=== PATIENT | female | born 1980 | race Hispanic/Latino ===

== ENCOUNTER 2019-08-19 02:21 | Inpatient (IN) | payer MEDICAID ==
[~2019-08-19] VITALS: Ht 144.8 cm; Wt 84.4 kg
--- OUTSIDE RECORDS SUMMARY | ~2019-08-19 | XMS | Encounter Summary ---
Demographics + + + | Address | [address] | | | [place] [address] | + + + | Home Phone | | + + + | Preferred Language | Unknown | + + + | Marital Status | | + + + | Synagogue Affiliation | 1041 | + + + | Race | Unknown | + + + | Ethnic Group | Unknown | + + + Author + + + | Author | [facility] | | | and [place] | + + + | Organization | [facility] | | | and [place] | + + + | Address | Unknown | + + + | Phone | Unavailable | + + + Support + + + + + | Name | Relationship | Address | Phone | + + + + + | Sekou Dougherty | ECON | [address] | | | | | [place] | | | | | [place] [address] | | + + + + + Care Team Providers + +------+ + | Care Proposal Coordinator Name | Role | Phone | + +------+ + | Dillon Govea MD | PCP | | + +------+ + Encounter Details +--------+ + + + + | Date | Type | Department | Care Team | Description | +--------+ + + + + | 06/22/ | Orders Only | [facility] | Dillon Govea, | | | 2018 | | MEDICINE [address] | [address] [facility] | | | | | [address] [place] | [place] | | | | | [place] [id number] | [id number] | | | | | [phone] | | | +--------+ + + + + Social History + +-------+ +--------+------+ | Tobacco Use | Types | Packs/Day | Years | Date | | | | | Used | | + +-------+ +--------+------+ | Never Smoker | | | | | + +-------+ +--------+------+ + +---+---+---+ | Smokeless Tobacco: | | | | | Never Used | | | | + +---+---+---+ + + +---------+ + | Alcohol Use | Drinks/Week | oz/Week | Comments | + + +---------+ + | Yes | | | occasionaly | + + +---------+ + + + + | Sex Assigned at | Date Recorded | | | | + + + | Not on file | | + + + + + + + | Job Start Date | Occupation | Industry | + + + + | Not on file | Not on file | Not on file | + + + + + + + + | Travel History | Travel Start | Travel End | + + + + + + | No recent travel history available. | + + documented as of this encounter Plan of Treatment Not on filedocumented as of this encounter Visit Diagnoses Not on filedocumented in this encounter"
--- OUTSIDE RECORDS SUMMARY | ~2019-08-19 | XMS | Encounter Summary ---
Demographics + + + | Address | [address] | | | [place] [address] | + + + | Home Phone | | + + + | Preferred Language | Unknown | + + + | Marital Status | | + + + | Buddhist Affiliation | 1041 | + + + | Race | Unknown | + + + | Ethnic Group | Unknown | + + + Author + + + | Author | [facility] | | | and [place] | + + + | Organization | [facility] | | | [...] [address] | | | | | [place] | | | | | [place] [address] | | + + + + + Care Team Providers + +------+ + | Care Stock Receiver Name | Role | Phone | + +------+ + | Dillon Govea MD | PCP | | + +------+ + Reason for Visit + + + | Reason | Comments | + + + | Cough | | + + + | Sore Throat | | + + + Encounter Details +--------+ + + + + | Date | Type | Department | Care Team | Description | +--------+ + + + + | 04/25/ | Emergency | [facility] | Remigio Banda | Bronchitis with | | 2018 | | [facility] | [facility] [place] [address] | bronchospasm | | | | CENTER [address] | [address] [facility] | (Primary Dx) | | | | [place], [place] | [place] [address] | | | | | [address] | [phone] | | | | | [phone] | | | +--------+ + + + [...] + + documented as of this encounter Last Filed Vital Signs + + + + + | Vital Sign | Reading | Time Taken | Comments | + + + + + | Blood Pressure | 134/79 | 04/25/2019 7:42 PM | | | | | PDT | | + + + + + | Pulse | 117 | 04/25/2019 8:55 PM | | | | | PDT | | + + + + + | Temperature | 38.8 C (101.8 F) | 04/25/2019 7:42 PM | | | | | PDT | | + + + + + | Respiratory Rate | 22 | 04/25/2019 8:55 PM | | | | | PDT | | + + + + + | Oxygen Saturation | 97% | 04/25/2019 8:55 PM | | | | | PDT | | + + + + + | Inhaled Oxygen | - | - | | | Concentration | | | | + + + + + | Weight | 77.1 kg (170 lb) | 04/25/2019 7:42 PM | | | | | PDT | | + + + + + | Height | 144.8 cm (4' 9") | 04/25/2019 7:42 PM | | | | | PDT | | + + + + + | Body Mass Index | 36.79 | 04/25/2019 7:42 PM | | | | | PDT | | + + + + + documented in this encounter Discharge Instructions AttachmentsThe following attachments cannot be sent through Care Everywhere.Bronchitis with Wheezing (Adult) ([place])documented in this encounter Medications at Time of Discharge + + + +---------+ + + | Medication | Sig | Dispensed | Refills | Start | End Date | | | | | | Date | | + + + +---------+ + + | acetaminophen | Take 650 mg by mouth | | 0 | | | | (TYLENOL) 325 mg | every 4 hours as | | | | 9 | | tablet | needed for Pain. | | | | | + + + +---------+ + + | albuterol 90 | Inhale 2 puffs into | 1 | 0 | 04/25/20 | | | mcg/puff inhaler | the lungs every 6 | Inhaler | | 19 | 9 | | | hours as needed for | | | | | | | Wheezing. | | | | | + + + +---------+ + + | albuterol 90 | Inhale 2 puffs into | 1 | 0 | 02/11/20 | | | mcg/puff inhaler | the lungs every 4 | Inhaler | | 19 | 9 | | | hours as needed for | | | | | | | Wheezing or | | | | | | | Shortness of Breath. | | | | | | | Use with spacer | | | | | | | device. | | | | | + + + +---------+ + + | azithromycin | Take 2 tablets by | 6 | 0 | 04/25/20 | | | (ZITHROMAX) 250 mg | mouth on day 1, and | tablet | | 19 | 9 | | tablet | 1 tablet by mouth | | | | | | | every day | | | | | + + + +---------+ + + | | Take 10 mLs by mouth | 120 mL | 0 | 04/25/20 | | | guaiFENesin-codeine | every 6 hours as | | | 19 | 0 | | (ROBITUSSIN AC) | needed for Cough. | | | | | | 100-10 mg/5 mL | | | | | | | liquid | | | | | | + + + +---------+ + + | ibuprofen | Take 1 tablet by | 30 | 0 | 04/25/20 | | | (ADVIL,MOTRIN) 600 | mouth every 6 hours | tablet | | 19 | 9 | | MG tablet | as needed for Pain. | | | | | + + + +---------+ + + | ibuprofen | Take 600 mg by mouth | | 0 | | | | (ADVIL,MOTRIN) 600 | every 6 hours as | | | | 9 | | MG tablet | needed for Pain. | | | | | + + + +---------+ + + | predniSONE | Take 1 tablet by | 5 | 0 | 04/25/20 | | | (DELTASONE) 50 mg | mouth Daily for 5 | tablet | | 19 | 9 | | tablet | days. | | | | | + + + +---------+ + + documented as of this encounter Plan of Treatment Not on filedocumented as of this encounter Procedures + +--------+ + + + | Procedure Name | Priori | Date/Time | Associated Diagnosis | Comments | | | ty | | | | + +--------+ + + + | XR CHEST AP PORTABLE | STAT | 04/25/2019 | | Results for this | | | | 8:45 PM | | procedure are in the | | | | PDT | | results section. | + +--------+ + + + documented in this encounter Results XR Chest AP Portable (04/25/2019 8:45 PM PDT) + + | Specimen | + + | | + + + + + | Narrative | Performed At | + + + | CLINICAL INFORMATION: COUGH SORE THROAT. COMPARISON: | [facility] | | 02/10/2019. FINDINGS: Portable frontal chest radiograph | | | Lungs: No focal airspace disease, pleural effusion, or pneumothorax. | | | Minimal scarring at the left lung base. Heart/mediastinum: | | | Cardiac silhouette is of normal size. Central pulmonary vasculature | | | has a normal appearance. Bones: No acute osseous abnormality | | | appreciated. IMPRESSION - No acute disease. Dictated and | | | Signed by: Kel Jones MD Electronically signed: 04/26/2019 | | | 2:13 PM | | + + + + + | Procedure Note | + + | Vaibhav, Rad Results In - 04/26/2019 2:16 PM PDT | | CLINICAL INFORMATION: COUGH | | SORE THROAT. | | | | COMPARISON: 02/10/2019. | | | | FINDINGS: | | Portable frontal chest radiograph | | | | Lungs: No focal airspace disease, pleural effusion, or pneumothorax. Minimal | | scarring at the left lung base. | | | | Heart/mediastinum: Cardiac silhouette is of normal size. Central pulmonary | | vasculature has a normal appearance. | | | | Bones: No acute osseous abnormality appreciated. | | | | IMPRESSION - No acute disease. | | | | Dictated and Signed by: Kel Jones MD | | Electronically signed: 04/26/2019 2:13 PM | + + + +---------+ + + | Performing | Address | City/State/Zipcode | Phone Number | | Organization | | | | + +---------+ + + | [facility] | | | | + +---------+ + + documented in this encounter Visit Diagnoses + + | Diagnosis | + + | Bronchitis with bronchospasm - Primary Acute bronchitis | + + documented in this encounter Administered Medications + +--------+ +-------+------+------+ | Medication Order | MAR | Action | Dose | Rate | Site | | | Action | Date | | | | + +--------+ +-------+------+------+ | albuterol-ipratropium 2.5-0.5 | Given | 04/25/20 | 3 mLs | | | | mg/3 mL nebulizer solution 3 mL | | 19 8:51 | | | | | 3 mL, Nebulization, ONCE, Sat | | PM PDT | | | | | 04/25/19 at 2040, For 1 dose | | | | | | + +--------+ +-------+------+------+ +---+---+ | | | +---+---+ + +-------+ +-------+---+---+ | dexamethasone (DECADRON) 10 | Given | 04/25/20 | 10 mg | | | | mg/mL injection for oral use 10 | | 19 8:48 | | | | | mg 10 mg, Oral, ONCE, Sat | | PM PDT | | | | | 04/25/19 at 2039, For 1 dose, Use | | | | | | | dexamethasone 10 mg/mL vial for | | | | | | | inject for this oral dose, | | | | | | + +-------+ +-------+---+---+ +---+---+ | | | +---+---+ + +-------+ +--------+---+---+ | guaiFENesin-codeine (ROBITUSSIN | Given | 04/25/20 | 10 mLs | | | | AC) 100-10 mg/5 mL liquid 10 mL | | 19 8:49 | | | | | 10 mL, Oral, ONCE, 04/25/19 | | PM PDT | | | | | at 2039, For 1 dose | | | | | | + +-------+ +--------+---+---+ +---+---+ | | | +---+---+ + +-------+ +--------+---+---+ | ibuprofen (ADVIL,MOTRIN) tablet | Given | 04/25/20 | 600 mg | | | | 600 mg 600 mg, Oral, ONCE, Sat | | 19 8:49 | | | | | 04/25/19 at 2039, For 1 dose, Give | | PM PDT | | | | | with food., | | | | | | + +-------+ +--------+---+---+ +---+---+ | | | +---+---+ + +-------+ + +---+---+ | oxyCODONE-acetaminophen | Given | 04/25/20 | 1 tablet | | | | (PERCOCET) 5-325 mg per tablet 1 | | 19 8:49 | | | | | tablet 1 tablet, Oral, ONCE, Sat | | PM PDT | | | | | 04/25/19 at 2039, For 1 dose | | | | | | + +-------+ + +---+---+ +---+---+ | | | +---+---+ documented in this encounter
--- OUTSIDE RECORDS SUMMARY | ~2019-08-19 | XMS | Encounter Summary ---
Demographics + + + | Address | [address] | | | [place] [address] | + + + | Home Phone | | + + + | Preferred Language | Unknown | + + + | Marital Status | | + + + | Gnosticism Affiliation | 1041 | + + + | Race | Unknown | + + + | Ethnic Group | Unknown | + + + Author + + + | Author | [facility] | | | and [place] | + + + | Organization | [facility] | | | [...] Darrian [address] | | | | | [address] [place] | | | | | [place] [address] | | + + + + + Care Team Providers + +------+ + | Care Dowel Pin Man Name | Role | Phone | + +------+ + | Dillon Govea MD | PCP | | + +------+ + Reason for Referral Evaluate & Treat (Routine) + + + + + + + | Status | Reason | Specialty | Diagnoses / | Referred By | Referred To | | | | | Procedures | Contact | Contact | + + + + + + + | Authorized | Specialty | Obstetrics | Diagnoses | Brown, | Phil, | | | Services | and | Cyst of | Donald Gonzalez, | Stone | | | Required | Gynecology | left ovary | MD [address] [place] | | | | | | [address] | MD [place] | | | | | | [facility] | [address] | | | | | | [place], | [place] | | | | | | [place] | [place], [place] | | | | | | [address] | [address] | | | | | | Phone: | Phone: | | | | | | [phone] | [phone] | | | | | | Fax: | | | | | | | [phone] | | + + + + + + + Reason for Visit + + + | Reason | Comments | + + + | Flank Pain | right | + + + | Cough | | + + + | Wheezing | | + + + Encounter Details +--------+ + + + + | Date | Type | Department | Care Team | Description | +--------+ + + + + | 06/14/ | Emergency | [facility] | Donald Arriaga, | Bronchitis with | | 2018 | | [facility] | MD [address] | bronchospasm | | | | CENTER [address] | [facility] [place] | (Primary Dx); Cyst | | | | [place], [place] | [place] [address] | of left ovary | | | | [address] | [phone] | | | | | [phone] | | | +--------+ + + + [...] + + + | Blood Pressure | 146/87 | 06/14/2019 4:32 AM | | | | | PST | | + + + + + | Pulse | 84 | 06/14/2019 4:32 AM | | | | | PST | | + + + + + | Temperature | 36.8 C (98.3 F) | 06/14/2019 1:27 AM | | | | | PDT | | + + + + + | Respiratory Rate | 18 | 06/14/2019 4:32 AM | | | | | PST | | + + + + + | Oxygen Saturation | 96% | 06/14/2019 4:32 AM | | | | | PST | | + + + + + | Inhaled Oxygen | - | - | | | Concentration | | | | + + + + + | Weight | 74.8 kg (165 lb) | 06/14/2019 1:27 AM | | | | | PDT | | + + + + + | Height | 144.8 cm (4' 9") | 06/14/2019 1:27 AM | | | | | PDT | | + + + + + | Body Mass Index | 35.71 | 06/14/2019 1:27 AM | | | | | PDT | | + + + + + documented in this encounter Discharge Instructions Instructions Donald Arriaga MD - 06/14/2019Take the medicines as prescribed Outpatient pelvic ultrasound Follow-up with [facility] Follow-up with primary care AttachmentsThe following attachments cannot be sent through Care Everywhere.Ovarian Cyst (E nglish)Bronchitis, Acute (Cambodian)documented in this encounter Medications at Time of [...] puffs into | 1 | 0 | 06/14/20 | | | mcg/puff inhaler | the lungs every 4 | Inhaler | | 19 | 0 | | | hours as needed for [...] + +---------+ + + | | Take 1-2 tablets by | 16 | 0 | 06/14/20 | | | HYDROcodone-acetamin | mouth every 6 hours | tablet | | 19 | 9 | | ophen (NORCO) 5-325 | as needed for Pain. | | | | | | mg per tablet | | | | | | + + + +---------+ + + | methylPREDNISolone | Follow package | 21 | 0 | 06/14/20 | | | (MEDROL DOSEPAK) 4 | directions. | tablet | | 19 | 0 | | mg tablet | | | | | | + + + +---------+ + + | ondansetron | Take 1 tablet by | 12 | 0 | 06/14/20 | | | (ZOFRAN ODT) 4 mg | mouth every 8 hours | tablet | | 19 | 9 | | disintegrating | as needed for up to | | | | | | tablet | 12 doses. | | | | | + + + +---------+ + + documented as of this encounter Plan of Treatment +--------+---------+ + + + | Date | Type | Specialty | Care Team | Description | +--------+---------+ + + + | 08/20/ | Office | Internal Medicine | Dillon Govea, | | | 2019 | Visit | | MD [facility] | | | | | | [place] | | | | | | [id number] | | | | | | | | +--------+---------+ + + + + +---------+--------+ + + | Name | Type | Priori | Associated Diagnoses | Order Schedule | | | | ty | | | + +---------+--------+ + + | US Pelvis W | Imaging | Routin | Cyst of left ovary | Expected: | | Transvaginal | | e | | 06/14/2019, Expires: | | | | | | 06/14/2020 | + +---------+--------+ + + + + +--------+ + + | Name | Type | Priori | Associated Diagnoses | Order Schedule | | | | ty | | | + + +--------+ + + | [place] | Outpatient | Routin | Cyst of left ovary | Ordered: 06/14/2019 | | [facility] | Referral | e | | | | [facility] - | | | | | | AMB Referral | | | | | + + +--------+ + + documented as of this encounter Procedures + +--------+ + + + | Procedure Name | Priori | Date/Time | Associated Diagnosis | Comments | | | ty | | | | + +--------+ + + + | CT RENAL STONE WO | STAT | 06/14/2019 | | Results for this | | CONTRAST | | 3:30 AM | | procedure are in the | | | | PST | | results section. | + +--------+ + + + | POCT TEST, | STAT | 06/14/2019 | | Results for this | | URINE, QUAL | | 1:51 AM | | procedure are in the | | | | PDT | | results section. | + +--------+ + + + | XR CHEST AP PORTABLE | STAT | 06/14/2019 | | Results for this | | | | 1:46 AM | | procedure are in the | | | | PDT | | results section. | + +--------+ + + + | URINALYSIS WITH | STAT | 06/14/2019 | | Results for this | | MICROSCOPIC WITH | | 1:35 AM | | procedure are in the | | CULTURE IF INDICATED | | PDT | | results section. | + +--------+ + + + documented in this encounter Results CT Renal Stone Wo Contrast (06/14/2019 3:30 AM PST) + + | Specimen | + + | | + + + + + | Narrative | Performed At | + + + | CT ABDOMEN AND PELVIS WITHOUT CONTRAST CLINICAL INFORMATION: | [facility] | | Flank pain. COMPARISON: None PROCEDURE: Axial images | | | through the abdomen and pelvis. Multiplanar reconstructions. At | | | least one of the following CT dose optimization techniques were used: | | | Automated exposure control; Adjustment of mA and/or kV according to | | | patient size; Use of iterative reconstruction technique. FINDINGS: | | | LUNG BASES: No significant pulmonary abnormality. No pleural | | | effusion or pneumothorax. ABDOMEN Liver and Biliary: Hepatic | | | steatosis. Gallbladder is normal. No biliary ductal dilatation. | | | Pancreas, Spleen and Adrenals: Normal adrenal, spleen and pancreas | | | morphology, without adjacent stranding or hematoma. 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 No hydronephrosis. No | | | renal, ureteral, or bladder calculi. ABDOMEN AND PELVIS Bowel: | | | No small bowel or colonic dilation or adjacent inflammation. No | | | appendiceal dilation or inflammation. Vessels: Abdominal aorta normal | | | in caliber. No aneurysm. Veins not assessed without contrast. | | | Lymph Nodes: No adenopathy. Peritoneum and Retroperitoneum: No | | | ascites or free air. No significant retroperitoneal abnormality. | | | PELVIS Genitourinary: There is a large cystic lesion measuring 9.8 x | | | 12.3 cm within the central upper pelvis which appears to be emanating | | | from the left ovary. BODY WALL Soft Tissues: No bowel or | | | inflamed fat containing hernia, mass or hemorrhage. Bones: No acute | | | fracture or vertebral end plate destruction. No lytic or blastic | | | lesion. 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 IMPRESSION- 1. | | | 12.3 cm cystic lesion within the central pelvis which appears to | | | emanate from the left ovary. See recommendations below. 2. No | | | renal, ureteral, or bladder calculi. 3. Hepatic steatosis. 4. 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 Ovary/adnexal follow up recommendation: Ovarian | | | cysts with features such as, non-characteristic symptomatic cysts, | | | cysts greater than 10 cm, cysts with solid components, mural nodules, | | | thick septations or other signs of malignancy warrant further | | | evaluation. This may be performed with prompt ultrasound evaluation | | | and/or gynecologic consultation. A preliminary report was | | | sent without significant discrepancy. Dictated and Signed by: Cedric | | | MD Gloria Electronically signed: 06/14/2019 8:21 AM | | + + + + + | Procedure Note | + + | Vaibhav, Rad Results In - 06/14/2019 8:24 AM PST | | CT ABDOMEN AND PELVIS WITHOUT CONTRAST | | | | CLINICAL INFORMATION: | | Flank pain. | | | | COMPARISON: | | None | | | | PROCEDURE: | | Axial images through the abdomen and pelvis. Multiplanar | | reconstructions. | | | | At least one of the following CT dose optimization techniques were | | used: Automated exposure control; Adjustment of mA and/or kV according | | to patient size; Use of iterative reconstruction technique. | | | | FINDINGS: | | LUNG BASES: No significant pulmonary abnormality. No pleural effusion | | or pneumothorax. | | | | ABDOMEN | | Liver and Biliary: Hepatic steatosis. Gallbladder is normal. No | | biliary ductal dilatation. | | Pancreas, Spleen and Adrenals: Normal adrenal, spleen and pancreas | | morphology, without adjacent stranding or hematoma. | | Kidneys: The right kidney is duplicated and malrotated. No hydronephrosis. | | No renal, ureteral, or bladder calculi. | | | | ABDOMEN AND PELVIS | | Bowel: No small bowel or colonic dilation or adjacent inflammation. No | | appendiceal dilation or inflammation. | | Vessels: Abdominal aorta normal in caliber. No aneurysm. Veins not | | assessed without contrast. | | Lymph Nodes: No adenopathy. | | Peritoneum and Retroperitoneum: No ascites or free air. No significant | | retroperitoneal abnormality. | | | | PELVIS | | Genitourinary: There is a large cystic lesion measuring 9.8 x 12.3 cm | | within the central upper pelvis which appears to be emanating from the | | left ovary. | | | | BODY WALL | | Soft Tissues: No bowel or inflamed fat containing hernia, mass or | | hemorrhage. | | Bones: No acute fracture or vertebral end plate destruction. No lytic | | or blastic lesion. Bilateral hip acetabular over coverage of the hips compatible | | with Pincer Type acetabular CAM deformity. | | | | | | IMPRESSION- | | 1. 12.3 cm cystic lesion within the central pelvis which appears to emanate from | | the left ovary. See recommendations below. | | 2. No renal, ureteral, or bladder calculi. | | 3. Hepatic steatosis. | | 4. Bilateral hip acetabular over coverage of the hips compatible with Pincer | | Type acetabular CAM deformity. | | 5. Duplicated and malrotated right kidney. | | | | Ovary/adnexal follow up recommendation: Ovarian cysts with features | | such as, non-characteristic symptomatic cysts, cysts greater than 10 | | cm, cysts with solid components, mural nodules, thick septations or | | other signs of malignancy warrant further evaluation. This may be | | performed with prompt ultrasound evaluation and/or gynecologic | | consultation. | | | | | | A preliminary report was sent without significant discrepancy. | | | | Dictated and Signed by: Cedric Castro MD | | Electronically signed: 06/14/2019 8:21 AM | + + + +---------+ + + | Performing | Address | City/State/Zipcode | Phone Number | | Organization | | | | + +---------+ + + | [facility] | | | | + +---------+ + + POCT Test, Urine, QUAL (06/14/2019 1:51 AM PDT) + + + + + + | Component | Value | Ref Range | Performed | Pathologist | | | | | At | Signature | + + + + + + | | Negative | Negative | | | | Test, | | | | | | Urine, POC | | | | | + + + + + + | Internal QC | Acceptable | Acceptable | | | + + + + + + | Specific | 1.010 | 1.010, 1.015, | | | | [place], | | 1.020, 1.025 | | | | POC | | | | | + + + + + + | Lot Number | | | | | + + + + + + | Expiration | | | | | | Date | | | | | + + + + + + + + | Specimen | + + | Urine | + + XR Chest AP Portable (06/14/2019 1:46 AM PDT) + + | Specimen | + + | | + + + + + | Impressions | Performed At | + + + | No acute intrathoracic abnormality identified. Dictated and | [facility] | | Signed by: Cedric Castro MD Electronically signed: 06/14/2019 | | | 10:46 AM | | + + + + + + | Narrative | Performed At | + + + | XR CHEST AP PORTABLE 06/14/2019 1:40 AM HISTORY: FLANK PAIN | [facility] | | COUGH WHEEZING. COMPARISON: 04/25/2019 Findings: The | | | bilateral lungs are clear with no evidence for pleural effusion or | | | pneumothorax. Heart size is within normal limits. Pulmonary | | | vasculature is within normal limits. Aorta is normal. Mediastinum is | | | unremarkable. No acute osseous or soft tissue abnormality identified. | | | | | + + + + + | Procedure Note | + + | Vaibhav, Rad Results In - 06/14/2019 10:49 AM PST XR CHEST AP PORTABLE 06/14/2019 1:40 AM | | | | HISTORY: FLANK PAIN | | COUGH | | WHEEZING. | | | | COMPARISON: 04/25/2019 | | | | Findings: | | The bilateral lungs are clear with no evidence for pleural effusion or | | pneumothorax. Heart size is within normal limits. Pulmonary vasculature is | | within normal limits. Aorta is normal. Mediastinum is unremarkable. No acute | | osseous or soft tissue abnormality identified. | | | | IMPRESSION: | | No acute intrathoracic abnormality identified. | | | | Dictated and Signed by: Cedric Castro MD | | Electronically signed: 06/14/2019 10:46 AM | + + + +---------+ + + | Performing | Address | City/State/Zipcode | Phone Number | | Organization | | | | + +---------+ + + | [facility] | | | | + +---------+ + + Urinalysis with Microscopic with Culture if Indicated (06/14/2019 1:35 AM PDT) + + + + + + | Component | Value | Ref Range | Performed | Pathologist | | | | | At | Signature | + + + + + + | Color, | Yellow | Light Yellow, | [facility] | | | Urine | | Yellow, Straw | [facility] | | | | | | [facility] | | | | | | [facility] - | | | | | | LABORATORY | | + + + + + + | Clarity | Cloudy (A) | Clear | [facility] | | | | | | [facility] | | | | | | [facility] | | | | | | [facility] - | | | | | | LABORATORY | | + + + + + + | pH, Urine | 5.0 | 5.0 - 8.0 | [facility] | | | | | | [facility] | | | | | | [facility] | | | | | | [facility] - | | | | | | LABORATORY | | + + + + + + | Specific | 1.017 | 1.001 - 1.030 | [facility] | | | [place] | | | [facility] | | | | | | [facility] | | | | | | [facility] - | | | | | | LABORATORY | | + + + + + + | Protein, | Negative | Negative | [facility] | | | Urine | | | [facility] | | | | | | [facility] | | | | | | [facility] - | | | | | | LABORATORY | | + + + + + + | Blood, | Small (A) | Negative | [facility] | | | Urine | | | [facility] | | | | | | [facility] | | | | | | [facility] - | | | | | | LABORATORY | | + + + + + + | Glucose, | Negative | Negative | [facility] | | | Urine | | | [facility] | | | | | | [facility] | | | | | | [facility] - | | | | | | LABORATORY | | + + + + + + | Ketones, | Negative | Negative | [facility] | | | Urine | | | [facility] | | | | | | [facility] | | | | | | [facility] - | | | | | | LABORATORY | | + + + + + + | Bilirubin, | Negative | Negative | [facility] | | | Urine | | | [facility] | | | | | | [facility] | | | | | | [facility] - | | | | | | LABORATORY | | + + + + + + | Nitrite, | Negative | Negative | [facility] | | | Urine | | | [facility] | | | | | | [facility] | | | | | | [facility] - | | | | | | LABORATORY | | + + + + + + | Leukocyte | Trace (A) | Negative | [facility] | | | Esterase, | | | [facility] | | | Urine | | | MEDICAL | | | | | | CENTER - | | | | | | LABORATORY | | + + + + + + | Urobilinoge | Negative | 0.2 mg/dL, 1.0 | [facility] | | | n, Urine | | mg/dL, Negative | [facility] | | | | | | [facility] | | | | | | C[facility] - | | | | | | LABORATORY | | + + + + + + | WBC UA | 2-5 (A) | 0 - 2 /HPF | [facility] | | | | | | [facility] | | | | | | [facility] | | | | | | [facility] - | | | | | | LABORATORY | | + + + + + + | RBC UA | 0-2 | 0 - 2 /HPF | [facility] | | | | | | [facility] | | | | | | [facility] | | | | | | [facility] - | | | | | | LABORATORY | | + + + + + + | SQUAMOUS | >100 (A) | 0 - 2 /LPF | [facility] | | | EPITHELIAL | | | [facility] | | | UA | | | MEDICAL | | | | | | CENTER - | | | | | | LABORATORY | | + + + + + + | BACTERIA UA | Negative | Negative /HPF | [facility] | | | | | | [facility] | | | | | | [facility] | | | | | | C[facility] - | | | | | | LABORATORY | | + + + + + + | MUCUS UA | Present (A) | Negative /LPF | [facility] | | | | | | [facility] | | | | | | [facility] | | | | | | C[facility] - | | | | | | LABORATORY | | + + + + + + | URINE | Urine Culture Not | | [facility] | | | COMMENT | Indicated | | [facility] | | | | | | [facility] | | | | | | C[facility] - | | | | | | LABORATORY | | + + + + + + + + | Specimen | + + | Urine - Urine | | specimen obtained by | | clean catch | | procedure (specimen) | + + + + + + + | Performing | Address | City/State/Zipcode | Phone Number | | Organization | | | | + + + + + | [facility] | [address] | [place] | [phone] | | [facility] | | [address] | | | - LABORATORY | | | | + + + + + documented in this encounter Visit Diagnoses + + | Diagnosis | + + | Bronchitis with bronchospasm - Primary Acute bronchitis | + + | Cyst of left ovary Other and unspecified ovarian cyst | + + documented in this encounter Administered Medications + +--------+ +-------+------+------+ | Medication Order | MAR | Action | Dose | Rate | Site | | | Action | Date | | | | + +--------+ +-------+------+------+ | albuterol-ipratropium 2.5-0.5 | Given | 06/14/20 | 3 mLs | | | | mg/3 mL nebulizer solution 3 mL | | 19 2:36 | | | | | 3 mL, Nebulization, RT Once, Sun | | AM PST | | | | | 06/14/19 at 0135, For 1 dose | | | | | | + +--------+ +-------+------+------+ +---+---+ | | | +---+---+ + +-------+ +------+---+---+ | dexamethasone (DECADRON) tablet | Given | 06/14/20 | 4 mg | | | | 4 mg 4 mg, Oral, ONCE, Sun | | 19 4:27 | | | | | 06/14/19 at 0415, For 1 dose | | AM PST | | | | + +-------+ +------+---+---+ +---+---+ | | | +---+---+ + +-------+ +---------+---+---+ | HYDROcodone-acetaminophen | Given | 06/14/20 | 2 | | | | (NORCO) 5-325 mg per tablet 2 | | 19 1:45 | tablets | | | | tablet 2 tablet, Oral, ONCE, Sun | | AM PDT | | | | | 06/14/19 at 0140, For 1 dose | | | | | | + +-------+ +---------+---+---+ +---+---+ | | | +---+---+ + +-------+ +------+---+---+ | ondansetron (ZOFRAN ODT) | Given | 06/14/20 | 4 mg | | | | disintegrating tablet 4 mg 4 mg, | | 19 1:55 | | | | | Oral, ONCE, 06/14/19 at 0150, | | AM PDT | | | | | For 1 dose | | | | | | + +-------+ +------+---+---+ +---+---+ | | | +---+---+ documented in this encounter
--- OUTSIDE RECORDS SUMMARY | ~2019-08-19 | XMS | Encounter Summary ---
Demographics + + + | Address | [address] | | | [place] [address] | + + + | Home Phone | | + + + | Preferred Language | Unknown | + + + | Marital Status | | + + + | Alevism Affiliation | 1041 | + + + | Race | Unknown | + + + | Ethnic Group | Unknown | + + + Author + + + | Author | [facility] | | | and [place] | + + + | Organization | [facility] | | | [...] [place] | | | | | [place] [address] | | + + + + + Care Team Providers + +------+ + | Care Informatics Spec Name | Role | Phone | + +------+ + | Dillon Govea MD | PCP | | + +------+ + Reason for Visit +--------+ + | Reason | Comments | +--------+ + | Other | | +--------+ + Encounter Details +--------+ + + + + | Date | Type | Department | Care Team | Description | +--------+ + + + + | 07/02/ | Telephone | [facility] | Dillon Govea, | Other | | 2018 | | MEDICINE [address] | [address] | | | [address] [place] | [place] | | | | | [place] [address] | [address] | | | | | [phone] | | | +--------+ + + + [...]
--- OUTSIDE RECORDS SUMMARY | ~2019-08-19 | XMS | Encounter Summary ---
Demographics + + + | Address | [address] | | | [place] [address] | + + + | Home Phone | | + + + | Preferred Language | Unknown | + + + | Marital Status | | + + + | Church Affiliation | 1041 | + + + | Race | Unknown | + + + | Ethnic Group | Unknown | + + + Author + + + | Author | [facility] | | | and [place] | + + + | Organization | [facility] | | | and [place] | + + + | Address | Unknown | + + + | Phone | Unavailable | + + + Support + + + + + | Name | Relationship | Address | Phone | + + + + + | Sekou Dougherty | ECON | [address] | | | | | [place] | | | | | [place] [address] | | + + + + + Care Team Providers + +------+ + | Care Director Economic Name | Role | Phone | + +------+ + | Dillon Govea MD | PCP | | + +------+ + Reason for Visit +--------+ + | Reason | Comments | +--------+ + | Cough | x 4 weeks | +--------+ + Encounter Details +--------+---------+ + + + | Date | Type | Department | Care Team | Description | +--------+---------+ + + + | 11/07/ | Office | [facility] | Caitlyn Beverly | Acute bronchitis due | | 2018 | Visit | [facility] [address] | [address] | to Streptococcus | | | | [address] [place] | [facility] | (Primary Dx) | | | | [place] [address] | [facility], | | | | | [phone] | [place] [address] | | | | | | [phone] | | | | | | | | +--------+---------+ + + + Social History + +-------+ [...] + + + | Blood Pressure | 104/70 | 11/07/2017 10:05 AM | | | | | PDT | | + + + + + | Pulse | 75 | 11/07/2017 10:05 AM | | | | | PDT | | + + + + + | Temperature | 36.7 C (98.1 F) | 11/07/2017 10:05 AM | | | | | PDT | | + + + + + | Respiratory Rate | 16 | 11/07/2017 10:05 AM | | | | | PDT | | + + + + + | Oxygen Saturation | 99% | 11/07/2017 10:05 AM | | | | | PDT | | + + + + + | Inhaled Oxygen | - | - | | | Concentration | | | | + + + + + | Weight | 80 kg (176 lb 5.9 | 11/07/2017 10:05 AM | | | | oz) | PDT | | + + + + + | Height | 144.8 cm (4' 9") | 11/07/2017 10:05 AM | | | | | PDT | | + + + + + | Body Mass Index | 38.17 | 11/07/2017 10:05 AM | | | | | PDT | | + + + + + documented in this encounter Patient Instructions Patient Instructions Caitlyn Beverly ARNP - 11/07/2017 10:14 AM PDT Viral or Bacterial Bronchitis with Wheezing(Adult) Bronchitis is an infection of the air passages. It often occurs during a cold and is usuall y caused by a virus. Symptoms include cough with mucus (phlegm) and low-grade fever. This il lness is contagious during the first few days and is spread through the air by coughing and sneezing, or by direct contact (touching the sick person and then touching your own eyes, no se, or mouth). If there is a lot of inflammation, air flow is restricted. The air passages may also go int o spasm, especially if you have asthma. This causes wheezing and difficulty breathing even i n people who do not have asthma. Bronchitis usually lasts 7 to 14 days. The wheezing should improve with treatment during th e first week. An inhaler is often prescribed to relax the air passages and stop wheezing. An tibiotics will be prescribed if your doctor thinks there is also a secondary bacterial infec tion. Home care If symptoms are severe, rest at home for the first 2 to 3 days. When you go back to your usual activities, don't let yourself get too tired. Do not smoke. Also avoid being exposed to secondhand smoke. You may use jmkq-mjf-kqhdhpr medicine to control fever or pain, unless another medicine was prescribed. Note: If you have chronic liver or kidney disease or have ever had a stomach ulcer or gastrointestinal bleeding, talk with your healthcare provider before using these m edicines. Also talk to your provider if you are taking medicine to prevent blood clots.) Asp irin should never be given to anyone younger than 18 years of age who is ill with a viral in fection or fever. It may cause severe liver or brain damage. Your appetite may be poor, so a light diet is fine. Avoid dehydration by drinking 6 to 8 glasses of fluids per day (such as water, soft drinks, sports drinks, juices, tea, or soup) . Extra fluids will help loosen secretions in the nose and lungs. Rdbe-bcq-wgsthgk cough, cold, and sore-throat medicines will not shorten the length of t he illness, but they may be helpful to reduce symptoms. (Note: Do not use decongestants if y ou have high blood pressure.) If you were given an inhaler, use it exactly as directed. If you need to use it more oft en than prescribed, your condition may be worsening. If this happens, contact your healthcar e provider. If prescribed, finish all antibiotic medicine, even if you are feeling better after only a few days. Follow-up care Follow up with your healthcare provider, or as advised. If you had an X-ray or ECG (electro cardiogram), a specialist will review it. You will be notified of any new findings that may affect your care. If you are age 65 or older, or if you have a chronic lung disease or condition that affects your immune system, or you smoke, ask your healthcare provider about getting a pneumococcal vaccine and a yearly flu shot (influenza vaccine). When to seek medical advice Call your healthcare provider right away if any of these occur: Fever of 100.4F (38C) or higher, or as directed by your healthcare provider Coughing up increasing amounts of colored sputum Weakness, drowsiness, headache, facial pain, ear pain, or a stiff neck Call 911 Call 911 if any of these occur. Coughing up blood Worsening weakness, drowsiness, headache, or stiff neck Increased wheezing not helped with medication, shortness of breath, or pain with breathi ng Date Last Reviewed: 04/24/201519995981-0582 [employer]. [address] [place] [address], [place] [address]. All righ ts reserved. This information is not intended as a substitute for professional medical care. Always follow your healthcare professional's instructions. Self-Care for Sore Throats Sore throats happen for many reasons, such as colds, allergies, and infections caused by vi ruses or bacteria. In any case, your throat becomes red and sore. Your goal for self-care is to reduce your discomfort while giving your throat a chance to heal. Moisten and soothe your throat Tips include the following: Try a sip of water first thing after waking up. Keep your throat moist by drinking6 or more glasses of clear liquids every day. Run a cool-air humidifier in your room overnight. Avoid cigarette smoke. Suck on throat lozenges, cough drops, hard candy, ice chips, or frozen fruit-juice bars. Use the sugar-free versions if your diet or medical condition requires them. Gargle to ease irritation Gargling every hour or2 can ease irritation. Try gargling with1 of these solutions: 1/4teaspoon of salt in1/2 cup of warm water An ynoq-sde-hztvmaq anesthetic gargle Use medicine for more relief Zjej-dyg-ebmftnv medicine can reduce sore throat symptoms. Ask your pharmacist if you have questions about which medicine to use: Ease pain with anesthetic sprays. Aspirin or an aspirin substitute also helps. Remember, never give aspirin to anyone 18 or younger, or if you are alreadytaking blood thinners. For sore throats caused by allergies, try antihistamines to block the allergic reaction. Remember: unless a sore throat is caused by a bacterial infection, antibiotics won t h elp you. Prevent future sore throats Prevention tips include the following: Stop smoking or reduce contact with secondhand smoke. Smoke irritates the tender throat lining. Limit contact with pets and with allergy-causing substances, such as pollen and mold. When you re around someone with a sore throat or cold, wash your hands often to keep v iruses or bacteria from spreading. Don t strain your vocal cords. Call your healthcare provider Contact your healthcare provider if you have: A temperature over 101F (38.3C) White spots on the throat Great difficulty swallowing Trouble breathing A skin rash Recent exposure to someone else with strep bacteria Severe hoarseness and swollen glands in the neck or jaw Date Last Reviewed: 03/12/201619996432-2757 [employer]. [address] [place] [address]. All righ ts reserved. This information is not intended as a substitute for professional medical care. Always follow your healthcare professional's instructions. documented in this encounter Progress Notes Caitlyn Beverly ARNP - 11/07/2017 10:20 AM PDTFormatting of this note might be differ ent from the original. Subjective: Holly Barnes is a 37 y.o. female who presents to the clinic with a complaint of Cough (x 4 weeks) Cough This is a new problem. Episode onset: 4 weeks ago. The problem has been gradually worsening . The problem occurs constantly. The cough is non-productive. Associated symptoms include he adaches, myalgias, postnasal drip, rhinorrhea, a sore throat, shortness of breath and wheezi ng. Pertinent negatives include no chest pain, chills, ear congestion, ear pain, fever, hear tburn, hemoptysis, nasal congestion, rash, sweats or weight loss. The symptoms are aggravate d by lying down. She has tried OTC cough suppressant for the symptoms. The treatment provide d no relief. Her past medical history is significant for bronchitis, environmental allergies and pneumonia. There is no history of asthma. No Known Allergies Medications: Patient Reported Taking Dosage DiphenhydrAMINE HCl (BENADRYL ALLERGY PO) (Taking) Take by mouth. Fexofenadine HCl (MUCINEX ALLERGY PO) (Taking) Take by mouth. ibuprofen (ADVIL, MOTRIN) 200 mg tablet (Taking) Take 1,200 mg by mouth every 6 hours as needed for Pain. Number of times this order has been changed since signin Order Audit [place] Hgrgobwbz-Dhkdkqnxhi-AY-APAP (NYQUIL PO) (Taking) Take by mouth. Past Medical History She has a past medical history of Anxiety; Back pain; Depression; Dry skin dermatitis; Join t pain; and Rash. Past Surgical History She has a past surgical history that includes none. Social History Substance Use Topics Smoking status: Never Smoker Smokeless tobacco: Never Used Alcohol use Yes Comment: occasionaly Review of Systems Constitutional: Negative for chills, fever and weight loss. HENT: Positive for postnasal drip, rhinorrhea and sore throat. Negative for ear pain. Respiratory: Positive for cough, shortness of breath and wheezing. Negative for hemoptysis. Cardiovascular: Negative for chest pain. Gastrointestinal: Negative for heartburn. Musculoskeletal: Positive for myalgias. Skin: Negative for rash. Allergic/Immunologic: Positive for environmental allergies. Neurological: Positive for headaches. See HPI Objective: Vitals: 11/07/17 1005 BP: 104/70 Pulse: 75 Resp: 16 Temp: 36.7 C (98.1 F) TempSrc: Oral SpO2: 99% Weight: 80 kg (176 lb 5.9 oz) Height: 1.448 m (4' 9") Patient's last menstrual period was 10/29/2017. Physical Exam Constitutional: She is oriented to person, place, and time. She appears well-developed and well-nourished. She appears ill. No distress. HENT: Head: Normocephalic and atraumatic. Right Ear: Tympanic membrane, external ear and ear canal normal. Left Ear: Tympanic membrane, external ear and ear canal normal. Nose: Mucosal edema and rhinorrhea present. Mouth/Throat: Uvula is midline and mucous membranes are normal. Oropharyngeal exudate, post erior oropharyngeal edema and posterior oropharyngeal erythema present. Petechiae on soft palate, white patches on tonsils. Moderate erythema and edema of turbinat es with mucoid discharge Eyes: Conjunctivae are normal. Pupils are equal, round, and reactive to light. Right eye ex hibits no discharge. Left eye exhibits no discharge. Neck: Normal range of motion. Neck supple. No tracheal deviation present. Cardiovascular: Regular rhythm, S1 normal, S2 normal and normal heart sounds. Tachycardia present. Exam reveals no gallop and no friction rub. No murmur heard. Pulmonary/Chest: Effort normal. No stridor. No respiratory distress. She has decreased dwain th sounds (mild in bases). She has wheezes (expiratory throughout). She has no rhonchi. She has no rales. She exhibits no tenderness. Lymphadenopathy: Head (right side): Tonsillar adenopathy present. Head (left side): Tonsillar adenopathy present. She has cervical adenopathy. Right cervical: No posterior cervical adenopathy present. Left cervical: No posterior cervical adenopathy present. Neurological: She is alert and oriented to person, place, and time. Skin: Skin is warm and dry. No rash noted. Psychiatric: She has a normal mood and affect. Her behavior is normal. Nursing note and vitals reviewed. Assessment: 1. Acute bronchitis due to Streptococcus azithromycin (ZITHROMAX) 250 mg tablet benzonatate (TESSALON) 100 mg capsule guaiFENesin-codeine (ROBITUSSIN AC) 100-10 mg/5 mL liquid predniSONE (DELTASONE) 20 mg tablet albuterol 90 mcg/puff inhaler Plan: 1. Acute bronchitis due to Streptococcus - azithromycin (ZITHROMAX) 250 mg tablet; Take 2 tablets by mouth on day 1, then 1 tablet d aily for 4 more days Dispense: 6 tablet; Refill: 0 - benzonatate (TESSALON) 100 mg capsule; Take 1-2 capsules by mouth 3 times daily as needed for Cough. Dispense: 30 capsule; Refill: 1 - guaiFENesin-codeine (ROBITUSSIN AC) 100-10 mg/5 mL liquid; Take 5 mLs by mouth nightly as needed, may repeat x 1 for Cough. Dispense: 120 mL; Refill: 0 - predniSONE (DELTASONE) 20 mg tablet; Take 2 tablets by mouth every morning for 5 days. D ispense: 10 tablet; Refill: 0 - albuterol 90 mcg/puff inhaler; Inhale 2 puffs into the lungs every 4 hours as needed for Shortness of Breath. Dispense: 1 Inhaler; Refill: 1 See AVS for patient instructions. Diagnosis and plan including medications and side effects were discussed with the patient a nd information handout was given. Patient voices understanding of the plan and all questions were answered. Follow up with Primary Care Provider or return to clinic if not improving in 3-5 days or if symptoms worsen. documented in this encounter Plan of Treatment Not on filedocumented as of this encounter Visit Diagnoses + + | Diagnosis | + + | Acute bronchitis due to Streptococcus - Primary Acute bronchitis | + + documented in this encounter
--- OUTSIDE RECORDS SUMMARY | ~2019-08-19 | XMS | Encounter Summary ---
Demographics + + + | Address | [address] | | | [place] [address] | + + + | Home Phone | | + + + | Preferred Language | Unknown | + + + | Marital Status | | + + + | Shinto Affiliation | 1041 | + + + | Race | Unknown | + + + | Ethnic Group | Unknown | + + + Author + + + | Author | [facility] | | | and [place] | + + + | Organization | [facility] | | | [...] [place] | | | | | [place] [address] | | + + + + + Care Team Providers + +------+ + | Care Ssis Architect Name | Role | Phone | + +------+ + | Dillon Govea MD | PCP | | + +------+ + Encounter Details +--------+ + + + + | Date | Type | Department | Care Team | Description | +--------+ + + + + | 08/18/ | Patient | [facility] | Dillon Govea, | Preventive Screening | | 2019 | Outreach | MEDICINE [address] | [address] [facility] | | | | | [address] [place] | [place] | | | | | [place] [address] | [address] | | | | | [phone] | | | +--------+ + + + [...] | + +--------+ + + + | EXTERNAL LAB: PAP | Routin | 07/24/2017 | | Results for this | | SMEAR | e | | | procedure are in the | | | | | | results section. | + +--------+ + + + documented in this encounter Results External Lab: PAP Smear (07/24/2017) + + + + + + | Component | Value | Ref Range | Performed | Pathologist | | | | | At | Signature | + + + + + + | Pap Smear, | No evidence of | | | | | External | intraepithelial lesion | | | | | | or malignancy | | | | + + + + + + documented in this encounter Visit Diagnoses Not on filedocumented in this encounter"
--- OUTSIDE RECORDS SUMMARY | ~2019-08-19 | XMS | Encounter Summary ---
Demographics + + + | Address | [address] | | | [place] [address] | + + + | Home Phone | | + + + | Preferred Language | Unknown | + + + | Marital Status | | + + + | Roman Catholic Affiliation | 1041 | + + + | Race | Unknown | + + + | Ethnic Group | Unknown | + + + Author + + + | Author | [facility] | | | and [place] | + + + | Organization | [facility] | | | and [...] [place] | | | | | [place] [address] | | + + + + + Care Team Providers + +------+ + | Care X Ray Tech Name | Role | Phone | + +------+ + | Dillon Govea MD | PCP | | + +------+ + Reason for Visit + + + | Reason | Comments | + + + | ER Follow-up | | + + + Encounter Details +--------+ + + + + | Date | Type | Department | Care Team | Description | +--------+ + + + + | 05/08/ | Telephone | [facility] | Dillon Govea, | ER Follow-up | | 2018 | | MEDICINE [address] | [address] [facility] | | | | | [address] [place] | [place] [facility], [place] | | | | | [place] [address] | [address] | | | | | [phone] | | | +--------+ + + + [...]
--- OUTSIDE RECORDS SUMMARY | ~2019-08-19 | XMS | Encounter Summary ---
Demographics + + + | Address | [address] | | | [place] [address] | + + + | Home Phone | | + + + | Preferred Language | Unknown | + + + | Marital Status | | + + + | Gnosticism Affiliation | 1041 | + + + | Race | Unknown | + + + | Ethnic Group | Unknown | + + + Author + + + | Author | [facility] | | | and [place] | + + + | Organization | [facility] | | | and [...] [place] | | | | | [place] [address] | | + + + + + Care Team Providers + +------+ + | Care Glost Tile Shader Name | Role | Phone | + +------+ + | Dillon Govea MD | PCP | | + +------+ + Reason for Visit + + + | Reason | Comments | + + + | Flu Like Symptoms | | + + + | Chest Pain | | + + + Encounter Details +--------+ + + + + | Date | Type | Department | Care Team | Description | +--------+ + + + + | 08/14/ | Emergency | [facility] | Jose Monterroso | Pneumonia due to | | 2019 - | | [facility] | MD Rafita [address] | infectious organism, | | | | [place] [address] | [facility] | unspecified | | 08/15/ | | [address] | [place] [address] | laterality, | | 2019 | | [address] | [phone] | unspecified part of | | | | [phone] | | lung (Primary Dx) | +--------+ + + + + Social [...] + + + | Blood Pressure | 106/64 | 08/14/2019 11:59 PM | | | | | PST | | + + + + + | Pulse | 94 | 08/14/2019 11:59 PM | | | | | PST | | + + + + + | Temperature | 38 C (100.4 F) | 08/14/2019 10:42 PM | | | | | PST | | + + + + + | Respiratory Rate | 22 | 08/14/2019 8:42 PM | | | | | PST | | + + + + + | Oxygen Saturation | 92% | 08/14/2019 11:59 PM | | | | | PST | | + + + + + | Inhaled Oxygen | - | - | | | Concentration | | | | + + + + + | Weight | 87.1 kg (192 lb) | 08/14/2019 8:42 PM | | | | | PST | | + + + + + | Height | 144.8 cm (4' 9") | 08/14/2019 8:42 PM | | | | | PST | | + + + + + | Body Mass Index | 41.55 | 08/14/2019 8:42 PM | | | | | PST | | + + + + + documented in this encounter Discharge Instructions AttachmentsThe following attachments cannot be sent through Care Everywhere.Mara Escobedo (Polish)Pneumonia, What Is (Polish)Pneumonia, Preventing (Polish)documented in this encounter Medications at Time of Discharge + + + +---------+ + + | Medication | Sig | Dispensed | Refills | Start | End Date | | | | | | Date | | + + + +---------+ + + | acetaminophen | Take 2 tablets by | 32 | 0 | 08/15/19 | | | (TYLENOL) 325 mg | mouth every 6 hours | tablet | | 20 | 0 | | tablet | as needed for Pain | | | | | | | for up to 4 days. | | | | | + + + +---------+ + + | azithromycin | Take 2 tablets by | 6 | 0 | 08/15/19 | | | (ZITHROMAX) 250 mg | mouth on day 1, and | tablet | | 20 | | | tablet | 1 tablet by mouth | | | | | | | every day | | | | | + + + +---------+ + + | cefdinir (OMNICEF) | Take 1 capsule by | 14 | 0 | 08/15/19 | | | 300 mg capsule | mouth 2 times daily | capsule | | 20 | 0 | | | for 7 days. | | | | | + + + +---------+ + + | oseltamivir | Take 1 capsule by | 10 | 0 | 08/14/19 | | | (TAMIFLU) 75 mg | mouth 2 times daily | capsule | | 20 | 0 | | capsuleIndications: | for 5 days. | | | | | | Influenza | Indications: Flu | | | | | + + + +---------+ + + | ibuprofen (ADVIL, | Take 1 tablet by | 12 | 0 | 08/15/19 | | | MOTRIN) 400 mg | mouth every 8 hours | tablet | | 20 | 0 | | tablet | as needed for up to | | | | | | | 3 days. | | | | | + [...] [place] | | | | | | [address] | | | | | | | | +--------+---------+ + + + + + +--------+ + + | Name | Type | Priori | Associated Diagnoses | Date/Time | | | | ty | | | + + +--------+ + + | ED INFORMATION | KHADIJAH | Routin | | 08/14/2019 8:37 PM | | EXCHANGE | | e | | PST | + + +--------+ + + | Culture, Blood | Microbiolog | STAT | | 08/14/2019 10:02 PM | | | y | | | PST | + + +--------+ + + | Culture, Blood | Microbiolog | STAT | | 08/14/2019 9:57 PM | | | y | | | PST | + + +--------+ + + documented as of this encounter Procedures + +--------+ + + + | Procedure Name | Priori | Date/Time | Associated Diagnosis | Comments | | | ty | | | | + +--------+ + + + | XR CHEST AP PORTABLE | STAT | 08/14/2019 | | Results for this | | | | 11:57 PM | | procedure are in the | | | | PST | | results section. | + +--------+ + + + | URINALYSIS WITH | STAT | 08/14/2019 | | Results for this | | MICROSCOPIC WITH | | 9:57 PM | | procedure are in the | | CULTURE IF INDICATED | | PST | | results section. | + +--------+ + + + | INFLUENZA A AND B | STAT | 08/14/2019 | | Results for this | | RNA, NAAT | | 9:57 PM | | procedure are in the | | | | PST | | results section. | + +--------+ + + + | PROCALCITONIN, SERUM | STAT | 08/14/2019 | | Results for this | | | | 9:57 PM | | procedure are in the | | | | PST | | results section. | + +--------+ + + + | TROPONIN I | STAT | 08/14/2019 | | Results for this | | | | 9:57 PM | | procedure are in the | | | | PST | | results section. | + +--------+ + + + | HCG, URINE, QUAL | Add-On | 08/14/2019 | | Results for this | | | | 9:57 PM | | procedure are in the | | | | PST | | results section. | + +--------+ + + + | PROTIME INR | STAT | 08/14/2019 | | Results for this | | | | 9:57 PM | | procedure are in the | | | | PST | | results section. | + +--------+ + + + | D-DIMER | STAT | 08/14/2019 | | Results for this | | | | 9:57 PM | | procedure are in the | | | | PST | | results section. | + +--------+ + + + | CBC WITH | STAT | 08/14/2019 | | Results for this | | DIFFERENTIAL | | 9:57 PM | | procedure are in the | | | | PST | | results section. | + +--------+ + + + | B TYPE NATRIURETIC | STAT | 08/14/2019 | | Results for this | | PEPTIDE | | 9:57 PM | | procedure are in the | | | | PST | | results section. | + +--------+ + + + | LACTIC ACID | STAT | 08/14/2019 | | Results for this | | | | 9:57 PM | | procedure are in the | | | | PST | | results section. | + +--------+ + + + | COMPREHENSIVE | STAT | 08/14/2019 | | Results for this | | METABOLIC PANEL | | 9:57 PM | | procedure are in the | | | | PST | | results section. | + +--------+ + + + | ECG 12 LEAD | STAT | 08/14/2019 | | Results for this | | | | 8:52 PM | | procedure are in the | | | | PST | | results section. | + +--------+ + + + documented in this encounter Results XR Chest AP Portable (08/14/2019 11:57 PM PST) + + | Specimen | + + | | + + + + + | Impressions | Performed At | + + + | Findings are most likely a pneumonia with possible pulmonary | [facility] | | venous congestion. Recommendation: Given the morphology recommend | | | a follow-up in 6-8 weeks to ensure resolution. Dictated and | | | Signed by: Geovany Alfred MD Electronically signed: 08/15/2019 9:21 | | | AM | | + + + + + + | Narrative | Performed At | + + + | EXAM: XR CHEST AP PORTABLE dated 08/14/2019 11:57 PM HISTORY: FLU | [facility] | | LIKE SYMPTOMS CHEST PAIN Comparison: 06/14/2019 TECHNIQUE: A | | | single portable view of the chest. FINDINGS: Prominent | | | pulmonary vasculature bilaterally. There is a somewhat rounded area | | | of consolidation adjacent to the right hilum. There is prominence | | | of the right hilum. Hazy density is present in the right lower | | | lung. There is no blunting of the costophrenic angles. No | | | pneumothorax. There is borderline cardiomegaly. | | + + + + + | Procedure Note | + + | Vaibhav, Rad Results In - 08/15/2019 9:24 AM PST EXAM: XR CHEST AP PORTABLE dated | | 08/14/2019 11:57 PMHISTORY: FLU LIKE SYMPTOMSCHEST PAINComparison: 06/14/2019TECHNIQUE: A | | single portable view of the chest.FINDINGS:Prominent pulmonary vasculature bilaterally. | | There is a somewhat rounded areaof consolidation adjacent to the right hilum. There is | | prominence of the righthilum. Hazy density is present in the right lower lung. There | | is no bluntingof the costophrenic angles. No pneumothorax. There is borderline | | cardiomegaly.IMPRESSION: Findings are most likely a pneumonia with possible pulmonary | | venous congestion.Recommendation: Given the morphology recommend a follow-up in 6-8 | | weeks toensure resolution.Dictated and Signed by: Geovany Alfred MD Electronically | | signed: 08/15/2019 9:21 AM | | | |Prominent pulmonary vasculature bilaterally. There is a somewhat rounded area | |of consolidation adjacent to the right hilum. There is prominence of the right | |hilum. Hazy density is present in the right lower lung. There is no blunting | |of the costophrenic angles. No pneumothorax. There is borderline cardiomegaly. | | | | | |IMPRESSION: | | | |Findings are most likely a pneumonia with possible pulmonary venous congestion. | | | |Recommendation: Given the morphology recommend a follow-up in 6-8 weeks to | |ensure resolution. | | | |Dictated and Signed by: Geovany Alfred MD | | Electronically signed: 08/15/2019 9:21 AM | + + + +---------+ + + | Performing | Address | City/State/Zipcode | Phone Number | | Organization | | | | + +---------+ + + | [facility] | | | | + +---------+ + + , Urine, Qual (08/14/2019 9:57 PM PST) + + + + + + | Component | Value | Ref Range | Performed | Pathologist | | | | | At | Signature | + + + + + + | HCG SCREEN, | Negative | Negative | [facility] | | | URINE | | | [facility] | | | | | | MEDICAL | | | | | | CENTER - | | | | | | LABORATORY | | + + + + + + + + | Specimen | + + | Urine | + + + + + + + | Performing | Address | City/State/Zipcode | Phone Number | | Organization | | | | + + + + + | [facility] | [address] | [place] | [phone] | | [facility] | | [address] | | | - LABORATORY | | | | + + + + + Lactic Acid (08/14/2019 9:57 PM PST) + +-------+ + + + | Component | Value | Ref Range | Performed | Pathologist | | | | | At | Signature | + +-------+ + + + | Lactate | 1.6 | 0.5 - 2.2 | [facility] | | | | | mmol/L | [facility] | | | | | | MEDICAL | | | | | | CENTER - | | | | | | LABORATORY | | + +-------+ + + + + + | Specimen | + + | Blood | + + + + + + + | Performing | Address | City/State/Zipcode | Phone Number | | Organization | | | | + + + + + | [facility] | [address] | [place] | [phone] | | [facility] | | [address] | | | - LABORATORY | | | | + + + + + B Type Natriuretic Peptide (08/14/2019 9:57 PM PST) + + + + + + | Component | Value | Ref Range | Performed | Pathologist | | | | | At | Signature | + + + + + + | BNP | 15Comment: New method in | <100 pg/mL | [facility] | | | | use as of October 08, | | [facility] | | | | 2019. Check reference | | MEDICAL | | | | range for changes.Some | | CENTER - | | | | analytes show | | LABORATORY | | | | significant variation | | | | | | from the previous | | | | | | method.It may be | | | | | | necessary to set a new | | | | | | baseline for this | | | | | | analyte. | | | | + + + + + + + + | Specimen | + + | Blood | + + + + + + + | Performing | Address | City/State/Zipcode | Phone Number | | Organization | | | | + + + + + | [facility] | [address] | [place] | [phone] | | [facility] | | [address] | | | - LABORATORY | | | | + + + + + Troponin I (08/14/2019 9:57 PM PST) + + + + + + | Component | Value | Ref Range | Performed | Pathologist | | | | | At | Signature | + + + + + + | Troponin I | <0.01Comment: | <0.06 ng/mL | [facility] | | | | Comment:Reference | | [facility] | | | | Ranges: 0.00-0.06 = | | MEDICAL | | | | NORMAL >0.06 = | | CENTER - | | | | SUSPICIOUS FOR | | LABORATORY | | | | MYOCARDIAL DAMAGE NOTE: | | | | | | Values greater than | | | | | | 0.78 ng/mL have been | | | | | | shown to be strongly | | | | | | associated with acute | | | | | | myocardial infarction. | | | | | | The [employer] | | | | | | Cardiology (ACC) | | | | | | recommends a decision | | | | | | limit of 0.06 ng/mL for | | | | | | this assay. Results | | | | | | greater than 0.06 can | | | | | | reflect a pre-infarct | | | | | | acute coronary syndrome, | | | | | | but can also reflect | | | | | | myocardial necrosis or | | | | | | injury that is not due | | | | | | to coronary artery | | | | | | disease. Some of these | | | | | | causes are sepsis, | | | | | | hypocolemia, atrial | | | | | | fibrillation, heart | | | | | | failure, pulmonary | | | | | | embolism, myocarditis, | | | | | | myocardial contusion, | | | | | | and renal failure. The | | | | | | diagnosis of myocardial | | | | | | infarction should be | | | | | | based on a combination | | | | | | of the patient's | | | | | | clinical presentation | | | | | | and the clinical | | | | | | laboratory test results | | | | | | (especially serial | | | | | | troponin levels). | | | | + + + + + + + + | Specimen | + + | Blood | + + + + + + + | Performing | Address | City/State/Zipcode | Phone Number | | Organization | | | | + + + + + | [facility] | [address] | [place] | [phone] | | [facility] | | [address] | | | - LABORATORY | | | | + + + + + D-Dimer (08/14/2019 9:57 PM PST) + + + + + + | Component | Value | Ref Range | Performed | Pathologist | | | | | At | Signature | + + + + + + | D-Dimer | <0.27Comment: This | <=0.50 ug/mL | [facility] | | | Quantitativ | quantitative D-Dimer | FEU | [facility] | | | e | assay has been evaluated | | MEDICAL | | | | for screening for | | CENTER - | | | | venous thrombotic | | LABORATORY | | | | disease, and may be | | | | | | useful in ruling out, | | | | | | but not ruling in | | | | | | disease. Values less | | | | | | than 0.50 ug/mL FEU | | | | | | (Fibrinogen Equivalent | | | | | | Units) have a negative | | | | | | predictive value of | | | | | | approximately 95% for | | | | | | ruling out large | | | | | | pulmonary emboli or | | | | | | proximal deep vein | | | | | | thrombosis. Distal DVT | | | | | | are not excluded. An | | | | | | elevated D-dimer can be | | | | | | present in patients with | | | | | | liver disease, | | | | | | , eclampsia, | | | | | | heart disease and some | | | | | | cancers among other | | | | | | conditions. The presence | | | | | | of rheumatoid factor at | | | | | | a level >50 IU/mL may | | | | | | falsely elevate the | | | | | | determined D-dimer | | | | | | levels. | | | | + + + + + + + + | Specimen | + + | Blood | + + + + + + + | Performing | Address | City/State/Zipcode | Phone Number | | Organization | | | | + + + + + | [facility] | [address] | [place] | [phone] | | [facility] | | [address] | | | - LABORATORY | | | | + + + + + Urinalysis with Microscopic with Culture if Indicated (08/14/2019 9:57 PM PST) + + + + + + | Component | Value | Ref Range | Performed | Pathologist | | | | | At | Signature | + + + + + + | Color, | Yellow | Light Yellow, | [facility] | | | Urine | | Yellow, Straw | [facility] | | | | | | MEDICAL | | | | | | CENTER - | | | | | | LABORATORY | | + + + + + + | Clarity | Cloudy (A) | Clear | [facility] | | | | | | [facility] | | | | | | MEDICAL | | | | | | CENTER - | | | | | | LABORATORY | | + + + + + + | pH, Urine | 8.0 | 5.0 - 8.0 | [facility] | | | | | | [facility] | | | | | | MEDICAL | | | | | | CENTER - | | | | | | LABORATORY | | + + + + + + | Specific | 1.013 | 1.001 - 1.030 | [facility] | | | Guild | | | [facility] | | [...] + + + + | Leukocyte | Negative | Negative | [facility] | | | Esterase, | | | [facility] | | | Urine | | | MEDICAL | | | | | | CENTER - | | | | | | LABORATORY | | + + + + + + | Urobilinoge | 2.0 mg/dL (A) | 0.2 mg/dL, 1.0 | [facility] | | | n, Urine | | mg/dL, Negative | [facility] | | | | | | MEDICAL | | | | | | CENTER - | | | | | | LABORATORY | | + + + + + + | WBC UA | 0-2 | 0 - 2 [...] + + + + | SQUAMOUS | 25-50 (A) | 0 - 2 /LPF | [...] | | | | | | [facility] | | | | | | MEDICAL | | | | | | CENTER - | | | | | | LABORATORY | | + + + + + + | AMORPHOUS | Few (A) | None Seen /HPF | [facility] | | | [facility] | | | [facility] | | [...] + + | Urine | + + + + + + + | Performing | Address | City/State/Zipcode | Phone Number | | Organization | | | | + + + + + | [facility] | [address] | [place] | [phone] | | [facility] | | [address] | | | - LABORATORY | | | | + + + + + Influenza A and B RNA, NAAT (08/14/2019 9:57 PM PST) + + + + + + | Component | Value | Ref Range | Performed | Pathologist | | | | | At | Signature | + + + + + + | Influenza A | Negative | Negative, Test | [facility] | | | PCR | | not performed | [facility] | | | | | | [facility] | | | | | | CENTER - | | | | | | LABORATORY | | + + + + + + | Influenza B | Negative | Negative, Test | [facility] | | | PCR | | not performed | [facility] | | | | | | MEDICAL | | | | | | CENTER - | | | | | | LABORATORY | | + + + + + + + + | Specimen | + + | Tissue - Entire | | nasopharynx (body | | structure) | + + + + + + + | Performing | Address | City/State/Zipcode | Phone Number | | Organization | | | | + + + + + | [facility] | [address] | [place] | [phone] | | [facility] | | [address] | | | - LABORATORY | | | | + + + + + Protime INR (08/14/2019 9:57 PM PST) + + + + + + | Component | Value | Ref Range | Performed | Pathologist | | | | | At | Signature | + + + + + + | Prothrombin | 12.6 | 11.3 - 13.9 | [facility] | | | Time | | seconds | [facility] | | | | | | MEDICAL | | | | | | CENTER - | | | | | | LABORATORY | | + + + + + + | INR | 0.9Comment: Usual Oral | 0.9 - 1.1 | [facility] | | | | Anticoagulation Range: | | [facility] | | | | 2.0 - 3.0High | | MEDICAL | | | | Level Oral | | CENTER - | | | | Anticoagulation Range: | | LABORATORY | | | | 2.5 - 3.5 | | | | + + + + + + + + | Specimen | + + | Blood | + + + + + + + | Performing | Address | City/State/Zipcode | Phone Number | | Organization | | | | + + + + + | [facility] | [address] | [place] | [phone] | | [facility] | | [address] | | | - LABORATORY | | | | + + + + + Procalcitonin (08/14/2019 9:57 PM PST) + + + + + + | Component | Value | Ref Range | Performed | Pathologist | | | | | At | Signature | + + + + + + | Procalciton | <0.05 | <=0.50 ng/mL | [facility] | | | in | | | [facility] | | | | | | MEDICAL | | | | | | CENTER - | | | | | | LABORATORY | | + + + + + + | Comment | Comment: < 0.50 | | [facility] | | | | ng/mL:Procalcitonin | | [facility] | | | | levels below 0.50 ng/mL | | MEDICAL | | | | on the first day of | | CENTER - | | | | admission represents a | | LABORATORY | | | | low risk for progression | | | | | | to severe sepsis and/or | | | | | | septic shock, however | | | | | | these do not exclude an | | | | | | infection, because | | | | | | localized infections | | | | | | (without systemic signs) | | | | | | may also be associated | | | | | | with such low levels. | | | | | | > 2.00 | | | | | | ng/mL:Procalcitonin | | | | | | levels above 2.00 ng/mL | | | | | | on the first day of | | | | | | admission represents a | | | | | | high risk for | | | | | | progression to severe | | | | | | sepsis and/or septic | | | | | | shock. If the | | | | | | procalcitonin | | | | | | measurement is performed | | | | | | shortly after the | | | | | | systemic infection | | | | | | process has started | | | | | | (usually less than 6 | | | | | | hours), these values may | | | | | | still be low. As | | | | | | various non-infectious | | | | | | conditions are known to | | | | | | induce procalcitonin as | | | | | | well, procalcitonin | | | | | | levels between 0.50 | | | | | | ng/mL and 2.00 ng/mL | | | | | | should be reviewed | | | | | | carefully to take into | | | | | | account the specific | | | | | | clinical background and | | | | | | condition(s) of the | | | | | | individual patient. | | | | + + + + + + + + | Specimen | + + | Blood | + + + + + + + | Performing | Address | City/State/Zipcode | Phone Number | | Organization | | | | + + + + + | [facility] | [address] | [place] | [phone] | | [facility] | | [address] | | | - LABORATORY | | | | + + + + + Comprehensive Metabolic Panel (08/14/2019 9:57 PM PST) + + + + + + | Component | Value | Ref Range | Performed | Pathologist | | | | | At | Signature | + + + + + + | Na | 138 | 136 - 145 | [facility] | | | | | mmol/L | [facility] | | | | | | MEDICAL | | | | | | CENTER - | | | | | | LABORATORY | | + + + + + + | K | 3.4 | 3.4 - 5.1 | [facility] | | | | | mmol/L | [facility] | | | | | | MEDICAL | | | | | | CENTER - | | | | | | LABORATORY | | + + + + + + | Cl | 103 | 98 - 107 mmol/L | [facility] | | | | | | [facility] | | | | | | MEDICAL | | | | | | CENTER - | | | | | | LABORATORY | | + + + + + + | CO2 | 24 | 20 - 31 mmol/L | [facility] | | | | | | [facility] | | | | | | MEDICAL | | | | | | CENTER - | | | | | | LABORATORY | | + + + + + + | Anion Gap | 11 | 3 - 16 mmol/L | [facility] | | | | | | [facility] | | | | | | MEDICAL | | | | | | CENTER - | | | | | | LABORATORY | | + + + + + + | Glucose | 111 (H) | 60 - 106 mg/dL | [facility] | | | | | | [facility] | | | | | | MEDICAL | | | | | | CENTER - | | | | | | LABORATORY | | + + + + + + | BUN | 7 (L) | 9 - 23 mg/dL | [facility] | | | | | | [facility] | | | | | | MEDICAL | | | | | | CENTER - | | | | | | LABORATORY | | + + + + + + | Creatinine | 0.56 | 0.55 - 1.02 | [facility] | | | | | mg/dL | [facility] | | | | | | MEDICAL | | | | | | CENTER - | | | | | | LABORATORY | | + + + + + + | eGFR if not | >60Comment: GLOMERULAR | >=60 | [facility] | | | | FILTRATION | mL/min/1.73m2 | [facility] | | | DANISH | RATE,ESTIMATED | | MEDICAL | | | | mL/min/1.21c1Fyfb than | | CENTER - | | | | 60 Chronic kidney | | LABORATORY | | | | disease,if found over a | | | | | | 3-month period.Less than | | | | | | 15 Kidney failureFor | | | | | | | | | | | | Americans,multiply the | | | | | | calculated GFR by 1.21. | | | | | | | | | | + + + + + + | Calcium | 9.5 | 8.7 - 10.4 | [facility] | | | | | mg/dL | [facility] | | | | | | MEDICAL | | | | | | CENTER - | | | | | | LABORATORY | | + + + + + + | Albumin | 4.5 | 3.2 - 4.8 g/dL | [facility] | | | | | | [facility] | | | | | | MEDICAL | | | | | | CENTER - | | | | | | LABORATORY | | + + + + + + | Bilirubin | 0.3 | 0.3 - 1.2 mg/dL | [facility] | | | Total | | | [facility] | | | | | | MEDICAL | | | | | | CENTER - | | | | | | LABORATORY | | + + + + + + | Total | 7.1 | 5.7 - 8.2 g/dL | [facility] | | | Protein | | | [facility] | | | | | | MEDICAL | | | | | | CENTER - | | | | | | LABORATORY | | + + + + + + | AST | 49 (H) | 0 - 34 U/L | [facility] | | | | | | [facility] | | | | | | MEDICAL | | | | | | CENTER - | | | | | | LABORATORY | | + + + + + + | ALT | 63 (H) | 10 - 49 U/L | [facility] | | | | | | [facility] | | | | | | MEDICAL | | | | | | CENTER - | | | | | | LABORATORY | | + + + + + + | Alkaline | 113 | 46 - 116 U/L | [facility] | | | Phosphatase | | | [facility] | | | | | | MEDICAL | | | | | | CENTER - | | | | | | LABORATORY | | + + + + + + | Globulin | 2.6 | 2.1 - 3.8 g/dL | [facility] | | | | | | [facility] | | | | | | MEDICAL | | | | | | CENTER - | | | | | | LABORATORY | | + + + + + + | Albumin/Pati | 1.7 | 0.8 - 1.9 | [facility] | | | bulin Ratio | | | [facility] | | | | | | [facility] | | | | | | [facility] - | | | | | | LABORATORY | | + + + + + + | BUN/Creatin | 12.5 | | [facility] | | | ine Ratio | | | [facility] | | | | | | [facility] | | | | | | [facility] - | | | | | | LABORATORY | | + + + + + + + + | Specimen | + + | Blood | + + + + + + + | Performing | Address | City/State/Zipcode | Phone Number | | Organization | | | | + + + + + | [facility] | [address] | [place] | [phone] | | [facility] | | [id number] | | | - LABORATORY | | | | + + + + + CBC with Differential (08/14/2019 9:57 PM PST) + + + + + + | Component | Value | Ref Range | Performed | Pathologist | | | | | At | Signature | + + + + + + | WBC | 7.1 | 4.0 - 11.0 K/uL | [facility] | | | | | | [facility] | | | | | | [facility] | | | | | | [facility] - | | | | | | LABORATORY | | + + + + + + | RBC | 4.65 | 3.70 - 5.20 | [facility] | | | | | M/uL | [facility] | | | | | | [facility] | | | | | | [facility] - | | | | | | LABORATORY | | + + + + + + | Hemoglobin | 12.8 | 11.5 - 16.0 | [facility] | | | | | g/dL | [facility] | [facility] | [facility] | | | | | | [facility] - | | | | | | LABORATORY | | + + + + + + | Hematocrit | 37.7 | 34.0 - 47.0 % | [facility] | | | | | | [facility] | | | | | | [facility] | | | | | | [facility] - | | | | | | LABORATORY | | + + + + + + | MCV | 81.1 (L) | 83.0 - 101.0 fL | [facility] | | | | | | [facility] | [facility] | | | | | | [facility] - | | | | | | LABORATORY | | + + + + + + | MCH | 27.5 (L) | 28.0 - 35.0 pg | [facility] | | | | | | [facility] | | | | | | [facility] | | | | | | [facility] - | | | | | | LABORATORY | | + + + + + + | MCHC | 34.0 | 32.0 - 36.0 | [facility] | | | | | g/dL | [facility] | | | | | | [facility] | | | | | | CENTER - | | | | | | LABORATORY | | + + + + + + | RDW-CV | 14.4 | <15.0 % | [facility] | | | | | | [facility] | [facility] | [facility] | | | | | | [facility] - | | | | | | LABORATORY | | + + + + + + | RDW-SD | 41.9 | 35.1 - 46.3 fL | [facility] | | | | | | [facility] | | | [facility] | [facility] | [facility] | | | | [facility] - | | | | | | LABORATORY | | + + + + + + | Platelet | 206 | 140 - 440 K/uL | [facility] | | | Count | | | [facility] | | | | | | [facility] | | | | | | [facility] - | | | | | | LABORATORY | | + + + + + + | MPV | 9.8 | 6.5 - 12.4 fL | [facility] | | | | | | [facility] | | | | | | [facility] | | | | | | [facility] - | | | | | | LABORATORY | | + + + + + + | % | 69.6 | 45.0 - 82.0 % | [facility] | | | Neutrophils | | | [facility] | | | | | | [facility] | | | | | | CENTER - | | | | | | LABORATORY | | + + + + + + | % | 16.9 (L) | 20.0 - 45.0 % | [facility] | | | Lymphocytes | | | [facility] | | | | | | [facility] | | | | | | CENTER - | | | | | | LABORATORY | | + + + + + + | % Monocytes | 12.1 (H) | 4.0 - 12.0 % | [facility] | | | | | | [facility] | | | | | | [facility] | | | | | | [facility] - | | | | | | LABORATORY | | + + + + + + | % | 0.6 | 0.0 - 5.0 % | [facility] | | | Eosinophils | | | [facility] | | | | | | [facility] | | | | | | CENTER - | | | | | | LABORATORY | | + + + + + + | % Basophils | 0.4 | 0.0 - 1.0 % | [facility] | | | | | | [facility] | | | | | | [facility] | | | | | | CENTER - | | | | | | LABORATORY | | + + + + + + | % Immature | 0.4Comment: For | 0.0 - 0.4 % | [facility] | | | Granulocyte | patients, use the | | [facility] | | | s | special reference ranges | | MEDICAL | | | | listed below. | | CENTER - | | | | | | LABORATORY | | + + + + + + | Absolute | 4.96 | 1.80 - 8.50 | [facility] | | | Neutrophils | | K/uL | [facility] | | | | | | [facility] | | | | | | CENTER - | | | | | | LABORATORY | | + + + + + + | Absolute | 1.20 | 0.60 - 3.20 | [facility] | | | Lymphocytes | | K/uL | [facility] | | | | | | [facility]ICAL | | | | | | CENTER - | | | | | | LABORATORY | | + + + + + + | Absolute | 0.86 | 0.00 - 1.00 | [facility] | | | Monocytes | | K/uL | [facility] | | | | | | [facility]ICAL | | | | | | CENTER - | | | | | | LABORATORY | | + + + + + + | Absolute | 0.04 | 0.00 - 0.40 | [facility] | | | Eosinophils | | K/uL | [facility] | | | | | | [facility]ICAL | | | | | | CENTER - | | | | | | LABORATORY | | + + + + + + | Absolute | 0.03 | 0.00 - 0.10 | [facility] | | | Basophils | | K/uL | [facility] | | | | | | [facility]ICAL | | | | | | CENTER - | | | | | | LABORATORY | | + + + + + + | Absolute | 0.03Comment: For | 0.00 - 0.03 | [facility] | | | Immature | patients, use | K/uL | [facility] | | | Granulocyte | the special reference | | MEDICAL | | | s | ranges listed below. | | CENTER - | | | | | | LABORATORY | | + + + + + + | % nRBC | 0 | 0 - 2 per 100 | [facility] | | | | | WBCs | [facility] | | | | | | MEDICAL | | | | | | CENTER - | | | | | | LABORATORY | | + + + + + + | Absolute | 0.00 | 0.00 - 0.01 | [facility] | | | nRBC | | K/uL | [facility] | | | | | | MEDICAL | | | | | | CENTER - | | | | | | LABORATORY | | + + + + + + + + | Specimen | + + | Blood | + + + + + | Narrative | Performed At | + + + | IMMATURE GRANULOCYTES - For patients, use the following | [facility] | | reference ranges: Trim. Absolute (K/uL) Percentage (%) | [facility] | | 1st 0.003-0.091 K/uL 0.0-0.9% 2nd 0.007-0.247 K/uL | [facility] | | 0.1-2.0% 3rd 0.018-0.456 K/uL 0.1-2.0% | - LABORATORY | + + + + + + + + | Performing | Address | City/State/Zipcode | Phone Number | | Organization | | | | + + + + + | [facility] | [address] | [place] | [phone] | | [facility] | | [id number] | | | - LABORATORY | | | | + + + + + ECG 12 lead (08/14/2019 8:52 PM PST) + + + + + + | Component | Value | Ref Range | Performed | Pathologist | | | | | At | Signature | + + + + + + | VENTRICULAR | 110 | BPM | [facility] | | | RATE EKG | | | | | + + + + + + | ATRIAL RATE | 110 | BPM | [facility] | | + + + + + + | P-R | 132 | ms | [facility] | | | INTERVAL | | | | | + + + + + + | QRS | 82 | ms | [facility] | | | DURATION | | | | | + + + + + + | Q-T | 330 | ms | [facility] | | | INTERVAL | | | | | + + + + + + | Q-T | 446 | ms | [facility] | | | INTERVAL | | | | | | (CORRECTED) | | | | | + + + + + + | P WAVE AXIS | 36 | degrees | [facility] | | + + + + + + | QRS AXIS | 58 | degrees | [facility] | | + + + + + + | T AXIS | 45 | degrees | [facility] | | + + + + + + | INTERPRETAT | Sinus | | [facility] | | | ION TEXT | tachycardiaOtherwise | | | | | | normal ECGNo previous | | | | | | ECGs availableConfirmed | | | | | | by VIOLETTA RODRIGUEZ MD | | | | | | ([id number]) on 08/15/2019 | | | | | | 7:55:36 AM | | | | + + + + + + + + | Specimen | + + | | + + + + + | Narrative | Performed At | + + + | | | + + + + +---------+ + + | Performing | Address | City/State/Zipcode | Phone Number | | Organization | | | | + +---------+ + + | [facility] | | | | + +---------+ + + documented in this encounter Visit Diagnoses + + | Diagnosis | + + | Pneumonia due to infectious organism, unspecified laterality, unspecified part of lung | | - Primary | + + documented in this encounter Administered Medications + +--------+ + +------+------+ | Medication Order | MAR | Action | Dose | Rate | Site | | | Action | Date | | | | + +--------+ + +------+------+ | acetaminophen (TYLENOL) tablet | Given | 08/14/19 | 1,000 mg | | | | 1,000 mg 1,000 mg, Oral, ONCE, | | 20 9:52 | | | | | 08/14/19 at 2130, For 1 dose | | PM PST | | | | + +--------+ + +------+------+ +---+---+ | | | +---+---+ + +-------+ +--------+---+---+ | azithromycin (ZITHROMAX) tablet | Given | 08/15/19 | 500 mg | | | | 500 mg 500 mg, Oral, ONCE, Sat | | 20 12:08 | | | | | 08/15/19 at 0005, For 1 dose, | | AM PST | | | | | Indications: Pneumonia | | | | | | + +-------+ +--------+---+---+ +---+---+ | | | +---+---+ + +-------+ +--------+---+---+ | cefdinir (OMNICEF) capsule 300 | Given | 08/15/19 | 300 mg | | | | mg 300 mg, Oral, ONCE, Sat | | 20 12:08 | | | | | 08/15/19 at 0005, For 1 dose, | | AM PST | | | | | Indications: Pneumonia | | | | | | + +-------+ +--------+---+---+ +---+---+ | | | +---+---+ + +-------+ +--------+---+---+ | ibuprofen (ADVIL,MOTRIN) tablet | Given | 08/14/19 | 600 mg | | | | 600 mg 600 mg, Oral, ONCE, Sat | | 20 9:52 | | | | | 08/14/19 at 2130, For 1 dose, Give | | PM PST | | | | | with food., | | | | | | + +-------+ +--------+---+---+ +---+---+ | | | +---+---+ + +---------+ +--------+-------+---+ | lactated ringers (LR) bolus | New Bag | 08/14/19 | 2,613 | 2613 | | | 2,613 mL 2,613 mL (30 mL/kg | | 20 9:51 | mLs | mL/hr | | | 87.1 kg), Intravenous, | | PM PST | | | | | Administer over 1 Hours, ONCE, | | | | | | | 08/14/19 at 2130, For 1 dose | | | | | | + +---------+ +--------+-------+---+ +---+---+ | | | +---+---+ + +-------+ + +---+---+ | oxyCODONE-acetaminophen | Given | 08/15/19 | 1 tablet | | | | (PERCOCET) 5-325 mg per tablet | | 20 12:08 | | | | | tablet 1 tablet, Oral, ONCE, Sat | | AM PST | | | | | 08/15/19 at 0005, For 1 dose | | | | | | + +-------+ + +---+---+ +---+---+ | | | +---+---+ documented in this encounter
--- OUTSIDE RECORDS SUMMARY | ~2019-08-19 | XMS | Encounter Summary ---
Demographics + + + | Address | [address] | | | [place] [address] | + + + | Home Phone | | + + + | Preferred Language | Unknown | + + + | Marital Status | | + + + | Moravian Affiliation | 1041 | + + + | Race | Unknown | + + + | Ethnic Group | Unknown | + + + Author + + + | Author | [facility] | | | and [place] | + + + | Organization | [facility] | | | and [...] [place] | | | | | [place] [address] | | + + + + + Care Team Providers + +------+ + | Care Tank Bottom Assembler Name | Role | Phone | + +------+ + | Dillon Govea MD | PCP | | + +------+ + Reason for Visit + + + | Reason | Comments | + + + | Cold-like Symptoms | | + + + Encounter Details +--------+ + + + + | Date | Type | Department | Care Team | Description | +--------+ + + + + | 01/20/ | Emergency | [facility] | [place] | Cough (Primary Dx); | | 2017 | | [facility] | MD Rafita [address] | Pneumonia due to | | | | CENTER [address] | [facility] | infectious organism, | | | | [place], [place] | [place] [address] | unspecified | | | | [address] | [phone] | laterality, | | | | [phone] | | unspecified part of | | | | | | lung | +--------+ + + + + Social [...] + + + | Blood Pressure | - | - | | + + + + + | Pulse | 92 | 01/20/2018 8:10 PM | | | | | PDT | | + + + + + | Temperature | 36.9 C (98.5 F) | 01/20/2018 7:21 PM | | | | | PDT | | + + + + + | Respiratory Rate | 20 | 01/20/2018 8:10 PM | | | | | PDT | | + + + + + | Oxygen Saturation | 98% | 01/20/2018 8:10 PM | | | | | PDT | | + + + + + | Inhaled Oxygen | - | - | | | Concentration | | | | + + + + + | Weight | 79.8 kg (176 lb) | 01/20/2018 7:21 PM | | | | | PDT | | + + + + + | Height | 144.8 cm (4' 9") | 01/20/2018 7:21 PM | | | | | PDT | | + + + + + | Body Mass Index | 38.09 | 01/20/2018 7:21 PM | | | | | PDT | | + + + + + documented in this encounter Discharge Instructions AttachmentsThe following attachments cannot be sent through Care Everywhere.Adult, Pneumoni a (Pashto)documented in this encounter Medications at Time of Discharge + + + +---------+ + + | Medication | Sig | Dispensed | Refills | Start | End Date | | | | | | Date | | + + + +---------+ + + | albuterol 90 | Inhale 2 puffs into | 1 | 1 | 11/08/19 | | | mcg/puff | the lungs every 4 | Inhaler | | 18 | 9 | | inhalerIndications: | hours as needed for | | | | | | Acute bronchitis due | Shortness of Breath. | | | | | | to Streptococcus | | | | | | + + + +---------+ + + | azithromycin | Take 2 tablets by | 6 | 0 | 01/21/20 | | | (ZITHROMAX) 250 mg | mouth on day 1, and | tablet | | 18 | 8 | | tablet | 1 tablet by mouth | | | | | | | every day | | | | | + + + +---------+ + + | benzonatate | Take 1 capsule by | 9 | 0 | 01/21/20 | | | (TESSALON) 100 mg | mouth 3 times daily | capsule | | 18 | 8 | | capsule | as needed for Cough | | | | | | | for up to 3 days. | | | | | + + + +---------+ + + | DiphenhydrAMINE | Take by mouth. | | 0 | | | | HCl (BENADRYL | | | | | 9 | | ALLERGY PO) | | | | | | + + + +---------+ + + | Fexofenadine HCl | Take by mouth. | | 0 | | | | (MUCINEX ALLERGY PO) | | | | | 9 | + + + +---------+ + + | | Take 5 mLs by mouth | 120 mL | 0 | 11/08/19 | | | guaiFENesin-codeine | nightly as needed, | | | 18 | 8 | | (ROBITUSSIN AC) | may repeat x 1 for | | | | | | 100-10 mg/5 mL | Cough. | | | | | | liquidIndications: | | | | | | | Acute bronchitis due | | | | | | | to Streptococcus | | | | | | + + + +---------+ + + | ibuprofen (ADVIL, | Take 1 tablet by | 12 | 0 | 01/21/20 | | | MOTRIN) 400 mg | mouth every 8 hours | tablet | | 18 | 8 | | tablet | as needed for up to | | | | | | | 3 days. | | | | | + + + +---------+ + + | | Take by mouth. | | 0 | | | | Pseudoeph-Doxylamine | | | | | 9 | | -DM-APAP (NYQUIL PO) | | | | | | + + + +---------+ + + documented as of this encounter Plan of Treatment Not on filedocumented as of this encounter Visit Diagnoses + + | Diagnosis | + + | Cough - Primary | + + | Pneumonia due to infectious organism, unspecified laterality, unspecified part of lung | + + documented in this encounter Administered Medications + +--------+ +-------+------+------+ | Medication Order | MAR | Action | Dose | Rate | Site | | | Action | Date | | | | + +--------+ +-------+------+------+ | albuterol-ipratropium (DUONEB) | Given | 01/21/20 | 3 mLs | | | | 2.5-0.5 mg/3 mL nebulizer | | 18 8:10 | | | | | solution 3 mL 3 mL, | | PM PDT | | | | | Nebulization, RT Once, Mon | | | | | | | 01/20/18 at 2004, For 1 dose | | | | | | + +--------+ +-------+------+------+ +---+---+ | | | +---+---+ + +-------+ +--------+---+---+ | azithromycin (ZITHROMAX) tablet | Given | 01/21/20 | 500 mg | | | | 500 mg 500 mg, Oral, ONCE, Mon | | 18 8:26 | | | | | 01/20/18 at 2004, For 1 dose, | | PM PDT | | | | | Indications: Pneumonia | | | | | | + +-------+ +--------+---+---+ +---+---+ | | | +---+---+ + +-------+ +--------+---+---+ | benzonatate (TESSALON) capsule | Given | 01/21/20 | 200 mg | | | | 200 mg 200 mg, Oral, ONCE, Mon | | 18 8:26 | | | | | 01/20/18 at 2004, For 1 dose | | PM PDT | | | | + +-------+ +--------+---+---+ +---+---+ | | | +---+---+ + +-------+ +-------+---+---+ | dexamethasone (DECADRON) 10 | Given | 01/21/20 | 10 mg | | | | mg/mL injection for oral use 10 | | 18 8:26 | | | | | mg 10 mg, Oral, ONCE, Mon | | PM PDT | | | | | 01/20/18 at 2004, For 1 dose, Use | | | | | | | dexamethasone 10 mg/mL vial for | | | | | | | inject for this oral dose, | | | | | | + +-------+ +-------+---+---+ +---+---+ | | | +---+---+ + +-------+ +--------+---+---+ | ibuprofen (ADVIL,MOTRIN) tablet | Given | 01/21/20 | 600 mg | | | | 600 mg 600 mg, Oral, ONCE, Sat | | 18 8:26 | | | | | 01/20/18 at 2004, For 1 dose, Give | | PM PDT | | | | | with food., | | | | | | + +-------+ +--------+---+---+ +---+---+ | | | +---+---+ documented in this encounter
--- OUTSIDE RECORDS SUMMARY | ~2019-08-19 | XMS | Encounter Summary ---
Demographics + + + | Address | [address] | | | [place] [address] | + + + | Home Phone | | + + + | Preferred Language | Unknown | + + + | Marital Status | | + + + | Religion Affiliation | 1041 | + + + | Race | Unknown | + + + | Ethnic Group | Unknown | + + + Author + + + | Author | [facility] | | | and [place] | + + + | Organization | [facility] | | | [...] [place] | | | | | [place] [address] | | + + + + + Care Team Providers + +------+ + | Care Storage Wharfage Clerk Name | Role | Phone | + +------+ + | Dillon Govea MD | PCP | | + +------+ + Reason for Visit + + + | Reason | Comments | + + + | Appointment | Sooner appointment requested | + + + Encounter Details +--------+ + + + + | Date | Type | Department | Care Team | Description | +--------+ + + + + | 06/15/ | Telephone | [facility] | Dillon Govea, | Appointment (Soon | | 2019 | | MEDICINE [address] | [address] | appointment | | | | [address] [place] | [facility] [place] | requested) | | | | [facility] [address] | [address] | | | | | [phone] | | | +--------+ + + + [...] Medicine | Dillon Govea, | | | 2020 | Visit | | MD [address] | | | | | | [place] | | | | | | [address] | | | | | | | | +--------+---------+ + + + documented as of this encounter Visit Diagnoses Not on filedocumented in this encounter"
--- OUTSIDE RECORDS SUMMARY | ~2019-08-19 | XMS | Encounter Summary ---
Demographics + + + | Address | [address] | | | [place] [address] | + + + | Home Phone | | + + + | Preferred Language | Unknown | + + + | Marital Status | | + + + | Anabaptism Affiliation | 1041 | + + + | Race | Unknown | + + + | Ethnic Group | Unknown | + + + Author + + + | Author | [facility] | | | and [place] | + + + | Organization | [facility] | | | and [...] [place] | | | | | [place] [address] | | + + + + + Care Team Providers + +------+ + | Care Harvest Field Ticketer Name | Role | Phone | + +------+ + | Dillon Govea MD | PCP | | + +------+ + Reason for Visit + + + | Reason | Comments | + + + | Appointment | | + + + Encounter Details +--------+ + + + + | Date | Type | Department | Care Team | Description | +--------+ + + + + | 02/04/ | Telephone | [facility] | Dillon Govea, | Appointment | | 2019 | | MEDICINE [address] | [address] [facility] | | | | | [address] [place] | [place], [place] | | | | | [place] [address] | [address] | | | | | [phone] | | | +--------+ + + + [...] [place] | | | | | | [address] | | | | | | | | +--------+---------+ + + + documented as of this encounter Visit Diagnoses Not on filedocumented in this encounter"
--- OUTSIDE RECORDS SUMMARY | ~2019-08-19 | XMS | Encounter Summary ---
Demographics + + + | Address | [address] | | | [place] [address] | + + + | Home Phone | | + + + | Preferred Language | Unknown | + + + | Marital Status | | + + + | Catholic Affiliation | 1041 | + + + | Race | Unknown | + + + | Ethnic Group | Unknown | + + + Author + + + | Author | [facility] | | | and [place] | + + + | Organization | [facility] | | | [...] [place] | | | | | [place] [address] | | + + + + + Care Team Providers + +------+ + | Care Superintendent [employer] Name | Role | Phone | + +------+ + | Dillon Govea MD | PCP | | + +------+ + Reason for Visit +--------+ + | Reason | Comments | +--------+ + | Cough | RM 5- cough, chest tightness, fever X 1 day | +--------+ + Encounter Details +--------+---------+ + + + | Date | Type | Department | Care Team | Description | +--------+---------+ + + + | 08/14/ | Office | [facility] | Jose Williamson | Flu-like symptoms | | 2020 | Visit | CARE [address] | [address] | (Primary Dx) | | | | [place] | [address] [place] | | | | | [address] | [place] [address] | | | | | [phone] | [phone] | | | | | | | [...] + + + | Blood Pressure | 126/78 | 08/14/2019 4:20 PM | | | | | PST | | + + + + + | Pulse | 107 | 08/14/2019 4:20 PM | | | | | PST | | + + + + + | Temperature | 39.3 C (102.7 F) | 08/14/2019 4:20 PM | | | | | PST | | + + + + + | Respiratory Rate | 16 | 08/14/2019 4:20 PM | | | | | PST | | + + + + + | Oxygen Saturation | 98% | 08/14/2019 4:20 PM | | | | | PST | | + + + + + | Inhaled Oxygen | - | - | | | Concentration | | | | + + + + + | Weight | 87.3 kg (192 lb 7.4 | 08/14/2019 4:20 PM | | | | oz) | PST | | + + + + + | Height | 144.8 cm (4' 9") | 08/14/2019 4:20 PM | | | | | PST | | + + + + + | Body Mass Index | 41.65 | 08/14/2019 4:20 PM | | | | | PST | | + + + + + documented in this encounter Patient Instructions Patient Instructions Jose Williamson ARNP - 08/14/2019 3:00 PM PST Influenza (Adult) Influenza is also called the flu. It is a viral illness that affects the air passages of yo ur lungs. It is different from the common cold. The flu can easily be passed from one to per son to another. It may be spread through the air by coughing and sneezing. Or it can be spre ad by touching the sick person and then touching your own eyes, nose, or mouth. The flu starts 1 to 3 days after you are exposed to the flu virus. It may lastfor 1 to 2 weeks but many people feel tired or fatigued for many weeks afterward. You usually don t n eed to take antibiotics unless you have a complication. This might be an ear or sinus infect ion or pneumonia. Symptoms of the flu may be mild or severe. They can include extreme tiredness (wanting to s dania in bed all day), chills, fevers, muscle aches, soreness with eye movement, headache, and a dry, hacking cough. Home care Follow these guidelines when caring for yourself at home: Avoid being around cigarette smoke, whether yours or other people s. Acetaminophen or ibuprofen will help ease your fever, muscle aches, and headache. Don t give aspirin to anyone younger than 18 who has the flu. Aspirin can harm the liver. Nausea and loss of appetite are common with the flu. Eat light meals. Drink 6 to 8 glass es of liquids every day. Good choices are water, sport drinks, soft drinks without caffeine, juices, tea, and soup. Extra fluids will also help loosen secretions in your nose and lungs . Rpxw-rry-uujocrc cold medicines will not make the flu go away faster. But the medicines may help with coughing, sore throat, and congestion in your nose and sinuses. Don t use a decongestant if you have high blood pressure. Stay home until your fever has been gone for at least 24 hours without using medicine to reduce fever. Follow-up care Follow up with your healthcare provider, or as advised, if you are not getting better over the next week. If you are age 65 or older, talk with your provider about getting a pneumococcal vaccine ev anna 5 years. You should also get this vaccine if you have chronic asthma or COPD. All adults should get a flu vaccine every fall. Ask your provider about this. When to seek medical advice Call your healthcare provider right away if any of these occur: Cough with lots of colored mucus (sputum) or blood in your mucus Chest pain, shortness of breath, wheezing, or trouble breathing Severe headache, or face, neck, or ear pain New rashwith fever Fever of 100.4F (38C)or higher, or asdirected by your healthcare provider Confusion, behavior change, or seizure Severe weakness or dizziness You get a newfever or cough after getting better for a few days Date Last Reviewed: 08/12/201619990987-7951 [employer]. [address] [place] [address], [place] [address]. All righ ts reserved. This information is not intended as a substitute for professional medical care. Always follow your healthcare professional's instructions. documented in this encounter Progress Notes Jose Williamson ARNP - 08/14/2019 3:00 PM PSTFormatting of this note might be di fferent from the original. Subjective: Holly is a 39 y.o. female who comes in complaining of Cough (RM 5- cough, chest tightness, fever X 1 day) . HPI Cough Episode onset: 2 days of symptoms. Associated symptoms include chest pain, chills, ear pain , a fever, myalgias, nasal congestion, a sore throat, shortness of breath and wheezing. Asso ciated symptoms comments: Feels like hit by 2x4. Did not get influenza vaccine this year Last tylenol within a few hours of arrival.. Treatments tried: tylenol, ibuprofen, mucinex. Patient's medications, allergies, past medical, surgical, social and family histories were reviewed and updated as appropriate. Review of Systems Constitutional: Positive for chills and fever. HENT: Positive for congestion, ear pain and sore throat. Respiratory: Positive for cough, shortness of breath and wheezing. Cardiovascular: Positive for chest pain. Gastrointestinal: Positive for diarrhea. Musculoskeletal: Positive for myalgias. All other systems reviewed and are negative. Objective: BP 126/78 | Pulse 107 | Temp (!) 39.3 C (102.7 F) (Temporal) | Resp 16 | Ht 1.448 m (4' 9") | Wt 87.3 kg (192 lb 7.4 oz) | SpO2 98% | BMI 41.65 kg/m Physical Exam Vitals signs and nursing note reviewed. Constitutional: General: She is in acute distress. Appearance: Normal appearance. She is not toxic-appearing or diaphoretic. HENT: Head: Normocephalic. Right Ear: Hearing, ear canal and external ear normal. A middle ear effusion is present. Left Ear: Hearing, tympanic membrane, ear canal and external ear normal. Mouth/Throat: Lips: [place]. Mouth: Mucous membranes are moist. Comments: Pain with mouth opening Cardiovascular: Rate and Rhythm: Tachycardia present. Pulmonary: Breath sounds: Examination of the right-upper field reveals wheezing. Examination of the right-lower field reveals wheezing. Examination of the left-lower field reveals wheezing. W heezing present. Musculoskeletal: Normal range of motion. Skin: General: Skin is warm and dry. Capillary Refill: Capillary refill takes less than 2 seconds. Neurological: General: No focal deficit present. Mental Status: She is alert and oriented to person, place, and time. Sensory: No sensory deficit. Motor: No weakness. Coordination: Coordination normal. Gait: Gait normal. Treated with Albuterol 2.5mg HHN in clinic with resolution of wheezes. Recent Results (from the past 24 hour(s)) Influenza A and B RNA, NAAT Result Value Ref Range Influenza A PCR Negative Negative, Test not performed Influenza B PCR Negative Negative, Test not performed Assessment and Plans: 1. Flu-like symptoms Influenza A and B RNA, NAAT albuterol 2.5 mg/3 mL nebulizer solution 2.5 mg oseltamivir (TAMIFLU) 75 mg capsule I have seen multiple cases of patients presenting clinically like influenza with negative t ests, sent home with symptomatic treatment and come back in a few days, outside the Tamiflu treatment window, have a positive test. Patient today is presenting clinically like influenza. I am opting to treat today with Rachel flu as she is currently in the treatment window. Take the medication as directed. Discussed with the patient the risk/benefits regarding th e medication use. Increase fluids Tylenol/ibuprofen for the pain/fevers. Good hand washing to prevent the spread of this illness. Follow up with PCP as needed. Printed material regarding diagnosis provided to patient. Return if symptoms worsen or fail to improve. Electronically signed by TESS Petty at DATE/TIME: 08/14/2019 4:58 PM This note was dictated using [employer] voice recognition software. Occasional wrong- word or s ound-alike substitutions may have occurred due to the inherent limitations of [employer] software. Please read the chart carefully and recognize, using context, where these subs titutions have occurred. Electronically signed by TESS Raygoza at 0 4:58 PM PSTSonido, Dana Betanocurt RN - 08/14/2019 3:00 PM PST Verified name and date of of patient before provider orders were carried out. Administrations This Visit albuterol 2.5 mg/3 mL nebulizer solution 2.5 mg Admin Date 08/14/2019 Action Given Dose 2.5 mg Route Nebulization Administered By Dana Head RN documented i n this encounter Plan of Treatment Not on filedocumented as of this encounter Procedures + +--------+ + + + | Procedure Name | Priori | Date/Time | Associated Diagnosis | Comments | | | ty | | | | + +--------+ + + + | INFLUENZA A AND B | STAT | 08/14/2019 | Flu-like symptoms | Results for this | | RNA, NAAT | | 4:29 PM | | procedure are in the | | | | PST | | results section. | + +--------+ + + + documented in this encounter Results Influenza A and B RNA, NAAT (08/14/2019 4:29 PM PST) + + + + + + | Component | Value | Ref Range | Performed | Pathologist | | | | | At | Signature | + + + + + + | Influenza A | Negative | Negative, Test | [facility] | | | PCR | | not performed | [facility] | | + + + + + + | Influenza B | Negative | Negative, Test | [facility] | | | PCR | | not performed | [facility] | | [facility] | | | [facility] [...] + + + + + | [facility] | [address] | [place], [place] | [phone] | | [facility] | | [address] | | | [facility] | | | | + + + + + documented in this encounter Visit Diagnoses + + | Diagnosis | + + | Flu-like symptoms - Primary Influenza with other respiratory manifestations | + + documented in this encounter Administered Medications + +--------+ +--------+------+------+ | Medication Order | MAR | Action | Dose | Rate | Site | | | Action | Date | | | | + +--------+ +--------+------+------+ | albuterol 2.5 mg/3 mL nebulizer | Given | 08/14/19 | 2.5 mg | | | | solution 2.5 mg 2.5 mg, | | 20 4:40 | | | | | Nebulization, ONCE, 08/14/19 at | | PM PST | | | | | 1700, For 1 dose, RT will | | | | | | | administer., | | | | | | + +--------+ +--------+------+------+ +---+---+ | | | +---+---+ documented in this encounter
--- OUTSIDE RECORDS SUMMARY | ~2019-08-19 | XMS | Encounter Summary ---
Demographics + + + | Address | [address] | | | [place] [address] | + + + | Home Phone | | + + + | Preferred Language | Unknown | + + + | Marital Status | | + + + | Muslim Affiliation | 1041 | + + + | Race | Unknown | + + + | Ethnic Group | Unknown | + + + Author + + + | Author | [facility] | | | and [place] | + + + | Organization | [facility] | | | and [...] [place] | | | | | [place] [address] | | + + + + + Care Team Providers + +------+ + | Care Chip Tuner Name | Role | Phone | + +------+ + | Jade Govea MD | PCP | | + +------+ + Reason for Visit + + + | Reason | Comments | + + + | Vaginal Bleeding | | + + + Auth/Cert +--------+--------+ + + + + | Status | Reason | Specialty | Diagnoses / | Referred By | Referred To | | | | | Procedures | Contact | Contact | +--------+--------+ + + + + | | | | Diagnoses | | | | | | | Pelvic pain | | | | | | | Cyst of | | | | | | | ovary, | | | | | | | unspecified | | | | | | | laterality | | | | | | | | | | +--------+--------+ + + + + Encounter Details +--------+---------+ + + + | Date | Type | Department | Care Team | Description | +--------+---------+ + + + | 06/26/ | Surgery | [facility] | Liliam Borden, | LAPAROSCOPY | | 2019 | | [facility] | DO [address] | DIAGNOSTIC, OVARIAN | | | | [address] | [place] | CYSTECTOMY, LEFT | | | | [place], [place] | [address] | OOPHORECTOMY AND | | | | [address] | | LEFT SALPINGECTOMY | | | | [phone] | | | +--------+---------+ + + + [...] + + + | Blood Pressure | 106/68 | 06/27/2019 11:31 AM | | | | | PST | | + + + + + | Pulse | 97 | 06/27/2019 11:31 AM | | | | | PST | | + + + + + | Temperature | 37.5 C (99.5 F) | 06/27/2019 11:31 AM | | | | | PST | | + + + + + | Respiratory Rate | 18 | 06/27/2019 11:31 AM | | | | | PST | | + + + + + | Oxygen Saturation | 97% | 06/27/2019 11:31 AM | | | | | PST | | + + + + + | Inhaled Oxygen | - | - | | | Concentration | | | | + + + + + | Weight | 83.9 kg (185 lb) | 06/25/2019 6:22 PM | | | | | PST | | + + + + + | Height | 144.8 cm (4' 9") | 06/25/2019 6:22 PM | | | | | PST | | + + + + + | Body Mass Index | 40.03 | 06/25/2019 6:22 PM | | | | | PST | | + + + + + documented in this encounter Discharge Summaries Barbi Rodriguez, - 06/27/2019 11:52 AM PST GYNECOLOGY DISCHARGE SUMMARY ID: Liz Barnes is a 38 y.o. No obstetric history on file. Date of Admission: 06/25/2019 Date of Discharge: 06/27/2019 Disposition: home Reason for Admission: Pelvic pain Primary/Secondary Diagnosis: Principal Problem: Status post unilateral salpingo-oophorectomy Active Problems: Cyst of left ovary Duplex kidney Marijuana use Diagnosis: Principal Problem: Status post unilateral salpingo-oophorectomy Active Problems: Cyst of left ovary Duplex kidney Marijuana use Procedures: Procedure(s): LAPAROSCOPY DIAGNOSTIC, OVARIAN CYSTECTOMY, LEFT OOPHORECTOMY AND LEFT SALPINGECTOMY Complications: none Condition of wound: healing well Condition on discharge: stable Summary: patient was admitted and taken to the operating room where the above procedure was performed without complications. She recovered well overnight. She did receive a breathin g treatment on postop day 1. She met all postoperative goals and was discharged home in sta ble condition on postop day 1 #1. Her postop H&H were stable after surgery. Discharge Instructions: Medications: Discharge Medications New Medications Details docusate sodium 100 MG capsule Take 100 mg by mouth 2 times daily. aka: COLACE ibuprofen 600 MG tablet Take 1 tablet by mouth every 6 hours as needed for Pain. aka: ADVIL,MOTRIN Changed Medications Details oxyCODONE-acetaminophen 5-325 mg per tablet Take 1-2 tablets by mouth every 6 hours as needed for Pain for up to 7 days. What changed: how much to take reasons to take this aka: PERCOCET Unchanged Medications Details albuterol 90 mcg/puff inhaler Inhale 2 puffs into the lungs every 4 hours as needed for Wheezing or Shortness of Breath. Use with spacer device. guaiFENesin-codeine 100-10 mg/5 mL liquid Take 10 mLs by mouth every 6 hours as needed for Cough. aka: ROBITUSSIN AC methylPREDNISolone 4 mg tablet Follow package directions. aka: MEDROL DOSEPAK Discontinued Medications azithromycin 250 mg tablet aka: ZITHROMAX HYDROcodone-acetaminophen 5-325 mg per tablet aka: NORCO ondansetron 4 mg disintegrating tablet aka: ZOFRAN ODT TYLENOL 325 mg tablet Generic drug: acetaminophen Follow-up appointment: As scheduled with Dr. Borden Activity: Pelvic rest until cleared by MD. No driving while on narcotic medications Diet: Regular as tolerated Instructions: Return to hospital for fevers, chills, severe abdominal pain not relieved b y pain medication, inability to tolerate any po, heavy vaginal bleeding or a foul smelling d ischarge, or any other concerns. Electronically Signed by: Barbi Rodriguez DO 06/27/2019 11:52 AM Electronically sign ed by Barbi Rodriguez DO at 06/27/2019 11:54 AM PSTdocumented in this encou nter Discharge Instructions AttachmentsThe following attachments cannot be sent through Care Everywhere.Laparoscopy, Pe lvic (Swiss)documented in this encounter Medications at Time of [...] + + + +---------+ + + | docusate sodium | Take 100 mg by mouth | 60 | 1 | 06/27/20 | | | (COLACE) 100 MG | 2 times daily. | capsule | | 19 | 0 | | capsule | | | | | | + [...] ibuprofen | Take 1 tablet by | 40 | 0 | 06/27/20 | | | (ADVIL,MOTRIN) 600 | mouth every 6 hours | tablet | | 19 | 0 | | MG tablet | as needed [...] | | Take 1-2 tablets by | 30 | 0 | 06/27/20 | | | oxyCODONE-acetaminop | mouth every 6 hours | tablet | | 19 | 9 | | hen (PERCOCET) 5-325 | as needed for Pain | | | | | | mg per tablet | for up to 7 days. | | | | | + + + +---------+ + + documented as of this encounter Progress Notes Barbi Rodriguez DO - 06/27/2019 11:46 AM PSTGynecology Postop Progress No te Subjective: Patient doing well without any concerns. Eager to go home. Feels so much better than prior to surgery. Pain: Well controlled with PO meds Voiding: Without difficulty Bowel function: Passing flatus and tolerating diet. Small BM this AM. Ambulating: Without any difficulty or dizziness Vitals: BP: 106/68 Pulse: 97 Temp: 37.5 C (99.5 F) Exam: General: No acute distress CV: RRR Lungs: scattered wheeze, clears with deep inspiration Abdomen: Soft, non-tender, non-distended Incisions: Clean, dry, intact without signs of infection. 3 sites closed with surgical glu e Extremities: No calf tenderness, appropriate edema Labs: WBC: 14.9 H/H: 12.6/38.4 -> 12.6/38.6 Platelet 245 Creatinine 0.5 Assessment/Plan: Post op Day #1 s/p Procedure(s): LAPAROSCOPY DIAGNOSTIC, OVARIAN CYSTECTOMY, LEFT OOPHORECTOMY AND LEFT SALPINGECTOMY -recovering well -surgery findings discussed with the patient -encourage ambulation Asthma -IS encouraged -has inhaler at home Discharge home today with precautions reviewed and follow-up in 2 wks scheduled Electronically Signed by: Barbi Rodriguez DO 06/27/2019 11:46 AM Electronically sign ed by Barbi Rodriguez DO at 06/27/2019 11:50 AM PSTdocumented in this encou nter Plan of Treatment + +------+--------+ + + | Name | Type | Priori | Associated Diagnoses | Date/Time | | | | ty | | | + +------+--------+ + + | ED INFORMATION | KHADIJAH | Routin | | 06/25/2019 6:13 PM | | EXCHANGE | | e | | PST | + +------+--------+ + + documented as of this encounter Procedures + +--------+ + + + | Procedure Name | Priori | Date/Time | Associated Diagnosis | Comments | | | ty | | | | + +--------+ + + + | EXTRA GREEN TOP TUBE | Routin | 06/27/2019 | | Results for this | | | e | 6:30 AM | | procedure are in the | | | | PST | | results section. | + +--------+ + + + | CBC NO DIFFERENTIAL | Routin | 06/27/2019 | | Results for this | | | e | 6:30 AM | | procedure are in the | | | | PST | | results section. | + +--------+ + + + | LAPAROSCOPY | | 06/26/2019 | Ovarian cyst | | | DIAGNOSTIC | | 4:23 PM | | | | | | PST | | | + +--------+ + + + | CBC NO DIFFERENTIAL | Routin | 06/26/2019 | | Results for this | | | e | 6:16 AM | | procedure are in the | | | | PST | | results section. | + +--------+ + + + | EXTRA GREEN TOP TUBE | Routin | 06/26/2019 | | Results for this | | | e | 6:15 AM | | procedure are in the | | | | PST | | results section. | + +--------+ + + + | BASIC METABOLIC | STAT | 06/26/2019 | | Results for this | | PANEL | | 6:15 AM | | procedure are in the | | | | PST | | results section. | + +--------+ + + + | SURGICAL PATHOLOGY | Routin | 06/26/2019 | | Results for this | | EXAM | e | 12:00 AM | | procedure are in the | | | | PST | | results section. | + +--------+ + + + | US PELVIS W | STAT | 06/25/2019 | | Results for this | | TRANSVAGINAL | | 9:33 PM | | procedure are in the | | | | PST | | results section. | + +--------+ + + + | CBC WITH | STAT | 06/25/2019 | | Results for this | | DIFFERENTIAL | | 7:06 PM | | procedure are in the | | | | PST | | results section. | + +--------+ + + + | LIPASE | STAT | 06/25/2019 | | Results for this | | | | 7:06 PM | | procedure are in the | | | | PST | | results section. | + +--------+ + + + | LACTIC ACID | STAT | 06/25/2019 | | Results for this | | | | 7:06 PM | | procedure are in the | | | | PST | | results section. | + +--------+ + + + | COMPREHENSIVE | STAT | 06/25/2019 | | Results for this | | METABOLIC PANEL | | 7:06 PM | | procedure are in the | | | | PST | | results section. | + +--------+ + + + | URINALYSIS WITH | STAT | 06/25/2019 | | Results for this | | MICROSCOPIC WITH | | 6:55 PM | | procedure are in the | | CULTURE IF INDICATED | | PST | | results section. | + +--------+ + + + | HCG, URINE, QUAL | STAT | 06/25/2019 | | Results for this | | | | 6:55 PM | | procedure are in the | | | | PST | | results section. | + +--------+ + + + | ED INFORMATION | Routin | 06/25/2019 | | | | EXCHANGE | e | 6:13 PM | | | | | | PST | | | + +--------+ + + + +---+--------+ | | | | | Proced | | | ure | | | Note - | | | Vaibhav, | | | Lab In | | | | | | Hlseve | | | n - | | | 11/14/ | | | 2019 | | | 6:14 | | | PM PST | | | | | | Format | | | ting | | | of | | | this | | | note | | | might | | | be | | | differ | | | ent | | | from | | | the | | | origin | | | al.COL | | | LECTIV | | | E?NOTI | | | FICATI | | | ON?11/ | | | 14/201 | | | 9 | | | 18:12? | | | JAMEEL | | | EZ, | | | LIZ | | | | | | C?MRN: | | | | | | [id number] | | | [id number] | | | riteri | | | a Met | | | | | | PDMPSe | | | curity | | | and | | | Safety | | | No | | | recent | | | | | | Securi | | | ty | | | Events | | | | | | curren | | | tly on | | | | | | fileED | | | Care | | | Guidel | | | inesTh | | | ere | | | are | | | curren | | | tly no | | | ED | | | Care | | | Guidel | | | kath | | | for | | | this | | | patien | | | t. | | | Please | | | check | | | your | | | facili | | | ty's | | | medica | | | l | | | record | | | s | | | system | | | .Presc | | | riptio | | | n Drug | | | | | | Report | | | (12 | | | Mo.)Rx | | | | | | Detail | | | sFill | | | Date | | | Drug | | | Descri | | | ption | | | Qty. | | | Prescr | | | iber | | | CS MED | | | | | | 2019-1 | | | 1-06 | | | OXYCOD | | | ONE-AC | | | ETAMIN | | | OPHEN | | | 5-325 | | | 30 | | | JADE | | | MAXWEL | | | L 2 | | | 28.125 | | | | | | 2019-1 | | | 1-05 | | | HYDROC | | | ODONE- | | | ACETAM | | | IN | | | 5-325 | | | MG 20 | | | KEN | | | JUAREZ | | | ON 2 | | | 33.333 | | | | | | 2019-1 | | | 1-03 | | | HYDROC | | | ODONE- | | | ACETAM | | | IN | | | 5-325 | | | MG 16 | | | JOCELYN | | | BROWN | | | 2 40 | | | 2019-0 | | | 9-15 | | | GUAIAT | | | USSIN | | | AC | | | LIQUID | | | 120 | | | TATA | | | WAGGON | | | ER 5 0 | | | Rx | | | Summar | | | yMetri | | | c | | | Count | | | CS | | | II-V | | | Rx 4 | | | CS-II | | | Rx 3 | | | Quanti | | | ty | | | Dispen | | | sed | | | 186 | | | Unique | | | | | | Prescr | | | ibers | | | 4 | | | Unique | | | | | | Pharma | | | cies 2 | | | | | | Benzos | | | 0 | | | Opioid | | | s 3 | | | Long | | | Acting | | | | | | Opioid | | | s 0 | | | E.D. | | | Visit | | | Count | | | (12 | | | mo.)Fa | | | cility | | | | | | Visits | | | Low | | | Acuity | | | | | | Provid | | | ence | | | [facility] | [facility] | Medica | | | l | | | Center | | | 5 0 | | | Total | | | 5 0 | | | Note: | | | Visits | | | | | | indica | | | te | | | total | | | known | | | visits | | | . | | | Medica | | | id Low | | | | | | Acuity | | | Dx | | | are | | | the | | | number | | | of | | | primar | | | y | | | diagno | | | ses on | | | the | | | Medica | | | id's | | | Low | | | Acuity | | | dx | | | list. | | | | | | Recent | | | | | | Emerge | | | ncy | | | Depart | | | ment | | | Visit | | | Summar | | | yDate | | | Facili | | | ty | | | City | | | State | | | Type | | | Diagno | | | ses or | | | Chief | | | | | | Compla | | | int | | | Nov | | | 14, | | | 2019 | | | Provid | | | ence | | | [facility] | [place] | | | [place] | | | Emerge | | | ncy | | | | | | vagina | | | l | | | bleedi | | | ng | | | Nov 5, | | | 2019 | | | Provid | | | ence | | | [facility] | [place] | | | [place] | | | Emerge | | | ncy | | | | | | Vagina | | | l | | | bleedi | | | ng,abd | | | pain | | | | | | Vagina | | | l | | | Bleed | | | (<7 | | | Years) | | | | | | Vagina | | | l | | | Bleed | | | (> 7 | | | Years) | | | | | | Unspec | | | ified | | | ovaria | | | n | | | cyst, | | | right | | | side | | | Nov 4, | | | 2019 | | | [facility] | | | [place] | | | Urgent | | | Care | | | [place] | | | [place] | | | Urgent | | | Care | | | | | | Flank | | | Pain | | | | | | Bronch | | | itis | | | | | | Unspec | | | ified | | | ovaria | | | n | | | cyst, | | | left | | | side | | | Nov 3, | | | 2019 | | | Provid | | | ence | | | [facility] | [place] | | | [place] | | | Emerge | | | ncy | | | Chest | | | Pain; | | | Flank | | | Pain | | | | | | Flank | | | Pain | | | | | | Cough | | | | | | Wheezi | | | ng | | | Acute | | | bronch | | | itis, | | | unspec | | | ified | | | | | | Unspec | | | ified | | | ovaria | | | n | | | cyst, | | | left | | | side | | | Sep | | | 14, | | | 2019 | | | Provid | | | ence | | | [facility] | [place] | | | [place] | | | Emerge | | | ncy | | | Chest | | | | | | Tightn | | | ess; | | | Cough | | | | | | Cough | | | | | | Sore | | | Throat | | | | | | Acute | | | bronch | | | itis, | | | unspec | | | ified | | | Aj | | | 2, | | | 2019 | | | Provid | | | ence | | | [facility] | [place] | | | [place] | | | Emerge | | | ncy | | | CP, | | | conges | | | tion | | | | | | Cough | | | | | | Modera | | | te | | | persis | | | tent | | | asthma | | | with | | | (acute | | | ) | | | exacer | | | bation | | | | | | Recent | | | | | | Inpati | | | ent | | | Visit | | | Summar | | | yNo | | | record | | | ed | | | inpati | | | ent | | | visits | | | . Care | | | | | | TeamPr | | | ovider | | | | | | Specia | | | lty | | | Phone | | | Fax | | | Servic | | | e | | | Dates | | | JADE, | | | | | | WOOLEV | | | ER , | | | MD | | | Analytical Lead | | | al | | | Medici | | | ne | | | Curren | | | t | | | NEIGHB | | | [facility] | | | | | | HEALTH | | | - | | | HIGH | | | POINT | | | MED | | | Primar | | | y Care | | | (206) | | | | | | [phone] | | | 50 | | | Curren | | | t | | | SARAH | | | G | | | BEITZ | | | Other | | | (253) | | | [phone] | | | 44 | | | Curren | | | t | | | DESEAN | | | J KIM | | | | | | Primar | | | y Care | | | (509) | | | | | | [phone] | | | [phone] | | | (509) | | | [phone] | | | 61 | | | Curren | | | t | | | Primar | | | y Care | | | | | | Primar | | | y Care | | | | | | Curren | | | t | | | Collec | | | tive | | | Portal | | | This | | | patien | | | t has | | | regist | | | ered | | | at the | | | | | | Provid | | | ence | | | [facility] | | | l | | | Center | | | | | | Emerge | | | ncy | | | Depart | | | ment | | | For | | | more | | | inform | | | ation | | | visit: | | | | | | https: | | | //secu | | | [email or web address] | | | lectiv | | | emedic | | | [email or web address] | | | /notif | | | [email or web address] | | | [email or web address] | | | [email or web address] | | | [email or web address] | | | [email or web address] | | | [email or web address] | | | c2 | | | PLEASE | | | NOTE: | | | 1. | | | Any | | | care | | | recomm | | | endati | | | ons | | | and | | | other | | | clinic | | | al | | | inform | | | ation | | | are | | | provid | | | ed as | | | guidel | | | kath | | | or for | | | | | | histor | | | ical | | | purpos | | | es | | | only, | | | and | | | provid | | | ers | | | should | | | | | | exerci | | | se | | | their | | | own | | | clinic | | | al | | | judgme | | | nt | | | when | | | provid | | | ing | | | care. | | | 2. | | | You | | | may | | | only | | | use | | | this | | | inform | | | ation | | | for | | | purpos | | | es of | | | treatm | | | ent, | | | paymen | | | t or | | | health | | | care | | | operat | | | ions | | | activi | | | ties, | | | and | | | subjec | | | t to | | | the | | | limita | | | tions | | | of | | | applic | | | able | | | Collec | | | tive | | | Polici | | | es. | | | 3. | | | You | | | should | | | | | | consul | | | t | | | direct | | | ly | | | with | | | the | | | organi | | | zation | | | that | | | provid | | | ed a | | | care | | | guidel | | | ine or | | | other | | | | | | clinic | | | al | | | histor | | | y with | | | any | | | questi | | | ons | | | about | | | additi | | | onal | | | inform | | | ation | | | or | | | accura | | | cy or | | | comple | | | teness | | | of | | | inform | | | ation | | | provid | | | ed.? | | | 2018 | | | Collec | | | tive | | | Medica | | | l | | | Techn[employer] | | | logies | | | , Inc[employer] | | | - | | | [email or web address] | | | llecti | | | vemedi | | | [email or web address] | | | m | +---+--------+ documented in this encounter Results Extra Green Top Tube (06/27/2019 6:30 AM PST) + +-------+ + + + | Component | Value | Ref Range | Performed | Pathologist | | | | | At | Signature | + +-------+ + + + | Extra Green | Done | | [facility] | | | Top Tube | | | [facility] | | | | | [facility] [...] ST[facility] | [address] | [place] | [phone] | | [facility] | | [address] | | | - LABORATORY | | | | + + + + + CBC no Differential (06/27/2019 6:30 AM PST) + + + + + + | Component | Value | Ref Range | Performed | Pathologist | | | | | At | Signature | + + + + + + | WBC | 14.9 (H) | 4.0 - 11.0 K/uL | [facility] | | | | | [facility] | | [facility] - | | | | | | [facility]ATORY | | + + + + + + | RBC | 4.59 | 3.70 - 5.20 | [facility] | | | | | M/uL | [facility] | | | | | | [facility] | | | | | | [facility] - | | | | | | LABORATORY | | + + + + + + | Hemoglobin | 12.6 | 11.5 - 16.0 | [facility] | | | | | g/dL | [facility] | | | | | | [facility] | | | | | | C[facility] - | | | | | | LABORATORY | | + + + + + + | Hematocrit | 38.6 | 34.0 - 47.0 % | [facility] | | | | | | [facility] | [facility] | [facility] | | | | [facility] - | | | | | | LABORATORY | | + + + + + + | MCV | 84.1 | 83.0 - 101.0 fL | [facility] | | | | | | [facility] | [facility] | [facility] | | | | | | [facility] - | | | | | | LABORATORY | | + + + + + + | MCH | 27.5 (L) | 28.0 - 35.0 pg | [facility] | | | | | | [facility] | | [facility] | [facility] | | | | | | [facility] - | | | | | | LABORATORY | | + + + + + + | MCHC | 32.6 | 32.0 - 36.0 | [facility] | | | | | g/dL | [facility] | | | | | | [facility] | | | | | | [facility] - | | | | | | LABORATORY | | + + + + + + | RDW-CV | 14.1 | <15.0 % | [facility] | | | | | | [facility] | [facility] | [facility] | | | | | | [facility] - | | | | | | LABORATORY | | + + + + + + | RDW-SD | 43.0 | 35.1 - 46.3 fL | [facility] | | | [facility] | | | | | [facility] - | | | | | | LABORATORY | | + + + + + + | Platelet | 245 | 140 - 440 K/uL | [facility] | | | Count | | | [facility] | | | | | | [facility] | | | | | | [facility] - | | | | | | LABORATORY | | + + + + + + | MPV | 10.1 | 6.5 - 12.4 fL | [facility] | | | | | | [facility] | | [facility] | [facility] | | | | | | [facility] - | | | | | | LABORATORY | | + + + + + + | % nRBC | 0 | 0 - 2 per 100 | [facility] | | | | | WBCs | [facility] | | | [facility] | | [facility] | | | | | | [facility] - | | | | | | LABORATORY | | + + + + + + | Absolute | 0.00 | 0.00 - 0.01 | [facility] | | | nRBC | | K/uL | [facility] | | | | | | MEDICAL [...] | [address] | [place] | [phone] | | [facility] | | [address] | | | - LABORATORY | | | | + + + + + CBC no Differential (06/26/2019 6:16 AM PST) + + + + + + | Component | Value | Ref Range | Performed | Pathologist | | | | | At | Signature | + + + + + + | WBC | 8.5 | 4.0 - 11.0 K/uL | [facility] | | | [facility] - | | | | | | LABORATORY | | + + + + + + | RBC | 4.55 | 3.70 - 5.20 | [facility] | | | | | M/uL | [facility] | | | | | | [facility] | | | | | | [facility] - | | | | | | LABORATORY | | + + + + + + | Hemoglobin | 12.6 | 11.5 - 16.0 | [facility] | | | | | g/dL | [facility] | | | [facility] | | [facility] | | | | | | [facility] - | | | | | | LABORATORY | | + + + + + + | Hematocrit | 38.4 | 34.0 - 47.0 % | [facility] | | | | | | [facility] | | [facility] | [facility] | | | | | | [facility] - | | | | | | LABORATORY | | + + + + + + | MCV | 84.4 | 83.0 - 101.0 fL | [facility] | | | | | | [facility] | [facility] | [facility] | | | | | | [facility] - | | | | | | LABORATORY | | + + + + + + | MCH | 27.7 (L) | 28.0 - 35.0 pg | [facility] | | | | | | [facility] | [facility] | [facility] | | | | | | [facility] - | | | | | | LABORATORY | | + + + + + + | MCHC | 32.8 | 32.0 - 36.0 | [facility] | | | | | g/dL | [facility] | | | | | | [facility] | | | | | | [facility] - | | | | | | LABORATORY | | + + + + + + | RDW-CV | 14.1 | <15.0 % | [facility] | | | | | | [facility] | | | [facility] | [facility] | | | | | | [facility] - | | | | | | LABORATORY | | + + + + + + | RDW-SD | 43.0 | 35.1 - 46.3 fL | [facility] | | | | | | [facility] | [facility] | [facility] | | | | | | [facility] - | | | | | | LABORATORY | | + + + + + + | Platelet | 222 | 140 - 440 K/uL | [facility] | | | Count | | | [facility] | | | | | | [facility] | | | | [facility] | [facility] - | | | | | | LABORATORY | | + + + + + + | MPV | 10.1 | 6.5 - 12.4 fL | [facility] | | | | | | [facility] | [facility] | [facility] | | | | [facility] | [facility] - | | | | | | LABORATORY | | + + + + + + | % nRBC | 0 | 0 - 2 per 100 | [facility] | | | | | WBCs | [facility] | | | | | | [facility] | | | | | | CENTER - | | | | | | LABORATORY | | + + + + + + | Absolute | 0.00 | 0.00 - 0.01 | [facility] | | | nRBC | | K/uL | [facility] | | | | [...] + | [facility] | [address] | [place] | [phone] | | [facility] | | [id number] | | | - LABORATORY | | | | + + + + + Basic Metabolic Panel (06/26/2019 6:15 AM PST) + + + + + + | Component | Value | Ref Range | Performed | Pathologist | | | | | At | Signature | + + + + + + | Na | 142 | 136 - 145 | [facility] | | | | | mmol/L | [facility] | | | | | | [facility] | | | | | | CENTER - | | | | | | LABORATORY | | + + + + + + | K | 3.8 | 3.4 - 5.1 | [facility] | | | | | mmol/L | [facility] | | | | | | [facility] | | | [facility] | | [facility] - | | | | | | LABORATORY | | + + + + + + | Cl | 109 (H) | 98 - 107 mmol/L | [facility] | | | | | | [facility] | | | [facility] | | [facility] | | | | | | [facility] - | | | | | | LABORATORY | | + + + + + + | CO2 | 25 | 20 - 31 mmol/L | [facility] | [facility] | [facility] | | | [facility] | | [facility] | | | | | | [facility] - | | | | | | LABORATORY | | + + + + + + | Anion Gap | 8 | 3 - 16 mmol/L | [facility] | [facility] | [facility] | | | | | [facility] - | | | | | | LABORATORY | | + + + + + + | Glucose | 104 | 60 - 106 mg/dL | [facility] | | | | | | [facility] | | | | [facility] - | | | | | | LABORATORY | | + + + + + + | BUN | 6 (L) | 9 - 23 mg/dL | [facility] | [facility] | | [facility] - | | | | | | LAB[facility]ATORY | | + + + + + + | Creatinine | 0.50 (L) | 0.55 - 1.02 | [facility] | | | | | mg/dL | [facility] | | | | | | [facility] | | | | | | [facility] - | | | | | | LABORATORY | | + + + + + + | eGFR if not | >60Comment: GLOMERULAR | >=60 | [facility] | | | | FILTRATION | mL/min/1.73m2 | [facility] | | | [place] | RATE,ESTIMATED | | MEDICAL | | | | mL/min/1.23p9Fhwp than | | CENTER - | | [...] + + + + | Calcium | 8.9 | 8.7 - 10.4 | [facility] | | | | | mg/dL | [facility] | | | | | | MEDICAL | | | | | | CENTER - | | | | | | LABORATORY | | + + + + + + | BUN/Creatin | 12.0 | | [facility] | | | ine Ratio | | | [facility] | | [...] ST. | [address] | [place] | [phone] | | [facility] | | [address] | | | - LABORATORY | | | | + + + + + Extra Green Top Tube (06/26/2019 6:15 AM PST) + +-------+ + + + | Component | Value | Ref Range | Performed | Pathologist | | | | | At | Signature | + +-------+ + + + | Extra Green | Done | | [facility] | | | Top Tube | | | [facility] | | | | | | MEDICAL | | | | | | CENTER - | | | | | | LABORATORY | | + +-------+ + + + + + | Specimen | + + | Blood | + + + + + + + | Performing | Address | City/State/[facility] | Phone Number | | Organization | | | | + + + + + | [facility] | [address] | [place] | [phone] | | [facility] | | [address] | | | - LABORATORY | | | | + + + + + Surgical Pathology Exam (06/26/2019 12:00 AM PST) + + | Specimen | + + | | + + + + + | Narrative | Performed At | + + + | SPECIMEN(S): A LEFT OVARIAN CYST, LEFT OVARY, LEFT FALLOPIAN TUBE | [facility] | | SPECIMEN SOURCE: A. LEFT OVARIAN CYST, LEFT OVARY, LEFT FALLOPIAN | [facility] | | TUBE CLINICAL HISTORY: Ovarian cyst. Laparoscopy diagnostic, | | | ovarian cystectomy, left oophorectomy ad left salpingectomy. FINAL | | | PATHOLOGIC DIAGNOSIS: Left ovarian cyst, left ovary and left | | | fallopian tube, salpingo-oophorectomy: - Benign ovarian parenchyma | | | with serous and follicle cysts, negative for atypia. - Segment of | | | benign oviduct. JVR:[facility]:C2NR MICROSCOPIC EXAMINATION: | | | Histologic sections of all submitted blocks are examined by light | | | microscopy. These findings, together with the gross examination, | | | support the pathologic diagnosis. GROSS DESCRIPTION: The | | | specimen, labeled "OM, left ovarian cyst, left ovary and left | | | fallopian tube," is received in formalin and consists of a fragmented | | | ovary, collapsed cyst, and fallopian tube. The 6.5 x 1.2 | | | cm ovary has a violaceous and wrinkled serosal surface with delicate | | | fimbriae. Cut sections reveal a pinpoint lumen. The 5.2 x 3.4 x | | | 1.6 cm ovary has a pink, focally congested and smooth external | | | surface with one defect that is 4.3 x 1.4 x 1.1 cm. Serially | | | sectioning reveals a pink-white variegated ovarian parenchyma with | | | clear watery fluid-filled cystic structures. No papillary | | | excrescences are grossly identified. The 9.4 x 5.1 x 2.2 cm | | | collapsed cystic structure has a pink, focally congested external | | | surface with adherent red membranous tissue. Two full-thickness | | | defects are present measuring 2.7 cm and 0.2 cm in greatest | | | dimension. The inner lining of the cyst is pale pink, focally | | | congested and wrinkled. No papillary excrescences are grossly | | | identified. Occupational Therapy Aide sections are submitted in cassettes | | | (A1-A2). FB (under the direct supervision of a pathologist) The | | | Gross Description was prepared using a voice recognition system. The | | | report was reviewed for accuracy; however, sound-alike word errors, | | | addition and/or deletions may occur. If there is any question about | | | this report, please contact Client Services. PERFORMING | | | LABORATORY: The technical component was performed by [facility] | | | [address] [address] (Physical Director: | | | Eveline White MD; CLIA# [id number]). Professional interpretation was | | | performed by [facility] | | | [address] [address] (Medical | | | Director: Amadou Aguirre M.D.). Diagnostician: Amadou Mercado | | | Carla WILL Pathologist Electronically Signed 06/30/2019 | | + + + + +---------+ + + | Performing | Address | City/State/Zipcode | Phone Number | | Organization | | | | + +---------+ + + | [facility] | | | | | [facility] | | | | + +---------+ + + US Pelvis W Transvaginal (06/25/2019 9:33 PM PST) + + | Specimen | + + | | + + + + + | Impressions | Performed At | + + + | Unchanged large midline pelvic cyst. No acute pelvic | [facility] | | abnormality. Limited assessment of the right ovary. Stable | | | uterine fibroid. Notification: A preliminary report was relayed | | | to the ordering provider by the mri technologist immediately | | | following the exam. Dictated and Signed by: Kel Jones MD | | | Electronically signed: 06/26/2019 9:08 AM | | + + + + + + | Narrative | Performed At | + + + | TECHNIQUE: Transabdominal and endovaginal B-mode ultrasound with | [facility] | | color and duplex doppler CLINICAL INFORMATION: severe pelvic | | | pain. COMPARISON: Sonogram dated 06/16/[address] 06/14/2019. | | | FINDINGS: UTERUS: Size: 7.6 x 5.1 x 4.1 cm. Orientation: | | | Anteverted. Echotexture: Normal. Masses: Persistent heterogeneously | | | hypoechoic mass at the left uterine body measuring up to 1.7 cm. | | | Cervix: Nabothian cysts are noted. Endometrium: Homogeneous | | | echogenic appearance. Endometrial thickness: 9 mm RIGHT ADNEXA: | | | Ovary size: 2.4 x 2.7 x 1.5 cm Echotexture and cysts: Normal. | | | Color Doppler: Not assessed due to difficulty visualizing the ovary. | | | Mass: None identified. LEFT ADNEXA: Ovary size: 3.3 x 2.6 x 1.9 | | | cm Echotexture and cysts: Normal. Color Doppler: Arterial flow is | | | present. Mass: None identified. FREE FLUID: None. OTHER: | | | Stable appearance of the large cystic structure at the midline | | | anterior pelvis, located anterior to the uterus and measuring up to | | | 11.2 cm. | | + + + + + | Procedure Note | + + | Vaibhav, Rad Results In - 06/26/2019 9:11 AM PST | | TECHNIQUE: Transabdominal and endovaginal B-mode ultrasound with color and | | duplex doppler | | | | CLINICAL INFORMATION: severe pelvic pain. | | | | COMPARISON: Sonogram dated 06/16/[address] 06/14/2019. | | | | FINDINGS: | | | | UTERUS: | | Size: 7.6 x 5.1 x 4.1 cm. | | Orientation: Anteverted. | | Echotexture: Normal. | | Masses: Persistent heterogeneously hypoechoic mass at the left uterine body | | measuring up to 1.7 cm. | | Cervix: Nabothian cysts are noted. | | | | Endometrium: Homogeneous echogenic appearance. | | Endometrial thickness: 9 mm | | | | RIGHT ADNEXA: | | Ovary size: 2.4 x 2.7 x 1.5 cm | | Echotexture and cysts: Normal. | | Color Doppler: Not assessed due to difficulty visualizing the ovary. | | Mass: None identified. | | | | LEFT ADNEXA: | | Ovary size: 3.3 x 2.6 x 1.9 cm | | Echotexture and cysts: Normal. | | Color Doppler: Arterial flow is present. | | Mass: None identified. | | | | FREE FLUID: None. | | | | OTHER: | | Stable appearance of the large cystic structure at the midline anterior pelvis, | | located anterior to the uterus and measuring up to 11.2 cm. | | | | IMPRESSION: | | | | Unchanged large midline pelvic cyst. | | | | No acute pelvic abnormality. | | | | Limited assessment of the right ovary. | | | | Stable uterine fibroid. | | | | Notification: A preliminary report was relayed to the ordering provider by the | | mri technologist immediately following the exam. | | | | Dictated and Signed by: Kel Jones MD | | Electronically signed: 06/26/2019 9:08 AM | + + + +---------+ + + | Performing | Address | City/State/Zipcode | Phone Number | | Organization | | | | + +---------+ + + | [facility] | | | | + +---------+ + + Lactic Acid (06/25/2019 7:06 PM PST) + +-------+ + + + | Component | Value | Ref Range | Performed | Pathologist | | | | | At | Signature | + +-------+ + + + | Lactate | 1.7 | 0.5 - 2.2 | [facility] | [...] | + + + + + | [facility] | [address] | [place] | [phone] | | [facility] | | [address] | | | - LABORATORY | | | | + + + + + Lipase (06/25/2019 7:06 PM PST) + + + + + + | Component | Value | Ref Range | Performed | Pathologist | | | | | At | Signature | + + + + + + | Lipase | 38Comment: New method in | 12 - 53 U/L | [facility] | | | | use as of October 08, | | [facility] | | | | 2018. Check reference | | MEDICAL | | [...] | [address] | [place] | [phone] | | [facility] | | [address] | | | - LABORATORY | | | | + + + + + Comprehensive Metabolic Panel (06/25/2019 7:06 PM PST) + + + + + + | Component | Value | Ref Range | Performed | Pathologist | | | | | At | Signature | + + + + + + | Na | 139 | 136 - 145 | [facility] | | | | | mmol/L | [facility] | | | | | | MEDICAL | | | | | | CENTER - | | | | | | LABORATORY | | + + + + + + | K | 3.5 | 3.4 - 5.1 | [facility] | | | | | mmol/L | [facility] | | | | | | [facility] | | | | | | CENTER - | | | | | | LABORATORY | | + + + + + + | Cl | 106 | 98 - 107 mmol/L | [facility] | | | | | | [facility] | | | | | | [facility]ICAL | | | | | | CENTER - | | | | | | LABORATORY | | + + + + + + | CO2 | 24 | 20 - 31 mmol/L | [facility] | | | | | | [facility] | | | | | | [facility] | | | | | | CENTER - | | | | | | LABORATORY | | + + + + + + | Anion Gap | 9 | 3 - 16 mmol/L | [facility] | | | | | | [facility] | | | | | | [facility] | | | | | | CENTER - | | | | | | LABORATORY | | + + + + + + | Glucose | 150 (H) | 60 - 106 mg/dL | [facility] | | | | | | [facility] | | | | | | [facility] | | | | | | CENTER - | | | | | | LABORATORY | | + + + + + + | BUN | 8 (L) | 9 - 23 mg/dL | [facility] | | | | | [facility] | | | | | | [facility] | | | | | | [facility] - | | | | | | LABORATORY | | + + + + + + | Creatinine | 0.58 | 0.55 - 1.02 | [facility] | | | | | mg/dL | [facility] | | | | | | [facility]ICAL | | | | | | CENTER - | | | | | | LABORATORY | | + + + + + + | eGFR if not | >60Comment: GLOMERULAR | >=60 | [facility] | | | | FILTRATION | mL/min/1.73m2 | [facility] | | | [place] | RATE,ESTIMATED | | MEDICAL | | | | mL/min/1.10k4Mvsl than | | CENTER - | | [...] + + + + | Calcium | 8.9 | 8.7 - 10.4 | [facility] | | | | | mg/dL | [facility] | | | | | | [facility]ICAL | | | | | | CENTER - | | | | | | LABORATORY | | + + + + + + | Albumin | 4.3 | 3.2 - 4.8 g/dL | [facility] | | | | | | [facility] | | | | | | [facility] | | | | | | CENTER - | | | | | | LABORATORY | | + + + + + + | Bilirubin | 0.2 (L) | 0.3 - 1.2 mg/dL | [facility] | | | Total | | | [facility] | | | | | | [facility]ICAL | | | | | | CENTER - | | | | | | LABORATORY | | + + + + + + | Total | 6.7 | 5.7 - 8.2 g/dL | [facility] | | | Protein | | | [facility] | | | | | | [facility] | | | | | | CENTER - | | | | | | LABORATORY | | + + + + + + | AST | 40 (H) | 0 - 34 U/L | [facility] | | | | | | [facility] | | | | | | [facility] | | | | | | CENTER - | | | | | | LABORATORY | | + + + + + + | ALT | 55 (H) | 10 - 49 U/L | [facility] | | | | | | [facility] | | | | | | [facility] | | | | | | CENTER - | | | | | | LABORATORY | | + + + + + + | Alkaline | 90 | 46 - 116 U/L | [facility] | | | Phosphatase | | | [facility] | | | | | | [facility]ICAL | | | | | | CENTER - | | | | | | LABORATORY | | + + + + + + | Globulin | 2.4 | 2.1 - 3.8 g/dL | [facility] | | | | | | [facility] | | | | | | [facility] | | | | | | CENTER - | | | | | | LABORATORY | | + + + + + + | Albumin/Pati | 1.8 | 0.8 - 1.9 | [facility] | | | bulin Ratio | | | [facility] | | | | | | [facility]ICAL | | | | | | CENTER - | | | | | | LABORATORY | | + + + + + + | BUN/Creatin | 13.8 | | [facility] | | | ine Ratio | | | [facility] | | | | | | MEDICAL [...] | [address] | [place] | [phone] | | [facility] | | [address] | | | - LABORATORY | | | | + + + + + CBC with Differential (06/25/2019 7:06 PM PST) + + + + + + | Component | Value | Ref Range | Performed | Pathologist | | | | | At | Signature | + + + + + + | WBC | 9.9 | 4.0 - 11.0 K/uL | [facility] | | | | | | [facility] | | | | | | [facility] | | | | | | CENTER - | | | | | | LABORATORY | | + + + + + + | RBC | 4.79 | 3.70 - 5.20 | [facility] | | | | | M/uL | [facility] | | | | | | [facility] | | | | | | CENTER - | | | | | | LABORATORY | | + + + + + + | Hemoglobin | 13.3 | 11.5 - 16.0 | [facility] | | | | | g/dL | [facility] | | | | | | [facility]ICAL | | | | | | CENTER - | | | | | | LABORATORY | | + + + + + + | Hematocrit | 39.8 | 34.0 - 47.0 % | [facility] | | | | | | [facility] | | | | | | [facility] | | | | | | C[facility] - | | | | | | LABORATORY | | + + + + + + | MCV | 83.1 | 83.0 - 101.0 fL | [facility] | | | | | | [facility] | | | | | | [facility] | | | | | | CENTER - | | | | | | LABORATORY | | + + + + + + | MCH | 27.8 (L) | 28.0 - 35.0 pg | [facility] | | | | | | [facility] | | | | | | [facility] | | | | | | CENTER - | | | | | | LABORATORY | | + + + + + + | MCHC | 33.4 | 32.0 - 36.0 | [facility] | | | | | g/dL | [facility] | | | | | | [facility]ICAL | | | | | | CENTER - | | | | | | LABORATORY | | + + + + + + | RDW-CV | 14.0 | <15.0 % | [facility] | | | | | | [facility] | | | | | | [facility] | | | | | | CENTER - | | | | | | LABORATORY | | + + + + + + | RDW-SD | 42.4 | 35.1 - 46.3 fL | [facility] | | | | | | [facility] | | | | | | [facility] | | | | | | CENTER - | | | | | | LABORATORY | | + + + + + + | Platelet | 257 | 140 - 440 K/uL | [facility] | | | Count | | | [facility] | | | | | | [facility]ICAL | | | | | | CENTER - | | | | | | LABORATORY | | + + + + + + | MPV | 9.9 | 6.5 - 12.4 fL | [facility] | | | | | | [facility] | | | | | | [facility] | | | | | | CENTER - | | | | | | LABORATORY | | + + + + + + | % | 61.7 | 45.0 - 82.0 % | [facility] | | | Neutrophils | | | [facility] | | | | | | [facility]ICAL | | | | | | CENTER - | | | | | | LABORATORY | | + + + + + + | % | 29.1 | 20.0 - 45.0 % | [facility] | | | Lymphocytes | | | [facility] | | | | | | [facility]ICAL | | | | | | CENTER - | | | | | | LABORATORY | | + + + + + + | % Monocytes | 6.6 | 4.0 - 12.0 % | [facility] | | | | | | [facility] | | | | | | [facility] | | | | | | CENTER - | | | | | | LABORATORY | | + + + + + + | % | 1.8 | 0.0 - 5.0 % | [facility] | | | Eosinophils | | | [facility] | | | | | | MEDICAL | | | | | | CENTER - | | | | | | LABORATORY | | + + + + + + | % Basophils | 0.5 | 0.0 - 1.0 % | [facility] | | | | | | [facility] | | | | | | MEDICAL | | | | | | CENTER - | | | | | | LABORATORY | | + + + + + + | % Immature | 0.3Comment: For | 0.0 - 0.4 % | [facility] | | | Granulocyte | patients, use the | | [facility] | | | s | special reference ranges | | MEDICAL | | | | listed below. | | CENTER - | | | | | | LABORATORY | | + + + + + + | Absolute | 6.13 | 1.80 - 8.50 | [facility] | | | Neutrophils | | K/uL | [facility] | | | | | | MEDICAL | | | | | | CENTER - | | | | | | LABORATORY | | + + + + + + | Absolute | 2.89 | 0.60 - 3.20 | [facility] | | | Lymphocytes | | K/uL | [facility] | | | | | | MEDICAL | | | | | | CENTER - | | | | | | LABORATORY | | + + + + + + | Absolute | 0.66 | 0.00 - 1.00 | [facility] | | | Monocytes | | K/uL | [facility] | | | | | | MEDICAL | | | | | | CENTER - | | | | | | LABORATORY | | + + + + + + | Absolute | 0.18 | 0.00 - 0.40 | [facility] | | | Eosinophils | | K/uL | [facility] | | | | | | [facility]ICAL | | | | | | CENTER - | | | | | | LABORATORY | | + + + + + + | Absolute | 0.05 | 0.00 - 0.10 | [facility] | | | Basophils | | K/uL | [facility] | | | | | | [facility]ICAL | | | | | | CENTER - | | | | | | LABORATORY | | + + + + + + | Absolute | 0.03Comment: For | 0.00 - 0.03 | [facility] | | | Immature | patients, use | K/uL | [facility] | | | Granulocyte | the special reference | | MEDICAL | | | s | ranges listed below. | | CENTER - | | | | | | LABORATORY | | + + + + + + | % nRBC | 0 | 0 - 2 per 100 | [facility] | | | | | WBCs | [facility] | | | | | | [facility]ICAL | | | | | | CENTER - | | | | | | LABORATORY | | + + + + + + | Absolute | 0.00 | 0.00 - 0.01 | [facility] | | | nRBC | | K/uL | [facility] | | | | [...] ranges: Trim. Absolute (K/uL) Percentage (%) | [facility] | | 1st 0.003-0.091 K/uL 0.0-0.9% 2nd 0.007-0.247 K/uL | MEDICAL CENTER | | 0.1-2.0% 3rd 0.018-0.456 K/uL 0.1-2.0% | - LABORATORY | + + + + + + + + | Performing | Address | City/State/Zipcode | Phone Number | | Organization | | | | + + + + + | [facility] | [address] | [place] | [phone] | | [facility] | | [address] | | | - LABORATORY | | | | + + + + + , Urine, Qual (06/25/2019 6:55 PM PST) + + + + + + | Component | Value | Ref Range | Performed | Pathologist | | | | | At | Signature | + + + + + + | HCG SCREEN, | Negative | Negative | [facility] | | | URINE | | | [facility] | | | | | | MEDICAL [...] | [address] | [place] | [phone] | | [facility] | | [address] | | | - LABORATORY | | | | + + + + + Urinalysis with Microscopic with Culture if Indicated (06/25/2019 6:55 PM PST) + + + + + + | Component | Value | Ref Range | Performed | Pathologist | | | | | At | Signature | + + + + + + | Color, | Yellow | Light Yellow, | [facility] | | | Urine | | Yellow, Straw | [facility] | | | | | | [facility] | | | | | | CENTER - | | | | | | LABORATORY | | + + + + + + | Clarity | Hazy (A) | Clear | [facility] | | | | | | [facility] | | | | | | [facility] | | | | | | CENTER - | | | | | | LABORATORY | | + + + + + + | pH, Urine | 6.0 | 5.0 - 8.0 | [facility] | | | | | | [facility] | | | | | | [facility]ICAL | | | | | | CENTER - | | | | | | LABORATORY | | + + + + + + | Specific | 1.018 | 1.001 - 1.030 | [facility] | | | [place] | | | [facility] | | | | | | MEDICAL | | | | | | CENTER - | | | | | | LABORATORY | | + + + + + + | Protein, | Negative | Negative | [facility] | | | Urine | | | [facility] | | | | | | MEDICAL | | | | | | CENTER - | | | | | | LABORATORY | | + + + + + + | Blood, | Negative | Negative | [facility] | | | Urine | | | [facility] | | | | | | [facility]ICAL | | | | | | CENTER - | | | | | | LABORATORY | | + + + + + + | Glucose, | Negative | Negative | [facility] | | | Urine | | | [facility] | | | | | | [facility]ICAL | | | | | | CENTER - | | | | | | LABORATORY | | + + + + + + | Ketones, | Negative | Negative | [facility] | | | Urine | | | [facility] | | | | | | MEDICAL | | | | | | CENTER - | | | | | | LABORATORY | | + + + + + + | Bilirubin, | Negative | Negative | [facility] | | | Urine | | | [facility] | | | | | | [facility]ICAL | | | | | | CENTER - | | | | | | LABORATORY | | + + + + + + | Nitrite, | Negative | Negative | [facility] | | | Urine | | | [facility] | | | | | | [facility]ICAL | | | | | | CENTER - | | | | | | LABORATORY | | + + + + + + | Leukocyte | Trace (A) | Negative | [facility] | | | Esterase, | | | [facility] | | | Urine | | | MEDICAL | | | | | | CENTER - | | | | | | LABORATORY | | + + + + + + | Urobilinoge | Negative | 0.2 mg/dL, 1.0 | [facility] | | | n, Urine | | mg/dL, Negative | [facility] | | | | | | [facility]ICAL | | | | | | CENTER - | | | | | | LABORATORY | | + + + + + + | WBC UA | 2-5 (A) | 0 - 2 /HPF | [facility] | | | | | | [facility] | | | | | | [facility]ICAL | | | | | | CENTER - | | | | | | LABORATORY | | + + + + + + | RBC UA | 0-2 | 0 - 2 /HPF | [facility] | | | | | | [facility] | | | | | | [facility] | | | | | | CENTER - | | | | | | LABORATORY | | + + + + + + | SQUAMOUS | >100 (A) | 0 - 2 /LPF | [facility] | | | EPITHELIAL | | | [facility] | | | UA | | | MEDICAL | | | | | | CENTER - | | | | | | LABORATORY | | + + + + + + | BACTERIA UA | Negative | Negative /HPF | [facility] | | | | | | [facility] | | | | | | [facility]ICAL | | | | | | CENTER - | | | | | | LABORATORY | | + + + + + + | MUCUS UA | Present (A) | Negative /LPF | [facility] | | | | | | [facility] | | | | | | [facility]ICAL | | | | | | CENTER - | | | | | | LABORATORY | | + + + + + + | URINE | Urine Culture Not | | [facility] | | | COMMENT | Indicated | | [facility] | | | [...] | [address] | [place] | [phone] | | [facility] | | [address] | | | - LABORATORY | | | | + + + + + documented in this encounter Visit Diagnoses Not on filedocumented in this encounter Administered Medications + +--------+ +--------+------+------+ | Medication Order | MAR | Action | Dose | Rate | Site | | | Action | Date | | | | + +--------+ +--------+------+------+ | albuterol 2.5 mg/3 mL nebulizer | Given | 06/27/20 | 2.5 mg | | | | solution 2.5 mg 2.5 mg, | | 19 9:11 | | | | | Nebulization, RT EVERY 4 HOURS | | AM PST | | | | | PRN, Wheezing, Starting Fri | | | | | | | 06/26/19 at 2021, Post-op/Phase | | | | | | | II | | | | | | + +--------+ +--------+------+------+ +---+---+ | | | +---+---+ + +-------+ +--------+---+ + | bupivacaine 0.25%-EPINEPHrine | Given | 06/26/20 | 25 mLs | | Surgical | | 1:200,000 injection PRN, | | 19 6:09 | | | Site | | Starting Sat06/26/19 at 1809, | | PM PST | | | | | Intra-op | | | | | | + +-------+ +--------+---+ + + +---+ | | | + +---+ | diphenhydrAMINE (BENADRYL) 12.5 | | | mg/5 mL liquid 25 mg 25 mg, | | | Oral, EVERY 4 HOURS PRN, Itching, | | | Starting Sat06/26/19 at 2020, | | | Oral route is preferred., | | | Post-op/Phase II | | + +---+ | | | + +---+ | diphenhydrAMINE (BENADRYL) | | | injection 12.5 mg 12.5 mg, | | | Intravenous, EVERY 4 HOURS PRN, | | | Itching, Starting Sat06/26/19 at | | | 2020, Oral route is preferred., | | | Post-op/Phase II | | + +---+ | | | + +---+ | diphenhydrAMINE (BENADRYL) | | | tablet 25 mg 25 mg, Oral, EVERY | | | 4 HOURS PRN, Itching, Starting | | | Sat06/26/19 at 2020, Oral route | | | is preferred., Post-op/Phase II | | + +---+ | | | + +---+ + +-------+ +--------+---+---+ | docusate sodium (COLACE) | Given | 06/27/20 | 100 mg | | | | capsule 100 mg 100 mg, Oral, 2 | | 19 8:34 | | | | | TIMES DAILY, First dose on Fri | | AM PST | | | | | 06/26/19 at 2100, First line | | | | | | | agent for constipation, | | | | | | | Post-op/Phase II | | | | | | + +-------+ +--------+---+---+ +---+---+ | | | +---+---+ + +-------+ +-------+---+---+ | famotidine (PEPCID) tablet 20 | Given | 06/27/20 | 20 mg | | | | mg 20 mg, Oral, 2 TIMES DAILY, | | 19 8:34 | | | | | First dose on Sat06/26/19 at | | AM PST | | | | | 2100, Post-op/Phase II | | | | | | + +-------+ +-------+---+---+ + +---+ | | | + +---+ | ibuprofen (ADVIL,MOTRIN) tablet | | | 600 mg 600 mg, Oral, EVERY 8 | | | HOURS (3 times per day), First | | | dose on 06/28/19 at 0030, If | | | urine output is less than 240ml/8 | | | hours (30ml/hr) or if signs of | | | bleeding, contact MD and hold. | | | Administer with food or snack, | | | Post-op/Phase II | | + +---+ | | | + +---+ + +-------+ +-------+---+---+ | ketorolac (TORADOL) injection | Given | 06/27/20 | 30 mg | | | | 30 mg 30 mg, Intravenous, EVERY | | 19 12:34 | | | | | 6 HOURS INTERVAL, First dose on | | PM PST | | | | | 06/27/19 at 0030, For 4 | | | | | | | doses, If urine output is less | | | | | | | than 240ml/8 hours (30ml/hr) or | | | | | | | if signs of bleeding, contact MD | | | | | | | and hold., Post-op/Phase II | | | | | | + +-------+ +-------+---+---+ +-------+ +-------+---+---+ | Given | 06/27/20 | 30 mg | | | | | 19 6:16 | | | | | | AM PST | | | | +-------+ +-------+---+---+ | Given | 06/27/20 | 30 mg | | | | | 19 12:37 | | | | | | AM PST | | | | +-------+ +-------+---+---+ +---+---+ | | | +---+---+ + +---------+ +---+-------+---+ | lactated ringers (LR) infusion | New Bag | 06/26/20 | | 100 | | | at 100 mL/hr, Intravenous, | | 19 8:58 | | mL/hr | | | CONTINUOUS, Starting 06/26/19 | | PM PST | | | | | at 2044, Post-op/Phase II | | | | | | + +---------+ +---+-------+---+ +---+---+ | | | +---+---+ + +-------+ +-------+---+---+ | metoclopramide (REGLAN) 5 mg/mL | Given | 06/27/20 | 10 mg | | | | injection 10 mg 10 mg, | | 19 4:18 | | | | | Intravenous, EVERY 4 HOURS PRN, | | AM PST | | | | | Nausea, Vomiting, Starting Fri | | | | | | | 06/26/19 at 2020, Use if | | | | | | | ondansetron and prochlorperazine | | | | | | | ineffective after 30 minutes or | | | | | | | not ordered Use PO option unless | | | | | | | NPO status or unable to tolerate | | | | | | | Protect from light., | | | | | | | Post-op/Phase II | | | | | | + +-------+ +-------+---+---+ +---+---+ | | | +---+---+ + +-------+ +------+---+---+ | oxyCODONE (ROXICODONE) tablet | Given | 06/27/20 | 5 mg | | | | 5-20 mg 5-20 mg, Oral, EVERY 3 | | 19 9:34 | | | | | HOURS PRN, Pain, Starting Fri | | AM PST | | | | | 06/26/19 at 2020, First dose must | | | | | | | be the lowest dose, can titrate | | | | | | | to effective dose by repeat of | | | | | | | lowest dose every 60 minutes prn | | | | | | | pain, may not exceed maximum dose | | | | | | | ordered per interval. Use [employer]ero | | | | | | | Sedation Scale., Post-op/Phase | | | | | | | II | | | | | | + +-------+ +------+---+---+ +-------+ +------+---+---+ | Given | 06/27/20 | 5 mg | | | | | 19 8:37 | | | | | | AM PST | | | | +-------+ +------+---+---+ +---+---+ | | | +---+---+ + +-------+ +--------+---+---+ | senna (SENOKOT) tablet 8.6 mg | Given | 06/27/20 | 8.6 mg | | | | 8.6 mg, Oral, 2 TIMES DAILY, | | 19 8:34 | | | | | First dose on Sat06/26/19 at | | AM PST | | | | | 2100, If docusate ineffective or | | | | | | | not ordered, Post-op/Phase II | | | | | | + +-------+ +--------+---+---+ +---+---+ | | | +---+---+ documented in this encounter
--- OUTSIDE RECORDS SUMMARY | ~2019-08-19 | XMS | Encounter Summary ---
Demographics + + + | Address | [address] | | | [place] [address] | + + + | Home Phone | | + + + | Preferred Language | Unknown | + + + | Marital Status | | + + + | Mormon Affiliation | 1041 | + + + | Race | Unknown | + + + | Ethnic Group | Unknown | + + + Author + + + | Author | [facility] | | | and [place] | + + + | Organization | [facility] | | | [...] | | | | | [address]pt [address] [place], | | | | | [place] [address] | | + + + + + Care Team Providers + +------+ + | Care Founder Name | Role | Phone | + +------+ + PCP | Unavailable | + +------+ + Encounter Details +--------+ + + + + | Date | Type | Department | Care Team | Description | +--------+ + + + + | 06/04/ | Hospital | [facility] | Angy, | | | 2006 | Encounter | [facility] | Rafita Welch MD [address] | | | | CENTER [address] | [address] [place] | | | | | [place], [place] | [place] [address] | | | | | [address] | [phone] | | | | | [phone] | | | +--------+ + + + + Social History + +-------+ +--------+------+ | Tobacco Use | Types | Packs/Day | Years | Date | | | | | Used | | + +-------+ +--------+------+ | Never Assessed | | | | | + +-------+ +--------+------+ + + + | Sex Assigned at [...] [place] | | | | | | [address] | | | | | | | | +--------+---------+ + + + documented as of this encounter Visit Diagnoses Not on filedocumented in this encounter"
--- OUTSIDE RECORDS SUMMARY | ~2019-08-19 | XMS | Encounter Summary ---
Demographics + + + | Address | [address] | | | [place] [address] | + + + | Home Phone | | + + + | Preferred Language | Unknown | + + + | Marital Status | | + + + | Yarsanism Affiliation | 1041 | + + + | Race | Unknown | + + + | Ethnic Group | Unknown | + + + Author + + + | Author | [facility] | | | and [place] | + + + | Organization | [facility] | | | and [...] [place] | | | | | [place] [address] | | + + + + + Care Team Providers + +------+ + | Care Site Controller Name | Role | Phone | + +------+ + | Dillon Govea MD | PCP | | + +------+ + Reason for Visit + + + | Reason | Comments | + + + | Pneumonia | | + + + Encounter Details +--------+ + + + + | Date | Type | Department | Care Team | Description | +--------+ + + + + | 08/19/ | Telephone | [facility] [place] [facility] | Dillon Govea, | Pneumonia | | 2020 | | MEDICINE [address] | [address] | | | | | [address] [place] | [place] | | | | | [place] [address] | [address] | | | | | [phone] | | | +--------+ + + + [...]
--- OUTSIDE RECORDS SUMMARY | ~2019-08-19 | XMS | Encounter Summary ---
Demographics + + + | Address | [address] | | | [place] [address] | + + + | Home Phone | | + + + | Preferred Language | Unknown | + + + | Marital Status | | + + + | Nondenominational Affiliation | 1041 | + + + | Race | Unknown | + + + | Ethnic Group | Unknown | + + + Author + + + | Author | [facility] | | | and [place] | + + + | Organization | [facility] | | | [...] [place] | | | | | [place] [address] | | + + + + + Care Team Providers + +------+ + | Care Network Control Operator Name | Role | Phone | + +------+ + | Jade Govea MD | PCP | | + +------+ + Reason for Visit +--------+ + | Reason | Comments | +--------+ + | Cough | | +--------+ + Encounter Details +--------+ + + + + | Date | Type | Department | Care Team | Description | +--------+ + + + + | 08/18/ | Emergency | [facility] | Jade Dominguez, | Multifocal pneumonia | | 2019 - | | [facility] | MD [address] | (Primary Dx); | | | | CENTER [address] | [place], [place] | Hemoptysis; Acute | | | | [place], [place] | [address] | hypoxemic | | 2019 | | [address] | | respiratory failure | | | | [phone] | | (HCC); Community | | | | | | acquired pneumonia, | | | | | | unspecified | | | | | | laterality; Acute | | | | | | respiratory failure | | | | | | with hypoxia (HCC) | +--------+ + + + + Social [...] + + + | Blood Pressure | 105/65 | 08/19/2019 1:44 AM | | | | | PST | | + + + + + | Pulse | 96 | 08/19/2019 1:44 AM | | | | | PST | | + + + + + | Temperature | 36.6 C (97.9 F) | 08/19/2019 1:00 AM | | | | | PST | | + + + + + | Respiratory Rate | 26 | 08/19/2019 1:00 AM | | | | | PST | | + + + + + | Oxygen Saturation | 96% | 08/19/2019 1:44 AM | | | | | PST | | + + + + + | Inhaled Oxygen | - | - | | | Concentration | | | | + + + + + | Weight | 87.5 kg (193 lb) | 08/18/2019 4:51 PM | | | | | PST | | + + + + + | Height | 144.8 cm (4' 9") | 08/18/2019 4:51 PM | | | | | PST | | + + + + + | Body Mass Index | 41.76 | 08/18/2019 4:51 PM | | | | | PST | | + + + + + documented in this encounter Discharge Instructions AttachmentsThe following attachments cannot be sent through Care Everywhere.Mara Escobedo (Thai)documented in this encounter Medications at Time of [...] + +---------+ + + | | Take 1 tablet by | 30 | 0 | 08/18/19 | | | HYDROcodone-acetamin | mouth every 6 hours | tablet | | 20 | | | ophen (NORCO) 5-325 | as needed. | | | | | | mg [...] as of this encounter Plan of Treatment + + +--------+ + + | Name | Type | Priori | Associated Diagnoses | Date/Time | | | | ty | | | + + +--------+ + + | ED INFORMATION | KHADIJAH | Routin | | 08/18/2019 4:39 PM | | EXCHANGE | | e | | PST | + + +--------+ + + | Culture, Blood | Microbiolog | STAT | | 08/18/2019 5:38 PM | | | y | | | PST | + + +--------+ + + | Culture, Blood | Microbiolog | STAT | | 08/18/2019 5:52 PM | | | y | | | PST | + + +--------+ + + | Culture, | Microbiolog | STAT | | 08/18/2019 10:40 PM | | Respiratory, Lower, | y | | | PST | | Smear | | | | | + + +--------+ + + documented as of this encounter Procedures + +--------+ + + + | Procedure Name | Priori | Date/Time | Associated Diagnosis | Comments | | | ty | | | | + +--------+ + + + | CULTURE, | STAT | 08/18/2019 | | | | RESPIRATORY, LOWER, | | 10:40 PM | | | | SMEAR | | PST | | | + +--------+ + + + | CULTURE, BLOOD | STAT | 08/18/2019 | | | | | | 5:52 PM | | | | | | PST | | | + +--------+ + + + | SLIDE REVIEW, | Routin | 08/18/2019 | | Results for this | | PERIPHERAL SMEAR | e | 5:38 PM | | procedure are in the | | | | PST | | results section. | + +--------+ + + + | PROCALCITONIN, SERUM | STAT | 08/18/2019 | | Results for this | | | | 5:38 PM | | procedure are in the | | | | PST | | results section. | + +--------+ + + + | CULTURE, BLOOD | STAT | 08/18/2019 | | | | | | 5:38 PM | | | | | | PST | | | + +--------+ + + + | CBC WITH | STAT | 08/18/2019 | | Results for this | | DIFFERENTIAL | | 5:38 PM | | procedure are in the | | | | PST | | results section. | + +--------+ + + + | LACTIC ACID | STAT | 08/18/2019 | | Results for this | | | | 5:38 PM | | procedure are in the | | | | PST | | results section. | + +--------+ + + + | COMPREHENSIVE | STAT | 08/18/2019 | | Results for this | | METABOLIC PANEL | | 5:38 PM | | procedure are in the | | | | PST | | results section. | + +--------+ + + + | CT ANGIOGRAM | STAT | 08/18/2019 | | Results for this | | PULMONARY | | 5:27 PM | | procedure are in the | | | | PST | | results section. | + +--------+ + + + | ED INFORMATION | Routin | 08/18/2019 | | | | EXCHANGE | e | 4:39 PM | | | | | | PST | | | + +--------+ + + + +---+--------+ | | | | | Proced | | | ure | | | Note - | | | Vaibhav, | | | Lab In | | | | | | Hlseve | | | n - | | | | | | 2019 | | | 4:40 | | | PM PST | | [...] | | | FICATI | | | ON?/ | | | | | | 0 | | | 16:38? | | | JAMEEL | | | EZ, | | | LIZ | | | | | | C?MRN: | | | | | | [id number] | | | [id number] | | | riteri | | | a Met | | | PDMP | | | 4 | | | visits | | | in | | | 60Secu | | | rity | | | and | | | [...] MED | | | | | | 2019- | | | 1-22 | | | OXYCOD | | | ONE-AC | | | ETAMIN | | | OPHEN | | | 5-325 | | | 30 | | | AUGUSTA | | | | | | MONTAG | | | MAJO 2 | | | 56.25 | | | | | | 2019- | | | 1-14 | | | OXYCOD | | | ONE-AC | | | ETAMIN | | | OPHEN | | | 5-325 | | | 30 | | | JADE | | | [place] | | | ER 2 | | | 28.125 | | | | | | 2019- | | | 1-06 | | | OXYCOD | | | ONE-AC | | | ETAMIN | | | OPHEN | | | 5-325 | | | 30 | | | JADE | | | MAXWEL | | | L 2 | | | 28.125 | | | | | | 2019- | | | 1-05 | | | [...] | | II-V | | | Rx 6 | | | CS-II | | | Rx 5 | | | Quanti | | | ty | | | Dispen | | | sed | | | 246 | | | Unique | | | | | | Prescr | | | ibers | | | 6 | | | Unique | | | | | | Pharma | | | cies 2 | | | | | | Benzos | | | 0 | | | Opioid | | | s 5 | | | Long | | | [...] | | | Center | | | 8 0 | | | Total | | | 8 0 | | | Note: | | [...] | | | int | | | Dominic 7, | | | 2020 | | | [facility] | | | ence | | | [facility] | [place] | | | [place] | | | Emerge | | | ncy | | | poss | | | pnuemo | | | evelio, | | | coughi | | | ng up | | | blood | | | Dominic | | | 3, | | | 2020 | | | [facility] | | | ence | | | [facility] | [facility] | | [place] | | | [place] | | | Emerge | | | ncy | | | | | | CP,hea | | | d pain | | | | | | Flu | | | Like | | | Sympto | | | ms | | | Chest | | | Pain | | | | | | Pneumo | | | evelio, | | | unspec | | | ified | | | organi | | | sm | | | Dominic 3, | | | 2020 | | | [facility] | | | [place] | | | Urgent | | | Care | | | [place] | | | [place] | | | Urgent | | | Care | | | | | | Cough | | | | | | Shortn | | | ess of | | | | | | breath | | | | | | Other | | | genera | | | l | | | sympto | | | ms and | | | signs | | | Dec | | | 25, | | | 2019 | | | Prov[facility] | | | ence | | | [facility] | | | [facility] | | [place] | | | [place] | | | Emerge | | | ncy | | | Abd | | | pain/P | | | ost op | | | | | | Abdomi | | | nal | | | Pain | | | | | | Post-o | | | p | | | Proble | | | m | | | Other | | | acute | | | postpr | | | ocedur | | | al | | | pain | | | | | | Unspec | | | ified | | | abdomi | | | nal | | | pain | | | Nov | | | [...] | | | ng | | | Pelvic | | | and | | | perine | | | al | | | pain | | | | | | Unspec | | | ified | | | ovaria | | | n | | | cyst, | | | unspec | | | ified | | | side | | | Nov 5, | | [...] | | | [place] | | | Mother | | | Baby | | | Unit | | | | | | Pelvic | | | and | | | perine | | | al | | | pain | | | | | | Unspec | | | ified | | | ovaria | | | n | | | cyst, | | | unspec | | | ified | | | side | | | Care | | | TeamPr | | | ovider | | | | | | Specia | | | lty | | | Phone | | | Fax | | | Servic | | | e | | | Dates | | | [place] | | | ER, | | | JADE | | | , MD | | | Alteration Workroom Supervisor | | | al | | | [...] | | | https: | | | //prov | | | .colle | | | ctivem | | | edical | | | .[email or web address] | | | otify/ | | | [email or web address] | | | [email or web address] | | | [email or web address] | | | -[email or web address] | | | [email or web address] | | | [email or web address] | | | | | | PLEASE | | | [...] | | | ed.? | | | 2019 | | | Collec | | | tive | | | Medica | | | l | | | Techno | | | logies | | | , Inc. | | | - | | | [email or web address] | | | llecti | | | vemedi | | | [email or web address] | | | m | +---+--------+ documented in this encounter Results Slide Review, Peripheral Smear (08/18/2019 5:38 PM PST) + + + + + + | Component | Value | Ref Range | Performed | Pathologist | | | | | At | Signature | + + + + + + | RBC | Normal | | [facility] | | | Morphology | | | [facility] | | | | | | [facility] | | | | | | C[facility] - | | | | | | LABORATORY | | + + + + + + | Platelet | Adequate | Adequate | [facility] | | | Estimate | | | [facility] | | [facility] | [facility] | [facility] | | | | | | [facility] - | | | | | | LABORATORY | | + + + + + + | Variant | Few (A) | (none) | [facility] | | | Lymphocytes | | | [facility] | | | | [...] + | [facility] | [address] | [place] | [phone] | | [facility] | | [address] | | | - LABORATORY | | | | + + + + + Procalcitonin (08/18/2019 5:38 PM PST) + + + + + + | Component | Value | Ref Range | Performed | Pathologist | | | | | At | Signature | + + + + + + | Procalciton | <0.05 | <=0.50 ng/mL | [facility] | | | in | | | [facility] | | [facility] | | | [facility]ICAL | | | | | | CENTER - | | | | | | LABORATORY | | + + + + + + | Comment | Comment: < 0.50 | | [facility] | | | | ng/mL:Procalcitonin | | [facility] | | | | levels below 0.50 [...] + | [facility] | [address] | [place] | [phone] | | [facility] | | [address] | | | - LABORATORY | | | | + + + + + Lactic Acid (08/18/2019 5:38 PM PST) + +-------+ + + + [...] [address] | [place] | [phone] | | [facility] | | [address] | | | - LABORATORY | | | | + + + + + Comprehensive Metabolic Panel (08/18/2019 5:38 PM PST) + + + + + [...] + + + + | K | 3.3 (L) | 3.4 - 5.1 | [facility] | [...] + + + | Anion Gap | 7 | 3 - 16 mmol/L | [facility] | | | | | | [facility] | | | | | | [facility]ICAL | | | | | | CENTER - | | | | | | LABORATORY | | + + + + + + | Glucose | 99 | 60 - 106 mg/dL | [facility] [...] | | | | | mg/dL | [facility] | | | | | | MEDICAL | | | | | | CENTER - | | | | | | LABORATORY | | + + + + + + | eGFR if not | >60Comment: GLOMERULAR | >=60 | [facility] | | | | FILTRATION | mL/min/1.73m2 | [facility] | | | OMANI | RATE,ESTIMATED | | MEDICAL | | | | mL/min/1.13n3Dlue than | | CENTER - | | [...] + + + + | Calcium | 8.8 | 8.7 - 10.4 | [facility] | | | | | mg/dL | [facility] | | | | | | MEDICAL | | | | | | CENTER - | | | | | | LABORATORY | | + + + + + + | Albumin | 4.0 | 3.2 - 4.8 g/dL | [facility] | | | | | | [facility] | | | | | | MEDICAL | | | | | | CENTER - | | | | | | LABORATORY | | + + + + + + | Bilirubin | 0.3 | 0.3 - 1.2 mg/dL | [facility] | | | Total | | | [facility] | | | | | | MEDICAL | | | | | | CENTER - | | | | | | LABORATORY | | + + + + + + | Total | 6.4 | 5.7 - 8.2 g/dL | [facility] | | | Protein | | | [facility] | | | | | | MEDICAL | | | | | | CENTER - | | | | | | LABORATORY | | + + + + + + | AST | 33 | 0 - 34 U/L | [facility] | | | [facility] | | | [facility] | [facility] | | | | | | CENTER - | | | | | | LABORATORY | | + + + + + + | ALT | 53 (H) | 10 - 49 U/L | [facility] | | | | | | [facility] | | | | | | MEDICAL | | | | | | CENTER - | | | | | | LABORATORY | | + + + + + + | Alkaline | 91 | 46 - 116 U/L | [facility] [...] + + + + | BUN/Creatin | 14.0 | | [facility] | | | ine [...] + | [facility] | [address] | [place] | [phone] | | [facility] | | [address] | | | - LABORATORY | | | | + + + + + CBC with Differential (08/18/2019 5:38 PM PST) + + + + + + | Component | Value | Ref Range | Performed | Pathologist | | | | | At | Signature | + + + + + + | WBC | 4.2 | 4.0 - 11.0 K/uL | [facility] | | | | | | [facility] | | | | | | MEDICAL | | | | | | CENTER - | | | | | | LABORATORY | | + + + + + + | RBC | 4.40 | 3.70 - 5.20 | [facility] | | | | | M/uL | [facility] | | | | | | MEDICAL | | | | | | CENTER - | | | | | | LABORATORY | | + + + + + + | Hemoglobin | 11.9 | 11.5 - 16.0 | [facility] | | | | | g/dL | [facility] | | | | | | MEDICAL | | | | | | CENTER - | | | | | | LABORATORY | | + + + + + + | Hematocrit | 35.6 | 34.0 - 47.0 % | [facility] | | | | | | [facility] | | | | | | MEDICAL | | | | | | CENTER - | | | | | | LABORATORY | | + + + + + + | MCV | 80.9 (L) | 83.0 - 101.0 fL | [facility] | | | | | | [facility] | | | | | | MEDICAL | | | | | | CENTER - | | | | | | LABORATORY | | + + + + + + | MCH | 27.0 (L) | 28.0 - 35.0 pg | [...] + + + + | RDW-SD | 42.6 | 35.1 - 46.3 fL | [facility] | | | | | | [facility] | | | | | | MEDICAL | | | | | | CENTER - | | | | | | LABORATORY | | + + + + + + | Platelet | 197 | 140 - 440 K/uL | [facility] | | | Count | | | [facility] | | | | | | MEDICAL | | | | | | CENTER - | | | | | | LABORATORY | | + + + + + + | MPV | 10.2 | 6.5 - 12.4 fL | [facility] | | | | | | [facility] | | | | | | MEDICAL | | | | | | CENTER - | | | | | | LABORATORY | | + + + + + + | % | 49.1 | 45.0 - 82.0 % | [facility] | | | Neutrophils | | | [facility] | | | | | | MEDICAL | | | | | | CENTER - | | | | | | LABORATORY | | + + + + + + | % | 33.6 | 20.0 - 45.0 % | [facility] | | | Lymphocytes | | | [facility] | | | | | | MEDICAL | | | | | | CENTER - | | | | | | LABORATORY | | + + + + + + | % Monocytes | 13.2 (H) | 4.0 - 12.0 % | [facility] | | | | | | [facility] | | | | | | MEDICAL | | | | | | CENTER - | | | | | | LABORATORY | | + + + + + + | % | 3.4 | 0.0 - 5.0 % | [facility] | | | Eosinophils | | | [facility] | | | | | | MEDICAL | | | | | | CENTER - | | | | | | LABORATORY | | + + + + + + | % Basophils | 0.2 | 0.0 - 1.0 % | [facility] | | | | | | [facility] | | | | | | MEDICAL | | | | | | CENTER - | | | | | | LABORATORY | | + + + + + + | % Immature | 0.5 (H)Comment: | 0.0 - 0.4 % | [facility] | | | Granulocyte | Preliminary studies have | | [facility] | | | s | indicated the IG% | | MEDICAL | | | | and/or IG# show promise | | CENTER - | | | | as an early indicator | | LABORATORY | | | | for infection. For | | | | | | patients, use | | | | | | the special reference | | | | | | ranges listed below. | | | | + + + + + + | Absolute | 2.05 | 1.80 - 8.50 | [facility] | | | Neutrophils | | K/uL | [facility] | | | | | | MEDICAL | | | | | | CENTER - | | | | | | LABORATORY | | + + + + + + | Absolute | 1.40 | 0.60 - 3.20 | [facility] | | | Lymphocytes | | K/uL | [facility] | | | | | | MEDICAL | | | | | | CENTER - | | | | | | LABORATORY | | + + + + + + | Absolute | 0.55 | 0.00 - 1.00 | [facility] | | | Monocytes | | K/uL | [facility] | | | | | | MEDICAL | | | | | | CENTER - | | | | | | LABORATORY | | + + + + + + | Absolute | 0.14 | 0.00 - 0.40 | [facility] | | | Eosinophils | | K/uL | [facility] | | | | | | MEDICAL | | | | | | CENTER - | | | | | | LABORATORY | | + + + + + + | Absolute | 0.01 | 0.00 - 0.10 | [facility] | | | Basophils | | K/uL | [facility] | | | | | | MEDICAL | | | | | | CENTER - | | | | | | LABORATORY | | + + + + + + | Absolute | 0.02Comment: For | 0.00 - 0.03 | [facility] [...] | nRBC | | K/uL | [facility] | [...] ranges: Trim. Absolute (K/uL) Percentage (%) | [facility] | | 1st 0.003-0.091 K/uL 0.0-0.9% 2nd 0.007-0.247 K/uL | MEDICAL CENTER | | 0.1-2.0% 3rd 0.018-0.456 K/uL 0.1-2.0% | - LABORATORY | + + + + + + + + | Performing | Address | City/State/Zipcode | Phone Number | | Organization | | | | + + + + + | [facility] | [address] | [place] | [phone] | | [facility] | | [address] | | | - LABORATORY | | | | + + + + + CT Angiogram Pulmonary w Contrast (08/18/2019 5:27 PM PST) + + | Specimen | + + | | + + + + + | Impressions | Performed At | + + + | No evidence for acute pulmonary embolism. Right mid and | [facility] | | bilateral lower lobe patchy groundglass opacities most compatible | | | with pneumonia and extensive reactive mediastinal and right hilar | | | lymphadenopathy. Dictated and Signed by: Cedric Castro MD | | | Electronically signed: 08/18/2019 6:22 PM | | + + + + + + | Narrative | Performed At | + + + | CT ANGIOGRAM PULMONARY W CONTRAST 08/18/2019 5:21 PM HISTORY: PE | [facility] | | suspected, high pretest prob COUGH. COMPARISON: 08/14/2019 | | | PROTOCOL: Thin section axial images of the chest were obtained after | | | uneventful administration of 80 mL Omnipaque 350. Coronal and | | | sagittal reformations were acquired. FINDINGS: VASCULATURE: | | | Aorta is nonaneurysmal and without evidence of dissection. No | | | evidence for a pulmonary embolism. LUNGS: Patchy groundglass | | | opacities are seen scattered throughout the right lung with a lower | | | lobe predominance. Minimal patchy opacities are seen in the left lung | | | base. HEART: The heart is of normal size. LYMPH NODES: Diffuse | | | mediastinal and right hilar lymphadenopathy. MEDIASTINUM: | | | Extensive soft tissue thickening throughout the right perihilar | | | interstitium. Neck base is normal. ABDOMEN: Diffuse hepatic | | | steatosis. SOFT TISSUES: Chest wall structures are normal. BONES: | | | There are no acute osseous abnormalities. Mild multilevel thoracic | | | spondylosis. | | + + + + + | Procedure Note | + + | Vaibhav, Rad Results In - 08/18/2019 6:[address] ANGIOGRAM PULMONARY W CONTRAST | | 08/18/2019 5:21 PMHISTORY: PE suspected, high pretest probCOUGH.COMPARISON: | | 08/14/2019PROTOCOL: Thin section axial images of the chest were obtained after | | uneventfuladministration of 80 mL Omnipaque 350. Coronal and sagittal reformations | | wereacquired.FINDINGS:VASCULATURE: Aorta is nonaneurysmal and without evidence of | | dissection. Noevidence for a pulmonary embolism.LUNGS: Patchy groundglass opacities are | | seen scattered throughout the right lungwith a lower lobe predominance. Minimal patchy | | opacities are seen in the leftlung base.HEART: The heart is of normal size. LYMPH NODES: | | Diffuse mediastinal and right hilar lymphadenopathy. MEDIASTINUM: Extensive soft | | tissue thickening throughout the right perihilarinterstitium. Neck base is | | normal.ABDOMEN: Diffuse hepatic steatosis.SOFT TISSUES: Chest wall structures are | | normal.BONES: There are no acute osseous abnormalities. Mild multilevel | | thoracicspondylosis.IMPRESSION: No evidence for acute pulmonary embolism.Right mid and | | bilateral lower lobe patchy groundglass opacities most compatiblewith pneumonia and | | extensive reactive mediastinal and right hilarlymphadenopathy.Dictated and Signed by: | | Cedric Castro MD Electronically signed: 08/18/2019 6:22 PM | |with a lower lobe predominance. Minimal patchy opacities are seen in the left | |lung base. | |HEART: The heart is of normal size. | |LYMPH NODES: Diffuse mediastinal and right hilar lymphadenopathy. | |MEDIASTINUM: Extensive soft tissue thickening throughout the right perihilar | |interstitium. Neck base is normal. | |ABDOMEN: Diffuse hepatic steatosis. | |SOFT TISSUES: Chest wall structures are normal. | |BONES: There are no acute osseous abnormalities. Mild multilevel thoracic | |spondylosis. | | | |IMPRESSION: | |No evidence for acute pulmonary embolism. | | | |Right mid and bilateral lower lobe patchy groundglass opacities most compatible | |with pneumonia and extensive reactive mediastinal and right hilar | |lymphadenopathy. | | | |Dictated and Signed by: Cedric Castro MD | | Electronically signed: 08/18/2019 6:22 PM | + + + +---------+ + + | Performing | Address | City/State/Zipcode | Phone Number | | Organization | | | | + +---------+ + + | [facility] | | | | + +---------+ + + documented in this encounter Visit Diagnoses + + | Diagnosis | + + | Multifocal pneumonia - Primary | + + | Hemoptysis Hemoptysis, unspecified | + + | Acute hypoxemic respiratory failure (HCC) | + + | Community acquired pneumonia, unspecified laterality | + + | Acute respiratory failure with hypoxia (HCC) Acute respiratory failure | + + documented in this encounter Administered Medications + +---------+ +------+-------+------+ | Medication Order | MAR | Action | Dose | Rate | Site | | | Action | Date | | | | + +---------+ +------+-------+------+ | ampicillin-sulbactam (UNASYN) 3 | New Bag | 08/18/19 | 3 g | 200 | | | g in sodium chloride 0.9% 100 mL | | 20 11:02 | | mL/hr | | | IVPB 3 g, Intravenous, | | PM PST | | | | | Administer over 30 Minutes, EVERY | | | | | | | 6 HOURS INTERVAL, First dose on | | | | | | | Tu08/18/19 at 2300, Pharmacist | | | | | | | may adjust Activate system and | | | | | | | mix before use., Indications: | | | | | | | Pneumonia | | | | | | + +---------+ +------+-------+------+ + +---+ | | | + +---+ | azithromycin (ZITHROMAX) tablet | | | 250 mg 250 mg, Oral, DAILY, | | | First dose on Sat08/19/19 at 0900, | | | Indications: Pneumonia | | + +---+ | | | + +---+ + +-------+ +------+---+---+ | HYDROmorphone (DILAUDID) | Given | 08/18/19 | 1 mg | | | | injection 1 mg 1 mg, | | 20 9:12 | | | | | Intravenous, ONCE, 08/18/19 at | | PM PST | | | | | 2045, For 1 dose | | | | | | + +-------+ +------+---+---+ +---+---+ | | | +---+---+ + +-------+ +--------+---+---+ | iohexol (OMNIPAQUE 350) 350 | Given | 08/18/19 | 80 mLs | | | | mg/mL injection 80 mL 80 mL, | | 20 5:27 | | | | | Intravenous, ONCE PRN, Other, for | | PM PST | | | | | imaging CT study, Starting Tue | | | | | | | 08/18/19 at 1727, For 1 dose, | | | | | | | Radiology | | | | | | + +-------+ +--------+---+---+ +---+---+ | | | +---+---+ + +-------+ +------+---+---+ | ondansetron (ZOFRAN) injection | Given | 08/18/19 | 4 mg | | | | 4 mg 4 mg, Intravenous, ONCE, | | 20 9:10 | | | | | 08/18/19 at 2105, For 1 dose | | PM PST | | | | + +-------+ +------+---+---+ +---+---+ | | | +---+---+ + +-------+ +------+---+---+ | ondansetron (ZOFRAN) injection | Given | 08/18/19 | 4 mg | | | | 4 mg 4 mg, Intravenous, ONCE, | | 20 11:00 | | | | | 08/18/19 at 2235, For 1 dose | | PM PST | | | | + +-------+ +------+---+---+ +---+---+ | | | +---+---+ + +-------+ +--------+---+---+ | potassium chloride (Klor-Con | Given | 08/18/19 | 40 mEq | | | | M20) ER tablet 40 mEq 40 mEq, | | 20 11:01 | | | | | Oral, ONCE, 08/18/19 at 2220, | | PM PST | | | | | For 1 dose, OK to substitute | | | | | | | liquid formulation if better | | | | | | | tolerated., | | | | | | + +-------+ +--------+---+---+ +---+---+ | | | +---+---+ + +------+ +--------+-------+---+ | sodium chloride 0.9% (NS) bolus | Push | 08/18/19 | 40 mLs | 2400 | | | 40 mL 40 mL, Intravenous, | | 20 5:27 | | mL/hr | | | Administer over 1 Minutes, ONCE | | PM PST | | | | | PRN, for imaging CT study, | | | | | | | Starting 08/18/19 at 1727, For | | | | | | | 1 dose, Radiology | | | | | | + +------+ +--------+-------+---+ +---+---+ | | | +---+---+ documented in this encounter
--- OUTSIDE RECORDS SUMMARY | ~2019-08-19 | XMS | Encounter Summary ---
Demographics + + + | Address | [address] | | | [place] [address] | + + + | Home Phone | | + + + | Preferred Language | Unknown | + + + | Marital Status | | + + + | Episcopal Affiliation | 1041 | + + + | Race | Unknown | + + + | Ethnic Group | Unknown | + + + Author + + + | Author | [facility] | | | and [place] | + + + | Organization | [facility] | [...] [place] | | | | | [place] [address] | | + + + + + Care Team Providers + +------+ + | Care Model Photographers' Name | Role | Phone | + +------+ + | Dillon Govea MD | PCP | | + +------+ + Reason for Visit + + + | Reason | Comments | + + + | Bronchitis | saturday night went to ER and was diagnosed with bronchitis, RM 3 | + + + | Flank Pain | right lower back pain, found 12mm cyst on right ovary, has an | | | cashcloud tiera on the , was given hydrocodones and was told from ER | | | to keep taking them until the tiera. and she is out and needs more | + + + Encounter Details +--------+---------+ + + + | Date | Type | Department | Care Team | Description | +--------+---------+ + + + | 06/15/ | Office | [facility] | Nathan Cuevas, | Cyst of left ovary | | 2019 | Visit | CARE [address] | [address] | (Primary Dx) | | | | [place] | [place] | | | | | [address] | [address] | | | | | [phone] | | | +--------+---------+ + + + [...] + + + | Blood Pressure | 104/58 | 06/15/2019 11:37 AM | | | | | PST | | + + + + + | Pulse | 88 | 06/15/2019 11:37 AM | | | | | PST | | + + + + + | Temperature | 37 C (98.6 F) | 06/15/2019 11:37 AM | | | | | PST | | + + + + + | Respiratory Rate | 18 | 06/15/2019 11:37 AM | | | | | PST | | + + + + + | Oxygen Saturation | 96% | 06/15/2019 11:37 AM | | | | | PST | | + + + + + | Inhaled Oxygen | - | - | | | Concentration | | | | + + + + + | Weight | 86 kg (189 lb 9.5 | 06/15/2019 11:37 AM | | | | oz) | PST | | + + + + + | Height | 143 cm (4' 8.3") | 06/15/2019 11:37 AM | | | | | PST | | + + + + + | Body Mass Index | 42.06 | 06/15/2019 11:37 AM | | | | | PST | | + + + + + documented in this encounter Patient Instructions Patient Instructions Nathan Cuevas MD - 06/15/2019 11:15 AM PST Ovarian Cysts The ovaries are two small organs located on each side of a woman s uterus (womb). They ar e part of the female reproductive system. Ovarian cysts are sacs filled with fluid or tissue that form on or inside the ovaries. Ovarian cysts are common in women, especially during childbearing years. There are differen t types of cysts. Most are harmless (benign) and go away on their own. They often cause no s ymptoms. If symptoms do occur, they can include mild pain or pressure in the lower belly (ab domen). Cysts that are large or break (rupture) may cause more severe pain and symptoms. In these c ases, you may need hospital care or treatment such as surgery. You may need more extensive t reatment if a cyst causes an ovary to twist (called torsion) or if your doctor suspects your cyst is cancerous. Keep in mind that most cysts are not cancerous, however. General care To help relieve pain, your healthcare provider may recommend using jeom-abf-terkdwq pain medicine. If needed, your provide may prescribe stronger pain medicine. Depending on the type of cyst you have, your healthcare provider may advise taking control pills. These help shrink cysts in certain cases. They may also help prevent new cys ts from forming. Be sure to take these medicines as directed if they are prescribed. Your healthcare provider may advise you to watch your symptoms over time to see if they go away or worsen. Regular ultrasound tests may also be advised. These can help check if a c yst goes away or grows in size. Follow-up care Follow up with your healthcare provider, or as advised. When to seek medical advice Call your healthcare provider right away if any of these occur: Pain worsens or fails to get better with home treatment Fever of 100.4F (38C) or higher (or other fever amount directed by your healthcare beckie kaye) Nausea and vomiting Weakness, dizziness, or fainting Abnormal vaginal bleeding Date Last Reviewed: 06/12/201719990441-4810 The [employer]. [address] [place] [address]. All righ ts reserved. This information is not intended as a substitute for professional medical care. Always follow your healthcare professional's instructions. Acetaminophen; Hydrocodone tablets or capsules Brand Names: Anexsia, Lorcet, Lorcet HD, Lorcet Plus, Lortab, [place], Verdrocet, Vicodin, Vi codin ES, Vicodin HP, Xodol What is this medicine? ACETAMINOPHEN; HYDROCODONE (a set a MAVIS maggy fen; george droe KOE done) is a pain reliever. It is used to treat moderate to severe pain. How should I use this medicine? Take this medicine by mouth with a glass of water. Follow the directions on the prescriptio n label. You can take it with or without food. If it upsets your stomach, take it with food. Do not take your medicine more often than directed. A special MedGuide will be given to you by the pharmacist with each prescription and refill . Be sure to read this information carefully each time. Talk to your visual aid expert regarding the use of this medicine in children. Special care may be needed. What side effects may I notice from receiving this medicine? Side effects that you should report to your doctor or health client care consultant as soon as p ossible: allergic reactions like skin rash, itching or hives, swelling of the face, lips, or tong ue breathing problems confusion redness, blistering, peeling or loosening of the skin, including inside the mouth signs and symptoms of low blood pressure like dizziness; feeling faint or lightheaded, f alls; unusually weak or tired trouble passing urine or change in the amount of urine yellowing of the eyes or skin Side effects that usually do not require medical attention (report to your doctor or health client care consultant if they continue or are bothersome): constipation dry mouth nausea, vomiting tiredness What may interact with this medicine? This medicine may interact with the following medications: alcohol antiviral medicines for HIV or AIDS atropine antihistamines for allergy, cough and cold certain antibiotics like erythromycin, clarithromycin certain medicines for anxiety or sleep certain medicines for bladder problems like oxybutynin, tolterodine certain medicines for depression like amitriptyline, fluoxetine, sertraline certain medicines for fungal infections like ketoconazole and itraconazole certain medicines for Parkinson's disease like benztropine, trihexyphenidyl certain medicines for seizures like carbamazepine, phenobarbital, phenytoin, primidone certain medicines for stomach problems like dicyclomine, hyoscyamine certain medicines for travel sickness like scopolamine general anesthetics like halothane, isoflurane, methoxyflurane, propofol ipratropium local anesthetics like lidocaine, pramoxine, tetracaine MAOIs like Carbex, Eldepryl, Marplan, Nardil, and Parnate medicines that relax muscles for surgery other medicines with acetaminophen other narcotic medicines for pain or cough phenothiazines like chlorpromazine, mesoridazine, prochlorperazine, thioridazine rifampin What if I miss a dose? If you miss a dose, take it as soon as you can. If it is almost time for your next dose, ta ke only that dose. Do not take double or extra doses. Where should I keep my medicine? Keep out of the reach of children. This medicine can be abused. Keep your medicine in a saf e place to protect it from theft. Do not share this medicine with anyone. Selling or giving away this medicine is dangerous and against the law. Store at room temperature between 15 and 30 degrees C (59 and 86 degrees F). This medicine may cause harm and if it is taken by other adults, children, or pets. R eturn medicine that has not been used to an official disposal site. Contact the [facility] at [phone] or your [facility] to find a site. If you cannot return the medicine, flush it down the toilet. Do not use the medicine after the expiration date. What should I tell my health care provider before I take this medicine? They need to know if you have any of these conditions: brain tumor Crohn's disease, inflammatory bowel disease, or ulcerative colitis drug abuse or addiction head injury heart or circulation problems if you often drink alcohol kidney disease or problems going to the bathroom liver disease lung disease, asthma, or breathing problems an unusual or allergic reaction to acetaminophen, hydrocodone, other opioid analgesics, other medicines, foods, dyes, or preservatives or trying to get breast-feeding What should I watch for while using this medicine? Tell your doctor or health client care consultant if your pain does not go away, if it gets wors e, or if you have new or a different type of pain. You may develop tolerance to the medicine . Tolerance means that you will need a higher dose of the medicine for pain relief. Toleranc e is normal and is expected if you take the medicine for a long time. Do not suddenly stop taking your medicine because you may develop a severe reaction. Your b lindsay becomes used to the medicine. This does NOT mean you are addicted. Addiction is a behavi or related to getting and using a drug for a non-medical reason. If you have pain, you have a medical reason to take pain medicine. Your doctor will tell you how much medicine to take. If your doctor wants you to stop the medicine, the dose will be slowly lowered over time to avoid any side effects. There are different types of narcotic medicines (opiates). If you take more than one type a t the same time or if you are taking another medicine that also causes drowsiness, you may h ave more side effects. Give your health care provider a list of all medicines you use. Your doctor will tell you how much medicine to take. Do not take more medicine than directed. Landen l emergency for help if you have problems breathing or unusual sleepiness. Do not take other medicines that contain acetaminophen with this medicine. Always read hamida woodard carefully. If you have questions, ask your doctor or pharmacist. If you take too much acetaminophen get medical help right away. Too much acetaminophen can be very dangerous and cause liver damage. Even if you do not have symptoms, it is important to get help right away. You may get drowsy or dizzy. Do not drive, use machinery, or do anything that needs mental alertness until you know how this medicine affects you. Do not stand or sit up quickly, reba cially if you are an older patient. This reduces the risk of dizzy or fainting spells. Alcoh ol may interfere with the effect of this medicine. Avoid alcoholic drinks. The medicine will cause constipation. Try to have a bowel movement at least every 2 to 3 da ys. If you do not have a bowel movement for 3 days, call your doctor or health care professi onal. Your mouth may get dry. Chewing sugarless gum or sucking hard candy, and drinking plenty of water may help. Contact your doctor if the problem does not go away or is severe. NOTE:This sheet is a summary. It may not cover all possible information. If you have questi ons about this medicine, talk to your doctor, pharmacist, or health care provider. Copyright 2019 [employer] documented in this encounter Progress Notes Nathan Cuevas MD - 06/15/2019 11:15 AM PSTFormatting of this note might be different fr om the original. Subjective: Patient ID: Holly Barnes is a 38 y.o. female.who presents today for Bronchitis (saturday night went to ER and was diagnosed with bronchitis, RM 3) and Flank Pain (right lowe r back pain, found 12mm cyst on right ovary, has an obgyn tiera on the 22, was given hydrocodo yanely and was told from ER to keep taking them until the tiera. and she is out and needs more) . HPI The patient is being seen for persistent low back pain related to an ovarian cyst which was diagnosed at the emergency room yesterday. She states that her blood pressure was elevated at that time and was told not to take ibuprofen for that reason. She usually does take ibu profen for pain with moderately good relief. She has no problems with stomach ulcers and no history of kidney disease. Other problems she was seen for at the emergency room was bronc hitis for which she was given antibiotic and prednisone. She states that the breathing and coughing is improving but not resolved as yet. She has had no nausea or vomiting. She has had no problems with constipation and no blood in the urine is been noted. I have reviewed the emergency room visit and unfortunately the blood pressure is not documented in the docto r's note. He was given a prescription for 16 hydrocodone and has been taking 2 every 4 hour s and is anxious about running out of them prior to being seen by the computer programmer analyst on er 22. CT scan is also reviewed which shows the complex cyst that is 9.8 x 12.3 cm central upper pelvis appears to be from the left ovary. Chest x-ray did not show abnormalities. Sh e does have a history of anxiety disorder which sometimes causes her blood pressure to be up . She does not have a history of narcotic abuse in the past. PDMP is queried under Dr. Masha solis since I was unable to access the system today. Only the hydrocodone prescription f rom the emergency room comes up for narcotic prescriptions in the past year. Patient Active Problem List Diagnosis Psoriasis of scalp Moderate single current episode of major depressive disorder Chronic tension-type headache, not intractable Insomnia Pneumonia due to Mycoplasma pneumoniae Reactive airway disease with acute exacerbation Anxiety Leg pain, anterior Past Surgical History: Procedure Laterality Date none Current Outpatient Medications Medication Sig Dispense Refill acetaminophen (TYLENOL) 325 mg tablet Take 650 mg by mouth every 4 hours as needed for Pain. albuterol 90 mcg/puff inhaler Inhale 2 puffs into the lungs every 4 hours as needed for Wheezing or Shortness of Breath. Use with spacer device. 1 Inhaler 0 guaiFENesin-codeine (ROBITUSSIN AC) 100-10 mg/5 mL liquid Take 10 mLs by mouth every 6 hours as needed for Cough. 120 mL 0 HYDROcodone-acetaminophen (NORCO) 5-325 mg per tablet Take 1-2 tablets by mouth every 6 hours as needed for Pain. 20 tablet 0 methylPREDNISolone (MEDROL DOSEPAK) 4 mg tablet Follow package directions. 21 tablet 0 ondansetron (ZOFRAN ODT) 4 mg disintegrating tablet Take 1 tablet by mouth every 8 hour s as needed for up to 12 doses. 12 tablet 0 No current facility-administered medications for this visit. She reports that she has never smoked. She has never used smokeless tobacco. She reports t hat she drinks alcohol. She reports that she has current or past drug history. Drug: Marijua na. Allergies No active allergies Intolerance No active intolerances/contraindications ROS Objective: BP 104/58 | Pulse 88 | Temp 37 C (98.6 F) (Temporal) | Resp 18 | Ht 1.43 m (4' 8.3" ) | Wt 86 kg (189 lb 9.5 oz) | SpO2 96% | BMI 42.06 kg/m Physical Exam Patient is alert and appropriate. She does not appear to be in acute pain at this time. S he is not short of breath. The lungs are with good air movement and no rales rhonchi or whe ezes are auscultated. Heart is regular with no murmur or tachycardia. Skin is normal for e thnicity. Back is with some CVA tenderness on the right side. Abdomen is obese and with mi ld tenderness in the across the lower abdomen. No results found for this or any previous visit (from the past 24 hour(s)). Assessment/Plan: Holly was seen today for bronchitis and flank pain. Diagnoses and all orders for this visit: Cyst of left ovary Other orders - HYDROcodone-acetaminophen (NORCO) 5-325 mg per tablet; Take 1-2 tablets by mouth ever y 6 hours as needed for Pain. Patient is given a prescription for an additional 20 hydrocodone to get her by for longer. She is advised that there should be no problem with her taking ibuprofen at this time and s he can take to 4 times a day of the cbrr-owj-khceoqy tablets so long as it does not upset he r stomach. She is to follow-up with [facility] as instructed. If the pain is getting worse or per sisting she should return to the emergency room for reevaluation. Return if symptoms worsen or fail to improve.Electronically signed by MD sepideh Dye 06/15/2019 12:38 PM PSTdocumented in this encounter Plan of Treatment Not on filedocumented as of this encounter Visit Diagnoses + + | Diagnosis | + + | Cyst of left ovary - Primary Other and unspecified ovarian cyst | + + documented in this encounter
--- OUTSIDE RECORDS SUMMARY | ~2019-08-19 | XMS | Encounter Summary ---
Demographics + + + | Address | [address] | | | [place] [address] | + + + | Home Phone | | + + + | Preferred Language | Unknown | + + + | Marital Status | | + + + | Islam Affiliation | 1041 | + + + | Race | Unknown | + + + | Ethnic Group | Unknown | + + + Author + + + | Author | [facility] | | | and [place] | + + + | Organization | [facility] | | [...] [place] | | | | | [place] [address] | | + + + + + Care Team Providers + +------+ + | Care Beach Attendant Name | Role | Phone | + +------+ + PCP | Unavailable | + +------+ + Encounter Details +--------+ + + + + | Date | Type | Department | Care Team | Description | +--------+ + + + + | 03/17/ | Hospital | [facility] | | | | 2003 | Encounter | [facility] | | | | | | CENTER [address] | | | | | | [place] | | | | | | [address] | | | | | | [phone] | | | +--------+ + + + [...] [place] | | | | | | [id number] | | | | | | | | +--------+---------+ + + + documented as of this encounter Visit Diagnoses Not on filedocumented in this encounter"
--- OUTSIDE RECORDS SUMMARY | ~2019-08-19 | XMS | Encounter Summary ---
Demographics + + + | Address | [address] | | | [place] [address] | + + + | Home Phone | | + + + | Preferred Language | Unknown | + + + | Marital Status | | + + + | Temple Affiliation | 1041 | + + + | Race | Unknown | + + + | Ethnic Group | Unknown | + + + Author + + + | Author | [facility] | | | and [place] | + + + | Organization | [facility] | | | and [...] [place] | | | | | [place] [address] | | + + + + + Care Team Providers + +------+ + | Care Inspection Supervisor Name | Role | Phone | + +------+ + | Dillon Govea MD | PCP | | + +------+ + Reason for Visit + + + | Reason | Comments | + + + | Recall For Services | | | (DMST) | | + + + | Pap Test | | + + + Encounter Details +--------+ + + + + | Date | Type | Department | Care Team | Description | +--------+ + + + + | 08/20/ | Patient | [facility] | Dillon Govea, | Preventive | | 2018 | Outreach | MEDICINE [address] | [address] | Screening, Cervical | | | | [address] | [place] | Cancer Screening | | | | [place] [address] | [id number] | | | | | [phone] | | | +--------+ + + + [...]
--- OUTSIDE RECORDS SUMMARY | ~2019-08-19 | XMS | Encounter Summary ---
Demographics + + + | Address | [address] | | | [place] [address] | + + + | Home Phone | | + + + | Preferred Language | Unknown | + + + | Marital Status | | + + + | Jain Affiliation | 1041 | + + + | Race | Unknown | + + + | Ethnic Group | Unknown | + + + Author + + + | Author | [facility] | | | and [place] | + + + | Organization | [facility] | | | [...] [place] | | | | | [place] [address] | | + + + + + Care Team Providers + +------+ + | Care Durable Medical Equipment Technician Name | Role | Phone | + [...] + + | 08/14/ | Office | [facility] | [place] | Flu-like symptoms | | 2020 | Visit | CARE [address] | [address] | (Primary Dx) | | | | [place] | [address] [place] | | | | | [address] | [place] [address] | | | | | [phone] | [phone] | | | | | | | [...] this encounter Patient Instructions Patient Instructions [place] Willimason ARNP - 08/14/2019 3:00 PM PST Influenza [...] secretions in your nose and lungs . Cnun-qhv-gghlbga cold medicines will not make the flu [...] for a few days Date Last Reviewed: 08/12/201619994698-2416 [employer]. [address] [place] [address], [place] [address]. All righ ts reserved. This information is [...] canal and external ear normal. Mouth/Throat: Lips: [place]. Mouth: Mucous membranes are moist. Comments: Pain [...] 4:58 PM This note was dictated using my6sense voice recognition software. Occasional wrong- word or s ound-alike substitutions may have occurred due to the inherent limitations of [employer] software. Please read the chart carefully and recognize, using context, where these subs titutions have occurred. Electronically signed by TESS Raygoza at 0 4:58 PM [place], Dana Betancourt RN - 08/14/2019 3:00 PM PST Verified name and date of of patient before provider orders were carried out. Administrations This Visit albuterol 2.5 mg/3 mL nebulizer solution 2.5 mg Admin Date 08/14/2019 Action Given Dose 2.5 mg Route Nebulization Administered By Dana Head RN Vinicius westfall this encounter Plan of Treatment +--------+---------+ + + + | Date | Type | Specialty | Care Team | Description | +--------+---------+ + + + | 08/20/ | Office | Internal Medicine | Dillon Govea, | | 2019 | Visit | | MD Patricio KO[address]HLER | | | | | | [place] | | | | | | [address] | | | | | | | [...] + + + + + | FORT[facility]ATO | [address] | [place] | [phone] | | [facility] | | [address] | | | [facility] | | [...]
--- OUTSIDE RECORDS SUMMARY | ~2019-08-19 | XMS | Encounter Summary ---
Demographics + + + | Address | [address] | | | [place] [address] | + + + | Home Phone | | + + + | Preferred Language | Unknown | + + + | Marital Status | | + + + | Episcopalian Affiliation | 1041 | + + + | Race | Unknown | + + + | Ethnic Group | Unknown | + + + Author + + + | Author | [facility] | | | and [place] | + + + | Organization | [facility] | | | [...] [place] | | | | | [place] [address] | | + + + + + Care Team Providers + +------+ + | Care Golf Coach Name | Role | Phone | + [...] + | 02/04/ | Telephone | [facility] | Dillon Govea, | Appointment | | 2019 | | MEDICINE [address] | [address] [facility] | | | | | [address] | [place], [place] | | | | | [place] [address] | [id number] | | | | | [phone] | | | +--------+ + + + [...]
--- OUTSIDE RECORDS SUMMARY | ~2019-08-19 | XMS | Encounter Summary ---
Demographics + + + | Address | [address] | | | [place] [address] | + + + | Home Phone | | + + + | Preferred Language | Unknown | + + + | Marital Status | | + + + | Taoism Affiliation | 1041 | + + + | Race | Unknown | + + + | Ethnic Group | Unknown | + + + Author + + + | Author | [facility] | | | and [place] | + + + | Organization | [facility] | | [...] [place] | | | | | [place] [address] | | + + + + + Care Team Providers + +------+ + | Care Online Affiliate Marketing Manager Name | Role | Phone | + +------+ + | Dillon Govea MD | PCP | | + +------+ + Reason for Visit Auth/Cert +--------+--------+ + + + + | [...] +--------+--------+ + + + + Encounter Details +--------+ + + + + | Date | Type | Department | Care Team | Description | +--------+ + + + + | 06/26/ | Anesthesia | [facility] | Dario Kilpatrick, | | | 2019 | Event | [facility] | [address] | | | | | [address] | [place] | | | | | [place] | [address] | | | | | [address] | | | | | | [phone] | Guerrero Odonnell MD | | | | | | [address] | | | | | | [place] | | | | | | [address] | | | | | | | | +--------+ + + + + Anesthesia Record + + + + + | Procedure Name | Responsible | Anesthesia Start | Anesthesia Stop Time | | | Anesthesiologist | Time | | + + + + + | LAPAROSCOPY | Dario Kilpatrick MD | 06/26/19 1622 | 06/26/19 1837 | | DIAGNOSTIC, OVARIAN | | | | | CYSTECTOMY, LEFT | | | | | OOPHORECTOMY AND | | | | | LEFT SALPINGECTOMY | | | | | (N/A Cervix) | | | | + + + + + +----+---+ + + | Da | T | Event | Comment | | te | i | | | | | m | | | | | e | | | +----+---+ + + | 11 | 1 | An Checkout | Pre-use anesthesia machine/equipment checkout. | | /1 | 6 | | | | 5/ | 2 | | | | 20 | 1 | | | | 19 | | | | +----+---+ + + | | 1 | An Start | Reassessment prior to anesthesia induction/procedure. | | | 6 | | | | | 2 | | | | | 2 | | | +----+---+ + + | | 1 | | | | | 6 | | | | | 2 | | | | | 4 | | | +----+---+ + + | | 1 | Preoxygenat | | | | 6 | ed | | | | 3 | | | | | 0 | | | +----+---+ + + | | 1 | An | | | | 6 | Induction | | | | 3 | | | | | 1 | | | +----+---+ + + | | 1 | An | | | | 6 | Intubation | | | | 3 | | | | | 3 | | | +----+---+ + + | | 1 | Antibiotic | | | | 6 | Given | | | | 3 | | | | | 7 | | | +----+---+ + + | | 1 | [place] | | | | 6 | 43-degrees | | | | 3 | | | | | 9 | | | +----+---+ + + | | 1 | Pre-Procedu | | | | 6 | ral Timeout | | | | 4 | Completed | | | | 6 | | | +----+---+ + + | | 1 | First | | | | 6 | Inc/Proc St | | | | 4 | | | | | 8 | | | +----+---+ + + | | 1 | [place] off | | | | 8 | | | | | 0 | | | | | 6 | | | +----+---+ + + | | 1 | Breathing | | | | 8 | Spontaneous | | | | 0 | ly | | | | 6 | | | +----+---+ + + | | 1 | Extubation/ | | | | 8 | Airway LDA | | | | 3 | Removal | | | | 4 | | | +----+---+ + + | | 1 | An Stop | Patient handed off to recovery nurse. | | | 3 | | | | | 7 | | | +----+---+ + + +------+ | Meds | +------+ + +--------+ | Name | Total | + +--------+ | propofol | 170 mg | + +--------+ | propofol | 100 mg | + +--------+ | lidocaine 2% | 100 mg | + +--------+ | morphine (PF) injection 10 mg/mL | 10 mg | + +--------+ | metroNIDAZOLE in saline (FLAGYL) | 500 mg | | IVPB 500 mg | | + +--------+ | ceFAZolin (ANCEF, KEFZOL) 100 | 2 g | | mg/mL IV syringe 2 g | | + +--------+ | rocuronium | 50 mg | + +--------+ | neostigmine | 2 mg | + +--------+ | glycopyrrolate (ROBINUL) | 0.4 mg | | injection (5 mL vial) | | + +--------+ | ketorolac | 30 mg | + +--------+ | dexamethasone (PF) injection 10 | 10 mg | | mg/mL | | + +--------+ | ondansetron | 4 mg | + +--------+ | lactated ringers (LR) infusion | 650 mL | + +--------+ + + | Name | + + | N2O Flow Rate (L/Min) | + + | O2 Flow Rate (L/Min) | + + | Insp O2 | + + | Exp SEV | + + | Air Flow Rate (L/Min) | + + + + | No blood administrations on file. | + + +--------+ + + + | Type | Details | Placement | Removal | +--------+ + + + | Wound | 06/26/19; 1652; Incision; | 06/26/191652 by | | | | Bilateral; perineum | Rajwinder Corcoran RN | | +--------+ + + + | Wound | 06/26/19; 1653; Incision; | 06/26/191652 by | | | | Bilateral; vagina | Rajwinder Corcoran RN | | +--------+ + + + | Wound | 06/26/19; 1652; Incision; | 06/26/19 165 by | | | | Bilateral; abdomen | Rajwinder Corcoran RN | | +--------+ + + + | Periph | 06/16/19; 2099; Right; Hand; | 06/16/19 2100 by | 08/14/192150 by | | eral | [id number] catheter system; | Michelle Heath RN | Yifan Dhillon | | IV | 22 gauge; removed in past; | | SHAZIA Campoverde | | | 08/14/19; 2150 | | | +--------+ + + + | Periph | 06/25/19; 1906; Left; | 06/25/191906 by | 06/27/19 1300 by | | eral | Antecubital; [id number]-[id number] | Guerrero Jones RN | Carmen Uribe RN | | IV | catheter system; 20 gauge; | | | | | Hematology, Chemistry; no longer | | | | | indicated; short term use; | | | | | 06/27/19; 1300 | | | +--------+ + + + | Airway | Placement Date: 06/26/19; | 06/26/19 1633 by | 06/26/19 1834 by | | | Placement Time: 1633; Mask | Rafita Cortez MD | Dario Kilpatrick MD | | | Ventilation: EZ; Airway Grade: | | | | | 2a; External Maneuvers: CP; | | | | | Successful Technique: Mac; | | | | | Laryngoscope Blade Size: 3; | | | | | Airway Type: endotracheal; Size: | | | | | 6; Position: Right; Airway Tube | | | | | Secured At: 20; Tube Reference | | | | | Point: lip; Trauma: none; Removal | | | | | Date: 06/26/19; Removal Time: | | | | | 1834 | | | +--------+ + + + documented in this encounter Social History + +-------+ +--------+------+ | Tobacco [...] | | | | | | [place] | | | | | | [address] | | | | | | | | +--------+---------+ + + + documented as of this encounter Procedures + +--------+ + + + | Procedure Name | Priori | Date/Time | Associated Diagnosis | Comments | | | ty | | | | + +--------+ + + + | ANE AIRWAY NOTE | Routin | 06/26/2019 | | Results for this | | | e | 5:54 PM | | procedure are in the | | | | PST | | results section. | + +--------+ + + + documented in this encounter Results Airway (06/26/2019 5:54 PM PST) + + + | Narrative | Performed At | + + + | Dario Kilpatrick MD 06/26/2019 5:55 PM Anesthesia Airway | | | Placement 06/26/2019 4:33 PM Preprocedure check: patient | | | identified, suction, airway equipment checked, oxygen, airway | | | assessed and patient reassessment prior to induction Rapid Sequence | | | Induction: no Mask ventilation: easy External maneuver: cricoid | | | pressure Successful technique: Mac Laryngoscope blade size: 3 | | | Airway grade: 2a (Partial view of glottis) Attempts: 1 Airway type: | | | endotracheal Size: 6 Cuffed: cuffed Route, reference point: right | | | side of mouth Tube depth: 20 cm Tube secured with: adhesive tape | | | Trauma: none Tube placement verification: carbon dioxide detection | | | and bilateral chest rise Performing provider: Rafita Cortez MD | | | Authorizing provider: Rafita Cortez MD Please see | | | intraoperative grid for any additional medication documentation. | | + + + documented in this encounter Visit Diagnoses Not on filedocumented in this encounter Administered Medications + +--------+ +------+------+------+ | Medication Order | MAR | Action | Dose | Rate | Site | | | Action | Date | | | | + +--------+ +------+------+------+ | ceFAZolin (ANCEF, KEFZOL) 100 | Given | 06/26/20 | 2 g | | | | mg/mL IV syringe 2 g 2 g, | | 19 4:37 | | | | | Intravenous, Administer over 30 | | PM PST | | | | | Minutes, Prior to Incision, | | | | | | | Starting Sat06/26/19 at 1535, | | | | | | | For 1 dose, Pre-op, Indications: | | | | | | | Surgical Prophylaxis | | | | | | + +--------+ +------+------+------+ +---+---+ | | | +---+---+ + +-------+ +-------+---+---+ | dexamethasone (PF) 10 mg/mL | Given | 06/26/20 | 10 mg | | | | injection PRN, Starting Sat 6:32 | | | | | 06/26/19 at 1832, Anesthesia | | PM PST | | | | | Intra-op | | | | | | + +-------+ +-------+---+---+ +---+---+ | | | +---+---+ + +-------+ +--------+---+---+ | glycopyrrolate (ROBINUL) | Given | 06/26/20 | 0.4 mg | | | | injection Intravenous, PRN, | | 19 6:16 | | | | | Starting 06/26/19 at 1816, | | PM PST | | | | | Anesthesia Intra-op | | | | | | + +-------+ +--------+---+---+ +---+---+ | | | +---+---+ + +-------+ +-------+---+---+ | ketorolac (TORADOL) injection | Given | 06/26/20 | 30 mg | | | | Intravenous, PRN, Starting Fri | | 19 6:32 | | | | | 06/26/19 at 1832, Anesthesia | | PM PST | | | | | Intra-op | | | | | | + +-------+ +-------+---+---+ +---+---+ | | | +---+---+ + +-------+ +--------+---+---+ | lidocaine (PF) 2% injection | Given | 06/26/20 | 100 mg | | | | Intravenous, PRN, Starting Sat | | 19 4:31 | | | | | 06/26/19 at 1631, Anesthesia | | PM PST | | | | | Intra-op | | | | | | + +-------+ +--------+---+---+ +---+---+ | | | +---+---+ + +-------+ +--------+---+---+ | metroNIDAZOLE in saline | Given | 06/26/20 | 500 mg | | | | (FLAGYL) IVPB 500 mg 500 mg, | | 19 4:26 | | | | | Intravenous, Administer over 1 | | PM PST | | | | | Hours, Prior to Incision, | | | | | | | Starting Sat06/26/19 at 1535, | | | | | | | For 1 dose, Do not refrigerate., | | | | | | | Pre-op, Indications: Surgical | | | | | | | Prophylaxis | | | | | | + +-------+ +--------+---+---+ +---+---+ | | | +---+---+ + +-------+ +------+---+---+ | morphine (PF) 10 mg/mL | Given | 06/26/20 | 3 mg | | | | injection PRN, Starting Fri | | 19 4:53 | | | | | 06/26/19 at 1628, Anesthesia | | PM PST | | | | | Intra-op | | | | | | + +-------+ +------+---+---+ +-------+ +------+---+---+ | Given | 06/26/20 | 7 mg | | | | | 19 4:28 | | | | | | PM PST | | | | +-------+ +------+---+---+ +---+---+ | | | +---+---+ + +-------+ +------+---+---+ | neostigmine (BLOXIVERZ) 1 mg/mL | Given | 06/26/20 | 2 mg | | | | injection Intravenous, PRN, | | 19 6:16 | | | | | Starting 06/26/19 at 1816, | | PM PST | | | | | Anesthesia Intra-op | | | | | | + +-------+ +------+---+---+ +---+---+ | | | +---+---+ + +-------+ +------+---+---+ | ondansetron (ZOFRAN) injection | Given | 06/26/20 | 4 mg | | | | Intravenous, PRN, Starting Fri | | 19 6:32 | | | | | 06/26/19 at 1832, Anesthesia | | PM PST | | | | | Intra-op | | | | | | + +-------+ +------+---+---+ +---+---+ | | | +---+---+ + +-------+ +-------+---+---+ | propofol (DIPRIVAN) injection | Given | 06/26/20 | 70 mg | | | | Intravenous, PRN, Starting Fri | | 19 5:52 | | | | | 06/26/19 at 1631, Anesthesia | | PM PST | | | | | Intra-op | | | | | | + +-------+ +-------+---+---+ +-------+ +--------+---+---+ | Given | 06/26/20 | 100 mg | | | | | 19 4:31 | | | | | | PM PST | | | | +-------+ +--------+---+---+ +---+---+ | | | +---+---+ + +---------+ +--------+ +---+ | propofol (DIPRIVAN) injection | New Bag | 06/26/20 | 2.5 | 15 mL/hr | | | Intravenous, CONTINUOUS PRN, | | 19 5:02 | mg/min | | | | Starting 06/26/19 at 1702, | | PM PST | | | | | Anesthesia Intra-op | | | | | | + +---------+ +--------+ +---+ +---+---+ | | | +---+---+ + +-------+ +-------+---+---+ | rocuronium (ZEMURON) injection | Given | 06/26/20 | 10 mg | | | | Intravenous, PRN, Starting Fri | | 19 5:10 | | | | | 06/26/19 at 1631, Anesthesia | | PM PST | | | | | Intra-op | | | | | | + +-------+ +-------+---+---+ +-------+ +-------+---+---+ | Given | 06/26/20 | 10 mg | | | | | 19 4:53 | | | | | | PM PST | | | | +-------+ +-------+---+---+ | Given | 06/26/20 | 30 mg | | | | | 19 4:31 | | | | | | PM PST | | | | +-------+ +-------+---+---+ +---+---+ | | | +---+---+ documented in this encounter"
--- OUTSIDE RECORDS SUMMARY | ~2019-08-19 | XMS | Encounter Summary ---
Demographics + + + | Address | [address] | | | [place] [address] | + + + | Home Phone | | + + + | Preferred Language | Unknown | + + + | Marital Status | | + + + | Rastafarian Affiliation | 1041 | + + + | Race | Unknown | + + + | Ethnic Group | Unknown | + + + Author + + + | Author | [facility] | | | and [place] | + + + | Organization | [facility] | | [...] [place] | | | | | [place], | | | | | [place] [address] | | + + + + + Care Team Providers + +------+ + | Care Search Marketing Specialist Name | Role | Phone | + +------+ + | No, Physician | PCP | Unavailable | + +------+ + Reason for Visit + + + | Reason | Comments | + + + | Shortness of Breath | | + + + | Cough | | + + + | Chest Pain | | + + + Encounter Details +--------+ + + + + | Date | Type | Department | Care Team | Description | +--------+ + + + + | 08/03/ | Emergency | [facility] | Donald Arriaga, | Acute bronchitis, | | 2016 - | | [facility] | [place] [address] | unspecified organism | | | | CENTER [address] | [facility] | (Primary Dx); | | 08/04/ | | [place] | [place], [place] [address] | Hearing loss of left | | 2015 | | [address] | [phone] | ear due to cerumen | | | | [phone] | | impaction | +--------+ + + + + Social History + +-------+ +--------+------+ | Tobacco Use | Types | Packs/Day | Years | Date | | | | | Used | | + +-------+ +--------+------+ | Never Smoker | | | | | + +-------+ +--------+------+ + + +---------+ + | Alcohol Use | Drinks/Week | oz/Week | Comments | + + +---------+ + | No | | | | + + +---------+ + + + [...] + + + | Blood Pressure | 115/69 | 08/03/2016 11:19 PM | | | | | PST | | + + + + + | Pulse | 85 | 08/03/2016 11:19 PM | | | | | PST | | + + + + + | Temperature | 36.9 C (98.5 F) | 08/03/2016 11:19 PM | | | | | PST | | + + + + + | Respiratory Rate | 22 | 08/03/2016 11:19 PM | | | | | PST | | + + + + + | Oxygen Saturation | 97% | 08/03/2016 11:19 PM | | | | | PST | | + + + + + | Inhaled Oxygen | - | - | | | Concentration | | | | + + + + + | Weight | 65.8 kg (145 lb) | 08/03/2016 11:19 PM | | | | | PST | | + + + + + | Height | 144.8 cm (4' 9") | 08/03/2016 11:19 PM | | | | | PST | | + + + + + | Body Mass Index | 31.38 | 08/03/2016 11:19 PM | | | | | PST | | + + + + + documented in this encounter Discharge Instructions Instructions Donald Arriaga MD - 08/04/2016Get plenty of rest Stay well-hydrated Take the medicine as prescribed Off work Follow-up with your doctor AttachmentsThe following attachments cannot be sent through Care Everywhere.BRONCHITIS, ACU TE (MALTESE)IMPACTED EARWAX (MALTESE)documented in this encounter Medications at Time of Discharge + + + +---------+ + + | Medication | Sig | Dispensed | Refills | Start | End Date | | | | | | Date | | + + + +---------+ + + | azithromycin | Take 2 tablets by | 6 | 0 | 08/04/20 | | | (ZITHROMAX) 250 mg | mouth daily x 1 day, | tablet | | 16 | 7 | | tablet | then take 1 tablet | | | | | | | by mouth daily x 4 | | | | | | | days. | | | | | + + + +---------+ + + | | Take 1-2 tablets by | 12 | 0 | 08/04/20 | | | HYDROcodone-acetamin | mouth every 6 hours | tablet | | 16 | 7 | | ophen (NORCO) 5-325 | as needed for Pain. | | | | | | mg per tablet | | | | | | + + + +---------+ + + | predniSONE | Take 6 tablets by | 30 | 0 | 08/04/20 | | | (DELTASONE) 10 mg | mouth Daily for 5 | tablet | | 16 | 6 | | tablet | days. | | [...] [place] | | | | | | [address] | | | | | | | | +--------+---------+ + + + documented as of this encounter Procedures + +--------+ + + + | Procedure Name | Priori | Date/Time | Associated Diagnosis | Comments | | | ty | | | | + +--------+ + + + | INFLUENZA A AND B | Routin | 08/03/2016 | | Results for this | | RNA, NAAT | e | 11:49 PM | | procedure are in the | | | | PST | | results section. | + +--------+ + + + | XR CHEST PA AND | STAT | 08/03/2016 | | Results for this | | LATERAL | | 11:44 PM | | procedure are in the | | | | PST | | results section. | + +--------+ + + + documented in this encounter Results Influenza A and B RNA, NAAT (08/03/2016 11:49 PM PST) + + + + + + | Component | Value | Ref Range | Performed | Pathologist | | | | | At | Signature | + + + + + + | Influenza A | Negative | Negative | [facility] | | | [facility] | | | [facility] | | | [facility] | | + + + + + + | Influenza B | Negative | Negative | [facility] | | | [facility] | | | [facility] | | | | | | [facility] | | | | [facility] - | | | | | | [facility] | | + + + + + + + + | Specimen | + + | Respiratory - Entire | | nasopharynx (body | | structure) | + + + + + + + | Performing | Address | City/State/Zipcode | Phone Number | | Organization | | | | + + + + + | [facility] | [address] | [place], [place] | [phone] | | [facility] | | [address] | | | - LABORATORY | | | | + + + + + XR Chest PA and Lateral (08/03/2016 11:44 PM PST) + + | Specimen | + + | | + + + + + | Narrative | Performed At | + + + | XR CHEST PA AND LATERAL 08/03/2016 11:37 PM HISTORY: Shortness | [facility] | | of breath cough fever. COMPARISON: None. Findings: Heart | | | size is within normal limits. Aorta is normal. Mediastinum is | | | unremarkable. Central pulmonary vasculature is normal. Mild | | | interstitial opacities are visualized of the left lung base that have | | | the appearance of atelectasis. The right lung is clear. Mild right | | | curvature of the thoracolumbar spine is present along with mild | | | spondylosis. IMPRESSION - Mild interstitial opacities in left | | | lung base that have the appearance of atelectasis. Overlapping | | | pneumonia cannot entirely be excluded. If symptoms persist or worsen, | | | repeat x-rays can be obtained. Dictated and Signed by: Mariano | | | MD Maximus Electronically signed: 08/04/2016 1:16 PM | | + + + + + | Procedure Note | + + | Vaibhav, Rad Results In - 08/04/2016 1:20 PM PST XR CHEST PA AND LATERAL 08/03/2016 | | 11:37 PMHISTORY: Shortness of breathcoughfever.COMPARISON: None.Findings:Heart size is | | within normal limits. Aorta is normal. Mediastinum isunremarkable. Central pulmonary | | vasculature is normal. Mild interstitialopacities are visualized of the left lung base | | that have the appearance ofatelectasis. The right lung is clear. Mild right curvature of | | the thoracolumbarspine is present along with mild spondylosis.IMPRESSION -Mild | | interstitial opacities in left lung base that have the appearance ofatelectasis. | | Overlapping pneumonia cannot entirely be excluded. If symptomspersist or worsen, repeat | | x-rays can be obtained.Dictated and Signed by: Mariano Stroud MD Electronically signed: | | 08/04/2016 1:16 PM | |unremarkable. Central pulmonary vasculature is normal. Mild interstitial | |opacities are visualized of the left lung base that have the appearance of | |atelectasis. The right lung is clear. Mild right curvature of the thoracolumbar | |spine is present along with mild spondylosis. | | | |IMPRESSION - | |Mild interstitial opacities in left lung base that have the appearance of | |atelectasis. Overlapping pneumonia cannot entirely be excluded. If symptoms | |persist or worsen, repeat x-rays can be obtained. | | | |Dictated and Signed by: Mariano Stroud MD | | Electronically signed: 08/04/2016 1:16 PM | + + + +---------+ + + | Performing | Address | City/State/Zipcode | Phone Number | | Organization | | | | + +---------+ + + | [facility] | | | | + +---------+ + + documented in this encounter Visit Diagnoses + + | Diagnosis | + + | Acute bronchitis, unspecified organism - Primary | + + | Hearing loss of left ear due to cerumen impaction | + + documented in this encounter Administered Medications + +--------+ +--------+------+------+ | Medication Order | MAR | Action | Dose | Rate | Site | | | Action | Date | | | | + +--------+ +--------+------+------+ | azithromycin (ZITHROMAX) tablet | Given | 08/04/20 | 500 mg | | | | 500 mg 500 mg, Oral, ONCE, Sat | | 16 1:10 | | | | | 08/04/16 at 0055, For 1 dose, | | AM PST | | | | | Indications: Bronchitis | | | | | | + +--------+ +--------+------+------+ +---+---+ | | | +---+---+ + +-------+ +-------+---+---+ | docusate sodium (COLACE) 50 | Given | 08/03/20 | 50 mg | | | | mg/5 mL liquid 50 mg 50 mg, | | 16 11:47 | | | | | Oral, ONCE, 08/03/16 at 2340, | | PM PST | | | | | For 1 dose, Fill the patient's | | | | | | | left ear canal with liquid | | | | | | | colace. Let the liquid soak for | | | | | | | 15 minutes then irrigate the ear | | | | | | | cnal with warm water., | | | | | | + +-------+ +-------+---+---+ +---+---+ | | | +---+---+ + +-------+ +---------+---+---+ | HYDROcodone-acetaminophen | Given | 08/04/20 | 2 | | | | (NORCO) 5-325 mg per tablet 2 | | 16 1:10 | tablets | | | | tablet 2 tablet, Oral, ONCE, Sat | | AM PST | | | | | 08/04/16 at 0055, For 1 dose | | | | | | + +-------+ +---------+---+---+ +---+---+ | | | +---+---+ + +-------+ +-------+---+---+ | predniSONE (DELTASONE) tablet | Given | 08/04/20 | 60 mg | | | | 60 mg 60 mg, Oral, ONCE, Sat | | 16 1:09 | | | | | 08/04/16 at 0055, For 1 dose | | AM PST | | | | + +-------+ +-------+---+---+ +---+---+ | | | +---+---+ documented in this encounter
--- OUTSIDE RECORDS SUMMARY | ~2019-08-19 | XMS | Clinical Summary ---
Demographics + + + | Address | [address] | | | [place] [address] | + + + | Home Phone | | + + + | Preferred Language | Unknown | + + + | Marital Status | | + + + | Pentecostalism Affiliation | 1041 | + + + | Race | Unknown | + + + | Ethnic Group | Unknown | + + + Author + + + | Author | [facility] | | | and [place] | + + + | Organization | [facility] | | | and [...] | | | | | Apt [place], | | | | | [place] [address] | | + + + + + Care Team Providers + +------+ + | Care Lead Applier Name | Role | Phone | + +------+ + | Jade Govea MD | PCP | | + +------+ + Allergies No Known Allergies Medications + + + +---------+------+------+-------+ | Medication | Sig | Dispensed | Refills | Star | End | Statu | | | | | | t | Date | s | | | | | | Date | | | + + + +---------+------+------+-------+ | oseltamivir | Take 1 capsule by | 10 | 0 | 01/0 | 01/0 | Activ | | (TAMIFLU) 75 mg | mouth 2 times daily | capsule | | 3/20 | 8/20 | e | | capsuleIndications: | for 5 days. | | | 20 | 20 | | | Influenza | Indications: Flu | | | | | | + + + +---------+------+------+-------+ | azithromycin | Take 2 tablets by | 6 | 0 | 01/0 | | Activ | | (ZITHROMAX) 250 mg | mouth on day 1, and | tablet | | 4/20 | | e | | tablet | 1 tablet by mouth | | | 20 | | | | | every day | | | | | | + + + +---------+------+------+-------+ | cefdinir (OMNICEF) | Take 1 capsule by | 14 | 0 | 01/0 | 01/1 | Activ | | 300 mg capsule | mouth 2 times daily | capsule | | 4/20 | 1/20 | e | | | for 7 days. | | | 20 | 20 | | + + + +---------+------+------+-------+ | acetaminophen | Take 2 tablets by | 32 | 0 | 01/0 | 01/0 | Activ | | (TYLENOL) 325 mg | mouth every 6 hours | tablet | | 4/20 | 8/20 | e | | tablet | as needed for Pain | | | 20 | 20 | | | | for up to 4 days. | | | | | | + + + +---------+------+------+-------+ | | Take 1 tablet by | 30 | 0 | 01/0 | | Activ | | HYDROcodone-acetamin | mouth every 6 hours | tablet | | 7/20 | | e | | ophen (NORCO) 5-325 | as needed. | | | 20 | | | | mg per tablet | | | | | | | + + + +---------+------+------+-------+ | | Take 10 mLs by mouth | 120 mL | 0 | 09/1 | 01/0 | Disco | | guaiFENesin-codeine | every 6 hours as | | | 4/20 | 3/20 | ntinu | | (ROBITUSSIN AC) | needed for Cough. | | | 19 | 20 | ed | | 100-10 mg/5 mL | | | | | | (Alte | | liquid | | | | | | rnate | | | | | | | | | | | | | | | | thera | | | | | | | | py) | + + + +---------+------+------+-------+ | methylPREDNISolone | Follow package | 21 | 0 | 11/0 | 01/0 | Disco | | (MEDROL DOSEPAK) 4 | directions. | tablet | | 3/20 | 3/20 | ntinu | | mg tablet | | | | 19 | 20 | ed | | | | | | | | (Azul | | | | | | | | ent | | | | | | | | Not | | | | | | | | Takin | | | | | | | | g) | + + + +---------+------+------+-------+ | albuterol 90 | Inhale 2 puffs into | 1 | 0 | 11/0 | 01/0 | Disco | | mcg/puff inhaler | the lungs every 4 | Inhaler | | 3/20 | 3/20 | ntinu | | | hours as needed for | | | 19 | 20 | ed | | | Wheezing or | | | | | (Azul | | | Shortness of Breath. | | | | | ent | | | Use with spacer | | | | | Not | | | device. | | | | | Takin | | | | | | | | g) | + + + +---------+------+------+-------+ | docusate sodium | Take 100 mg by mouth | 60 | 1 | 06/12 | /0 | Disco | | (COLACE) 100 MG | 2 times daily. | capsule | | /20 | 3/20 | ntinu | | capsule | | | | 19 | 20 | ed | | | | | | | | (Azul | | | | | | | | ent | | | | | | | | Not | | | | | | | | Takin | | | | | | | | g) | + + + +---------+------+------+-------+ | ibuprofen | Take 1 tablet by | 40 | 0 | 06/12 | 0 | Disco | | (ADVIL,MOTRIN) 600 | mouth every 6 hours | tablet | | 01/29 | 20 | ntinu | | MG tablet | as needed for Pain. | | | 19 | 20 | ed | | | | | | | | (Azul | | | | | | | | ent | | | | | | | | Not | | | | | | | | Takin | | | | | | | | g) | + + + +---------+------+------+-------+ | azithromycin | Take 2 tablets by | 6 | 0 | 06/13 | /0 | Disco | | (ZITHROMAX) 250 mg | mouth on day 1, and | tablet | | /20 | 3/20 | ntinu | | tablet | 1 tablet by mouth | | | 19 | 20 | ed | | | every day | | | | | (Azul | | | | | | | | ent | | | | | | | | Not | | | | | | | | Takin | | | | | | | | g) | + + + +---------+------+------+-------+ | ibuprofen (ADVIL, | Take 1 tablet by | 12 | 0 | 01/0 | 01/0 | Expir | | MOTRIN) 400 mg | mouth every 8 hours | tablet | | 4/20 | 7/20 | ed | | tablet | as needed for up to | | | 20 | 20 | | | | 3 days. | | | | | | + + + +---------+------+------+-------+ + + + + +------+------+-------+ | Hospital, Clinic, or | Ordered | Route | Frequency | Star | End | Statu | | Other Facility | Dose | | | t | Date | s | | Administered | | | | Date | | | | Medication | | | | | | | + + + + +------+------+-------+ | albuterol 2.5 mg/3 | 2.5 mg | NEBULIZA | ONCE | | | Ended | | mL nebulizer | | TION | | 3/20 | 320 | | | solution 2.5 | | | | 20 | 20 | | | mgIndications: | | | | | | | | Flu-like symptoms | | | | | | | + + + + +------+------+-------+ Active Problems + + + | Problem | Noted Date | + + + | Acute hypoxemic respiratory failure | 08/18/2019 | + + + | Community acquired pneumonia | 08/18/2019 | + + + | Status post unilateral salpingo-oophorectomy | 06/26/2019 | + + + | Bronchitis | 06/18/2019 | + + + | Cyst of left ovary | 06/18/2019 | + + + + + | Overview: 12.3 cm cystic lesion within the central pelvis | | which appears to emanate from the left ovary. Ovary/adnexal | | follow up recommendation: Ovarian cysts with features such as, | | non-characteristic symptomatic cysts, cysts greater than 10 cm, | | cysts with solid components, mural nodules, thick septations or | | other signs of malignancy warrant further evaluation. This may | | be performed with prompt ultrasound evaluation and/or gynecologic | | consultation. | + + + + + | Pneumonia due to Mycoplasma pneumoniae | 05/19/2018 | + + + | Reactive airway disease with acute exacerbation | 05/19/2018 | + + + | Psoriasis of scalp | 04/30/2017 | + + + | Moderate single current episode of major depressive disorder | 04/30/2017 | + + + | Chronic tension-type headache, not intractable | 04/30/2017 | + + + | Insomnia | 04/30/2017 | + + + | Anxiety | 12/20/2016 | + + + | Leg pain, anterior | 12/20/2016 | + + + | Marijuana use | | + + + | Duplex kidney | | + + + + + | Overview: Duplicated and malrotated right kidney. | + + Encounters +--------+ + + + + | Date | Type | Specialty | Care Team | Description | +--------+ + + + + | 08/19/ | Telephone | Internal Medicine | Jade Govea, | Pneumonia | | 2019 | | | MD | | +--------+ + + + + | 08/18/ | Emergency | Emergency Medicine | Jade Dominguez, | Multifocal pneumonia | | 2019 - | | | MD | (Primary Dx); | | | | | | Hemoptysis; Acute | | 08/19/ | | | | hypoxemic | | 2019 | | | | respiratory failure | | | | | | (HCC); Community | | | | | | acquired pneumonia, | | | | | | unspecified | | | | | | laterality; Acute | | | | | | respiratory failure | | | | | | with hypoxia ([facility]) | +--------+ + + + + | 08/14/ | Emergency | Emergency Medicine | Jose Monterroso | Pneumonia due to | | 2019 - | | | MD Rafita | infectious organism, | | | | | | unspecified | | 08/15/ | | | | laterality, | | 2019 | | | | unspecified part of | | | | | | lung (Primary Dx) | +--------+ + + + + | 08/14/ | Office | Immediate Care | Jose Williamson | Flu-like symptoms | | 2019 | Visit | | [facility] | (Primary Dx) | +--------+ + + + + | 08/05/ | Emergency | Emergency Medicine | Michael Carty, | Postoperative | | 2018 | | | | abdominal pain | | | | | | (Primary Dx) | +--------+ + + + + | 07/02/ | Orders Only | Internal Medicine | Jade Govea, | | | 2018 | | | | | +--------+ + + + + | 07/02/ | Telephone | Internal Medicine | Jade Govea, | Other | | 2018 | | | MD | | +--------+ + + + + | 06/26/ | Anesthesia | | Dario Kilpatrick, | | | 2018 | Event | | Guerrero Frias, | | | | | | MD | | +--------+ + + + + | 06/26/ | Surgery | | Liliam Borden, | LAPAROSCOPY | | 2018 | | | DO | DIAGNOSTIC, OVARIAN | | | | | | CYSTECTOMY, LEFT | | | | | | OOPHORECTOMY AND | | | | | | LEFT SALPINGECTOMY | +--------+ + + + + | 06/25/ | Hospital | Obstetrics and | [facility] | Pelvic pain (Primary | | 2019 - | Encounter | Gynecology | Jose Eduardo Hyde MD | Dx); Cyst of ovary, | | | | | Stone Villarreal | unspecified | | 06/27/ | | | Murtaza Maravilla MD | laterality | | 2018 | | | Liliam Borden DO | | +--------+ + + + + | 06/22/ | Orders Only | Internal Medicine | Jade Govea, | | | 2018 | | | MD | | +--------+ + + + + | 06/22/ | Refill | Internal Medicine | Jade Govea, | Medication Refill | | 2018 | | | MD | | +--------+ + + + + | 06/18/ | Office | Internal Medicine | Jade Govea, | Bronchitis; | | 2018 | Visit | | MD | Cyst of left ovary | +--------+ + + + + | 06/16/ | Emergency | Emergency Medicine | Jade Dominguez, | Ovarian cyst, right | 2018 | | | MD | (Primary Dx) | +--------+ + + + + | 06/15/ | Office | Immediate Care | Nathan Cuevas, | Cyst of left ovary | 2018 | Visit | | MD | (Primary Dx) | +--------+ + + + + | 06/15/ | Telephone | Internal Medicine | Jade Govea, | Appointment (Soon | 2018 | | | MD | appointment | | | | | | requested) | +--------+ + + + + | 06/14/ | Emergency | Emergency Medicine | Jocelyn Arriaga, | Bronchitis with | 2018 | | | MD | bronchospasm | | | | | | (Primary Dx); Cyst | | | | | | of left ovary | +--------+ + + + + from Last 3 Months Immunizations + + + + | Name | Administration Dates | Next Due | + + + + | MMR, 2 DOSE | 04/05/1987 | | | (PED/ADULT) | | | + + + + | POLIOVIRUS,OPV | 04/15/1990, 04/09/1989, 05/16/1987, | | | (LIVE) | 04/05/1987 | | + + + + | PPD Test | 06/28/2003 | | + + + + Social History + [...] recent travel history available. | + + Last Filed Vital Signs + + + [...] | | + + + + + Plan of Treatment + + + + + | Health Maintenance | Due Date | Last Done | Comments | + + + + + | Vaccine: | | | | | Pneumococcal 19-64 | 7 | | | | (1 of 1 - PPSV23) | | | | + + + + + | Vaccine: | | | | | Dtap/Tdap/Td (1 - | 2 | | | | Tdap) | | | | + + + + + | Vaccine: Influenza | | | | | (#1) | 9 | | | + + + + + | Cervical Cancer | | 07/24/2017 | | | Screening (Pap) | 2 | | | + + + + + Procedures + +--------+ + + + | [...] | | n - | | | 01/07/ | | | 2020 | | | 4:40 | | | [...] | | | FICATI | | | ON?01/ | | | 07/202 | | | 0 | | | 16:38? | | | JAMEEL | | | EZ, | | | LIZ | | | | | | C?MRN: | | | | | | [id number] | | | [id number] | | | riteri | | | [...] | | | 2019-1 | | | 1-22 | | | OXYCOD | | | ONE-AC | | | ETAMIN | | | OPHEN | | | 5-325 | | | 30 | | | AUGUSTA | | | | | | MONTAG | | | MAJO 2 | | | 56.25 | | | | | | 2019-1 | | | 1-14 | | | [...] | | MG 20 | | | NATHAN | | | JUAREZ | | | [...] | | , MD | | | [employer] | | | al | | | [...] | | | [id number] | | | [id number] | | | | | | PLEASE [...] | | | ed.? | | | 2020 | | | [employer] | | | tive | | | Medica | | | l | | | Techno | | | logies | | | , Inc. | | | - | | | [email or web address] | | | llecti | | | vemedi | | | [email or web address] | | | m | +---+--------+ + +--------+ +---+ + | XR CHEST AP PORTABLE | STAT | 08/14/2019 | | Results for this | | | | 11:57 PM | | procedure are in the | | | | PST | | results section. | + +--------+ +---+ + | CULTURE, BLOOD | STAT | 08/14/2019 | | | | | | 10:02 PM | | | | | | PST | | | + +--------+ +---+ + | HCG, URINE, QUAL | Add-On | 08/14/2019 | | Results for this | | | | 9:57 PM | | procedure are in the | | | | PST | | results section. | + +--------+ +---+ + | B TYPE NATRIURETIC | STAT | 08/14/2019 | | Results for this | | PEPTIDE | | 9:57 PM | | procedure are in the | | | | PST | | results section. | + +--------+ +---+ + | TROPONIN I | STAT | 08/14/2019 | | Results for this | | | | 9:57 PM | | procedure are in the | | | | PST | | results section. | + +--------+ +---+ + | D-DIMER | STAT | 08/14/2019 | | Results for this | | | | 9:57 PM | | procedure are in the | | | | PST | | results section. | + +--------+ +---+ + | URINALYSIS WITH | STAT | 08/14/2019 | | Results for this | | MICROSCOPIC WITH | | 9:57 PM | | procedure are in the | | CULTURE IF INDICATED | | PST | | results section. | + +--------+ +---+ + | PROTIME INR | STAT | 08/14/2019 | | Results for this | | | | 9:57 PM | | procedure are in the | | | | PST | | results section. | + +--------+ +---+ + | PROCALCITONIN, SERUM | STAT | 08/14/2019 | | Results for this | | | | 9:57 PM | | procedure are in the | | | | PST | | results section. | + +--------+ +---+ + | LACTIC ACID | STAT | 08/14/2019 | | Results for this | | | | 9:57 PM | | procedure are in the | | | | PST | | results section. | + +--------+ +---+ + | COMPREHENSIVE | STAT | 08/14/2019 | | Results for this | | METABOLIC PANEL | | 9:57 PM | | procedure are in the | | | | PST | | results section. | + +--------+ +---+ + | CBC WITH | STAT | 08/14/2019 | | Results for this | | DIFFERENTIAL | | 9:57 PM | | procedure are in the | | | | PST | | results section. | + +--------+ +---+ + | INFLUENZA A AND B | STAT | 08/14/2019 | | Results for this | | RNA, NAAT | | 9:57 PM | | procedure are in the | | | | PST | | results section. | + +--------+ +---+ + | CULTURE, BLOOD | STAT | 08/14/2019 | | | | | | 9:57 PM | | | | | | PST | | | + +--------+ +---+ + | ECG 12 LEAD | STAT | 08/14/2019 | | Results for this | | | | 8:52 PM | | procedure are in the | | | | PST | | results section. | + +--------+ +---+ + | ED INFORMATION | Routin | 08/14/2019 | | | | EXCHANGE | e | 8:37 PM | | | | | | PST | | | + +--------+ +---+ + +---+--------+ | | | | | Proced | | | ure | | | Note - | | | Vaibhav, | | | Lab In | | | | | | Hlseve | | | n - | | | | | | 2019 | | | 8:38 | | | PM PST | | [...] | | | FICATI | | | ON?01/ | | | 03/202 | | | 0 | | | 20:36? | | | JAMEEL | | | EZ, | | | LIZ | | | | | | C?MRN: | | | | | | [id number] | | | [id number] | | | riteri | | | [...] | | | 2019-1 | | | 1-22 | | | OXYCOD | | | ONE-AC | | | ETAMIN | | | OPHEN | | | 5-325 | | | 30 | | | AUGUSTA | | | | | | MONTAG | | | MAJO 2 | | | 56.25 | | | | | | 2019-1 | | | 1-14 | | | [...] | | MG 20 | | | NATHAN | | | JUAREZ | | | [...] | | | Center | | | 7 0 | | | Total | | | 7 0 | | | Note: | | [...] | | int | | | Dominic 3, | | | 2020 | | | Provid | | | ence | | | [facility] | | | [facility] | [facility] | [place] | | | [place] | | | Emerge | | | ncy | | | | | | CP,hea | | | d pain | | | Dominic | | | [...] | | , MD | | | [employer] | | | al | | | [...] | | | otify/ | | | [id number] | | | [id number] | | | [id number] | | | [phone] | | | [id number] | | | [id number] | | | | | | PLEASE [...] | | | ed.? | | | 2020 | | | [employer] | | | tive | | | Medica | | | l | | | Techno | | | logies | | | , Inc. | | | - | | | [email or web address] | | | llecti | | | vemedi | | | [email or web address] | | | m | +---+--------+ + +--------+ + + + | INFLUENZA A AND B | STAT | 08/14/2019 | Flu-like symptoms | Results for this | | RNA, NAAT | | 4:29 PM | | procedure are in the | | | | PST | | results section. | + +--------+ + + + | CT ABDOMEN PELVIS W | STAT | 08/05/2019 | | Results for this | | CONTRAST | | 10:59 PM | | procedure are in the | | | | PST | | results section. | + +--------+ + + + | LIPASE | STAT | 08/05/2019 | | Results for this | | | | 10:24 PM | | procedure are in the | | | | PST | | results section. | + +--------+ + + + | COMPREHENSIVE | STAT | 08/05/2019 | | Results for this | | METABOLIC PANEL | | 10:24 PM | | procedure are in the | | | | PST | | results section. | + +--------+ + + + | CBC WITH | STAT | 08/05/2019 | | Results for this | | DIFFERENTIAL | | 10:24 PM | | procedure are in the | | | | PST | | results section. | + +--------+ + + + | URINALYSIS WITH | STAT | 08/05/2019 | | Results for this | | MICROSCOPIC | | 10:16 PM | | procedure are in the | | | | PST | | results section. | + +--------+ + + + | POCT URINALYSIS, | STAT | 08/05/2019 | | Results for this | | AUTO WITH CONF | | 10:14 PM | | procedure are in the | | | | PST | | results section. | + +--------+ + + + | POCT TEST, | STAT | 08/05/2019 | | Results for this | | URINE, QUAL | | 10:13 PM | | procedure are in the | | | | PST | | results section. | + +--------+ + + + | ED INFORMATION | Routin | 08/05/2019 | | | | EXCHANGE | e | 9:26 PM | | | | | | PST | | | + +--------+ + + + +---+--------+ | | | | | Proced | | | ure | | | Note - | | | Vaibhav, | | | Lab In | | | | | | Hlseve | | | n - | | | 12/ | | | 2019 | | | 9:27 | | | PM PST | | [...] | | | FICATI | | | ON?12/ | | | 25/201 | | | 9 | | | 21:25? | | | JAMEEL | | | EZ, | | | LIZ | | | | | | C?MRN: | | | | | | [id number] | | | [id number] | | | riteri | | | [...] | | | 2019-1 | | | 1-22 | | | OXYCOD | | | ONE-AC | | | ETAMIN | | | OPHEN | | | 5-325 | | | 30 | | | AUGUSTA | | | | | | MONTAG | | | MAJO 2 | | | 56.25 | | | | | | 2019-1 | | | 1-14 | | | [...] | | MG 20 | | | NATHAN | | | JUAREZ | | | [...] | | | Center | | | 6 0 | | | Total | | | 6 0 | | | Note: | | [...] | | | int | | | Dec | | | [...] | | ost op | | | Nov | | | [...] | | | St. | | | [facility] | | | [facility] | | | [...] | | , MD | | | [employer] | | | al | | | [...] | | | otify/ | | | [id number] | | | [id number] | | | [phone] | | | [id number] | | | [id number] | | | [id number] | | | | | | PLEASE [...] [email or web address] | | | m | +---+--------+ + +--------+ + + + | EXTRA [...] | | n - | | | 06/25/ | | | 2018 | | | 6:14 | | | [...] ON?/ | | | | | | 9 | | | 18:12? | | | JAMEEL | | | EZ, | | | LIZ | | | | | | C?MRN: | | | | | | [id number] | | | [id number] | | | riteri | | | [...] | | MG 20 | | | NATHAN | | | JUAREZ | | | [...] | | | St. | | | [facility] | | | M.C. | | | [...] | | | MD | | | [employer] | | | al | | | [...] [email or web address] | | | m | +---+--------+ + +------+ +---+ + | US PELVIS W | STAT | 06/16/2019 | | Results for this | | TRANSVAGINAL | | 10:10 PM | | procedure are in the | | | | PST | | results section. | + +------+ +---+ + | EXTRA BLUE TOP TUBE | STAT | 06/16/2019 | | Results for this | | | | 8:51 PM | | procedure are in the | | | | PST | | results section. | + +------+ +---+ + | COMPREHENSIVE | STAT | 06/16/2019 | | Results for this | | METABOLIC PANEL | | 8:51 PM | | procedure are in the | | | | PST | | results section. | + +------+ +---+ + | CBC WITH | STAT | 06/16/2019 | | Results for this | | DIFFERENTIAL | | 8:51 PM | | procedure are in the | | | | PST | | results section. | + +------+ +---+ + | POCT TEST, | STAT | 06/16/2019 | | Results for this | | URINE, QUAL | | 8:46 PM | | procedure are in the | | | | PST | | results section. | + +------+ +---+ + | URINALYSIS WITH | STAT | 06/16/2019 | | Results for this | | MICROSCOPIC WITH | | 8:42 PM | | procedure are in the | | CULTURE IF INDICATED | | PST | | results section. | + +------+ +---+ + | CT RENAL STONE WO | STAT | 06/14/2019 | | Results for this | | CONTRAST | | 3:30 AM | | procedure are in the | | | | PST | | results section. | + +------+ +---+ + | POCT TEST, | STAT | 06/14/2019 | | Results for this | | URINE, QUAL | | 1:51 AM | | procedure are in the | | | | PDT | | results section. | + +------+ +---+ + | XR CHEST AP PORTABLE | STAT | 06/14/2019 | | Results for this | | | | 1:46 AM | | procedure are in the | | | | PDT | | results section. | + +------+ +---+ + | URINALYSIS WITH | STAT | 06/14/2019 | | Results for this | | MICROSCOPIC WITH | | 1:35 AM | | procedure are in the | | CULTURE IF INDICATED | | PDT | | results section. | + +------+ +---+ + from Last 3 Months Results Slide Review, Peripheral Smear (08/18/2019 5:38 [...] Variant | Few (A) | (none) | MANUELE | | | Lymphocytes | | | [facility] | | [...] + | [facility] | [address] | [place] | [phone] | | [facility] | | [address] | | | - LABORATORY | | | | + + + + + Procalcitonin (08/18/2019 5:38 PM PST)Only the most recent of 2 results within the time evette bedoya is included. + + + + + + | [...] + | [facility] | [address] | [place], [place] | [phone] | | [facility] | | [address] | | | - LABORATORY | | | | + + + + + CBC with Differential (08/18/2019 5:38 PM PST)Only the most recent of 5 results within the time period is included. + + + + + + | Component | Value | Ref Range | Performed | Pathologist | | | | | At | Signature | + + + + + + | WBC | 4.2 | 4.0 - 11.0 K/uL | [facility] | | | | | | [facility] | | | | | | [facility] | | | | | | [facility] - | | | | | | LABORATORY | | + + + + + + | RBC | 4.40 | 3.70 - 5.20 | [facility] | | | | | M/uL | [facility] | | | | | [...] | Preliminary studies have | | [facility] | | | s | indicated the [...] | Neutrophils | | K/uL | [facility] | [...] | Monocytes | | K/uL | [facility] | | | | | | MEDICAL | | | | | | CENTER - | | | | | | LABORATORY | | + + + + + + | Absolute | 0.14 | 0.00 - 0.40 | [facility] | | | Eosinophils | | K/uL | [facility] | [...] [address] | [place] | [phone] | | [facility] | | [address] | | | - LABORATORY | | | | + + + + + Lactic Acid (08/18/2019 5:38 PM PST)Only the most recent of 3 results within the time hayden od is included. + +-------+ + + + | Component [...] [facility] [address] | [place] | [phone] | | [facility] | | [address] | | | - LABORATORY | | | | + + + + + Comprehensive Metabolic Panel (08/18/2019 5:38 PM PST)Only the most recent of 5 results wi thin the time period is included. + + + + + + | [...] (L) | 9 - 23 mg/dL | [facility] | | | | | | [facility] | | | | | | [facility] | | | | | | C[facility] - | | | | | | LABORATORY | | + + + + + + | Creatinine | 0.50 (L) | 0.55 - 1.02 | [facility] | | | | mg/dL | [facility] | | | | [facility] | MEDICAL | | | | | | CENTER - | | | | | | LABORATORY | | + + + + + + | eGFR if not | >60Comment: GLOMERULAR | >=60 | [facility] | | | | FILTRATION | mL/min/1.73m2 | [facility] | | | [place] | RATE,ESTIMATED | | MEDICAL | | | | mL/min/1.47j8Eiyt than | | CENTER - | | [...] | 8.8 | 8.7 - 10.4 | [facility] | | | | | mg/dL | [facility] | | | | | | [facility] | | | | | | CENTER - | | | | | | LABORATORY | | + + + + + + | Albumin | 4.0 | 3.2 - 4.8 g/dL | [facility] | | | | | | [facility] [...] [facility] | [address] | [place] | [phone] | | [facility] | | [address] | | | - LABORATORY | | [...] | Procedure Note | + + | Vaihbav, Rad Results In - 08/18/2019 6:25 PM [...] | | |Dictated and Signed by: Cedric Fidelity, MD | | Electronically signed: 08/18/2019 6:22 PM | + + + +---------+ + + | Performing | Address | City/State/Zipcode | Phone Number | | Organization | | | | + +---------+ + + | [facility] | | | | + +---------+ + + XR Chest AP Portable (08/14/2019 11:57 PM PST)Only the most recent of 2 results within the time period is included. + + | Specimen | + + [...] with Culture if Indicated (08/14/2019 9:57 PM PST)Only the mos t recent of 4 results within the time period is included. + + + + + + | [...] - 1.030 | [facility] | | | [place] | | | [facility] | | [...] | | | Esterase, | | | [facility] | | | U[facility] | | | MEDICAL | | | | | | CENTER - | | | | | | LABORATORY | | + + + + + + | Urobilinoge | 2.0 mg/dL (A) | 0.2 mg/dL, 1.0 | [facility] | | | n, Urine | | mg/dL, Negative | [facility] | | | | [...] | | [facility] | | | [facility] | | | | | | MEDICAL | | | | | | CENTER - | | | | | | LABORATORY | | + + + + + + | URINE | Urine Culture Not | | [facility] | | | COMMENT | Indicated | | [facility] | | | [...] + | [facility] | [address] | [place] | [phone] | | [facility] | | [id number] | | | - LABORATORY | | | | + + + + + Influenza A and B RNA, NAAT (08/14/2019 9:57 PM PST)Only the most recent of 2 results with in the time period is included. + + + + + + | Component | Value | Ref Range | Performed | Pathologist | | | | | At | Signature | + + + + + + | Influenza A | Negative | Negative, Test | [facility] | | | PCR | | not performed | [facility] | | | | | | MEDICAL | | | | | | CENTER - | | | | | | LABORATORY | | + + + + + + | Influenza B | Negative | Negative, Test | [facility] | | | PCR | | not performed | [facility] | | | | | | MEDICAL [...] [address] | [place] | [phone] | | [facility] | | [address] | | | - LABORATORY | | [...] | | | Comment:Reference | | [facility] | | | | Ranges: 0.00-0.06 = [...] | | | | | | [employer] | | | | | [...] [address] | [place] | [phone] | | [facility] | | [address] | | | - LABORATORY | | | | + + + + + , Urine, Qual (08/14/2019 9:57 PM PST)Only the most recent of 2 results within time period is included. + + + + + + | [...] + | [facility] | [address] | [place] | [phone] | | [facility] | | [address] | | | - LABORATORY | | [...] | | Time | | seconds | [facility] | | | | | | MEDICAL | | | | | | CENTER - | | | | | | LABORATORY | | + + + + + + | INR | 0.9Comment: Usual Oral | 0.9 - 1.1 | [facility] | | | | Anticoagulation Range: | | [facility] | | | | 2.0 - 3.0High [...] + + | [facility] | [address] | [place] | [phone] | | [facility] | | [address] | | | - LABORATORY | | [...] Quantitativ | quantitative D-Dimer | FEU | [facility] | | | e | assay has [...] | [address] | [place] | [phone] | | [facility] | | [address] | | | - LABORATORY | | [...] New method in | <100 pg/mL | [facility] | | | | use as of October 08, | | [facility] | | | | 2018. Check reference [...] [address] | [place] | [phone] | | [facility] | | [address] | | | - LABORATORY | | [...] | | | | | | by RODRIGUEZAMADOU WEBBER MD | | | | | | ([id number]) on 08/15/2019 | | | | | [...] | | | + +---------+ + + CT Abdomen Pelvis w Contrast (08/05/2019 10:59 PM PST) + + | Specimen | + + | | + + + + + | Impressions | Performed At | + + + | No acute intra-abdominal findings. ?No evidence of abscess or | [facility] | | intra-abdominal infection. ? ?A preliminary report was sent by | | | [facility] with no significant discrepancy on 08/05/2019 11:16 | | | PM. Dictated and Signed by: Mariano Stroud MD Electronically | | | signed: 08/06/2019 9:16 AM | | + + + + + + | Narrative | Performed At | + + + | CT ABDOMEN PELVIS W CONTRAST 08/05/2019 10:55 PM HISTORY: | [facility] | | Abdominal pain, fever, post-op. COMPARISON: 06/14/2019. | | | PROTOCOL: Axial images of the abdomen and pelvis were obtained after | | | administration of 90 mL Omnipaque 350. Coronal and sagittal | | | reformations were acquired. FINDINGS: LUNG BASES: No significant | | | pulmonary abnormality. No pleural effusion or pneumothorax. ? | | | ABDOMEN Liver and Biliary: Hepatic steatosis. ?No focal liver | | | lesions. Gallbladder is normal. ?No biliary ductal dilatation. | | | Pancreas, Spleen and Adrenals: No pancreatitis or pancreatic mass. No | | | splenomegaly, splenic mass or splenic hemorrhage. No significant | | | adrenal abnormality. Kidneys: Well-circumscribed hypodensity within | | | the left kidney is too small to definitively characterize but likely | | | represents a cyst. ?No hydronephrosis. 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 ?No hydronephrosis. ? ABDOMEN AND | | | PELVIS Bowel: No small bowel or colonic dilation or adjacent | | | inflammation. No appendiceal dilation or inflammation. Vessels: No | | | significant abnormality in the aorta or its proximal branches. No | | | significant abnormality in the portal veins, mesenteric veins or | | | systemic veins. Lymph Nodes: No adenopathy. Peritoneum and | | | Retroperitoneum: No ascites or free air. No significant | | | retroperitoneal abnormality. ? PELVIS Genitourinary: Previously | | | noted left ovarian cystic lesion has been removed. ?No evidence of | | | postoperative fluid collection or abscess. Right ovary is normal. ? | | | BODY WALL Soft Tissues: No bowel or inflamed fat containing hernia, | | | mass or hemorrhage. Bones: No acute fracture or vertebral end plate | | | destruction. No lytic or blastic lesion. ? | | + + + + + | Procedure Note | + + | Vaibhav, Rad Results In - 08/06/2019 9:[address] ABDOMEN PELVIS W CONTRAST 08/05/2019 | | 10:55 PMHISTORY: Abdominal pain, fever, post-op.COMPARISON: 06/14/2019.PROTOCOL: Axial | | images of the abdomen and pelvis were obtained afteradministration of 90 mL Omnipaque | | 350. Coronal and sagittal reformations wereacquired.FINDINGS:LUNG BASES: No significant | | pulmonary abnormality. No pleural effusionor pneumothorax.?ABDOMENLiver and Biliary: | | Hepatic steatosis. ?No focal liver lesions.Gallbladder is normal. ?No biliary ductal | | dilatation.Pancreas, Spleen and Adrenals: No pancreatitis or pancreatic mass. | | Nosplenomegaly, splenic mass or splenic hemorrhage. No significantadrenal | | abnormality.Kidneys: Well-circumscribed hypodensity within the left kidney is toosmall | | to definitively characterize but likely represents a cyst. ?Nohydronephrosis. 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 ?No hydronephrosis.?ABDOMEN AND | | PELVISBowel: No small bowel or colonic dilation or adjacent inflammation. Noappendiceal | | dilation or inflammation.Vessels: No significant abnormality in the aorta or its | | proximalbranches. No significant abnormality in the portal veins, mesentericveins or | | systemic veins.Lymph Nodes: No adenopathy.Peritoneum and Retroperitoneum: No ascites or | | free air. No significantretroperitoneal abnormality.?PELVISGenitourinary: Previously | | noted left ovarian cystic lesion has beenremoved. ?No evidence of postoperative fluid | | collection or abscess.Right ovary is normal.?BODY WALLSoft Tissues: No bowel or inflamed | | fat containing hernia, mass orhemorrhage.Bones: No acute fracture or vertebral end | | plate destruction. No lyticor blastic lesion.?IMPRESSION: No acute intra-abdominal | | findings. ?No evidence of abscess orintra-abdominal infection.??A preliminary report was | | sent by [facility] with no significant discrepancyon 08/05/2019 11:16 PM.Dictated | | and Signed by: Mariano Stroud MD Electronically signed: 08/06/2019 9:16 AM | |duplicated. ?No hydronephrosis. | |? | |ABDOMEN AND PELVIS | |Bowel: No small bowel or colonic dilation or adjacent inflammation. No | |appendiceal dilation or inflammation. | |Vessels: No significant abnormality in the aorta or its proximal | |branches. No significant abnormality in the portal veins, mesenteric | |veins or systemic veins. | |Lymph Nodes: No adenopathy. | |Peritoneum and Retroperitoneum: No ascites or free air. No significant | |retroperitoneal abnormality. | |? | |[facility] | |Genitourinary: Previously noted left ovarian cystic lesion has been | |removed. ?No evidence of postoperative fluid collection or abscess. | |Right ovary is normal. | |? | |BODY WALL | |Soft Tissues: No bowel or inflamed fat containing hernia, mass or | |hemorrhage. | |Bones: No acute fracture or vertebral end plate destruction. No lytic | |or blastic lesion. | |? | |IMPRESSION: | |No acute intra-abdominal findings. ?No evidence of abscess or | |intra-abdominal infection. | |? | |?A preliminary report was sent by [facility] with no significant discrepancy | |on 08/05/2019 11:16 PM. | | | |Dictated and Signed by: Mariano Stroud MD | | Electronically signed: 08/06/2019 9:16 AM | + + + +---------+ + + | Performing | Address | City/State/Zipcode | Phone Number | | Organization | | | | + +---------+ + + | [facility] | | | | + +---------+ + + Lipase (08/05/2019 10:24 PM PST)Only the most recent of 2 results within the time period is included. + + + + + + | Component | Value | Ref Range | Performed | Pathologist | | | | | At | Signature | + + + + + + | Lipase | 34Comment: New method in | 12 - 53 U/L | [place] | | | | use as of October 08 | | [facility] | | | | 2018. Check reference [...] + | [facility] | [address] | [place], [place] | [phone] | | [facility] | | [address] | | | - LABORATORY | | | | + + + + + Urinalysis With Microscopic (08/05/2019 10:16 PM PST) + + + + + + | Component | Value | Ref Range | Performed | Pathologist | | | | | At | Signature | + + + + + + | Color, | Yellow | Light Yellow, | [facility] | | | Urine | | Yellow, Straw | [facility] | | | | | [...] + + + + | Specific | 1.023 | 1.001 - 1.030 | [facility] | | | [place] | | | [facility] | | [...] [address] | [place] | [phone] | | [facility] | | [address] | | | - LABORATORY | | | | + + + + + POCT Urinalysis (08/05/2019 10:14 PM PST) + + + + + + | Component | Value | Ref Range | Performed | Pathologist | | | | | At | Signature | + + + + + + | Color, UA, | Yellow | Yellow, Light | | | | POC | | Yellow | | | + + + + + + | Clarity, | Slightly Cloudy | | | | | UA, POC | | | | | + + + + + + | Glucose, | Negative | Negative | | | | UA, POC | | | | | + + + + + + | Bilirubin, | Negative | Negative | | | | UA, POC | | | | | + + + + + + | Ketones, | Negative | Negative, 100 | | | | UA, POC | | mg/dL | | | + + + + + + | Specific | 1.030 | 1.001 - 1.030 | | | | [place], | | | | | | UA, POC | | | | | + + + + + + | Blood, UA, | Trace Intact (A) | Negative | | | | POC | | | | | + + + + + + | pH, UA, POC | 6.0 | 5.0, 6.0, 7.0, | | | | | | 8.0, 5.5, 6.5, | | | | | | 7.5 | | | + + + + + + | Protein, | Negative | Negative | | | | UA, POC | | | | | + + + + + + | Urobilinoge | 1.0 E.U./dL | 0.2, Negative, | | | | n, UA, POC | | Normal, < 0.2 | | | | | | mg/dL, 1 mg/dL, | | | | | | < 0.2 E.U./dl, | | | | | | 1.0 E.U./dL, | | | | | | 0.2 mg/dL | | | + + + + + + | Nitrite, | Negative | Negative | | | | UA, POC | | | | | + + + + + + | Leukocyte | Trace (A) | Negative | | | | Esterase, | | | | | | UA, POC | | | | | + + + + + + | Remark | | | | | + + + + + + + + | Specimen | + + | Urine | + + POCT Test, Urine, QUAL (08/05/2019 10:13 PM PST)Only the most recent of 3 results within the time period is included. + + + + + + | [...] + + + + | Specific | | | | | | [place], | | | | | | POC | | | | | + + + + + + | Lot Number | [id number] | | | | + + + + + + | Expiration | 2020-08-20 | | | | | Date | | | | | + + + + + + + + | Specimen | + + | Urine | + + Extra Green Top Tube (06/27/2019 6:30 AM PST)Only the most recent of 2 results within the time period is included. + +-------+ + + + | Component [...] [address] | [place] | [phone] | | [facility] | | [address] | | | - LABORATORY | | | | + + + + + CBC no Differential (06/27/2019 6:30 AM PST)Only the most recent of 2 results within the period is included. + + + + + + | Component | Value | Ref Range | Performed | Pathologist | | | | | At | Signature | + + + + + + | WBC | 14.9 (H) | 4.0 - 11.0 K/uL | [facility] [address] | [place] | [phone] | | [facility] | | [address] | | | - LABORATORY | | | | + + + + + Airway (06/26/2019 5:54 PM PST) + + [...] medication documentation. | | + + + Basic Metabolic Panel (06/26/2019 [...] (L) | 9 - 23 mg/dL | [facility] | | | | | [...] mL/min/1.73m2 | [facility] | | | [place] | RATE,ESTIMATED | | MEDICAL | | | | mL/min/1.51k0Jsjl than | | CENTER - | | [...] | | | | mg/dL | [facility] | | | | | | [...] + | [facility] | [address] | [place] | [phone] | | [facility] | | [address] | | | - LABORATORY | | [...] Segment of | | | benign oviduct. JVR:[facility]:C2NR MICROSCOPIC EXAMINATION: | | | Histologic sections [...] excrescences are grossly | | | identified. Slice Cutting Machine Operator Helper sections are submitted in cassettes | | [...] LABORATORY: The technical component was performed by [employer] | | | [place] [address] (Customer Program Manager: | | | Eveline White MD; CLIA# [id number]). Professional interpretation was | | | performed by [facility] | | | [place] [address] (Medical | | | Director: Amadou Aguirre M.D.). Diagnostician: Amadou Mercado | | Waldo Aguirre MD Pathologist Electronically Signed 06/30/2019 | | + + + + +---------+ + + | Performing | Address | City/State/Zipcode | Phone Number | | Organization | | | | + +---------+ + + | [facility] | | | | | [facility] | | | | + +---------+ + + US Pelvis W Transvaginal (06/25/2019 9:33 PM PST)Only the most recent of 2 results within the time period is included. + + | Specimen | + + [...] | to the ordering provider by the cardiovascular radiologic technologist immediately | | | following the [...] the ordering provider by the | | cardiovascular radiologic technologist immediately following the exam. | | | | Dictated and Signed by: Kel Jones MD | | Electronically signed: 06/26/2019 9:08 AM | + + + +---------+ + + | Performing | Address | City/State/Zipcode | Phone Number | | Organization | | | | + +---------+ + + | [facility] | | | | + +---------+ + + Extra Blue Top Tube (06/16/2019 8:51 PM PST) + +-------+ + + + | Component | Value | Ref Range | Performed | Pathologist | | | | | At | Signature | + +-------+ + + + | Extra Blue | Done | | [facility] | | [...] | [address] | [place] | [phone] | | [facility] | | [address] | | | - LABORATORY | | | | + + + + + CT Renal Stone Wo Contrast (06/14/2019 3:30 [...] | | | + +---------+ + + from Last 3 Months Insurance + +--------+ +--------+-------+---------+--------+ | Payer | Benefi | Subscriber | Effect | Phone | Address | Type | | | t Plan | ID | lazaro | | | | | | / | | Dates | | | | | | Group | | | | | | + +--------+ +--------+-------+---------+--------+ | [employer] | [employer] | [id number] | 11/11/19 | | | Medica | | MEDICAID HMO | NATED | | 14-Pre | | | id | | | CARE | | sent | | | | | | APPLE | | | | | | | | [place]ALTH | | | | | | | | [place] | | | | | | + +--------+ +--------+-------+---------+--------+ + +--------+ +--------+ + + | Guarantor Name | Accoun | Relation to | Date | Phone | Billing Address | | | t Type | Patient | of | | | | | | | | | | + +--------+ +--------+ + + | Liz Barnes | Person | Self [birth year] | [address] | | [place] | al/Fam | | 1980 | [phone] | [address] [place], | | | [place]a | | | [address] (Home) | [place] [address] | + +--------+ +--------+ + + Advance Directives + + + + + | Type | Date Recorded | Patient | Explanation | | | | Slice Cutting Machine Operator Helper | | + + + + + | Power of | | | | | Mill Manager | | | | + + + + + | Advance | 01/20/2018 7:39 | | | | Directive | PM | | | + + + + + + + + + + | Code Status | Date | Date | Comments | | | Activated | Inactivated | | + + + + + | Full Code | 06/26/2019 | 06/27/2019 | | | | 8:21 PM | 3:43 PM | | + + + + + + + + +---+ | | | | | + + + +---+ | Full Code | 06/26/2019 | 06/26/2019 | | | | 12:24 PM | 8:21 PM | | + + + +---+
--- OUTSIDE RECORDS SUMMARY | ~2019-08-19 | XMS | Encounter Summary ---
Demographics + + + | Address | [address] | | | [place] [address] | + + + | Home Phone | | + + + | Preferred Language | Unknown | + + + | Marital Status | | + + + | Mormonism Affiliation | 1041 | + + + | Race | Unknown | + + + | Ethnic Group | Unknown | + + + Author + + + | Author | [facility] | | | and [place] | + + + | Organization | [facility] | | | [...] [place] | | | | | [place] [address] | | + + + + + Care Team Providers + +------+ + | Care Fiscal Economist Name | Role | Phone | + [...] + | 05/08/ | Telephone | [facility] | Dillon Govea, | ER Follow-up | | 2018 | | MEDICINE [address] | [address] | | | | | [address] [place] | [place] [facility], [place] | | | | | [place] [address] | [address] | | | | | [phone] | | | +--------+ + + + [...]
--- OUTSIDE RECORDS SUMMARY | ~2019-08-19 | XMS | Encounter Summary ---
Demographics + + + | Address | [address] | | | [place] [address] | + + + | Home Phone | | + + + | Preferred Language | Unknown | + + + | Marital Status | | + + + | Zoroastrianism Affiliation | 1041 | + + + | Race | Unknown | + + + | Ethnic Group | Unknown | + + + Author + + + | Author | [facility] | | | and [place] | + + + | Organization | [facility] | | [...] [place] | | | | | [place] [address] | | + + + + + Care Team Providers + +------+ + | Care Strategies Analyst Name | Role | Phone | + +------+ + PCP | Unavailable | + +------+ + Encounter Details +--------+ + + + + | Date | Type | Department | Care Team | Description | +--------+ + + + + | 03/17/ | Hospital | [facility] | | | | 2003 | Encounter | [facility] | | | | | | CENTER [address] | | | | | | [place] | | | | | | [address] | | | | | | [phone] | | | +--------+ + + + [...]
--- OUTSIDE RECORDS SUMMARY | ~2019-08-19 | XMS | Encounter Summary ---
Demographics + + + | Address | [address] | | | [place] [address] | + + + | Home Phone | | + + + | Preferred Language | Unknown | + + + | Marital Status | | + + + | Church Affiliation | 1041 | + + + | Race | Unknown | + + + | Ethnic Group | Unknown | + + + Author + + + | Author | [facility] | | | and [place] | + + + | Organization | [facility] | | | [...] [place] | | | | | [place] [address] | | + + + + + Care Team Providers + +------+ + | Care Engineering Drafter Name | Role | Phone | + +------+ + | Dillon Govea MD | PCP | | + +------+ + Reason for Visit + + + | Reason | Comments | + + + | Medication Refill | | + + + Encounter Details +--------+--------+ + + + | Date | Type | Department | Care Team | Description | +--------+--------+ + + + | 06/22/ | Refill | [facility] | Dillon Govea, | Medication Refill | | 2018 | | MEDICINE [address] | [address] [facility] | | | | | Street [facility] | [place] | | | | | [place] [address] | [address] | | | | | [phone] | | | +--------+--------+ + + + Social History + +-------+ [...] [place] | | | | | | [address] | | | | | | | | +--------+---------+ + + + documented as of this encounter Visit Diagnoses Not on filedocumented in this encounter"
--- OUTSIDE RECORDS SUMMARY | ~2019-08-19 | XMS | Encounter Summary ---
Demographics + + + | Address | [address] | | | [place] [address] | + + + | Home Phone | | + + + | Preferred Language | Unknown | + + + | Marital Status | | + + + | Islam Affiliation | 1041 | + + + | Race | Unknown | + + + | Ethnic Group | Unknown | + + + Author + + + | Author | [facility] | | | and [place] | + + + | Organization | [facility] | | | [...] [place] | | | | | [place] [address] | | + + + + + Care Team Providers + +------+ + | Care Registered Physical Therapist Name | Role | Phone | + +------+ + | Dillon Govea MD | PCP | | + +------+ + Reason for Visit + + + | Reason | Comments | + + + | Follow-up | 13 month | + + + | ER Follow-up | from 06/14/19 regarding bronchitis and ovarian cyst, had CT done | + + + Encounter Details +--------+---------+ + + + | Date | Type | Department | Care Team | Description | +--------+---------+ + + + | 06/18/ | Office | [facility] | Dillon Govea, | Bronchitis; | | 2019 | Visit | MEDICINE [address] | MD Patricio WALLACE | Cyst of left ovary | | | | Rubin [place] | [place] | | | | | [place] [address] | [id number] | | | | | [phone] | | | +--------+---------+ + + + [...] + + + | Blood Pressure | 124/74 | 06/18/2019 11:25 AM | | | | | PST | | + + + + + | Pulse | 86 | 06/18/2019 11:25 AM | | | | | PST | | + + + + + | Temperature | 36.2 C (97.2 F) | 06/18/2019 11:25 AM | | | | | PST | | + + + + + | Respiratory Rate | 18 | 06/18/2019 11:25 AM | | | | | PST | | + + + + + | Oxygen Saturation | 99% | 06/18/2019 11:25 AM | | | | | PST | | + + + + + | Inhaled Oxygen | - | - | | | Concentration | | | | + + + + + | Weight | 85.6 kg (188 lb 11.4 | 06/18/2019 11:25 AM | | | | oz) | PST | | + + + + + | Height | - | - | | + + + + + | Body Mass Index | 40.84 | 06/16/2019 8:20 PM | | | | | PST | | + + + + + documented in this encounter Progress Notes Dillon Govea MD - 06/18/2019 11:30 AM PSTFormatting of this note might be different f rom the original. Subjective: Patient ID: Holly Barnes is a 38 y.o. female. Chief Complaint Patient presents with Follow-up 13 month ER Follow-up from 06/14/19 regarding bronchitis and ovarian cyst, had CT done HPI: 38-year-old female is been having right lower back pain and pelvic pain for the last c ouple of weeks she went to the emergency room she had a CT scan done that showed a large ova nilda cyst. She has subsequently had an ultrasound which confirmed the cyst that appears to be a simple cyst however it large and causing current pelvic pain and severe back pain when she moves take when she raises her right leg. She was given some oxycodone from the emergen cy room. She is taking these at a fairly rapid clip. We would like her to be as comfortabl e as possible until she sees a [facility] doctor and gets this cyst drained or removed. She is also having a cough and she is producing sputum. She has a previous history of pneu monia. Chest x-ray was done with her ER visit that showed no pneumonia but did look like sh e is some hayden-bronchial cuffing to me. And also her white blood cell count was elevated 18 ,000 also she was a bit hypoxic compared to her usual high 90s oxygen saturation. It appear s that she has significant respiratory infection. We would like to treat this before she mead s to have any surgery. Past Medical History: Diagnosis Date Anxiety Back pain Depression Dry skin dermatitis Joint pain Rash Past Surgical History: Procedure Laterality Date none Patient Active Problem List Diagnosis Date Noted POA Bronchitis 06/18/2019 Unknown Cyst of left ovary 06/18/2019 Unknown Pneumonia due to Mycoplasma pneumoniae 05/19/2018 Unknown Reactive airway disease with acute exacerbation 05/19/2018 Unknown Psoriasis of scalp 04/30/2017 Unknown Moderate single current episode of major depressive disorder 04/30/2017 Unknown Chronic tension-type headache, not intractable 04/30/2017 Unknown Insomnia 04/30/2017 Unknown Anxiety 12/20/2016 Unknown Leg pain, anterior 12/20/2016 Unknown Current Outpatient Medications: acetaminophen (TYLENOL) 325 mg tablet, Take 650 mg by mouth every 4 hours as needed fo r Pain., Disp: , Rfl: albuterol 90 mcg/puff inhaler, Inhale 2 puffs into the lungs every 4 hours as needed f or Wheezing or Shortness of Breath. Use with spacer device., Disp: 1 Inhaler, Rfl: 0 azithromycin (ZITHROMAX) 250 mg tablet, Take 2 tablets by mouth on day 1, and 1 tablet by mouth every day, Disp: 6 tablet, Rfl: 0 guaiFENesin-codeine (ROBITUSSIN AC) 100-10 mg/5 mL liquid, Take 10 mLs by mouth every 6 hours as needed for Cough., Disp: 120 mL, Rfl: 0 HYDROcodone-acetaminophen (NORCO) 5-325 mg per tablet, Take 1-2 tablets by mouth every 6 hours as needed for Pain., Disp: 20 tablet, Rfl: 0 methylPREDNISolone (MEDROL DOSEPAK) 4 mg tablet, Follow package directions., Disp: 21 tablet, Rfl: 0 ondansetron (ZOFRAN ODT) 4 mg disintegrating tablet, Take 1 tablet by mouth every 8 ho urs as needed for up to 12 doses., Disp: 12 tablet, Rfl: 0 oxyCODONE-acetaminophen (PERCOCET) 5-325 mg per tablet, Take 1 tablet by mouth every 6 hours as needed., Disp: 30 tablet, Rfl: 0 Allergies No active allergies Intolerance No active intolerances/contraindications Review of Systems Constitutional: Negative. HENT: Negative. Eyes: Negative. Respiratory: Positive for cough and sputum production. Cardiovascular: Negative. Gastrointestinal: Positive for abdominal pain. Musculoskeletal: Positive for back pain. Skin: Negative. Neurological: Negative. Endo/Heme/Allergies: Negative. Psychiatric/Behavioral: Negative. Objective: BP 124/74 | Pulse 86 | Temp 36.2 C (97.2 F) (Temporal) | Resp 18 | Wt 85.6 kg (188 lb 11.4 oz) | LMP (LMP Unknown) | SpO2 99% | ? No | BMI 40.84 kg/m Physical Exam General survey shows no acute distress HEENT: The HEENT exam is unremarkable today Neck: No jugular venous distention, no thyroid enlargement, no carotid bruits, the neck is supple. Lungs: Scattered rhonchi no wheezing Heart: Regular rhythm, normal rate, no significant murmur no S3 no S4 Abdomen: Soft active bowel sounds nontender no organomegaly Musculoskeletal: Range of motion of joints appears to be normal, no significant arthritis i s seen in any joints. The gait appears to be normal. Neurologic: The neurologic exam appears to be symmetrically intact with no deficits noted Skin: No rashes or skin lesions seen. Psychiatric: No obvious psychiatric abnormalities noted today, the mood appears to be jose l, no evidence of outside influences. Assessment/Plan: Holly was seen today for follow-up and er follow-up. Diagnoses and all orders for this visit: Bronchitis Cyst of left ovary Other orders - azithromycin (ZITHROMAX) 250 mg tablet; Take 2 tablets by mouth on day 1, and 1 table t by mouth every day - oxyCODONE-acetaminophen (PERCOCET) 5-325 mg per tablet; Take 1 tablet by mouth every 6 hours as needed. 1. I am going to give her a azithromycin for her bronchitis 2. We will refill her oxycodone she can use until she sees the [facility] doctor to get this pelv ic cyst/mass resolved. 3. If she has sudden worsening of her abdominal pain she should go to the hospital. No follow-ups on file. documented in this encounter Plan of Treatment +--------+---------+ + + + | Date | Type | Specialty | Care Team | Description | +--------+---------+ + + + | 01/09/ | Office | Internal Medicine | Dillon Govea, | | | 2019 | Visit | | MD Patricio KOEHLER | | | | | | [place] | | | | | | [address] | | | | | | | | +--------+---------+ + + + documented as of this encounter Visit Diagnoses + + | Diagnosis | + + | Bronchitis Bronchitis, not specified as acute or chronic | + + | Cyst of left ovary Other and unspecified ovarian cyst | + + documented in this encounter"
--- OUTSIDE RECORDS SUMMARY | ~2019-08-19 | XMS | Encounter Summary ---
Demographics + + + | Address | [address] | | | [place] [address] | + + + | Home Phone | | + + + | Preferred Language | Unknown | + + + | Marital Status | | + + + | Adventism Affiliation | 1041 | + + + | Race | Unknown | + + + | Ethnic Group | Unknown | + + + Author + + + | Author | [facility] | | | and [place] | + + + | Organization | [facility] | | | [...] [place] | | | | | [place] [address] | | + + + + + Care Team Providers + +------+ + | Care Final Installer Inspector Name | Role | Phone | + +------+ + PCP | Unavailable | + +------+ + Encounter Details +--------+ + + + + | Date | Type | Department | Care Team | Description | +--------+ + + + + | 11/19/ | Hospital | [facility] | | | | 2008 - | Encounter | [facility] EMER[facility]ENCY | | | | | | NAH[place] | | | | 11/20/ | | [place] | | | | 2008 | | [address] | | | | | | [phone] | | | +--------+ + + + [...]
--- OUTSIDE RECORDS SUMMARY | ~2019-08-19 | XMS | Encounter Summary ---
Demographics + + + | Address | [address] | | | [place] [address] | + + + | Home Phone | | + + + | Preferred Language | Unknown | + + + | Marital Status | | + + + | Gnosticist Affiliation | 1041 | + + + | Race | Unknown | + + + | Ethnic Group | Unknown | + + + Author + + + | Author | [facility] | | | and [place] | + + + | Organization | [facility] | | | and [place] | + + + | Address | Unknown | + + + | Phone | Unavailable | + + + Support + + + + + | Name | Relationship | Address | Phone | + + + + + | Sekou Dougherty | ECON | [address] | | | | | [address] [place] | | | | | [place] [address] | | + + + + + Care Team Providers + +------+ + | Care Milk Wagon Driver Name | Role | Phone | + +------+ + PCP | Unavailable | + +------+ + Encounter Details +--------+ + + + + | Date | Type | Department | Care Team | Description | +--------+ + + + + | 06/08/ | Hospital | [facility] | | | | 2006 | Encounter | MED CTR EMER[facility]ENCY | | | | | | CENTER [address] | | | | | | [place] | | | | | | [address] | | | | | | [phone] | | | +--------+ + + + [...] [place] | | | | | | [id number] | | | | | | | | +--------+---------+ + + + documented as of this encounter Visit Diagnoses Not on filedocumented in this encounter"
--- OUTSIDE RECORDS SUMMARY | ~2019-08-19 | XMS | Encounter Summary ---
Demographics + + + | Address | [address] | | | [place] [address] | + + + | Home Phone | | + + + | Preferred Language | Unknown | + + + | Marital Status | | + + + | Mormon Affiliation | 1041 | + + + | Race | Unknown | + + + | Ethnic Group | Unknown | + + + Author + + + | Author | [facility] | | | and [place] | + + + | Organization | [facility] | | | [...] [place] | | | | | [place], | | | | | [place] [address] | | + + + + + Care Team Providers + +------+ + | Care Fagoting Machine Operator Name | Role | Phone | + +------+ + | No, Physician | PCP | Unavailable | + +------+ + Reason for Visit + + + | Reason | Comments | + + + | Dental Pain | | + + + Encounter Details +--------+ + + + + | Date | Type | Department | Care Team | Description | +--------+ + + + + | 01/21/ | Emergency | [facility] | [facility]ita [facility] | Dental caries | | 2016 | | [facility] EM[facility]Y | Jose Eduardo Hyde MD | (Primary Dx); Pain, | | | | CENTER [address] | [address] | dental | | | | [place], [place] | [place], [place] | | | | | [address] | [address] | | | | | [phone] | | | +--------+ + + + [...] + + + | Blood Pressure | 132/83 | 01/22/2016 10:14 PM | | | | | PDT | | + + + + + | Pulse | 77 | 01/22/2016 10:14 PM | | | | | PDT | | + + + + + | Temperature | 37 C (98.6 F) | 01/22/2016 10:14 PM | | | | | PDT | | + + + + + | Respiratory Rate | 16 | 01/22/2016 10:14 PM | | | | | PDT | | + + + + + | Oxygen Saturation | 99% | 01/22/2016 10:14 PM | | | | | PDT | | + + + + + | Inhaled Oxygen | - | - | | | Concentration | | | | + + + + + | Weight | 70.3 kg (155 lb) | 01/22/2016 10:14 PM | | | | | PDT | | + + + + + | Height | 149.9 cm (4' 11") | 01/22/2016 10:14 PM | | | | | PDT | | + + + + + | Body Mass Index | 31.31 | 01/22/2016 10:14 PM | | | | | PDT | | + + + + + documented in this encounter Discharge Instructions Instructions Rafita Kc MD - 01/22/2016Return for severe worsening pain p ustular drainage or other worsening symptoms. Please follow-up with dental clinic as soon a s possible. documented in this encounter Medications at Time of Discharge + + + +---------+ + + | Medication | Sig | Dispensed | Refills | Start | End Date | | | | | | Date | | + + + +---------+ + + | acetaminophen | Take 1,300 mg by | | 0 | | | | (TYLENOL) 325 mg | mouth every 4 hours | | | | 6 | | tablet | as needed for Pain. | | | | | + + + +---------+ + + | amoxicillin | Take 1 capsule by | 30 | 0 | 01/22/20 | | | (AMOXIL) 500 MG | mouth 3 times daily. | capsule | | 16 | 6 | | capsule | | | | | | + + + +---------+ + + | | Take 1-2 tablets by | 15 | 0 | 01/22/20 | | | HYDROcodone-acetamin | mouth every 6 hours | tablet | | 16 | 6 | | ophen (NORCO) 5-325 | as needed for Pain. | | | | | | mg per tablet | | | | | | + + + +---------+ + + | ibuprofen (ADVIL, | Take 1,000 mg by | | 0 | | | | MOTRIN) 200 mg | mouth every 6 hours | | | | 6 | | tablet | as needed for Pain. | [...] [place] | | | | | | [address] | | | | | | | | +--------+---------+ + + + documented as of this encounter Visit Diagnoses + + | Diagnosis | + + | Dental caries - Primary Unspecified dental caries | + + | Pain, dental Unspecified disorder of the teeth and supporting structures | + + documented in this encounter Administered Medications + + + +--------+------+------+ | Medication Order | MAR | Action | Dose | Rate | Site | | | Action | Date | | | | + + + +--------+------+------+ | amoxicillin (AMOXIL) capsule | Dispense | 01/22/20 | 500 mg | | | | (ED prepack) 500 mg 500 mg, | to Home | 16 10:35 | | | | | Oral, EVERY 8 HOURS (3 times per | | PM PDT | | | | | day), First dose on 01/22/16 | | | | | | | at 2225, Take 1 tablet(s) orally | | | | | | | every 8 hours . Dispense for | | | | | | | home use. Enter order number on | | | | | | | MAR when dispensing., | | | | | | | Indications: Dental Caries | | | | | | + + + +--------+------+------+ +---+---+ | | | +---+---+ + + + +---------+---+---+ | HYDROcodone-acetaminophen | Dispense | 01/22/20 | 2 | | | | (NORCO) 5-325 mg per tablet 2 | to Home | 16 10:35 | tablets | | | | tablet 2 tablet, Oral, ONCE, Sun | | PM PDT | | | | | 01/22/16 at 2225, For 1 dose | | | | | | + + + +---------+---+---+ +---+---+ | | | +---+---+ documented in this encounter
--- OUTSIDE RECORDS SUMMARY | ~2019-08-19 | XMS | Encounter Summary ---
Demographics + + + | Address | [address] | | | [place] [address] | + + + | Home Phone | | + + + | Preferred Language | Unknown | + + + | Marital Status | | + + + | Nondenominational Affiliation | 1041 | + + + | Race | Unknown | + + + | Ethnic Group | Unknown | + + + Author + + + | Author | [facility] | | | and [place] | + + + | Organization | [facility] | | | [...] [place] | | | | | [place] [address] | | + + + + + Care Team Providers + +------+ + | Care Owner/Photographer Name | Role | Phone | + +------+ + | Dillon Govea MD | PCP | | + +------+ + Reason for Visit + + + | Reason | Comments | + + + | Leg Pain | Some Leg numbness, toes tingling , cramps and lumps. Stiffness | + + + Encounter Details +--------+---------+ + + + | Date | Type | Department | Care Team | Description | +--------+---------+ + + + | 02/09/ | Office | [facility] | Rakel Ortiz | Muscle cramps | | 2019 | Visit | MEDICINE [address] | [address] | (Primary Dx); Left | | | | Street [facility] | [facility] | leg pain | | | | [place] [address] | [place] [address] | | | | | [phone] | [phone] | | | | | | | [...] + + + | Blood Pressure | 118/70 | 02/09/2019 9:55 AM | | | | | PDT | | + + + + + | Pulse | 94 | 02/09/2019 9:55 AM | | | | | PDT | | + + + + + | Temperature | 36.1 C (97 F) | 02/09/2019 9:55 AM | | | | | PDT | | + + + + + | Respiratory Rate | 18 | 02/09/2019 9:55 AM | | | | | PDT | | + + + + + | Oxygen Saturation | 97% | 02/09/2019 9:55 AM | | | | | PDT | | + + + + + | Inhaled Oxygen | - | - | | | Concentration | | | | + + + + + | Weight | 83.9 kg (184 lb 15.5 | 02/09/2019 9:55 AM | | | | oz) | PDT | | + + + + + | Height | 152.4 cm (5') | 02/09/2019 9:55 AM | | | | | PDT | | + + + + + | Body Mass Index | 36.12 | 02/09/2019 9:55 AM | | | | | PDT | | + + + + + documented in this encounter Patient Instructions Patient Instructions Rakel Ortiz APRN - 02/09/2019 10:00 AM PDTTonic water or magnesium supplements for cramps. Penetrex or arnica cream, Icy hot or biofreeze documented in this encounter Progress Notes Rakel Ortiz, ENRIQUETA - 02/09/2019 10:00 AM PDTFormatting of this note might be di fferent from the original. Subjective: Holly Barnes is a 38 y.o. female patient of Dr. Govea here for Leg Pain (Trevor e Leg numbness, toes tingling , cramps and lumps. Stiffness) Holly is here for evaluation of left leg pain with occasional numbness and tingling with r ecurrent muscle cramps. She has also had several family members point out lumps on her calf. Symptoms started about 2 weeks ago, but she has had intermittent numbness of the leg for se veral years. She has been walking more in the last several days to help relieve some of the symptoms. She has no pain relief with PRN APAP or ibuprofen. There was no injury or past tra jean marie to the area. Outpatient Encounter Medications as of 02/09/2019 Medication Sig Dispense Refill acetaminophen (TYLENOL) 325 mg tablet Take 650 mg by mouth every 4 hours as needed for Pain. [DISCONTINUED] albuterol 90 mcg/puff inhaler Inhale 2 puffs into the lungs every 4 hour s as needed for Shortness of Breath. 1 Inhaler 1 DiphenhydrAMINE HCl (BENADRYL ALLERGY PO) Take by mouth. [DISCONTINUED] Fexofenadine HCl (MUCINEX ALLERGY PO) Take by mouth. [DISCONTINUED] HYDROcodone-acetaminophen (NORCO) 5-325 mg per tablet Take 1 tablet by m outh every 6 hours as needed for Pain. Or cough 30 tablet 0 ibuprofen (ADVIL,MOTRIN) 600 MG tablet Take 600 mg by mouth every 6 hours as needed for Pain. [DISCONTINUED] predniSONE (DELTASONE) 10 mg tablet Take 1 tablet by mouth Daily. X 10 d ays then stop 10 tablet 0 [DISCONTINUED] Uagvalwcc-Lnhftnlqkj-AS-APAP (NYQUIL PO) Take by mouth. No facility-administered encounter medications on file as of 02/09/2019. Immunization History Administered Date(s) Administered MMR, 2 DOSE (PED/ADULT) 04/05/1987 POLIOVIRUS,OPV (LIVE) 04/05/1987, 05/16/1987, 04/09/1989, 04/15/1990 PPD Test 06/28/2003 Allergies No active allergies Intolerance No active intolerances/contraindications Past Medical History: Diagnosis Date Anxiety Back pain Depression Dry skin dermatitis Joint pain Rash Past Surgical History: Procedure Laterality Date none Family History Family history unknown: Yes Social History Socioeconomic History Marital status: Spouse name: Not on file Number of children: Not on file Years of education: Not on file Highest education level: Not on file Social Needs Financial resource strain: Not on file Food insecurity - worry: Not on file Food insecurity - inability: Not on file Transportation needs - medical: Not on file Transportation needs - non-medical: Not on file Occupational History Not on file Tobacco Use Smoking status: Never Smoker Smokeless tobacco: Never Used Substance and Sexual Activity Alcohol use: Yes Comment: occasionaly Drug use: Yes Types: Marijuana Comment: not very often Sexual activity: Not on file Other Topics Concern Not on file Social History Narrative Not on file Review of Systems Constitutional: Negative for chills and fever. Musculoskeletal: Positive for joint pain and myalgias. Objective: BP 118/70 | Pulse 94 | Temp 36.1 C (97 F) (Temporal) | Resp 18 | Ht 1.524 m (5') | Wt 83.9 kg (184 lb 15.5 oz) | SpO2 97% | BMI 36.12 kg/m Physical Exam Constitutional: She is oriented to person, place, and time and well-developed, well-nourish ed, and in no distress. HENT: Head: Normocephalic. Pulmonary/Chest: Effort normal. Musculoskeletal: Left lower leg: She exhibits tenderness. She exhibits no bony tenderness, no swelling, no deformity and no laceration. Legs: Neurological: She is alert and oriented to person, place, and time. She has normal strength and normal reflexes. She displays no weakness. She exhibits normal muscle tone. Gait normal . Skin: Skin is warm and dry. Psychiatric: Mood and affect normal. Assessment/Plan: Assessment: 1. Muscle cramps 2. Left leg pain Plan: Recommended topical analgesics, soaks with epsom salts, and magnesium supplements for cramp s. Reassured the patient the the mass does not have any worrisome features and appears to be a lipoma. Advised to monitor size intermittently. She has had the numbness intermittently f or years and it is largely unchanged. Continue with increased exercise. Reviewed signs and symptoms that would warrant emergent evaluation. Patient verbalized unde rstanding. Return in about 8 weeks (around 04/06/2019) for routine follow up with Dr Govea. Patient understands, accepts, and agrees with this plan. Over 15 minuntes spent in face to face time with this patient today. > 50% of time commercial counsel ing regarding the listed conditions, options for treatment, and possible risks, and coordina ting care. Please see assessment and plan for further details Rakel Ortiz DNP, ENRIQUETA, AMRITP-CElectronically signed by ENRIQUETA Whitfield 02/09/2019 10:29 AM PDTdocumented in this encounter Plan of Treatment +--------+---------+ + + + | Date | Type | Specialty | Care Team | Description | +--------+---------+ + + + | 08/20/ | Office | Internal Medicine | Dillon Govea, | | | 2019 | Visit | | MD Patricio KOEHLER | | | | | | [place] | | | | | | [address] | | | | | | | | +--------+---------+ + + + documented as of this encounter Visit Diagnoses + + | Diagnosis | + + | Muscle cramps - Primary | + + | Left leg pain Pain in limb | + + documented in this encounter"
--- OUTSIDE RECORDS SUMMARY | ~2019-08-19 | XMS | Encounter Summary ---
Demographics + + + | Address | [address] | | | [place] [address] | + + + | Home Phone | | + + + | Preferred Language | Unknown | + + + | Marital Status | | + + + | Holiness Affiliation | 1041 | + + + | Race | Unknown | + + + | Ethnic Group | Unknown | + + + Author + + + | Author | [facility] | | | and [place] | + + + | Organization | [facility] | | | [...] [place] | | | | | [place] [address] | | + + + + + Care Team Providers + +------+ + | Care Auto Garage Mechanic Name | Role | Phone | + [...] | | | | CENTER [address] | [place], [place] | Hemoptysis; Acute | | | | [place], [place] | [address] | hypoxemic | | 2019 | | [address] | | respiratory failure | | | | [phone] | | (HCC); Community | | | [...] cannot be sent through Care Everywhere.Mara Escobedo (Occitan)documented in this encounter Medications at Time of [...] Description | +--------+---------+ + + + | Office | Internal Medicine | Jade Govea, | | | 2019 | Visit | | MD Patricio KOEHLER | | | | | | [place] | | | | | | [address] | | | | | | | [...] | | + + +--------+ + + + + +--------+ + + | Name | Type | Priori | Associated Diagnoses | Order Schedule | | | | ty | | | + + +--------+ + + | Culture, Blood | Microbiolog | STAT | | One Time for 1 | | | y | | | Occurrences starting | | | | | | 08/18/2019 until | | | | | | 08/18/2019 | + + +--------+ + + | Culture, Blood | Microbiolog | STAT | | One Time for 1 | | | y | | | Occurrences starting | | | | | | 08/18/2019 until | | | | | | 08/18/2019 | + + +--------+ + + | Culture, | Microbiolog | STAT | | One Time for 1 | | Respiratory, Lower, | y | | | Occurrences starting | | Smear | | | | 08/18/2019 until | | | | | | 08/18/2019 | + + +--------+ + + documented [...] | | n - | | | 08/18/ | | | 2019 | | | [...] C?MRN: | | | | | | [id number] | | | [id number] | | | riteri | | | [...] | | , MD | | | Professor Of Theatre | | | al | | | [...] | | | [id number] | | | [id number] | | | | | | PLEASE [...] Variant | Few (A) | (none) | [facility] | | | Lymphocytes | | | [...] [address] | [place] | [phone] | | [facility] | | [address] | | | - LABORATORY | | [...] [address] | [place] | [phone] | | [facility] | | [address] | | | - LABORATORY | | [...] + + | Performing | Address | City/State/[facility] Hospital[facility] | Phone Number | | Organization | | | | + + + + + | [facility] | [address] | [place] | [phone] | | [facility] | | [address] | | | - LABORATORY | | [...] (L) | 9 - 23 mg/dL | [facility] | | | | | | [facility] | | | | | | MEDICAL | | | | | | CENTER - | | | | | | LABORATORY | | + + + + + + | Creatinine | 0.50 (L) | 0.55 - 1.02 | [facility] | | | | | mg/dL | [facility] | | | | | | MEDICAL | | | | | | CENTER - | | | | | | LABORATORY | | + + + + + + | eGFR if not | >60Comment: GLOMERULAR | >=60 | [facility] | | | | FILTRATION | mL/min/1.73m2 | [facility] | | | CYMRO | RATE,ESTIMATED | | MEDICAL | | | | mL/min/1.14m5Kmyb than | | CENTER - | | [...] | + + + + + | [facility] | [address] | [place], [place] | [phone] | | [facility] | | [address] | | | - LABORATORY | | [...] | | Eosinophils | | K/uL | [facility] | [...] + | [facility] | [address] | [place], [place] | [phone] | | [facility] | | [address] | | | - LABORATORY | | [...] | | | | | | | Sat08/18/19 at 2300, Pharmacist | | | | [...] + +---+ | | | + +---+ +---+ | | +---+ + +--------+ +------+------+------+ | Medication Order | MAR | Action | Dose | Rate | Site | | | Action | Date | | | | + +--------+ +------+------+------+ | HYDROmorphone (DILAUDID) | Given | 08/18/19 [...]
--- OUTSIDE RECORDS SUMMARY | ~2019-08-19 | XMS | Encounter Summary ---
Demographics + + + | Address | [address] | | | [place] [address] | + + + | Home Phone | | + + + | Preferred Language | Unknown | + + + | Marital Status | | + + + | Pentecostalism Affiliation | 1041 | + + + | Race | Unknown | + + + | Ethnic Group | Unknown | + + + Author + + + | Author | [facility] | | | and [place] | + + + | Organization | [facility] | | | [...] [place] | | | | | [place] [address] | | + + + + + Care Team Providers + +------+ + | Care Equal Employment Opportunity Officer Name | Role | Phone | + +------+ + | Jade Govea MD | PCP | | + +------+ + Reason for Visit + + + | Reason | Comments | + + + | Post-op Problem | | + + + | Abdominal Pain | | + + + Encounter Details +--------+ + + + + | Date | Type | Department | Care Team | Description | +--------+ + + + + | 08/05/ | Emergency | [facility] | Michael Carty, | Postoperative | | 2019 | | MED CTR EMER[facility]ENCY | [address] | abdominal pain | | | | CENTER [address] | [place] | (Primary Dx) | | | | [place], [place] | [address] | | | | | [address] | | | | | | [phone] | | | +--------+ + + + [...] + + + | Blood Pressure | 132/96 | 08/05/2019 11:54 PM | | | | | PST | | + + + + + | Pulse | 96 | 08/05/2019 11:54 PM | | | | | PST | | + + + + + | Temperature | 36.9 C (98.5 F) | 08/05/2019 9:30 PM | | | | | PST | | + + + + + | Respiratory Rate | 12 | 08/05/2019 11:54 PM | | | | | PST | | + + + + + | Oxygen Saturation | 98% | 08/05/2019 11:54 PM | | | | | PST | | + + + + + | Inhaled Oxygen | - | - | | | Concentration | | | | + + + + + | Weight | - | - | | + + + + + | Height | - | - | | + + + + + | Body Mass Index | - | - | | + + + + + documented in this encounter Discharge Instructions Instructions Michael Carty MD - 08/05/2019Return if new concerning symptoms AttachmentsThe following attachments cannot be sent through Care Everywhere.Abdominal Pain, Adult (Irish)documented in this encounter Medications at Time of [...] tablets by | 6 | 0 | 07/02/20 | | | (ZITHROMAX) 250 mg | mouth on day 1, and | tablet | | 19 | 0 | | tablet | 1 tablet by [...] 08/20/ | Office | Internal Medicine | Jade Govea, | | | 2019 | Visit | | MD Patricio KOEHLER | | | | | | [place] | | | | | | [address] | | | | | | | | +--------+---------+ + + + + +------+--------+ + + | Name | Type | Priori | Associated Diagnoses | Date/Time | | | | ty | | | + +------+--------+ + + | ED INFORMATION | KHADIJAH | Routin | | 08/05/2019 9:26 PM | | EXCHANGE | | e [...] | | n - | | | 12/25/ | | | 2019 | | | [...] C?MRN: | | | | | | [id number] | | | [id number] | | | riteri | | | [...] | | , MD | | | Hand Developer | | | al | | | [...] | | | [id number] | | | [id number] | | | [id number] | | | | | | PLEASE [...] | +---+--------+ documented in this encounter Results CT Abdomen Pelvis w Contrast (08/05/2019 10:59 PM PST) + + | Specimen | + + | | + + + + + | Impressions | Performed At | + + + | No acute intra-abdominal findings. ?No evidence of abscess or | [facility] | | intra-abdominal infection. ? ?A preliminary report was sent by | | | [facility] with no significant discrepancy on 08/05/2019 [...] preliminary report was | | sent by [facility] with no significant discrepancyon 08/05/2019 11:16 PM.Dictated [...] | |?A preliminary report was sent by [facility] with no significant discrepancy | |on 08/05/2019 [...] +---------+ + + Lipase (08/05/2019 10:24 PM PST) + + + + + + | Component | Value | Ref Range | Performed | Pathologist | | | | | At | Signature | + + + + + + | Lipase | 34Comment: New method in | 12 - 53 U/L | [facility] | | | | use as of October 08, | | [facility] | | | | 2018. Check reference [...] + | [facility] | [address] | [place] | [phone] | | [facility] | | [address] | | | - LABORATORY | | | | + + + + + Comprehensive Metabolic Panel (08/05/2019 10:24 PM PST) + + + + + [...] + + + + | Cl | 104 | 98 - 107 mmol/L | [facility] | | | | | | [facility] | | | | | | MEDICAL | | | | | | CENTER - | | | | | | LABORATORY | | + + + + + + | CO2 | 26 | 20 - 31 mmol/L | [facility] [...] + + + + | Glucose | 127 (H) | 60 - 106 mg/dL | [facility] | | | | | | [facility] | | | | | | MEDICAL | | | | | | CENTER - | | | | | | LABORATORY | | + + + + + + | BUN | 12 | 9 - 23 mg/dL | [facility] | | | | | | [facility] | | | | | | MEDICAL | | | | | | CENTER - | | | | | | LABORATORY | | + + + + + + | Creatinine | 0.59 | 0.55 - 1.02 | [facility] | [...] mL/min/1.73m2 | [facility] | | | [place] | RATE,ESTIMATED | | MEDICAL | | | | mL/min/1.43s5Mwus than | | CENTER - | | [...] + + + + | Calcium | 9.4 | 8.7 - 10.4 | [facility] | | | | | mg/dL | [facility] | | | | | | MEDICAL | | | | | | CENTER - | | | | | | LABORATORY | | + + + + + + | Albumin | 4.6 | 3.2 - 4.8 g/dL | [facility] | | | | | [...] + + + + | Total | 7.0 | 5.7 - 8.2 g/dL | [facility] | | | Protein | | | [facility] | | | | | | MEDICAL | | | | | | CENTER - | | | | | | LABORATORY | | + + + + + + | AST | 46 (H) | 0 - 34 U/L | [facility] | | | | | | [facility] | | | | | | MEDICAL | | | | | | CENTER - | | | | | | LABORATORY | | + + + + + + | ALT | 62 (H) | 10 - 49 U/L | [facility] | | | | | | [facility] | | | | | | MEDICAL | | | | | | CENTER - | | | | | | LABORATORY | | + + + + + + | Alkaline | 111 | 46 - 116 U/L | [facility] [...] + + + + | Albumin/Pati | 1.9 | 0.8 - 1.9 | [facility] | | | bulin Ratio | | | [facility] | | | | | | MEDICAL | | | | | | CENTER - | | | | | | LABORATORY | | + + + + + + | BUN/Creatin | 20.3 | | [facility] | | | ine Ratio | | | [facility] | | [...] + + | [facility] | [address] | [place] | [phone] | | [facility] | | [address] | | | - LABORATORY | | | | + + + + + CBC with Differential (08/05/2019 10:24 PM PST) + + + + + + | Component | Value | Ref Range | Performed | Pathologist | | | | | At | Signature | + + + + + + | WBC | 9.4 | 4.0 - 11.0 K/uL | [facility] | | | | | | [facility] | | | | | | MEDICAL | | | | | | CENTER - | | | | | | LABORATORY | | + + + + + + | RBC | 4.71 | 3.70 - 5.20 | [facility] | | | | | M/uL | [facility] | | | | | | MEDICAL | | | | | | CENTER - | | | | | | LABORATORY | | + + + + + + | Hemoglobin | 13.0 | 11.5 - 16.0 | [facility] | | | | | g/dL | [facility] | | | | | | MEDICAL | | | | | | CENTER - | | | | | | LABORATORY | | + + + + + + | Hematocrit | 38.7 | 34.0 - 47.0 % | [facility] | | | | | | [facility] | | | | | | MEDICAL | | | | | | CENTER - | | | | | | LABORATORY | | + + + + + + | MCV | 82.2 (L) | 83.0 - 101.0 fL | [facility] | | | | | | [facility] | | | | | | MEDICAL | | | | | | CENTER - | | | | | | LABORATORY | | + + + + + + | MCH | 27.6 (L) | 28.0 - 35.0 pg | [facility] | | | | | | [facility] | | | | | | MEDICAL | | | | | | CENTER - | | | | | | LABORATORY | | + + + + + + | MCHC | 33.6 | 32.0 - 36.0 | [facility] | | | | | g/dL | [facility] | | | | | | MEDICAL | | | | | | CENTER - | | | | | | LABORATORY | | + + + + + + | RDW-CV | 14.3 | <15.0 % | [facility] | | | | | | [facility] | | | | | | MEDICAL | | | | | | CENTER - | | | | | | LABORATORY | | + + + + + + | RDW-SD | 42.7 | 35.1 - 46.3 fL | [facility] | | | | | | [facility] | | | | | | MEDICAL | | | | | | CENTER - | | | | | | LABORATORY | | + + + + + + | Platelet | 238 | 140 - 440 K/uL | [facility] | | | Count | | | [facility] | | | | | | MEDICAL | | | | | | CENTER - | | | | | | LABORATORY | | + + + + + + | MPV | 10.7 | 6.5 - 12.4 fL | [facility] | | | | | | [facility] | | | | | | MEDICAL | | | | | | CENTER - | | | | | | LABORATORY | | + + + + + + | % | 60.5 | 45.0 - 82.0 % | [facility] | | | Neutrophils | | | [facility] | | | | | | MEDICAL | | | | | | CENTER - | | | | | | LABORATORY | | + + + + + + | % | 28.8 | 20.0 - 45.0 % | [facility] | | | Lymphocytes | | | [facility] | | | | | | MEDICAL | | | | | | CENTER - | | | | | | LABORATORY | | + + + + + + | % Monocytes | 8.3 | 4.0 - 12.0 % | [facility] [...] + + + | % Basophils | 0.3 | 0.0 - 1.0 % | [facility] [...] + + + + | Absolute | 5.67 | 1.80 - 8.50 | [facility] | | | Neutrophils | | K/uL | [facility] | | | | | | MEDICAL | | | | | | CENTER - | | | | | | LABORATORY | | + + + + + + | Absolute | 2.70 | 0.60 - 3.20 | [facility] | | | Lymphocytes | | K/uL | [facility] | | | | | | MEDICAL | | | | | | CENTER - | | | | | | LABORATORY | | + + + + + + | Absolute | 0.78 | 0.00 - 1.00 | [facility] | | | Monocytes | | K/uL | [facility] | | | | | | MEDICAL | | | | | | CENTER - | | | | | | LABORATORY | | + + + + + + | Absolute | 0.17 | 0.00 - 0.40 | [facility] | [...] 0.003-0.091 K/uL 0.0-0.9% 2nd 0.007-0.247 K/uL | [facility] | | 0.1-2.0% 3rd 0.018-0.456 K/uL 0.1-2.0% | - LABORATORY | + + + + + + + + | Performing | Address | City/State/Zipcode | Phone Number | | Organization | | | | + + + + + | [facility] | [address] | [place] | [phone] | | [facility] | | [address] | | | - LABORATORY | | [...] - 1.030 | [facility] | | | [place] | | | [facility] | | | | | | MEDICAL [...] | + + + + + | [facility] | [address] | [place] | [phone] | | [facility] | | [address] | | | - LABORATORY | | [...] 1.001 - 1.030 | | | | [place], | | | | | | UA, [...] POCT Test, Urine, QUAL (08/05/2019 10:13 PM PST) + + + + + [...] Specific | | | | | | [place], | | | | | | POC | | | | | + + + + + + | Lot Number | [id number] | | | | + + + + + + | Expiration | 2020-08-20 | | | | | Date | | | | | + + + + + + + + | Specimen | + + | Urine | + + documented in this encounter Visit Diagnoses + + | Diagnosis | + + | Postoperative abdominal pain - Primary Abdominal pain, unspecified site | + + documented in this encounter Administered Medications + +--------+ +--------+------+------+ | Medication Order | MAR | Action | Dose | Rate | Site | | | Action | Date | | | | + +--------+ +--------+------+------+ | iohexol (OMNIPAQUE 350) 350 | Given | 08/05/20 | 90 mLs | | | | mg/mL injection 90 mL 90 mL, | | 19 10:57 | | | | | Intravenous, ONCE PRN, Other, for | | PM PST | | | | | imaging CT study, Starting Wed | | | | | | | 08/05/19 at 2306, For 1 dose, | | | | | | | Radiology | | | | | | + +--------+ +--------+------+------+ +---+---+ | | | +---+---+ + +-------+ +------+---+---+ | morphine injection 4 mg 4 mg, | Given | 08/05/20 | 4 mg | | | | Intravenous, ONCE, 08/05/19 | | 19 10:30 | | | | | at 2205, For 1 dose | | PM PST | | | | + +-------+ +------+---+---+ +---+---+ | | | +---+---+ + +-------+ +------+---+---+ | ondansetron (ZOFRAN) injection | Given | 08/05/20 | 4 mg | | | | 4 mg 4 mg, Intravenous, EVERY 1 | | 19 10:30 | | | | | HOUR PRN, Nausea, Vomiting, | | PM PST | | | | | Starting 08/05/19 at 2200, | | | | | | | For 2 doses | | | | | | + +-------+ +------+---+---+ +---+---+ | | | +---+---+ + +---------+ +--------+-------+---+ | sodium chloride 0.9% (NS) bolus | New Bag | 08/05/20 | 1,000 | 2000 | | | 1,000 mL 1,000 mL, Intravenous, | | 19 10:30 | mLs | mL/hr | | | Administer over 30 Minutes, | | PM PST | | | | | ONCE, 08/05/19 at 2205, For 1 | | | | | | | dose | | | | | | + +---------+ +--------+-------+---+ +---+---+ | | | +---+---+ documented in this encounter"
--- OUTSIDE RECORDS SUMMARY | ~2019-08-19 | XMS | Encounter Summary ---
Demographics + + + | Address | [address] | | | [place] [address] | + + + | Home Phone | | + + + | Preferred Language | Unknown | + + + | Marital Status | | + + + | Latter-Day Affiliation | 1041 | + + + | Race | Unknown | + + + | Ethnic Group | Unknown | + + + Author + + + | Author | [facility] | | | and [place] | + + + | Organization | [facility] | [...] [place] | | | | | [place] [address] | | + + + + + Care Team Providers + +------+ + | Care Aviculturist Name | Role | Phone | + +------+ + | Dillon Govea MD | PCP | | + +------+ + Reason for Visit + + + | Reason | Comments | + + + | Follow-up | 13 month | + + + | ER Follow-up | from 05/06 and 05/10 regarding cough and shortness of breath due to | | | pneumonia, completed antibiotics on 05/16/18 | + + + Encounter Details +--------+---------+ + + + | Date | Type | Department | Care Team | Description | +--------+---------+ + + + | 05/19/ | Office | [facility] | Dillon Govea, | Pneumonia of right | | 2018 | Visit | MEDICINE [address] | [address] | lower lobe due to | | | | [address] [place] | [place] | Mycoplasma | | | | [place] [address] | [address] | pneumoniae; Mild | | | | [phone] | | intermittent | | | | | | reactive airway | | | | | | disease with acute | | | | | | exacerbation | +--------+---------+ + + + Social History [...] + + + | Blood Pressure | 110/64 | 05/19/2018 11:30 AM | | | | | PDT | | + + + + + | Pulse | 108 | 05/19/2018 11:30 AM | | | | | PDT | | + + + + + | Temperature | 36.2 C (97.2 F) | 05/19/2018 11:30 AM | | | | | PDT | | + + + + + | Respiratory Rate | 18 | 05/19/2018 11:30 AM | | | | | PDT | | + + + + + | Oxygen Saturation | 96% | 05/19/2018 11:30 AM | | | | | PDT [...] encounter Progress Notes Dillon Govea MD - 05/19/2018 11:30 AM PDTFormatting of this note might be different f rom the original. Subjective: Patient ID: Holly Barnes is a 37 y.o. female. Chief Complaint Patient presents with Follow-up 13 month ER Follow-up from 05/06 and 05/10 regarding cough and shortness of breath due to pneumonia, completed an tibiotics on 05/16/18 HPI: She has had a respiratory illness. She went to the emergency room her original chest x-ray looked like she was developing a right lower lobe pneumonia. She is placed on azithro mycin. She continued to have a cough and productive sputum. She went back to the emergency room. Follow-up chest x-ray showed similar findings the second radiologist that read this did not feel that this was a pneumonia. She was given Levaquin. She continues to have sign ificant cough. She also has a lot of pain in her chest and neck since the coughing started. She no longer has fevers but she is still coughing up sputum. Past Medical History: Diagnosis Date Anxiety Back pain Depression Dry skin dermatitis Joint pain Rash Past Surgical History: Procedure Laterality Date none Patient Active Problem List Diagnosis Date Noted POA Pneumonia due to Mycoplasma pneumoniae 05/19/2018 Unknown Reactive airway disease with acute exacerbation 05/19/2018 Unknown Psoriasis of scalp 04/30/2017 Unknown Moderate single current episode of major depressive disorder 04/30/2017 Unknown Chronic tension-type headache, not intractable 04/30/2017 Unknown Primary insomnia 04/30/2017 Unknown Current Outpatient Prescriptions: albuterol 90 mcg/puff inhaler, Inhale 2 puffs into the lungs every 4 hours as needed f or Shortness of Breath., Disp: 1 Inhaler, Rfl: 1 DiphenhydrAMINE HCl (BENADRYL ALLERGY PO), Take by mouth., Disp: , Rfl: doxycycline (VIBRAMYCIN) 100 mg capsule, Take 1 capsule by mouth 2 times daily for 10 days., Disp: 20 capsule, Rfl: 0 Fexofenadine HCl (MUCINEX ALLERGY PO), Take by mouth., Disp: , Rfl: HYDROcodone-acetaminophen (NORCO) 5-325 mg per tablet, Take 1 tablet by mouth every 6 hours as needed for Pain. Or cough, Disp: 30 tablet, Rfl: 0 predniSONE (DELTASONE) 10 mg tablet, Take 1 tablet by mouth Daily. X 10 days then stop , Disp: 10 tablet, Rfl: 0 Gspvcfbsz-Ljecvqzxja-PX-APAP (NYQUIL PO), Take by mouth., Disp: , Rfl: Allergies No active allergies Intolerance No active intolerances/contraindications Review of Systems Constitutional: Positive for malaise/fatigue. HENT: Negative. Eyes: Negative. Respiratory: Positive for cough, sputum production and wheezing. Cardiovascular: Negative. Gastrointestinal: Negative. Genitourinary: Negative. Musculoskeletal: Negative. Skin: Negative. Neurological: Positive for weakness. Endo/Heme/Allergies: Negative. Psychiatric/Behavioral: Negative. Objective: BP 110/64 | Pulse 108 | Temp 36.2 C (97.2 F) (Temporal) | Resp 18 | SpO2 96% | Kera astfeeding? No Physical Exam General survey: She has nearly continuous coughing HEENT: The HEENT exam is unremarkable today Neck: No jugular venous distention, no thyroid enlargement, no carotid bruits, the neck is supple. Lungs: She has a few rhonchi she definitely has his return wheezes now Heart: Her heart is slightly tachycardic Abdomen: Soft active bowel sounds nontender no [...] Diagnoses and all orders for this visit: Pneumonia of right lower lobe due to Mycoplasma pneumoniae Mild intermittent reactive airway disease with acute exacerbation Other orders - HYDROcodone-acetaminophen (NORCO) 5-325 mg per tablet; Take 1 tablet by mouth every 6 hours as needed for Pain. Or cough - doxycycline (VIBRAMYCIN) 100 mg capsule; Take 1 capsule by mouth 2 times daily for 10 days. - predniSONE (DELTASONE) 10 mg tablet; Take 1 tablet by mouth Daily. X 10 days then leticia butts 1. She has acute pneumonia/bronchitis which is nonclearing. I think the nonclearing is be cause she has reactive airway disease associated with recent infection. 2. I'm going to continue antibiotics with some doxycycline for the next 10 days. 3. I'm going to add prednisone 10 mg a day for the next week 4. She'll use her inhaler which ER he has 5. I will also give her some hydrocodone for severe cough for pain. 6. She'll follow up in a week if she is not improving Return in about 1 week (around 05/26/2018), or if symptoms worsen or fail to improve.Electr onically signed by Dillon Govea MD at 05/19/2018 11:57 AM PDTdocumented in this encount er Plan of Treatment Not on filedocumented as of this encounter Visit Diagnoses + + | Diagnosis | + + | Pneumonia of right lower lobe due to Mycoplasma pneumoniae | + + | Mild intermittent reactive airway disease with acute exacerbation | + + documented in this encounter"
--- OUTSIDE RECORDS SUMMARY | ~2019-08-19 | XMS | Encounter Summary ---
Demographics + + + | Address | [address] | | | [place] [address] | + + + | Home Phone | | + + + | Preferred Language | Unknown | + + + | Marital Status | | + + + | Episcopalian Affiliation | 1041 | + + + | Race | Unknown | + + + | Ethnic Group | Unknown | + + + Author + + + | Author | [facility] | | | and [place] | + + + | Organization | [facility] | | [...] [place], | | | | | [place] [address] | | + + + + + Care Team Providers + +------+ + | Care Opening Machine Cleaner Name | Role | Phone | + +------+ + PCP | Unavailable | + +------+ + Encounter Details +--------+ + + + + | Date | Type | Department | Care Team | Description | +--------+ + + + + | 05/15/ | Hospital | [facility] | [facility] | | | 2012 - | Encounter | MED CTR EMERGENCY | MD [address] | | | | CENTER [address] | [address] [place] | | | 05/16/ | | [place], [place] | [place] [address] | | | 2012 | | [address] | [phone] | | | | | [phone] | | | +--------+ + + + [...] [place] | | | | | | [address] | | | | | | | | +--------+---------+ + + + documented as of this encounter Visit Diagnoses Not on filedocumented in this encounter"
--- OUTSIDE RECORDS SUMMARY | ~2019-08-19 | XMS | Encounter Summary ---
Demographics + + + | Address | [address] | | | [place] [address] | + + + | Home Phone | | + + + | Preferred Language | Unknown | + + + | Marital Status | | + + + | Protestant Affiliation | 1041 | + + + | Race | Unknown | + + + | Ethnic Group | Unknown | + + + Author + + + | Author | [facility] | | | and [place] [...] [place] | | | | | [place] [address] | | + + + + + Care Team Providers + +------+ + | Care Chef Passenger Vessel Name | Role | Phone | + +------+ + | Dillon Govea MD | PCP | | + +------+ + Reason for Visit +--------+ + | Reason | Comments | +--------+ + | Cough | | +--------+ + Encounter Details +--------+ + + + + | Date | Type | Department | Care Team | Description | +--------+ + + + + | 02/10/ | Emergency | [facility] | [facility] | Moderate persistent | | 2019 | | [facility] | [place] Edu[place] Hyde MD | reactive airway | | | | CENTER [address] | [address] | disease with acute | | | | [place], [place] | [place] | exacerbation | | | | [address] | [address] | (Primary Dx) | | | | [phone] | | | +--------+ + + + [...] + + + + | Pulse | 106 | 02/10/2019 9:47 PM | | | | | PDT | | + + + + + | Temperature | 37.6 C (99.6 F) | 02/10/2019 7:56 PM | | | | | PDT | | + + + + + | Respiratory Rate | 18 | 02/10/2019 9:12 PM | | | | | PDT | | + + + + + | Oxygen Saturation | 96% | 02/10/2019 9:47 PM | | | | | PDT | | + + + + + | Inhaled Oxygen | - | - | | | Concentration | | | | + + + + + | Weight | 76.2 kg (168 lb) | 02/10/2019 7:56 PM | | | | | PDT | | + + + + + | Height | 152.4 cm (5') | 02/10/2019 7:56 PM | | | | | PDT | | + + + + + | Body Mass Index | 32.81 | 02/10/2019 7:56 PM | | | | | PDT | | + + + + + documented in this encounter Discharge Instructions Instructions Rafita Kc MD - 02/10/2019Please follow-up with primary care physician. Use inhaler as prescribed. AttachmentsThe following attachments cannot be sent through Care Everywhere.Codeine; Guaife nesin oral solution or syrup (Comoran)Albuterol inhalation aerosol (Comoran)Acetaminophen; H ydrocodone tablets or capsules (Comoran)documented in this encounter Medications at Time of [...] +---------+ + + | predniSONE | Take 3 tablets by | 15 | 0 | 02/11/20 | | | (DELTASONE) 20 mg | mouth Daily. | tablet | | 19 | 9 | | tablet | | | | | | [...] [place] | | | | | | [address] | | | | | | | | +--------+---------+ + + + documented as of this encounter Procedures + +--------+ + + + | Procedure Name | Priori | Date/Time | Associated Diagnosis | Comments | | | ty | | | | + +--------+ + + + | XR CHEST PA AND | STAT | 02/10/2019 | | Results for this | | LATERAL | | 8:36 PM | | procedure are in the | | | | PDT | | results section. | + +--------+ + + + documented in this encounter Results XR Chest PA and Lateral (02/10/2019 8:36 PM PDT) + + | Specimen | + + | | + + + + + | Narrative | Performed At | + + + | XR CHEST PA AND LATERAL 02/10/2019 8:36 PM HISTORY: Shortness of | [facility] | | breath. COMPARISON: Multiple priors. Findings: Heart size is | | | within normal limits. Aorta is normal. Mediastinum demonstrates no | | | acute findings. Central pulmonary vasculature is normal. The bilateral | | | lungs are clear with no evidence for pleural effusion or | | | pneumothorax. There are no acute osseous abnormalities. | | | IMPRESSION - No acute findings. Dictated and Signed by: Mariano | | | MD Maximus Electronically signed: 02/10/2019 8:42 PM | | + + + + + | Procedure Note | + + | Vaibhav, Rad Results In - 02/10/2019 8:46 PM PDT XR CHEST PA AND LATERAL 02/10/2019 8:36 | | PMHISTORY: Shortness of breath.COMPARISON: Multiple priors.Findings:Heart size is within | | normal limits. Aorta is normal. Mediastinum demonstrates noacute findings. Central | | pulmonary vasculature is normal. The bilateral lungs areclear with no evidence for | | pleural effusion or pneumothorax. There are no acuteosseous abnormalities.IMPRESSION -No | | acute findings.Dictated and Signed by: Mariano Stroud MD Electronically signed: 02/10/2019 | | 8:42 PM | |Heart size is within normal limits. Aorta is normal. Mediastinum demonstrates no | |acute findings. Central pulmonary vasculature is normal. The bilateral lungs are | |clear with no evidence for pleural effusion or pneumothorax. There are no acute | |osseous abnormalities. | | | |IMPRESSION - | |No acute findings. | | | |Dictated and Signed by: Mariano Stroud MD | | Electronically signed: 02/10/2019 8:42 PM | + + + +---------+ + + | Performing | Address | City/State/Zipcode | Phone Number | | Organization | | | | + +---------+ + + | [facility] | | | | + +---------+ + + documented in this encounter Visit Diagnoses + + | Diagnosis | + + | Moderate persistent reactive airway disease with acute exacerbation - Primary | + + documented in this encounter Administered Medications + + + +---------+------+------+ | Medication Order | MAR | Action | Dose | Rate | Site | | | Action | Date | | | | + + + +---------+------+------+ | albuterol (PROVENTIL) 90 | Dispense | 02/11/20 | 2 puffs | | | | mcg/puff inhaler (ED prepack) 2 | to Home | 19 9:48 | | | | | puff 2 puff, Inhalation, EVERY 4 | | PM PDT | | | | | HOURS PRN, Shortness of Breath, | | | | | | | Wheezing, Starting 02/10/19 at | | | | | | | 5525, Patient Address: [address] | | | [address];[place] | | | | | | | [address], | | | | | | + + + +---------+------+------+ +---+---+ | | | +---+---+ + +-------+ +-------+---+---+ | albuterol-ipratropium 2.5-0.5 | Given | 02/11/20 | 3 mLs | | | | mg/3 mL nebulizer solution 3 mL | | 19 9:10 | | | | | 3 mL, Nebulization, RT Once, Tue | | PM PDT | | | | | 02/10/19 at 2009, For 1 dose | | | | | | + +-------+ +-------+---+---+ +---+---+ | | | +---+---+ + +-------+ +------+---+---+ | dexamethasone (DECADRON) 10 | Given | 02/11/20 | 8 mg | | | | mg/mL injection for oral use 8 mg | | 19 8:12 | | | | | 8 mg, Oral, ONCE, 02/10/19 at | | PM PDT | | | | | 2009, For 1 dose, Use | | | | | | | dexamethasone 10 mg/mL vial for | | | | | | | inject for this oral dose, | | | | | | + +-------+ +------+---+---+ +---+---+ | | | +---+---+ + +-------+ +--------+---+---+ | guaiFENesin-codeine (ROBITUSSIN | Given | 02/11/20 | 10 mLs | | | | AC) 100-10 mg/5 mL liquid 10 mL | | 19 8:27 | | | | | 10 mL, Oral, ONCE, Sat02/10/19 at | | PM PDT | | | | | 2014, For 1 dose | | | | | | + +-------+ +--------+---+---+ +---+---+ | | | +---+---+ + + + +--------+---+---+ | guaiFENesin-codeine (ROBITUSSIN | Dispense | 02/11/20 | 10 mLs | | | | AC) liquid (ED prepack) 10 mL | to Home | 19 9:48 | | | | | 10 mL, Oral, EVERY 6 HOURS PRN, | | PM PDT | | | | | Cough, Starting Sat02/10/19 at | | | | | | | 2005, Patient Address: [address] | | | [address];[place] | | | | | | | [address], | | | | | | + + + +--------+---+---+ +---+---+ | | | +---+---+ + + + + +---+---+ | HYDROcodone-acetaminophen | Dispense | 02/11/20 | 1 tablet | | | | (NORCO) 5-325 mg per tablet (ER | to Home | 19 9:47 | | | | | Prepack) 1 tablet 1 tablet, | | PM PDT | | | | | Oral, EVERY 6 HOURS PRN, Moderate | | | | | | | Pain, Starting Tu02/10/19 at | | | | | | | 2140, Patient Address: [address] | [address];[place] | | | | | | | [address], | | | | | | + + + + +---+---+ +---+---+ | | | +---+---+ documented in this encounter"
--- OUTSIDE RECORDS SUMMARY | ~2019-08-19 | XMS | Encounter Summary ---
Demographics + + + | Address | [address] | | | [place] [address] | + + + | Home Phone [...] | Author | [facility] | | | and [...] [place], | | | | | [place] [address] | | + + + + + Care Team Providers + +------+ + | Care Imitation Marble Mechanic Name | Role | Phone | + +------+ + PCP | Unavailable | + +------+ + Encounter Details +--------+ + + + + | Date | Type | Department | Care Team | Description | +--------+ + + + + | 03/23/ | Hospital | [facility] | Isidro Boggs | | | 2004 | Encounter | [facility] EM[facility] | MD Jackson [address] | | | | | CENTER [address] | [address] [place] | | | | | [place], [place] | [place] [address] | | | | | [address] | [phone] | | | | | [phone] | | | +--------+ + + + [...] 01/09/ | Office | Internal Medicine | Woolever, Dillon P, | | | 2019 | Visit | | MD Patricio [facility] | | | | | | [place] | | | | | | [address] | | | | | | | | +--------+---------+ + + + documented as of this encounter Visit Diagnoses Not on filedocumented in this encounter"
--- OUTSIDE RECORDS SUMMARY | ~2019-08-19 | XMS | Encounter Summary ---
Demographics + + + | Address | [address] | | | [place] [address] | + + + | Home Phone | | + + + | Preferred Language | Unknown | + + + | Marital Status | | + + + | Religion Affiliation | 1041 | + + + | Race | Unknown | + + + | Ethnic Group | Unknown | + + + Author + + + | Author | [facility] | | | and [place] | + + + | Organization | [facility] | | [...] [place] | | | | | [place] [address] | | + + + + + Care Team Providers + +------+ + | Care Licensed Nuclear Control Room Operator Name | Role | Phone | + +------+ + | Dillon Govea MD | PCP | | + +------+ + Encounter Details +--------+ + + + + | Date | Type | Department | Care Team | Description | +--------+ + + + + | 07/02/ | Orders Only | [facility] [place] [facility] | Dillon Govea, | | | 2018 | | MEDICINE [address] | [address] [facility] | | | | | Street [place] | [place] | | | | | [place] [address] | [address] | | | | | [phone] | | | +--------+ + + + [...]
--- OUTSIDE RECORDS SUMMARY | ~2019-08-19 | XMS | Encounter Summary ---
Demographics + + + | Address | [address] | | | [place] [address] | + + + | Home Phone [...] + | Author | [facility] | | | and [place] | + + + | Organization | [facility] | | | and [...] [place] | | | | | [place] [address] | | + + + + + Care Team Providers + +------+ + | Care Solderer Furnace Name | Role | Phone | + [...] right ovary, has an | | | Effektif tiera on the , was given hydrocodones and was told from ER | | | to keep taking them until the tiera. and she is out and needs more | + + + Encounter Details +--------+---------+ + + + | Date | Type | Department | Care Team | Description | +--------+---------+ + + + | 06/15/ | Office | [facility] | Nathan Cuevas, | Cyst of left ovary | | 2019 | Visit | CARE [address] | [address] | (Primary Dx) | | | | [place] | [place] | | | | | [address] | [address] | | | | | [phone] | | | +--------+---------+ + + + [...] pain, your healthcare provider may recommend using tafr-qdh-vohfbtf pain medicine. If needed, your provide may [...] fainting Abnormal vaginal bleeding Date Last Reviewed: 06/12/201719994842-4150 [employer]. [address] [place] [address]. All righ ts reserved. This information is not intended as a substitute for professional medical care. Always follow your healthcare professional's instructions. Acetaminophen; Hydrocodone tablets or capsules Brand Names: Anexsia, Lorcet, Lorcet HD, Lorcet Plus, Lortab, Leland, Verdrocet, Vicodin, Vi codin ES, Vicodin HP, [...] information carefully each time. Talk to your overlock collar setter regarding the use of this medicine in children. Special care may be needed. What side effects may I notice from receiving this medicine? Side effects that you should report to your doctor or health wound care rn as soon as p ossible: allergic reactions [...] attention (report to your doctor or health wound care rn if they continue or are bothersome): constipation [...] to an official disposal site. Contact the [facility] at [phone] or your [facility] government to find a site. If you [...] this medicine? Tell your doctor or health wound care rn if your pain does not go away, [...] pharmacist, or health care provider. Copyright 2019 [employer] documented in this encounter Progress Notes Nathan [...] them prior to being seen by the planning intern on er 22. CT scan is also [...] to 4 times a day of the mvzy-mnf-flhqtmf tablets so long as it does not upset he r stomach. She is to follow-up with [facility] as instructed. If the pain is getting worse or per sisting she should return to the emergency room for reevaluation. Return if symptoms worsen or fail to improve.Electronically signed by MD sepideh Dye 06/15/2019 12:38 PM PSTdocumented in this encounter Plan of Treatment +--------+---------+ + + + | Date | Type | Specialty | Care Team | Description | +--------+---------+ + + + | 08/20/ | Office | Internal Medicine | Dillon Govea, | | | 2019 | Visit | | MD Patricio [facility]ER | | | | | | [place] | | | | | | [address] | | | | | | | | +--------+---------+ + + + documented as of this encounter Visit Diagnoses + + | Diagnosis | + + | Cyst of left ovary - Primary Other and unspecified ovarian cyst | + + documented in this encounter
--- OUTSIDE RECORDS SUMMARY | ~2019-08-19 | XMS | Encounter Summary ---
Demographics + + + | Address | [address] | | | [place] [address] | + + + | Home Phone | | + + + | Preferred Language | Unknown | + + + | Marital Status | | + + + | Mu-Ism Affiliation | 1041 | + + + | Race | Unknown | + + + | Ethnic Group | Unknown | + + + Author + + + | Author | [facility] | | | and [...] [place] | | | | | [place] [address] | | + + + + + Care Team Providers + +------+ + | Care Manager Statistics Name | Role | Phone | + +------+ + | Dillon Govea MD | PCP | | + +------+ + Reason for Visit +---------+ + | Reason | Comments | +---------+ + | Results | | +---------+ + Encounter Details +--------+ + + + + | Date | Type | Department | Care Team | Description | +--------+ + + + + | 02/11/ | Telephone | [facility] [place] [facility] | Dillon Govea, | Results | | 2019 | | MEDICINE [address] | [address] | | | | [address] [place] | [place] | | | | | [place] [address] | [address] | | | | | [phone] | | | +--------+ + + + [...]
--- OUTSIDE RECORDS SUMMARY | ~2019-08-19 | XMS | Encounter Summary ---
Demographics + + + | Address | [address] | | | [place] [address] | + + + | Home Phone | | + + + | Preferred Language | Unknown | + + + | Marital Status | | + + + | Hindu Affiliation | 1041 | + + + | Race | Unknown | + + + | Ethnic Group | Unknown | + + + Author + + + | Author | [facility] | | | and [place] | + + + | Organization | [facility] | | | [...] [place], | | | | | [place] [address] | | + + + + + Care Team Providers + +------+ + | Care Education Nurse Name | Role | Phone | + +------+ + PCP | Unavailable | + +------+ + Encounter Details +--------+ + + + + | Date | Type | Department | Care Team | Description | +--------+ + + + + | 01/29/ | Hospital | [facility] | Angy, | | | 2010 | Encounter | [facility] EM[facility] | Rafita Welch MD [address] | | | | | CENTER [address] | [address] [place] | | | | | [place], [place] | [place] [address] | | | | | [address] | [phone] | | | | | [phone] | | | +--------+ + + + [...] [place] | | | | | | [address] | | | | | | | | +--------+---------+ + + + documented as of this encounter Visit Diagnoses Not on filedocumented in this encounter"
--- OUTSIDE RECORDS SUMMARY | ~2019-08-19 | XMS | Encounter Summary ---
Demographics + + + | Address | [address] | | | [place] [address] | + + + | Home Phone | | + + + | Preferred Language | Unknown | + + + | Marital Status | | + + + | Confucianism Affiliation | 1041 | + + + | Race | Unknown | + + + | Ethnic Group | Unknown | + + + Author + + + | Author | [facility] | | | and [place] | + + + | Organization | [facility] | | | [...] [place] | | | | | [place] [address] | | + + + + + Care Team Providers + +------+ + | Care Manager Private Name | Role | Phone | + [...] | | | | | [address] | [place] | | | | | [place] | [address] | | | | | [address] | | | | | | [phone] | Guerrero Odonnell MD | | | | | | [address] | | | | | | [place] | | | | | | [address] | | | | | | | [...] +----+---+ + + | | 1 | Regan | | | | 6 | 43-degrees [...] +----+---+ + + | | 1 | Regan off | | | | 8 | [...] | 08/14/192150 by | | eral | [id number] catheter system; | Michelle Heath RN | Yifan Dhillon | | IV | 22 gauge; removed in past; | | SHAZIA Campoverde | | | 08/14/19; 2150 | | | +--------+ + + + | Periph | 06/25/19; 1906; Left; | 06/25/191906 by | 06/27/19 1300 by | | eral | Antecubital; [id number] | Guerrero Jones RN | Carmen Uribe [...] | | | | | | Starting 06/26/19 at 1535, | | | | | | | For 1 dose, Pre-op, Indications: | | | | | | | Surgical Prophylaxis | | | | | | + +--------+ +------+------+------+ +---+---+ | | | +---+---+ + +-------+ +-------+---+---+ | dexamethasone (PF) 10 mg/mL | Given | 06/26/20 | 10 mg | | | | injection PRN, Starting Fri | | 19 6:32 | | | | | 06/26/19 at 1832, Anesthesia | | PM PST | | | | | Intra-op | | | | | | + +-------+ +-------+---+---+ +---+---+ | | | +---+---+ + +-------+ +--------+---+---+ | glycopyrrolate (KAROLYN) | Given | 06/26/20 | 0.4 mg [...] | Intravenous, PRN, Starting Fri | | 6:32 | | | | | 06/26/19 at 1832, Anesthesia | | PM PST | | | | | Intra-op | | | | | | + +-------+ +-------+---+---+ +---+---+ | | | +---+---+ + +-------+ +--------+---+---+ | lidocaine (PF) 2% injection | Given | 06/26/20 | 100 mg | | | | Intravenous, PRN, Starting Fri | | 4:31 | | | | | 06/26/19 [...] | | | injection PRN, Starting Sat | | 19 4:53 | | | [...]
--- OUTSIDE RECORDS SUMMARY | ~2019-08-19 | XMS | Encounter Summary ---
Demographics + + + | Address | [address] | | | [place] [address] | + + + | Home Phone | | + + + | Preferred Language | Unknown | + + + | Marital Status | | + + + | Caodaism Affiliation | 1041 | + + + | Race | Unknown | + + + | Ethnic Group | Unknown | + + + Author + + + | Author | [facility] | | | and [place] | + + + | Organization | [facility] | | [...] [place] | | | | | [place] [address] | | + + + + + Care Team Providers + +------+ + | Care Radiology Orderly Name | Role | Phone | + +------+ + | Dillon Govea MD | PCP | | + +------+ + Reason for Visit +--------+ + | Reason | Comments | +--------+ + | Cough | | +--------+ + Encounter Details +--------+ + + + + | Date | Type | Department | Care Team | Description | +--------+ + + + + | 05/06/ | Emergency | [facility] | Rhett Osuna, | Pneumonia due to | | 2018 | | MED CTR EM[facility] | [address] | infectious organism, | | | | CENTER [address] | [place], [place] | unspecified | | | | [place], [place] | [address] | laterality, | | | | [address] | | unspecified part of | | | | [phone] | | lung (Primary Dx) | +--------+ [...] + + + | Blood Pressure | 122/97 | 05/06/2018 8:03 PM | | | | | PDT | | + + + + + | Pulse | 89 | 05/06/2018 8:55 PM | | | | | PDT | | + + + + + | Temperature | 36.9 C (98.4 F) | 05/06/2018 8:03 PM | | | | | PDT | | + + + + + | Respiratory Rate | 20 | 05/06/2018 8:55 PM | | | | | PDT | | + + + + + | Oxygen Saturation | 99% | 05/06/2018 8:55 PM | | | | | [...] cannot be sent through Care Everywhere.Mara Escobedo ([place])documented in this encounter Medications at Time of [...] + +---------+ + + | azithromycin | 1 tablet by mouth | 6 | 0 | 05/06/20 | | | (ZITHROMAX) 250 mg | every day | tablet | | 18 | 8 | | tablet | | | | [...] XR CHEST AP PORTABLE | STAT | 05/06/2018 | | Results for this | | | | 8:17 PM | | procedure are in the | | | | PDT | | results section. | + +--------+ + + + documented in this encounter Results XR Chest AP Portable (05/06/2018 8:17 PM PDT) + + | Specimen | + + | | + + + + + | Narrative | Performed At | + + + | XR CHEST AP PORTABLE 05/06/2018 8:17 PM HISTORY: COUGH. | [facility] | | COMPARISON: 08/03/2016. Findings: Heart size is within normal | | | limits. Aorta is normal. Mediastinum is unremarkable. Central | | | pulmonary vasculature is normal. Mild interstitial thickening is | | | observed in the right lung base that could represent developing | | | pneumonia. The left lung is clear. There are no acute osseous | | | abnormalities. IMPRESSION - Mild interstitial thickening in right | | | lung base that could represent developing pneumonia. Dictated | | | and Signed by: Mariano Stroud MD Electronically signed: 05/06/2018 | | | 9:04 PM | | + + + + + | Procedure Note | + + | Vaibhav, Rad Results In - 05/06/2018 9:08 PM PDT XR CHEST AP PORTABLE 05/06/2018 8:17 PM | | | | HISTORY: COUGH. | | | | COMPARISON: 08/03/2016. | | | | Findings: | | Heart size is within normal limits. Aorta is normal. Mediastinum is | | unremarkable. Central pulmonary vasculature is normal. Mild interstitial | | thickening is observed in the right lung base that could represent developing | | pneumonia. The left lung is clear. There are no acute osseous abnormalities. | | | | IMPRESSION - | | Mild interstitial thickening in right lung base that could represent developing | | pneumonia. | | | | Dictated and Signed by: Mariano Stroud MD | | Electronically signed: 05/06/2018 9:04 PM | + + + +---------+ + [...] | albuterol (PROVENTIL) 90 | Dispense | 05/06/20 | 2 puffs | | | | mcg/puff inhaler (ED prepack) 2 | to Home | 18 9:03 | | | | | puff 2 puff, Inhalation, EVERY 4 | | PM PDT | | | | | HOURS PRN, Shortness of Breath, | | | | | | | Starting 05/06/18 at 2053, | | | | | | | Shake well before each use. | | | | | | | Patient Address: [address] | | | | | | | [address];[place] [address], | | | | | | + + + +---------+------+------+ +---+---+ | | | +---+---+ + +-------+ +-------+---+---+ | albuterol-ipratropium 2.5-0.5 | Given | 05/06/20 | 3 mLs | | | | mg/3 mL nebulizer solution 3 mL | | 18 8:49 | | | | | 3 mL, Nebulization, RT Once, Tue | | PM PDT | | | | | 05/06/18 at 2009, For 1 dose | | | | | | + +-------+ +-------+---+---+ +---+---+ | | | +---+---+ + + + +---------+---+---+ | HYDROcodone-acetaminophen | Dispense | 05/06/20 | 2 | | | | (NORCO) 5-325 mg per tablet (ER | to Home | 18 9:06 | tablets | | | | Prepack) 2 tablet 2 tablet, | | PM PDT | | | | | Oral, EVERY 8 HOURS PRN, Moderate | | | | | | | Pain, Starting Tu05/06/18 at | | | | | | | 3, Patient Address: [facility] [address] | | | | | | | [address];[place] | | | | | | | [address], | | | | | | + + + +---------+---+---+ +---+---+ | | | +---+---+ documented in this encounter"
--- OUTSIDE RECORDS SUMMARY | ~2019-08-19 | XMS | Encounter Summary ---
Demographics + + + | Address | [address] | | | [place] [address] | + + + | Home Phone | | + + + | Preferred Language | Unknown | + + + | Marital Status | | + + + | Episcopal Affiliation | 1041 | + + + | Race | Unknown | + + + | Ethnic Group | Unknown | + + + Author + + + | Author | [facility] | | | and [place] | + + + | Organization | [facility] [...] [place] | | | | | [place] [address] | | + + + + + Care Team Providers + +------+ + | Care Drill Sharpener Operator Name | Role | Phone | + +------+ + | Dillon Govea MD | PCP | | + +------+ + Reason for Visit + + + | Reason | Comments | + + + | Establish Care | Transferring from [facility]. Multiple concerns. | + + + Encounter Details +--------+---------+ + + + | Date | Type | Department | Care Team | Description | +--------+---------+ + + + | 04/30/ | Office | [facility] | Dillon Govea, | Psoriasis of scalp; | | 2016 | Visit | MEDICINE [address] | [address] | Moderate single | | | | [facility] | [place], [place] | current episode of | | | | [place] [address] | [address] | major depressive | | | | [phone] | | disorder ([facility]); | | | | | | Chronic tension-type | | | | | | headache, not | | | | | | intractable; Primary | | | | | | insomnia | +--------+---------+ + + + Social History [...] + + + | Blood Pressure | 110/60 | 04/30/2017 8:50 AM | | | | | PDT | | + + + + + | Pulse | 94 | 04/30/2017 8:50 AM | | | | | PDT | | + + + + + | Temperature | 36.7 C (98 F) | 04/30/2017 8:50 AM | | | | | PDT | | + + + + + | Respiratory Rate | 16 | 04/30/2017 8:50 AM | | | | | PDT | | + + + + + | Oxygen Saturation | 94% | 04/30/2017 8:50 AM | | | | | PDT | | + + + + + | Inhaled Oxygen | - | - | | | Concentration | | | | + + + + + | Weight | 77.7 kg (171 lb 6.4 | 04/30/2017 8:50 AM | | | | oz) | PDT | | + + + + + | Height | 144.8 cm (4' 9") | 04/30/2017 8:50 AM | | | | | PDT | | + + + + + | Body Mass Index | 37.09 | 04/30/2017 8:50 AM | | | | | PDT | | + + + + + documented in this encounter Patient Instructions Patient Instructions Dillon Govea MD - 04/30/2017 9:22 AM PDT Tension Headache A muscle tension headache is a very common cause of head pain. It s also called a stress headache. When some people are under stress, they tense the muscles of their shoulder, neck, and scalp without knowing it. If this tension lasts long enough, a headache can occur. A te nsion headache can be quite painful. It can last for hours or even days. Home care Follow these tips when caring for yourself at home: Don t drive yourself home if you were given pain medicine for your headache. Instead, have someone else drive you home. Try to sleep when you get home. You should feel much anjel r when you wake up. Put heat on the back of your neck to help ease neck spasm. Drink only clear liquids or eat a light diet until your symptoms get better. This will h elp you avoid nausea or vomiting. How to prevent headaches Figure out what is causing stress in your life. Learn new ways to handle your stress. Id eas include regular exercise, biofeedback, self-hypnosis, yoga, and meditation. Talk with yo ur healthcare provider to find out more information about managing stress. Many books and di gital media are also available on this subject. Take time out at the first sign of a tension headache, if possible. Take yourself out of the stressful situation. Find a quiet, comfortable place to sit or lie down and let yoursel f relax. Heat and deep massage of the tight areas in the neck and shoulders may help ease mu scle spasm. You may also get relief from a medicine like ibuprofen or a prescribed muscle re laxant. Follow-up care Follow up with your healthcare provider, or as advised. Talk with your provider if you have frequent headaches. He or she can figure out a treatment plan. Ask if you can have medicine to take at home the next time you get a bad headache. This may keep you from having to visi t the emergency department in the future. You may need to see a headache specialist (neurolo gist) if you continue to have headaches. When to seek medical advice Call your healthcare provider right awayif any of these occur: Your head pain gets worse during sexual intercourse or strenuous activity Your head pain doesn t get better within 24 hours You aren t able to keep liquids down (repeated vomiting) Fever of 100.4F (38C) or higher, or as directed by your healthcare provider Stiff neck Extreme drowsiness, confusion, or fainting Dizziness or dizziness with spinning sensation (vertigo) Weakness in an arm or leg or one side of your face You have difficulty speaking Your vision changes Date Last Reviewed: 03/12/201619993793-7259 [employer] [address] [place] [address]. All righ ts reserved. This information is not intended as a substitute for professional medical care. Always follow your healthcare professional's instructions. documented in this encounter Progress Notes Dillon Govea MD - 04/30/2017 9:00 AM PDTFormatting of this note might be different f rom the original. Subjective: Patient ID: Holly Barnes is a 36 y.o. female. Chief Complaint Patient presents with [facility] Care Transferring from [facility]. Multiple concerns. HPI: She has a history of psoriasis and saw the computational sciences professor but missed a couple of appoin tment. She is going back. Low back pain. She is sleeping poorly Cramps in her left leg and leg gets numb at times. Headaches. Throbbing in the back of her head. She took a couple of hydrocodone Depression recently. She has been crying a lot. She is trying to cope with She has had a cough with sputum and blood in sputum. She smokes a little a marijuana. Occasional alcohol use. No past medical history on file. No past surgical history on file. Patient Active Problem List Diagnosis Date Noted POA Psoriasis of scalp 04/30/2017 Unknown Moderate single current episode of major depressive disorder 04/30/2017 Unknown Chronic tension-type headache, not intractable 04/30/2017 Unknown Primary insomnia 04/30/2017 Unknown Current Outpatient Prescriptions: acetaminophen (TYLENOL) 325 mg tablet, Take 650 mg by mouth every 4 hours as needed fo r Pain., Disp: , Rfl: ibuprofen (ADVIL, MOTRIN) 200 mg tablet, Take 400 mg by mouth every 6 hours as needed for Pain., Disp: , Rfl: Allergies No active allergies Intolerance No active intolerances/contraindications Review of Systems Constitutional: Negative. HENT: Negative. Eyes: Negative. Respiratory: Positive for cough, hemoptysis and sputum production. Cardiovascular: Negative. Gastrointestinal: Negative. Genitourinary: Negative. Musculoskeletal: Positive for back pain and neck pain. Skin: Positive for itching and rash. Neurological: Negative. Endo/Heme/Allergies: Negative. Psychiatric/Behavioral: Positive for depression. Negative for hallucinations, memory loss, substance abuse and suicidal ideas. The patient has insomnia. The patient is not nervous/anx ious. Objective: BP 110/60 | Pulse 94 | Temp 36.7 C (98 F) (Tympanic) | Resp 16 | Ht 1.448 m (4' 9") | Wt 77.7 kg (171 lb 6.4 oz) | SpO2 94% | ? No | BMI 37.09 kg/m Physical Exam Constitutional: She is oriented to person, place, and time and well-developed, well-nourish ed, and in no distress. No distress. HENT: Head: Normocephalic and atraumatic. Mouth/Throat: Oropharynx is clear and moist. Neck: Normal range of motion. Neck supple. No JVD present. Cardiovascular: Normal rate, regular rhythm, normal heart sounds and intact distal pulses. Pulmonary/Chest: Effort normal and breath sounds normal. Abdominal: Soft. Bowel sounds are normal. Musculoskeletal: Normal range of motion. She exhibits no edema, tenderness or deformity. Lymphadenopathy: She has no cervical adenopathy. Neurological: She is alert and oriented to person, place, and time. Gait normal. GCS score is 15. Skin: Skin is warm and dry. She is not diaphoretic. Psoriatic rash on elbows Psychiatric: She is a little depressed Assessment/Plan: Holly was seen today for establish care. Diagnoses and all orders for this visit: Psoriasis of scalp Moderate single current episode of major depressive disorder (HCC) Chronic tension-type headache, not intractable Primary insomnia 1. Receiving treat her depression and chronic pain with Cymbalta and will start 20 mg per day. We talked with the medicine the effects and side effects this medication. 2. We talked about rotating her analgesics for her headaches to decrease risk for rebound or medication induced headaches. 3. I would like her to try to exercise for about 20 minutes a day and possible to help wit h weight control as well as her headaches 4. We talked about her insomnia and told her that if she has primary insomnia at this poin t she can use [id number] antihistamines until her antidepressant improves her sleep mead bits. Return in about 2 months (around 06/30/2017). documented in this encounter Plan of Treatment +--------+---------+ + + + | Date | Type | Specialty | Care Team | Description | +--------+---------+ + + + | 08/20/ | Office | Internal Medicine | Dillon Govea, | | | 2019 | Visit | | MD Patricio KOEHLER | | | | | | [place] | | | | | | [id number] | | | | | | | | +--------+---------+ + + + documented as of this encounter Visit Diagnoses + + | Diagnosis | + + | Psoriasis of scalp Other psoriasis | + + | Moderate single current episode of major depressive disorder (HCC) | + + | Chronic tension-type headache, not intractable Chronic tension type headache | + + | Primary insomnia Persistent disorder of initiating or maintaining sleep | + + documented in this encounter
--- OUTSIDE RECORDS SUMMARY | ~2019-08-19 | XMS | Encounter Summary ---
Demographics + + + | Address | [address] | | | [place] [address] | + + + | Home Phone [...] Author | [facility] | | | and [...] [place], | | | | | [place] [address] | | + + + + + Care Team Providers + +------+ + | Care Advertising Director Name | Role | Phone | + +------+ + PCP | Unavailable | + +------+ + Encounter Details +--------+ + + + + | Date | Type | Department | Care Team | Description | +--------+ + + + + | 08/10/ | Emergency | [facility] | No, Physician | Patient left without | | 2015 | | [facility] | | being seen (Primary | | | | CENTER [address] | | Dx) | | | | [place] | | | | | | [address] | | | | | | [phone] | | | +--------+ + + + [...] 2020 | Visit | | MD Patricio [place] | | | | | | [place] | | | | | | [address] | | | | | | | | +--------+---------+ + + + documented as of this encounter Procedures + +--------+ + + + | Procedure Name | Priori | Date/Time | Associated Diagnosis | Comments | | | ty | | | | + +--------+ + + + | ED INFORMATION | Routin | 08/10/2015 | | Results for this | | EXCHANGE | e | 6:13 PM | | procedure are in the | | | | PST | | results section. | + +--------+ + + + documented in this encounter Results ED INFORMATION EXCHANGE (08/10/2015 6:13 PM PST) + + | Specimen | + + | | + + + + + | Narrative | Performed At | + + + | ED/UCC VISIT TRACKING (3 MO.) Visit Date | [place] | | Location Type | | | Dx / Complaint -------- | | | ---- | | | 08/10/2015 18:[address] [facility] | | | [facility] Emergency -cold symptoms/body aches | | | 07/15/2015 18:33 [facility] | | | Emergency COUGH INPATIENT VISIT TRACKING (1 MO.) Visit | | | Date LocationTypeDx / Complaint | | | ED VISIT COUNT (1 | | | YR.) Visits Medicaid NE Dx Location ------ | | | --------- 1 0 | | | [facility] 1 0 | | | [facility] 2 0 | | | Total Note: Visits indicate total known visits. Medicaid | | | [place] Dx are the number of primary diagnoses on the [facility]'s non-emergent dx | | | list. | | | | | | --- [facility] has no Care Guidelines for this patient. [place] | | | Prescription Review PDMP Report (previous six months). Fill Date | | | Drug Description Qty. Prescriber | | | CS MED --------- | | | ---- -- | | | --- 2015-07-16 TRAMADOL HCL 50 MG TABLET 12 | | | ALISON VAZ 4 30.0 2015-07-16 | | | PROMETHAZINE-CODEINE SYRUP 120 ALISON VAZ | | | 5 0.0 12 Month Prescription Summary -Number of CS | | | Rx:2 -Number of CS-II Rx:0 -Total dispensed quantity:132 | | | -Unique Prescribers:1 -Unique Pharmacies:1 -Opioid Rx | | | Count:1 -Long Acting Opioid Rx Count:0 -Benzo Rx Count:0 | | + + + + +---------+ + + | Performing | Address | City/State/Zipcode | Phone Number | | Organization | | | | + +---------+ + + | [place] | | | | + +---------+ + + documented in this encounter Visit Diagnoses + + | Diagnosis | + + | Patient left without being seen - Primary Surgical or other procedure not carried out | | because of patient's decision | + + documented in this encounter"
--- OUTSIDE RECORDS SUMMARY | ~2019-08-19 | XMS | Encounter Summary ---
Demographics + + + | Address | [address] | | | [place] [address] | + + + | Home Phone | | + + + | Preferred Language | Unknown | + + + | Marital Status | | + + + | Hindu Affiliation | 1041 | + + + | Race | Unknown | + + + | Ethnic Group | Unknown | + + + Author + + + | Author | [facility] | | | and [place] | + + + | Organization | [facility] | | | [...] [place] | | | | | [place] [address] | | + + + + + Care Team Providers + +------+ + | Care Finance Manager Name | Role | Phone | [...] + + | 01/20/ | Emergency | [facility] | Jose Monter[facility]so | Cough (Primary Dx); | | 2017 | | [facility] | MD Rafita [address] | Pneumonia due to | | | | CENTER [address] | [address] | infectious organism, | | | | [place], [place] | [place] [address] | unspecified | | | | [address] | [phone] | laterality, | | | | [phone] | | unspecified part of | | [...] be sent through Care Everywhere.Adult, Pneumoni a (Upper Sorbian)documented in this encounter Medications at Time of [...] 2019 | Visit | | MD Patricio [place] | | | | | | [place] | | | | | | [address] | | | | | | | [...] | 200 mg 200 mg, Oral, ONCE, Sat | | 18 [...] | 600 mg 600 mg, Oral, ONCE, Mon | | 18 8:26 | | | | | 01/20/18 at 2004, For 1 dose, Give | | PM PDT | | | | | with food., | | | | | | + +-------+ +--------+---+---+ +---+---+ | | | +---+---+ documented in this encounter
--- OUTSIDE RECORDS SUMMARY | ~2019-08-19 | XMS | Encounter Summary ---
Demographics + + + | Address | [address] | | | [place] [address] | + + + | Home Phone | | + + + | Preferred Language | Unknown | + + + | Marital Status | | + + + | Zoroastrian Affiliation | 1041 | + + + | Race | Unknown | + + + | Ethnic Group | Unknown | + + + Author + + + | Author | [facility] | | [...] [place] | | | | | [place] [address] | | + + + + + Care Team Providers + +------+ + | Care Flame Cutting Supervisor Name | Role | Phone | [...] + | 05/08/ | Telephone | [facility] | Dillon Govea, | ER Follow-up | | 2018 | | MEDICINE [address] | [address] [facility] | | | | | Street [place] | [place] [facility], [place] | | | | | [place] [address] | [address] | | | | | [phone] | | | +--------+ + + + [...] [place] | | | | | | [address] | | | | | | | | +--------+---------+ + + + documented as of this encounter Visit Diagnoses Not on filedocumented in this encounter"
--- OUTSIDE RECORDS SUMMARY | ~2019-08-19 | XMS | Encounter Summary ---
Demographics + + + | Address | [address] | | | [place] [address] | + + + | Home Phone | | + + + | Preferred Language | Unknown | + + + | Marital Status | | + + + | Hinduism Affiliation | 1041 | + + + | Race | Unknown | + + + | Ethnic Group | Unknown | + + + Author + + + | Author | [facility] | | | and [place] | + + + | Organization | and [facility] | | | and [...] [place] | | | | | [place] [address] | | + + + + + Care Team Providers + +------+ + | Care Wool Scourer Name | Role | Phone | + [...] + | 05/19/ | Office | [facility] | Dillon Govea, | Pneumonia of right | | 2018 | Visit | MEDICINE [address] | [address] | lower lobe due to | | | | Street [place] | [place] | Mycoplasma | | | | [place] [address] | [address] | pneumoniae; Mild | | | | [phone] | | intermittent | | | | [...] stop , Disp: 10 tablet, Rfl: 0 Nctfrmorb-Icrocibdza-YB-APAP (NYQUIL PO), Take by mouth., Disp: , [...] in this encount er Plan of Treatment +--------+---------+ + + + | Date | Type | Specialty | Care Team | Description | +--------+---------+ + + + | 08/20/ | Office | Internal Medicine | Dillon Govea, | | | 2019 | Visit | | MD Patricio KOEHLER | | | | | | [place] | | | | | | [id number] | | | | | | | | +--------+---------+ + + + documented as of this encounter Visit Diagnoses + + | Diagnosis | + + | Pneumonia of right lower lobe due to Mycoplasma pneumoniae | + + | Mild intermittent reactive airway disease with acute exacerbation | + + documented in this encounter"
--- OUTSIDE RECORDS SUMMARY | ~2019-08-19 | XMS | Encounter Summary ---
Demographics + + + | Address | [address] | | | [place] [address] | + + + | Home Phone | | + + + | Preferred Language | Unknown | + + + | Marital Status | | + + + | Sabianist Affiliation | 1041 | + + + | Race | Unknown | + + + | Ethnic Group | Unknown | + + + Author + + + | Author | [facility] | | | and [place] [...] [place] | | | | | [place] [address] | | + + + + + Care Team Providers + +------+ + | Care Forging Operator Name | Role | Phone | [...] | +--------+ + + + + | 05/12/ | Telephone | [facility] | Dillon Govea, | ER Follow-up | | 2018 | | MEDICINE [address] | [address] [facility] | | | | | Street [place] | [facility] [place] | | | | | [place] [address] | [address] | | | | | [phone] | | | +--------+ + + + [...] [place] | | | | | | [address] | | | | | | | | +--------+---------+ + + + documented as of this encounter Visit Diagnoses Not on filedocumented in this encounter"
--- OUTSIDE RECORDS SUMMARY | ~2019-08-19 | XMS | Encounter Summary ---
Demographics + + + | Address | [address] | | | [place] [address] | + + + | Home Phone | | + + + | Preferred Language | Unknown | + + + | Marital Status | | + + + | Buddhism Affiliation | 1041 | + + + | Race | Unknown | + + + | Ethnic Group | Unknown | + + + Author + + + | Author | [facility] | | | and [place] | + + + | Organization | [facility] | | | [...] [place] | | | | | [place] [address] | | + + + + + Care Team Providers + +------+ + | Care Chief Writer Name | Role | Phone | + [...] + + | 06/18/ | Office | [facility] | Dillon Govea, | Bronchitis; | | 2019 | Visit | MEDICINE [address] | MD Patricio [place] | Cyst of left ovary | | | | [place] | [place] | | | | | [place] [address] | [id number] | | | | | [phone] | | | +--------+---------+ + + + [...] e as possible until she sees a MANAGER ANALYSIS doctor and gets this cyst drained or [...] she can use until she sees the MANAGER ANALYSIS doctor to get this pelv ic cyst/mass [...]
--- OUTSIDE RECORDS SUMMARY | ~2019-08-19 | XMS | Encounter Summary ---
Demographics + + + | Address | [address] | | | [place] [address] | + + + | Home Phone | | + + + | Preferred Language | Unknown | + + + | Marital Status | | + + + | Scientologist Affiliation | 1041 | + + + | Race | Unknown | + + + | Ethnic Group | Unknown | + + + Author + + + | Author | [facility] | | | and [place] [...] [place] | | | | | [place] [address] | | + + + + + Care Team Providers + +------+ + | Care Can Vacuum Tester Name | Role | Phone | + [...] + | 08/14/ | [facility] | [facility] | [place] | Pneumonia due to | | 2019 - | | [facility] | MD Rafita [address] | infectious organism, | | | | [place] [address] | [place] [facility] | unspecified | | 08/15/ | | [place] | [place] [address] | laterality, | | 2019 | | [address] | [phone] | unspecified part of | | | | [phone] | | lung (Primary Dx) | +--------+ [...] cannot be sent through Care Everywhere.Mara Escobedo (Turkish)Pneumonia, What Is (Turkish)Pneumonia, Preventing (Turkish)documented in this encounter Medications at Time of [...] [address] | [place] | [phone] | | [facility] | | [address] | | | - LABORATORY | | [...] [address] | [place] | [phone] | | [facility] | | [address] | | | - LABORATORY | | [...] use as of October 08, | | [facility] | | | | 2018. Check reference [...] + | [facility] | [address] | [place] | [phone] | | [facility] | | [address] | | | - LABORATORY | | | | + + + + + Troponin I (08/14/2019 9:57 PM PST) + + + + + + | Component | Value | Ref Range | Performed | Pathologist | | | | | At | Signature | + + + + + + | Troponin I | <0.01Comment: | <0.06 ng/mL | [facility] | | | | Comment:Reference | | [facility] | | | | Ranges: 0.00-0.06 = [...] | | | | | | [employer] | | | | | [...] | + + + + + | [facility] | [address] | [place] | [phone] | | [facility] | | [address] | | | - LABORATORY | | [...] | quantitative D-Dimer | FEU | [facility] | | | e | assay has [...] | + + + + + | [facility] | [address] | [place] | [phone] | | [facility] | | [address] | | | - LABORATORY | | [...] - 1.030 | [facility] | | | [place] | | | [facility] | | [...] + | [facility] | [address] | [place] | [phone] | | [facility] | | [address] | | | - LABORATORY | | [...] | PCR | | not performed | [facility] | | | | | | MEDICAL | | | | | | CENTER - | | | | | | LABORATORY | | + + + + + + | Influenza B | Negative | Negative, Test | [facility] | | | PCR | | not performed | [facility] | | | | [...] + | [facility] | [address] | [place] | [phone] | | [facility] | | [address] | | | - LABORATORY | | [...] | Time | | seconds | [facility] | | | | | | MEDICAL | | | | | | CENTER - | | | | | | LABORATORY | | + + + + + + | INR | 0.9Comment: Usual Oral | 0.9 - 1.1 | [facility] | | | | Anticoagulation Range: | | [facility] | | | | 2.0 - 3.0High [...] [address] | [place] | [phone] | | [facility] | | [address] | | | - LABORATORY | | [...] + + | [facility] | [address] | [place] | [phone] | | [facility] | | [address] | | | - LABORATORY | | [...] | | | FILTRATION | mL/min/1.73m2 | [facility] | | | [place] | RATE,ESTIMATED | | MEDICAL | | | | mL/min/1.26q2Cqyv than | | CENTER - | | [...] | 9.5 | 8.7 - 10.4 | [facility] | | | | | mg/dL | [facility] | | | | | | MEDICAL | | | | | | CENTER - | | | | | | LABORATORY | | + + + + + + | Albumin | 4.5 | 3.2 - 4.8 g/dL | [facility] [...] | ine Ratio | | | [facility] | [...] + | [facility] | [address] | [place] | [phone] | | [facility] | | [address] | | | - LABORATORY | | | | + + + + + CBC with Differential (08/14/2019 9:57 PM PST) + + + + + + | Component | Value | Ref Range | Performed | Pathologist | | | | | At | Signature | + + + + + + | WBC | 7.1 | 4.0 - 11.0 K/uL | [facility] | | | | | | [facility] | | | | | | MEDICAL | | | | | | CENTER - | | | | | | LABORATORY | | + + + + + + | RBC | 4.65 | 3.70 - 5.20 | [facility] | | | | | M/uL | [facility] | | | | [...] | | Lymphocytes | | | [facility] | | [...] | | Lymphocytes | | K/uL | [facility] | [...] | Basophils | | K/uL | [facility] | [...] ranges: Trim. Absolute (K/uL) Percentage (%) | [facility] | | 1st 0.003-0.091 K/uL 0.0-0.9% 2nd 0.007-0.247 K/uL | [facility] | | 0.1-2.0% 3rd 0.018-0.456 K/uL 0.1-2.0% | - LABORATORY | + + + + + + + + | Performing | Address | City/State/Zipcode | Phone Number | | Organization | | | | + + + + + | [facility] | [address] | [place] | [phone] | | [facility] | | [address] | | | - LABORATORY | | [...] MD | | | | | | ([id number]) on 08/15/2019 | | | | | [...] | 600 mg 600 mg, Oral, ONCE, Fri | | 20 9:52 | | | [...] 5-325 mg per tablet 1 | | 20 12:08 | | | | | tablet 1 tablet, Oral, ONCE, Sat | | AM PST | | | | | 08/15/19 at 0005, For 1 dose | | | | | | + +-------+ + +---+---+ +---+---+ | | | +---+---+ documented in this encounter
--- OUTSIDE RECORDS SUMMARY | ~2019-08-19 | XMS | Encounter Summary ---
Demographics + + + | Address | [address] | | | [place] [address] | + + + | Home Phone | | + + + | Preferred Language | Unknown | + + + | Marital Status | | + + + | Mandaen Affiliation | 1041 | + + + | Race | Unknown | + + + | Ethnic Group | Unknown | + + + Author + + + | Author | [facility] | | | and [place] | + + + | Organization | [facility] | | | [...] [place], | | | | | [place] [address] | | + + + + + Care Team Providers + +------+ + | Care Claims Specialist Name | Role | Phone | + +------+ + | No, Physician | PCP | Unavailable | + +------+ + Reason for Visit + + + | Reason | Comments | + + + | Dental Pain | Exam 2/ left side x1 week | + + + Encounter Details +--------+---------+ + + + | Date | Type | Department | Care Team | Description | +--------+---------+ + + + | 01/24/ | Office | [facility] | Geovany Norris, | Toothache (Primary | | 2017 | Visit | CARE [address] | MD [address] | Dx); Dental abscess | | | | [place] | [place] | | | | | [address] | [address] | | | | | [phone] | | | +--------+---------+ + + + [...] + + + | Blood Pressure | 131/71 | 01/24/2017 1:25 PM | | | | | PDT | | + + + + + | Pulse | 76 | 01/24/2017 1:25 PM | | | | | PDT | | + + + + + | Temperature | 37.6 C (99.6 F) | 01/24/2017 1:25 PM | | | | | PDT | | + + + + + | Respiratory Rate | 16 | 01/24/2017 1:25 PM | | | | | PDT | | + + + + + | Oxygen Saturation | 98% | 01/24/2017 1:25 PM | | | | | PDT | | + + + + + | Inhaled Oxygen | - | - | | | Concentration | | | | + + + + + | Weight | 77.3 kg (170 lb 8 | 01/24/2017 1:25 PM | | | | oz) | PDT | | + + + + + | Height | 144.8 cm (4' 9") | 01/24/2017 1:25 PM | | | | | PDT | | + + + + + | Body Mass Index | 36.9 | 01/24/2017 1:25 PM | | | | | PDT | | + + + + + documented in this encounter Patient Instructions Patient Instructions Geovany Norris MD - 01/24/2017 1:30 PM PDTTake the amoxicillin as directed. Take the hydrocodone as directed if needed.Don't do anything you need to be alert to do for 6 hours after taking a narcotic, such as driving, running machinery, swimming, et c. As the swelling and pain reduced then switch back from the hydrocodone to ibuprofen and Tyl enol which you can take together. Be sure to see her dentist as planned in the near future. documented in this encounter Progress Notes Geovany Norris MD - 01/24/2017 1:30 PM PDTFormatting of this note might be different fr om the original. Subjective: Patient ID: Holly Barnes is a 36 y.o. female. HPI Patient's medications, allergies, past medical, surgical, social and family histories were obtained and reviewed as appropriate. This lady came in because of a few days of pain in a left lower tooth and swelling in her j aw near that. She says she has an appointment in about a week with her dentist. She has no other complaint. I reviewed her past history and meds. She has been taking ibuprofen and Tylenol with no significant help. Review of Systems Constitutional: Negative. HENT: Positive for dental problem. Respiratory: Negative. Cardiovascular: Negative. Gastrointestinal: Negative. Objective: Physical Exam Constitutional: She is oriented to person, place, and time. She appears well-developed and well-nourished. No distress. HENT: Head: Normocephalic. Nose: Nose normal. Mouth/Throat: Oropharynx is clear and moist. She has gross caries in tooth #19 and it is tender to pressure on it. Her jaws mildly swol kell adjacent to this area also. Eyes: Pupils are equal, round, and reactive to light. Neck: Normal range of motion. Cardiovascular: Normal rate. Pulmonary/Chest: Effort normal. Musculoskeletal: Normal gait and balance Neurological: She is alert and oriented to person, place, and time. Vitals reviewed. Assessment: 1. Toothache 2. Dental abscess Plan: Please see the AVS for the plan unless outlined elsewhere. I will give her prescription for amoxicillin 500 mg 1 by mouth 3 times a day #30 for a 10 d ay course and hydrocodone 5/325 one to 2 by mouth every 6 hours when necessary pain #20 and no refill. I told her I hope that after a few days of the amoxicillin the swelling and pain will reduce and she can get along with just the use of ibuprofen and Tylenol together. I e mphasized that she should be sure to keep the appointment with the dentist in about a week. Recheck here as needed. She had no questions. documented in this e ncounter Plan of Treatment +--------+---------+ + + + | Date | Type | Specialty | Care Team | Description | +--------+---------+ + + + | 08/20/ | Office | Internal Medicine | Dillon Govea, | | | 2019 | Visit | | MD [address]io [place] | | | | | | [place] | | | | | | [address] | | | | | | | | +--------+---------+ + + + documented as of this encounter Visit Diagnoses + + | Diagnosis | + + | Toothache - Primary Unspecified disorder of the teeth and supporting structures | + + | Dental abscess Periapical abscess without sinus | + + documented in this encounter
--- OUTSIDE RECORDS SUMMARY | ~2019-08-19 | XMS | Encounter Summary ---
Demographics + + + | Address | [address] | | | [place] [address] | + + + | Home Phone | | + + + | Preferred Language | Unknown | + + + | Marital Status | | + + + | Amish Affiliation | 1041 | + + + | Race | Unknown | + + + | Ethnic Group | Unknown | + + + Author + + + | Author | [facility] | | | and [place] | + + + | Organization | [facility] | | | [...] [place] | | | | | [place] [address] | | + + + + + Care Team Providers + +------+ + | Care Drywall Mechanic Name | Role | Phone | + +------+ + | Dillon Govea MD | PCP | | + +------+ + Reason for Visit + + + | Reason | Comments | + + + | Shortness of Breath | 5 days with worse for 24 hours | + + + Encounter Details +--------+ + + + + | Date | Type | Department | Care Team | Description | +--------+ + + + + | 05/10/ | Emergency | [facility] | [place]ter[place] | Pneumonia due to | | 2017 | | MED CTR EMERGENCY | MD Rafita [address] | infectious organism, | | | | [place] [address] | [address] [facility] | unspecified | | | | [place], [place] | [place] [address] | laterality, | | | | [address] | [phone] | unspecified part of | | | | [phone] | | lung (Primary Dx) | +--------+ [...] + + + | Blood Pressure | 147/95 | 05/10/2018 10:00 PM | | | | | PDT | | + + + + + | Pulse | 90 | 05/10/2018 10:00 PM | | | | | PDT | | + + + + + | Temperature | 37.1 C (98.8 F) | 05/10/2018 8:33 PM | | | | | PDT | | + + + + + | Respiratory Rate | 14 | 05/10/2018 10:00 PM | | | | | PDT | | + + + + + | Oxygen Saturation | 98% | 05/10/2018 10:00 PM | | | | | PDT | | + + + + + | Inhaled Oxygen | - | - | | | Concentration | | | | + + + + + | Weight | 74.8 kg (165 lb) | 05/10/2018 8:33 PM | | | | | PDT | | + + + + + | Height | 152.4 cm (5') | 05/10/2018 8:33 PM | | | | | PDT | | + + + + + | Body Mass Index | 32.22 | 05/10/2018 8:33 PM | | | | | PDT | | + + + + + documented in this encounter Discharge Instructions AttachmentsThe following attachments cannot be sent through Care Everywhere.Mara Escobedo (Puerto Rican)documented in this encounter Medications at Time of [...] + + + +---------+ + + | levoFLOXacin | Take 1 tablet by | 6 | 0 | 05/10/20 | | | (LEVAQUIN) 750 MG | mouth Daily for 6 | tablet | | 18 | 8 | | tablet | days. | | [...] XR CHEST AP PORTABLE | STAT | 05/10/2018 | | Results for this | | | | 9:35 PM | | procedure are in the | | | | PDT | | results section. | + +--------+ + + + documented in this encounter Results XR Chest AP Portable (05/10/2018 9:35 PM PDT) + + | Specimen | + + | | + + + + + | Narrative | Performed At | + + + | XR CHEST AP PORTABLE 05/10/2018 9:14 PM HISTORY: SHORTNESS OF | [facility] | | BREATH. COMPARISON: Multiple priors. Findings: Heart size is | | | within normal limits. Aorta is normal. Mediastinum is unremarkable. | | | Central pulmonary vasculature is normal. The bilateral lungs are | | | clear with no evidence for pleural effusion or pneumothorax. There are | | | no acute osseous abnormalities. IMPRESSION - No acute findings. | | | Dictated and Signed by: Mariano Stroud MD Electronically | | | signed: 05/11/2018 2:19 PM | | + + + + + | Procedure Note | + + | Lawson Esposito Results In - 05/11/2018 2:22 PM PDT XR CHEST AP PORTABLE 05/10/2018 9:14 PM | | | | HISTORY: SHORTNESS OF BREATH. | | | | COMPARISON: Multiple priors. | | | | Findings: | | Heart size is within normal limits. Aorta is normal. Mediastinum is | | unremarkable. Central pulmonary vasculature is normal. The bilateral lungs are | | clear with no evidence for pleural effusion or pneumothorax. There are no acute | | osseous abnormalities. | | | | IMPRESSION - | | No acute findings. | | | | Dictated and Signed by: Mariano Stroud MD | | Electronically signed: 05/11/2018 2:19 PM | + + + +---------+ + [...] +-------+------+------+ | albuterol-ipratropium 2.5-0.5 | Given | 05/10/20 | 3 mLs | | | | mg/3 mL nebulizer solution 3 mL | | 18 9:18 | | | | | 3 mL, Nebulization, RT Once, Sat | | PM PDT | | | | | 05/10/18 at 2115, For 1 dose | | | | | | + +--------+ +-------+------+------+ +---+---+ | | | +---+---+ + +-------+ +--------+---+---+ | aluminum & magnesium | Given | 05/10/20 | 30 mLs | | | | hydroxide-simethicone (MAALOX | | 18 9:24 | | | | | PLUS REGULAR STRENGTH) 200-200-20 | | PM PDT | | | | | mg/5 mL suspension 30 mL 30 mL, | | | | | | | Oral, ONCE, 05/10/18 at 2115, | | | | | | | For 1 dose, Mix lidocaine and | | | | | | | Maalox. Cameron morillo., | | | | | | + +-------+ +--------+---+---+ +---+---+ | | | +---+---+ + +-------+ +--------+---+---+ | benzonatate (TESSALON) capsule | Given | 05/10/20 | 200 mg | | | | 200 mg 200 mg, Oral, ONCE, Sat | | 18 9:25 | | | | | 05/10/18 at 2115, For 1 dose | | PM PDT | | | | + +-------+ +--------+---+---+ +---+---+ | | | +---+---+ + +-------+ +-------+---+---+ | dexamethasone (DECADRON) 10 | Given | 05/10/20 | 10 mg | | | | mg/mL injection for oral use 10 | | 18 9:24 | | | | | mg 10 mg, Oral, ONCE, Sat | | PM PDT | | | | | 05/10/18 at 2115, For 1 dose, Use | | | | | | | dexamethasone 10 mg/mL vial for | | | | | | | inject for this oral dose, | | | | | | + +-------+ +-------+---+---+ +---+---+ | | | +---+---+ + +-------+ +--------+---+---+ | ibuprofen (ADVIL,MOTRIN) tablet | Given | 05/10/20 | 600 mg | | | | 600 mg 600 mg, Oral, ONCE, Sat | | 18 9:25 | | | | | 05/10/18 at 2115, For 1 dose, Give | | PM PDT | | | | | with food., | | | | | | + +-------+ +--------+---+---+ +---+---+ | | | +---+---+ + +-------+ +--------+---+---+ | levoFLOXacin (LEVAQUIN) tablet | Given | 05/10/20 | 750 mg | | | | 750 mg 750 mg, Oral, ONCE, Sat | | 18 9:52 | | | | | 05/10/18 at 2150, For 1 dose, Give | | PM PDT | | | | | 2 hours before or 2 hours after | | | | | | | antacids, iron, or zinc., | | | | | | | Indications: Pneumonia | | | | | | + +-------+ +--------+---+---+ +---+---+ | | | +---+---+ + +-------+ +--------+---+---+ | lidocaine (XYLOCAINE) 2% | Given | 05/10/20 | 10 mLs | | | | viscous solution 10 mL 10 mL, | | 18 9:24 | | | | | Oral, ONCE, 05/10/18 at 2115, | | PM PDT | | | | | For 1 dose, Mix lidocaine and | | | | | | | MAALOX. Shake well., | | | | | | + +-------+ +--------+---+---+ +---+---+ | | | +---+---+ documented in this encounter"
--- OUTSIDE RECORDS SUMMARY | ~2019-08-19 | XMS | Encounter Summary ---
Demographics + + + | Address | [address] | | | [place] [address] | + + + | Home Phone | | + + + | Preferred Language | Unknown | + + + | Marital Status | | + + + | Denominational Affiliation | 1041 | + + + | Race | Unknown | + + + | Ethnic Group | Unknown | + + + Author + + + | Author | [facility] | | | and [place] | + + + | Organization | [facility] | | | [...] [place], | | | | | [place] [address] | | + + + + + Care Team Providers + +------+ + | Care Water Maintenance Supervisor Name | Role | Phone | + +------+ + PCP | Unavailable | + +------+ + Encounter Details +--------+ + + + + | Date | Type | Department | Care Team | Description | +--------+ + + + + | 03/23/ | Hospital | [facility] | Isidro Boggs | | | 2004 | Encounter | MED CTR EMERGENCY | MD [address] | | | | | CENTER [address] | [address] [place] | | | | | [place], [place] | [place] [address] | | | | | [address] | [phone] | | | | | [phone] | | | +--------+ + + + [...]
--- OUTSIDE RECORDS SUMMARY | ~2019-08-19 | XMS | Encounter Summary ---
Demographics + + + | Address | [address] | | | [place] [address] | + + + | Home Phone | | + + + | Preferred Language | Unknown | + + + | Marital Status | | + + + | Congregational Affiliation | 1041 | + + + | Race | Unknown | + + + | Ethnic Group | Unknown | + + + Author + + + | Author | [facility] | | | and [place] | + + + | Organization | [facility] | | | [...] [place] | | | | | [place] [address] | | + + + + + Care Team Providers + +------+ + | Care Channeler Runner Name | Role | Phone | + [...] + | 05/12/ | Telephone | [facility] | Dillon Govea, | ER Follow-up | | 2018 | | MEDICINE [address] | [address] [facility] | | | | | [address] [place] | [facility], [place] | | | | | [place] [address] | [address] | | | | | [phone] | | | +--------+ + + + [...]
--- OUTSIDE RECORDS SUMMARY | ~2019-08-19 | XMS | Encounter Summary ---
Demographics + + + | Address | [address] | | | [place] [address] | + + + | Home Phone [...] + | Author | [facility] | | | and [...] [place], | | | | | [place] [address] | | + + + + + Care Team Providers + +------+ + | Care Chief Dietitian Name | Role | Phone | + [...] | | | | CENTER [address] | [address] | dental | | | | [place], [place] | [place], [place] | | | | | [address] | [address] | | | | | [phone] | | | +--------+ + + + [...]
--- OUTSIDE RECORDS SUMMARY | ~2019-08-19 | XMS | Encounter Summary ---
Demographics + + + | Address | [address] | | | [place] [address] | + + + | Home Phone | | + + + | Preferred Language | Unknown | + + + | Marital Status | | + + + | Tenriism Affiliation | 1041 | + + + | Race | Unknown | + + + | Ethnic Group | Unknown | + + + Author + + + | Author | [facility] | | | and [place] | + + + | Organization | [facility] | | | [...] [place], | | | | | [place] [address] | | + + + + + Care Team Providers + +------+ + | Care Coke Worker Name | Role | Phone | + [...] + + | 08/03/ | Emergency | [facility] | Donald Arriaga, | Acute bronchitis, | | 2016 - | | MED CTR EMERGENCY | [place] [address] | unspecified organism | | | | CENTER [address] | [facility] [place] | (Primary Dx); | | 08/04/ | | [place] | [place], [place] [address] | Hearing loss of left | | 2015 | | [address] | [phone] | ear due to cerumen | | | | [phone] | | impaction | +--------+ + + [...] be sent through Care Everywhere.BRONCHITIS, ACU TE (MOHAWK)IMPACTED EARWAX (MOHAWK)documented in this encounter Medications at Time of [...] | | PCR | | | [facility] | | [...] + | [facility] | [address] | [place], [place] | [phone] | | [facility] | | [address] | | | - LABORATORY | | [...] be obtained. Dictated and Signed by: Mariano Haas | | MD Maximus Electronically signed: 08/04/2016 [...]
--- OUTSIDE RECORDS SUMMARY | ~2019-08-19 | XMS | Encounter Summary ---
Demographics + + + | Address | [address] | | | [place] [address] | + + + | Home Phone [...] Author | [facility] | | | and [...] [place] | | | | | [place] [address] | | + + + + + Care Team Providers + +------+ + | Care Addiction Treatment Counselor Name | Role | Phone | + +------+ + | Dillon Govea MD | PCP | | + +------+ + Reason for Visit + + + | Reason | Comments | + + + | Follow-up | pneumonia | + + + Encounter Details +--------+ + + + + | Date | Type | Department | Care Team | Description | +--------+ + + + + | 05/26/ | Telephone | [facility] | Dillon Govea, | Follow-up | | 2018 | | MEDICINE [address] | [address] | (pneumonia) | | | | Street [place] | [place] [facility], [place] | | | | | [place] [address] | [address] | | | | | [phone] | | | +--------+ + + + [...] [place] | | | | | | [address] | | | | | | | | +--------+---------+ + + + documented as of this encounter Visit Diagnoses Not on filedocumented in this encounter"
--- OUTSIDE RECORDS SUMMARY | ~2019-08-19 | XMS | Encounter Summary ---
Demographics + + + | Address | [address] | | | [place] [address] | + + + | Home Phone | | + + + | Preferred Language | Unknown | + + + | Marital Status | | + + + | Druze Affiliation | 1041 | + + + | Race | Unknown | + + + | Ethnic Group | Unknown | + + + Author + + + | Author | [facility] | | | and [place] | + + + | Organization | [facility] | | | and [...] [place] | | | | | [place] [address] | | + + + + + Care Team Providers + +------+ + | Care Rental Counter Clerk Name | Role | Phone | [...] + + | 05/10/ | Emergency | [facility] | Jose Monterroso | Pneumonia due to | | 2017 | | [facility] | MD Rafita [address] | infectious organism, | | | | [place] [address] | [address] | unspecified | | | | [place], [place] | [place] [address] | laterality, | | | | [address] | [phone] | unspecified part of | | | | [phone] | | lung (Primary Dx) | +--------+ [...] cannot be sent through Care Everywhere.Mara Escobedo (Andorran)documented in this encounter Medications at Time of [...] | | 2019 | Visit | | [address] | | | | | | [place] | | | | | | [address] | | | | | | | [...] + | Vaibhav, Rad Results In - 05/11/2018 2:22 PM PDT [...] | | | Oral, ONCE, 05/10/18 at 5, | | | | | | | [...] | | | | | 05/10/18 at 2114, For 1 dose | | PM PDT [...] | | | | | | [place]. Cameron morillo., | | | | | | + +-------+ +--------+---+---+ +---+---+ | | | +---+---+ documented in this encounter"
--- OUTSIDE RECORDS SUMMARY | ~2019-08-19 | XMS | Encounter Summary ---
Demographics + + + | Address | [address] | | | [place] [address] | + + + | Home Phone | | + + + | Preferred Language | Unknown | + + + | Marital Status | | + + + | Mu-Ism Affiliation | 1041 | + + + | Race | Unknown | + + + | Ethnic Group | Unknown | + + + Author + + + | Author | [facility] | | | and [place] | + + + | Organization | [facility] | | | and [...] [place], | | | | | [place] [address] | | + + + + + Care Team Providers + +------+ + | Care Health Benefits Specialist Name | Role | Phone | + +------+ + PCP | Unavailable | + +------+ + Encounter Details +--------+ + + + + | Date | Type | Department | Care Team | Description | +--------+ + + + + | 11/02/ | Hospital | [facility] | Michael Carty, | | | 2010 | Encounter | [facility] | [address] | | | | | CENTER [address] | [place], [place] | | | | | [place], [place] | [address] | | | | | [address] | | | | | | [phone] | | | +--------+ + + + [...] [place] | | | | | | [address] | | | | | | | | +--------+---------+ + + + documented as of this encounter Procedures + +--------+ + + + | Procedure Name | Priori | Date/Time | Associated Diagnosis | Comments | | | ty | | | | + +--------+ + + + | STREPTOCOCCUS GROUP | Routin | 11/02/2010 | | Results for this | | A, RAPID SCREEN | e | 10:06 PM | | procedure are in the | | | | PDT | | results section. | + +--------+ + + + | INFLUENZA A AND B | Routin | 11/02/2010 | | Results for this | | AG, IA | e | 10:06 PM | | procedure are in the | | | | PDT | | results section. | + +--------+ + + + documented in this encounter Results Influenza A and B Ag, EIA (11/02/2010 10:06 PM PDT) + + + + + + | Component | Value | Ref Range | Performed | Pathologist | | | | | At | Signature | + + + + + + | INFLUENZA | Presumptive | | [facility] | | | AB | NEGATIVEComment: | | [facility] | | | | Presumptive NEGATIVE for | | MEDICAL | | | | Influenza A and | | CENTER - | | | | Influenza B. | | LABORATORY | | | | INTERPRETATION: | | | | | | NEGATIVE: Negative | | | | | | tests can occur from | | | | | | inadequate sample | | | | | | collection or levels | | | | | | of antigen which fall | | | | | | below the limits of | | | | | | detection of the test. | | | | | | POSITIVE: A positive | | | | | | result may occur in the | | | | | | absence of viable | | | | | | virus. @INTERNAL QC | | | | | | OK?: PINK CONTROL LINE | | | | | | APPEARS? Y | | | | + + + + + + + + | Specimen | + + | | + + + + + + + | Performing | Address | City/State/Zipcode | Phone Number | | Organization | | | | + + + + + | [facility] | [address] | [place] | [phone] | | [facility] | | [address] | | | - LABORATORY | | | | + + + + + | [facility] | [address] | [place], [place] | | | [facility] | | [address] | | | - LABORATORY | | | | + + + + + Streptococcus Group A, Rapid Screen (11/02/2010 10:06 PM PDT) + + + + + + | Component | Value | Ref Range | Performed | Pathologist | | | | | At | Signature | + + + + + + | STREP A AG | NEGATIVEComment: | | [facility] | | | | @INTERNAL QC OK?: | | [facility] | | | | CONTROL WINDOW TURNS | | MEDICAL | | | | PINK? YES | | CENTER - | | | | | | LABORATORY | | + + + + + + + + | Specimen | + + | | + + + + + + + | Performing | Address | City/State/Zipcode | Phone Number | | Organization | | | | + + + + + | [facility] | [address] | [place] | [phone] | | [facility] | | [address] | | | - LABORATORY | | | | + + + + + | [facility] | [address] | [place], [place] | | | [facility] | | [address] | | | - LABORATORY | | | | + + + + + documented in this encounter Visit Diagnoses Not on filedocumented in this encounter"
--- OUTSIDE RECORDS SUMMARY | ~2019-08-19 | XMS | Encounter Summary ---
Demographics + + + | Address | [address] | | | [place] [address] | + + + | Home Phone | | + + + | Preferred Language | Unknown | + + + | Marital Status | | + + + | Pentecostalism Affiliation | 1041 | + + + | Race | Unknown | + + + | Ethnic Group | Unknown | + + + Author + + + | Author | [facility] | | | and [place] | + + + | Organization | [facility] | | [...] | | | | | [address] [place] [place] | | | | | [place] [address] | | + + + + + Care Team Providers + +------+ + | Care Kettle Fry Cook Operator Name | Role | Phone | + +------+ + | Dillon Govea MD | PCP | | + +------+ + Reason for Visit + + + | Reason | Comments | + + + | Vaginal Bleed (> 7 | | | Years) | | + + + Encounter Details +--------+ + + + + | Date | Type | Department | Care Team | Description | +--------+ + + + + | 06/16/ | Emergency | [facility] | Dillon Dominguez, | Ovarian cyst, right | | 2019 | | [facility] | MD [address] | (Primary Dx) | | | | CENTER [address] | [place] | | | | | [place] | [address] | | | | | [address] | | | | | | [phone] | | | +--------+ + + + [...] + + + | Blood Pressure | 134/102 | 06/16/2019 9:29 PM | | | | | PST | | + + + + + | Pulse | 99 | 06/16/2019 9:29 PM | | | | | PST | | + + + + + | Temperature | 36.9 C (98.4 F) | 06/16/2019 8:22 PM | | | | | PST | | + + + + + | Respiratory Rate | 18 | 06/16/2019 8:20 PM | | | | | PST | | + + + + + | Oxygen Saturation | 94% | 06/16/2019 9:29 PM | | | | | PST | | + + + + + | Inhaled Oxygen | - | - | | | Concentration | | | | + + + + + | Weight | 74.8 kg (165 lb) | 06/16/2019 8:20 PM | | | | | PST | | + + + + + | Height | 144.8 cm (4' 9") | 06/16/2019 8:20 PM | | | | | PST | | + + + + + | Body Mass Index | 35.71 | 06/16/2019 8:20 PM | | | | | PST | | + + + + + documented in this encounter Discharge Instructions AttachmentsThe following attachments cannot be sent through Care Everywhere.Cysts, Ovarian (Latvian)Acetaminophen; Oxycodone tablets (Latvian)documented in this encounter Medications at Time of [...] | | Take 1-2 tablets by | 20 | 0 | 06/15/20 | | | HYDROcodone-acetamin | mouth every [...] tablet by | 30 | 0 | 06/16/20 | | | oxyCODONE-acetaminop | mouth every 6 hours | tablet | | 19 | 9 | | hen (PERCOCET) 5-325 | as needed. | | | [...] + +--------+ + + + | EXTRA BLUE TOP TUBE | [...] + + | COMPREHENSIVE | STAT | 06/16/2019 [...] + + documented in this encounter Results US Pelvis W Transvaginal (06/16/2019 10:10 PM PST) + + | Specimen | + + | | + + + + + | Impressions | Performed At | + + + | Large 12.0 x 10.6 x 9.8 cm simple appearing cyst centered posterior | [facility] | | to the uterus. It is unclear whether this represents a intraovarian | | | cyst or simple ovarian cyst given its location between the ovaries. | | | -Consider gynecologic consultation given the size. 2.2 x 2.1 x 2.3 | | | cm soft tissue vascular mass in the left uterine myometrium, likely | | | representing a fibroid. Dictated and Signed by: Cedric Castro MD | | | Electronically signed: 06/17/2019 8:57 AM | | + + + + + + | Narrative | Performed At | + + + | US PELVIS W TRANSVAGINAL 06/16/2019 9:13 PM HISTORY: pelvic | [facility] | | pain. COMPARISON: None. PROTOCOL: Valles scale and Doppler | | | images of the pelvis with transabdominal and transvaginal imaging. | | | FINDINGS: Uterus: 2.2 x 2.1 x 2.3 cm soft tissue vascular mass in | | | the left uterine myometrium, likely representing a fibroid. Size of | | | the uterus is 7.5 cm. Endometrium is 10 mm, which is normal. | | | Right ovary: Right ovary is poorly visualized but appears to measure | | | 3.0 x 3.3 x 1.4 cm. There is thought to be normal Doppler flow. | | | Left ovary: The parenchyma is normal. The size of the ovary is 3.8 x | | | 3.0 x 1.9 cm. There is normal Doppler flow. Adnexa: Large 12.0 x | | | 10.6 x 9.8 cm simple appearing cyst centered posterior to the uterus. | | | It is unclear whether this represents a para ovarian cyst or simple | | | ovarian cyst given its location between the ovaries. Cul-de-sac: | | | Normal. | | + + + + + | Procedure Note | + + | Vaibhav, Rad Results In - 06/17/2019 9:00 AM PST US PELVIS W TRANSVAGINAL 06/16/2019 9:13 | | PM HISTORY: pelvic pain.COMPARISON: None.PROTOCOL: Valles scale and Doppler images of the | | pelvis with transabdominal andtransvaginal imaging.FINDINGS:Uterus: 2.2 x 2.1 x 2.3 cm | | soft tissue vascular mass in the left uterinemyometrium, likely representing a fibroid. | | Size of the uterus is 7.5 cm.Endometrium is 10 mm, which is normal.Right ovary: Right | | ovary is poorly visualized but appears to measure 3.0 x 3.3 x1.4 cm. There is thought to | | be normal Doppler flow.Left ovary: The parenchyma is normal. The size of the ovary is | | 3.8 x 3.0 x 1.9cm. There is normal Doppler flow.Adnexa: Large 12.0 x 10.6 x 9.8 cm | | simple appearing cyst centered posterior tothe uterus. It is unclear whether this | | represents a para ovarian cyst or simpleovarian cyst given its location between the | | ovaries.Cul-de-sac: Normal.IMPRESSION: Large 12.0 x 10.6 x 9.8 cm simple appearing cyst | | centered posterior to theuterus. It is unclear whether this represents a intraovarian | | cyst or simpleovarian cyst given its location between the ovaries.-Consider gynecologic | | consultation given the size.2.2 x 2.1 x 2.3 cm soft tissue vascular mass in the left | | uterine myometrium,likely representing a fibroid.Dictated and Signed by: Cedric Castro | | Electronically signed: 06/17/2019 8:57 AM | | | |Left ovary: The parenchyma is normal. The size of the ovary is 3.8 x 3.0 x 1.9 | |cm. There is normal Doppler flow. | | | |Adnexa: Large 12.0 x 10.6 x 9.8 cm simple appearing cyst centered posterior to | |the uterus. It is unclear whether this represents a para ovarian cyst or simple | |ovarian cyst given its location between the ovaries. | | | |Cul-de-sac: Normal. | | | |IMPRESSION: | |Large 12.0 x 10.6 x 9.8 cm simple appearing cyst centered posterior to the | |uterus. It is unclear whether this represents a intraovarian cyst or simple | |ovarian cyst given its location between the ovaries. | |-Consider gynecologic consultation given the size. | | | |2.2 x 2.1 x 2.3 cm soft tissue vascular mass in the left uterine myometrium, | |likely representing a fibroid. | | | |Dictated and Signed by: Cedric Castro MD | | Electronically signed: 06/17/2019 8:57 AM | + + + +---------+ + [...] | Top Tube | | | [facility] | | [...] [address] | [place] | [phone] | | [facility] | | [address] | | | - LABORATORY | | | | + + + + + Comprehensive Metabolic Panel (06/16/2019 8:51 PM PST) + + + + + [...] + + + + | Cl | 108 (H) | 98 - 107 mmol/L | [...] + + + + | Glucose | 133 (H) | 60 - 106 mg/dL | [facility] | | | | | [facility] | | | | | | MEDICAL | | | | | | CENTER - | | | | | | LABORATORY | | + + + + + + | BUN | 10 | 9 - 23 mg/dL | [facility] | | | | | | [facility] | | | | | | MEDICAL | | | | | | CENTER - | | | | | | LABORATORY | | + + + + + + | Creatinine | 0.65 | 0.55 - 1.02 | [facility] | | | | | mg/dL | [facility] | | | | | | MEDICAL | | | | | | CENTER - | | | | | | LABORATORY | | + + + + + + | eGFR if not | >60Comment: GLOMERULAR | >=60 | [facility] | | | | FILTRATION | mL/min/1.73m2 | [facility] | | | [place] | RATE,ESTIMATED | | MEDICAL | | | | mL/min/1.49p8Jlzl than | | CENTER - | | [...] + + + + | Calcium | 9.6 | 8.7 - 10.4 | [facility] | [...] + + + + | AST | 25 | 0 - 34 U/L | [facility] | | | | | | [facility] | | | | | | MEDICAL | | | | | | CENTER - | | | | | | LABORATORY | | + + + + + + | ALT | 38 | 10 - 49 U/L | [facility] | | | | | | [facility] | | | | | | MEDICAL | | | | | | CENTER - | | | | | | LABORATORY | | + + + + + + | Alkaline | 89 | 46 - 116 U/L | [facility] | | | Phosphatase | | | [facility] | | | | | | MEDICAL | | | | | | CENTER - | | | | | | LABORATORY | | + + + + + + | Globulin | 2.5 | 2.1 - 3.8 g/dL | [facility] [...] + + + + | BUN/Creatin | 15.4 | | [facility] | | | ine [...] ST. | [address] | [place], [place] | [phone] | | [facility] | | [address] | | | - LABORATORY | | | | + + + + + CBC with Differential (06/16/2019 8:51 PM PST) + + + + + + | Component | Value | Ref Range | Performed | Pathologist | | | | | At | Signature | + + + + + + | WBC | 18.0 (H) | 4.0 - 11.0 K/uL | [facility] | | | | | | [facility] | | | | | | MEDICAL | | | | | | CENTER - | | | | | | LABORATORY | | + + + + + + | RBC | 4.90 | 3.70 - 5.20 | [facility] | | | | | M/uL | [facility] | | | | [...] + + + + | Hematocrit | 40.8 | 34.0 - 47.0 % | [facility] | | | | | | [facility] | | | | | | MEDICAL | | | | | | CENTER - | | | | | | LABORATORY | | + + + + + + | MCV | 83.3 | 83.0 - 101.0 fL | [facility] | | | | | | [facility] | | | | | | MEDICAL | | | | | | CENTER - | | | | | | LABORATORY | | + + + + + + | MCH | 27.1 (L) | 28.0 - 35.0 pg | [...] + + + + | RDW-CV | 14.6 | <15.0 % | [facility] | | | | [facility] | | | | | | MEDICAL | | | | | | CENTER - | | | | | | LABORATORY | | + + + + + + | RDW-SD | 43.7 | 35.1 - 46.3 fL | [facility] | | | | | | [facility] | | | | | | MEDICAL | | | | | | CENTER - | | | | | | LABORATORY | | + + + + + + | Platelet | 299 | 140 - 440 K/uL | [facility] [...] + + + + | % | 66.5 | 45.0 - 82.0 % | [facility] | | | Neutrophils | | | [facility] | | | | | | MEDICAL | | | | | | CENTER - | | | | | | LABORATORY | | + + + + + + | % | 22.8 | 20.0 - 45.0 % | [facility] | | | Lymphocytes | | | [facility] | | | | | | MEDICAL | | | | | | CENTER - | | | | | | LABORATORY | | + + + + + + | % Monocytes | 8.0 | 4.0 - 12.0 % | [facility] | | | | | | [facility] | | | | | | MEDICAL | | | | | | CENTER - | | | | | | LABORATORY | | + + + + + + | % | 0.7 | 0.0 - 5.0 % | [facility] [...] + + + | % Immature | 1.6 (H)Comment: | 0.0 - 0.4 % | [facility] | | | Granulocyte | Preliminary studies have | | [facility] | | | s | indicated the [...] + + + + | Absolute | 11.99 (H) | 1.80 - 8.50 | [facility] | | | Neutrophils | | K/uL | [facility] | | | | | | MEDICAL | | | | | | CENTER - | | | | | | LABORATORY | | + + + + + + | Absolute | 4.11 (H) | 0.60 - 3.20 | [facility] | | | Lymphocytes | | K/uL | [facility] | | | | | | MEDICAL | | | | | | CENTER - | | | | | | LABORATORY | | + + + + + + | Absolute | 1.44 (H) | 0.00 - 1.00 | [facility] | | | Monocytes | | K/uL | [facility] | | | | | | MEDICAL | | | | | | CENTER - | | | | | | LABORATORY | | + + + + + + | Absolute | 0.12 | 0.00 - 0.40 | [facility] | | | Eosinophils | | K/uL | [facility] | | | | | | MEDICAL | | | | | | CENTER - | | | | | | LABORATORY | | + + + + + + | Absolute | 0.07 | 0.00 - 0.10 | [facility] | | | Basophils | | K/uL | [facility] | | | | | | MEDICAL | | | | | | CENTER - | | | | | | LABORATORY | | + + + + + + | Absolute | 0.28 (H)Comment: For | 0.00 - 0.03 | [facility] [...] + + + | Absolute | 0.03 (H)Comment: | 0.00 - 0.01 | [facility] | | | nRBC | Presence of any NRBC's | K/uL | [facility] | | | | in adults is clinically | | MEDICAL | | | | significant. | | CENTER - | | | [...] 0.003-0.091 K/uL 0.0-0.9% 2nd 0.007-0.247 K/uL | [facility] | | 0.1-2.0% 3rd 0.018-0.456 K/uL 0.1-2.0% | - LABORATORY | + + + + + + + + | Performing | Address | City/State/Zipcode | Phone Number | | Organization | | | | + + + + + | [facility] | [address] | [place] | [phone] | | [facility] | | [address] | | | - LABORATORY | | | | + + + + + POCT Test, Urine, QUAL (06/16/2019 8:46 PM PST) + + + + + [...] Specific | | | | | | [place], | | | | | | POC | | | | | + + + + + + | Lot Number | [id number] | | | | + + + + + + | Expiration | [phone] | | | | | Date | | | | | + + + + + + + + | Specimen | + + | Urine | + + Urinalysis with Microscopic with Culture if Indicated (06/16/2019 8:42 PM PST) + + + + + [...] + + + | pH, Urine | 7.0 | 5.0 - 8.0 | [facility] | | | | | | [facility] | | | | | | MEDICAL | | | | | | CENTER - | | | | | | LABORATORY | | + + + + + + | Specific | 1.015 | 1.001 - 1.030 | [facility] | | | [place] | | | [facility] | | [...] + + + + | Blood, | Large (A) | Negative | [facility] | | [...] ST. | [address] | [place] | [phone] | | [facility] | | [address] | | | - LABORATORY | | | | + + + + + documented in this encounter Visit Diagnoses + + | Diagnosis | + + | Ovarian cyst, right - Primary Other and unspecified ovarian cyst | + + documented in this encounter Administered Medications + +--------+ +-------+------+------+ | Medication Order | MAR | Action | Dose | Rate | Site | | | Action | Date | | | | + +--------+ +-------+------+------+ | morphine injection 10 mg 10 | Given | 06/16/20 | 10 mg | | | | mg, Intravenous, ONCE, Tue | | 19 9:17 | | | | | 06/16/19 at 2044, For 1 dose | | PM PST | | | | + +--------+ +-------+------+------+ +---+---+ | | | +---+---+ + +-------+ +------+---+---+ | ondansetron (ZOFRAN) injection | Given | 06/16/20 | 4 mg | | | | 4 mg 4 mg, Intravenous, ONCE, | | 19 9:05 | | | | | 06/16/19 at 2105, For 1 dose | | PM PST | | | | + +-------+ +------+---+---+ +---+---+ | | | +---+---+ + + + + +---+---+ | oxyCODONE-acetaminophen | Dispense | 06/16/20 | 1 tablet | | | | (PERCOCET) 5-325 mg per tablet | to Home | 19 10:52 | | | | | (ED prepack) 1 tablet 1 tablet, | | PM PST | | | | | Oral, EVERY 6 HOURS PRN, Pain, | | | | | | | Starting 06/16/19 at 2235, | | | | | | | Patient Address: [address] | | | | | | | [address];[place] [address], | | | | | | + + + + +---+---+ +---+---+ | | | +---+---+ + +-------+ + +---+---+ | oxyCODONE-acetaminophen | Given | 06/16/20 | 1 tablet | | | | (PERCOCET) 5-325 mg per tablet 1 | | 19 10:45 | | | | | tablet 1 tablet, Oral, ONCE, Tue | | PM PST | | | | | 06/16/19 at 2240, For 1 dose | | | | | | + +-------+ + +---+---+ +---+---+ | | | +---+---+ documented in this encounter
--- OUTSIDE RECORDS SUMMARY | ~2019-08-19 | XMS | Encounter Summary ---
Demographics + + + | Address | [address] | | | [place] [address] | + + + | Home Phone [...] | Author | [facility] | | | and [place] [...] [place], | | | | | [place] [address] | | + + + + + Care Team Providers + +------+ + | Care Cnc Manufacturing Engineer Name | Role | Phone | + +------+ + PCP | Unavailable | + +------+ + Encounter Details +--------+ + + + + | Date | Type | Department | Care Team | Description | +--------+ + + + + | 11/02/ | Hospital | [facility] | Michael Carty, | | | 2010 | Encounter | [facility] | [address] | | | | | CENTER [address] | [place], [place] | | | | | [place], [place] | [address] | | | | | [address] | | | | | | [phone] | | | +--------+ + + + [...] + | [facility] | [address] | [place] | [phone] | | [facility] | | [address] | | | - LABORATORY | | | | + + + + + | [facility] | [address] | [place], [place] | | | [facility] | | [address] | | | - LABORATORY | | [...] | | @INTERNAL QC OK?: | | [facility] | | | | CONTROL WINDOW [...] + | [facility] | [address] | [place] | [phone] | | [facility] | | [address] | | | - LABORATORY | | | | + + + + + | [facility] | [address] | [place] | | | [facility] | | [address] | | | - LABORATORY | | | | + + + + + documented in this encounter Visit Diagnoses Not on filedocumented in this encounter"
--- OUTSIDE RECORDS SUMMARY | ~2019-08-19 | XMS | Encounter Summary ---
Demographics + + + | Address | [address] | | | [place] [address] | + + + | Home Phone | | + + + | Preferred Language | Unknown | + + + | Marital Status | | + + + | Hoahaoism Affiliation | 1041 | + + + | Race | Unknown | + + + | Ethnic Group | Unknown | + + + Author + + + | Author | [facility] | | | and [place] | + + + | Organization | [facility] | | | [...] [place] | | | | | [place] [address] | | + + + + + Care Team Providers + +------+ + | Care Software Educator Name | Role | Phone | + [...] + | 08/20/ | Patient | [facility] | Dillon Govea, | Preventive | | 2018 | Outreach | MEDICINE [address] | [address] | Screening, Cervical | | | | [address] | [place] | Cancer Screening | | | | [place] [address] | [id number] | | | | | [phone] | | | +--------+ + + + [...] [place] | | | | | | [address] | | | | | | | | +--------+---------+ + + + documented as of this encounter Visit Diagnoses Not on filedocumented in this encounter"
--- OUTSIDE RECORDS SUMMARY | ~2019-08-19 | XMS | Encounter Summary ---
Demographics + + + | Address | [address] | | | [place] [address] | + + + | Home Phone | | + + + | Preferred Language | Unknown | + + + | Marital Status | | + + + | Rastafari Affiliation | 1041 | + + + | Race | Unknown | + + + | Ethnic Group | Unknown | + + + Author + + + | Author | [facility] | | | and [place] | + + + | Organization | [facility] | [...] [place] | | | | | [place] [address] | | + + + + + Care Team Providers + +------+ + | Care Heating Element Winder Name | Role | Phone | + [...] OVARIAN | | | | [address] | [place] | CYSTECTOMY, LEFT | | | | [place], [place] | [address] | OOPHORECTOMY AND | | | | [address] | | LEFT SALPINGECTOMY | | | | [phone] | | | +--------+---------+ + + + [...] be sent through Care Everywhere.Laparoscopy, Pe lvic (Yi)documented in this encounter Medications at Time of [...] in this encou nter Plan of Treatment +--------+---------+ + + + | Date | Type | Specialty | Care Team | Description | +--------+---------+ + + + | 08/20/ | Office | Internal Medicine | Jade Govea, | | | 2020 | Visit | | MD Patricio KOEHLER | | | | | | [place] | | | | | | [address] | | | | | | | [...] | | | 06/25/ | | | 2019 | | | [...] C?MRN: | | | | | | [id number] | | | [id number] | | | riteri | | | [...] | | | MD | | | Recordak Operator | | | al | | | [...] [address] | [place] | [phone] | | [facility] | | [address] | | | - LABORATORY | | [...] | | | | WBCs | [facility] | | | | [...] [address] | [place] | [phone] | | [facility] | | [address] | | | - LABORATORY | | | | + + + + + CBC no Differential (06/26/2019 6:16 AM PST) + + + + + + | Component | Value | Ref Range | Performed | Pathologist | | | | | At | Signature | + + + + + + | WBC | 8.5 | 4.0 - 11.0 K/uL | [facility] | | | | | | ST. [...] ST. | [address] | [place] | [phone] | | [facility] | | [address] | | | - LABORATORY | | [...] (L) | 9 - 23 mg/dL | [facility] | | | | | | [facility] | | | | | | MEDICAL | | | | | | CENTER - | | | | | | LABORATORY | | + + + + + + | Creatinine | 0.50 (L) | 0.55 - 1.02 | [facility] | | | | | mg/dL | [facility] | | | | | | MEDICAL | | | | | | CENTER - | | | | | | LABORATORY | | + + + + + + | eGFR if not | >60Comment: GLOMERULAR | >=60 | [facility] | | | | FILTRATION | mL/min/1.73m2 | [facility] | | | [place] | RATE,ESTIMATED | | MEDICAL | | | | mL/min/1.60q4Icgt than | | CENTER - | | [...] [address] | [place] | [phone] | | [facility] | | [address] | | | - LABORATORY | | [...] | | [facility] T[facility] | | | [facility] | | [...] + + | [facility] | [address] | [place], [place] | [phone] | | [facility] | | [address] | | | - LABORATORY | | [...] Segment of | | | benign oviduct. JVR:[facility]:C2NR MICROSCOPIC EXAMINATION: | | | [...] excrescences are grossly | | | identified. Vice President sections are submitted in cassettes | | [...] LABORATORY: The technical component was performed by [employer] | | | [employer], [address] [place] [address] (Caption Writer: | | | Eveline White MD; IA# [id number]). Professional interpretation was | | | performed by [facility] | | | [address] [address] (Medical | | | Director: Amadou Aguirre [...] | to the ordering provider by the veterinary technologist immediately | | | following the [...] the ordering provider by the | | veterinary technologist immediately following the exam. | | [...] [address] | [place] | [phone] | | [facility] | | [address] | | | - LABORATORY | | [...] in | 12 - 53 U/L | [facility] | | | | use as of October 08 | | [facility] | | | | 2018. Check [...] [address] | [place] | [phone] | | [facility] | | [address] | | | - LABORATORY | | [...] | | | | | | [facility] | | | | | | MEDICAL | | | | | | CENTER - | | | | | | LABORATORY | | + + + + + + | BUN | 8 (L) | 9 - 23 mg/dL | [facility] | | | | | | [facility] | | | | | | MEDICAL | | | | | | CENTER - | | | | | | LABORATORY | | + + + + + + | Creatinine | 0.58 | 0.55 - 1.02 | [facility] | [...] | mL/min/1.73m2 | [facility] | | | [place] | RATE,ESTIMATED | | MEDICAL | | | | mL/min/1.39o2Qtel than | | CENTER - | | [...] + | [facility] | [address] | [place] | [phone] | | [facility] | | [address] | | | - LABORATORY | | [...] Granulocyte | patients, use the | | [facility] | | | s | special reference [...] ranges: Trim. Absolute (K/uL) Percentage (%) | [facility] | | 1st 0.003-0.091 K/uL 0.0-0.9% 2nd 0.007-0.247 K/uL | [facility] | | 0.1-2.0% 3rd 0.018-0.456 K/uL 0.1-2.0% | - LABORATORY | + + + + + + + + | Performing | Address | City/State/Zipcode | Phone Number | | Organization | | | | + + + + + | [facility] | [address] | [place] | [phone] | | [facility] | | [address] | | | - LABORATORY | | [...] [address] | [place] | [phone] | | [facility] | | [address] | | | - [...] - 1.030 | [facility] | | | [place] | | | [facility] | | | | | | MEDICAL | | | | | | CENTER - | | | | | | LABORATORY | | + + + + + + | Protein, | Negative | Negative | [facility] | | | Urine | | | [facility] | | [...] + | [facility] | [address] | [place] | [phone] | | [facility] | | [address] | | | - LABORATORY | | [...] | | | Site | | Starting 06/26/19 at 1809, | | PM PST | [...] | | TIMES DAILY, First dose on Sat | | AM PST | | [...] PST | | | | | at 2045, Post-op/Phase II | | | | | [...]
--- OUTSIDE RECORDS SUMMARY | ~2019-08-19 | XMS | Encounter Summary ---
Demographics + + + | Address | [address] | | | [place] [address] | + + + | Home Phone | | + + + | Preferred Language | Unknown | + + + | Marital Status | | + + + | Islam Affiliation | 1041 | + + + | Race | Unknown | + + + | Ethnic Group | Unknown | + + + Author + + + | Author | [facility] | | | and [place] | + + + | Organization | [facility] | | [...] [place] | | | | | [place] [address] | | + + + + + Care Team Providers + +------+ + | Care Geophysical Observer Name | Role | Phone | + +------+ + | Dillon Govea MD | PCP | | + +------+ + Reason for Visit + + + | Reason | Comments | + + + | Establish Care | Transferring from [facility]. Multiple concerns. | + + + Encounter Details +--------+---------+ + + + | Date | Type | Department | Care Team | Description | +--------+---------+ + + + | 04/30/ | Office | [facility] | Dillon Govea, | Psoriasis of scalp; | | 2016 | Visit | MEDICINE [address] | [address] | Moderate single | | | | Street [facility] | [place], [place] | current episode of | | | | [place] [address] | [address] | major depressive | | | | [phone] | | disorder ([facility]); | | | | | | Chronic [...] speaking Your vision changes Date Last Reviewed: 03/12/201619999570-[address] [employer] [place] [address]. All righ ts reserved. This information is not intended as a substitute for professional medical care. Always follow your healthcare professional's instructions. documented in this encounter Progress Notes Dillon Govea MD - 04/30/2017 9:00 AM PDTFormatting of this note might be different f rom the original. Subjective: Patient ID: Holly Barnes is a 36 y.o. female. Chief Complaint Patient presents with [facility] Care Transferring from [facility]. Multiple concerns. 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 [...] at this poin t she can use [id number] antihistamines until her antidepressant improves her sleep [...]
--- OUTSIDE RECORDS SUMMARY | ~2019-08-19 | XMS | Encounter Summary ---
Demographics + + + | Address | [address] | | | [place] [address] | + + + | Home Phone [...] Author | [facility] | | | and [place] [...] [place] | | | | | [place] [address] | | + + + + + Care Team Providers + +------+ + | Care Tearer Name | Role | Phone | + [...] Outreach | MEDICINE [address] | [address] [facility] | | | | | [address] [place] | [place] | | | | | [place] [address] | [address] | | | | | [phone] | | | +--------+ + + + [...] [place] | | | | | | [address] | | | | | | | [...]
--- OUTSIDE RECORDS SUMMARY | ~2019-08-19 | XMS | Encounter Summary ---
Demographics + + + | Address | [address] | | | [place] [address] | + + + | Home Phone | | + + + | Preferred Language | Unknown | + + + | Marital Status | | + + + | Quaker Affiliation | 1041 | + + + | Race | Unknown | + + + | Ethnic Group | Unknown | + + + Author + + + | Author | [facility] | | | and [place] | + + + | Organization | [facility] | | | [...] [place] | | | | | [place] [address] | | + + + + + Care Team Providers + +------+ + | Care Hot Bread Baker Name | Role | Phone | + [...] | | | | | [place] [address] | [address] | | | | | [phone] | | | +--------+ + + + [...] [place] | | | | | | [id number] | | | | | | | | +--------+---------+ + + + documented as of this encounter Visit Diagnoses Not on filedocumented in this encounter"
--- OUTSIDE RECORDS SUMMARY | ~2019-08-19 | XMS | Encounter Summary ---
Demographics + + + | Address | [address] | | | [place] [id number] | + + + | Home Phone [...] Author | [facility] | [...] [place] | | | | | [place] [address] | | + + + + + Care Team Providers + +------+ + | Care Cable Installation Technician Name | Role | Phone | [...] + | 06/15/ | Telephone | [facility] | Dillon Govea, | Appointment (Soon | | 2019 | | MEDICINE [address] | [address] | appointment | | | | Street [place] | [facility] ID | requested) | | | | [facility] [place] [id number] | [address] | | | | | [phone] | | | +--------+ + + + [...]
--- OUTSIDE RECORDS SUMMARY | ~2019-08-19 | XMS | Encounter Summary ---
Demographics + + + | Address | [address] | | | [place] [address] | + + + | Home Phone | | + + + | Preferred Language | Unknown | + + + | Marital Status | | + + + | Mosque Affiliation | 1041 | + + + | Race | Unknown | + + + | Ethnic Group | Unknown | + + + Author + + + | Author | [facility] | | | and [place] | + + + | Organization | [facility] | | | and [...] [place] | | | | | [place] [address] | | + + + + + Care Team Providers + +------+ + | Care Parts Salesperson Name | Role | Phone | + +------+ + | Dillon Govea MD | PCP | | + +------+ + Encounter Details +--------+ + + + + | Date | Type | Department | Care Team | Description | +--------+ + + + + | 06/22/ | Orders Only | [facility] | Dillon Govea, | | | 2018 | | MEDICINE [address] | [address] [facility] | | | | | Street [place] | [place] | | | | | [place] [address] | [address] | | | | | [phone] | | | +--------+ + + + [...] [place] | | | | | | [address] | | | | | | | | +--------+---------+ + + + documented as of this encounter Visit Diagnoses Not on filedocumented in this encounter"
--- OUTSIDE RECORDS SUMMARY | ~2019-08-19 | XMS | Encounter Summary ---
Demographics + + + | Address | [address] | | | [place] [address] | + + + | Home Phone | | + + + | Preferred Language | Unknown | + + + | Marital Status | | + + + | Advent Affiliation | 1041 | + + + | Race | Unknown | + + + | Ethnic Group | Unknown | + + + Author + + + | Author | [facility] | | | and [...] [place], | | | | | [place] [address] | | + + + + + Care Team Providers + +------+ + | Care Electric Knife Operator Name | Role | Phone | [...] + + | 01/24/ | Office | [facility] | Geovany Norris, | Toothache (Primary | | 2017 | Visit | CARE [address] | MD [address] | Dx); Dental abscess | | | | [place] | [place] | | | | | [address] | [address] | | | | | [phone] | | | +--------+---------+ + + + [...] in this e ncounter Plan of Treatment Not on filedocumented as of this encounter Visit Diagnoses + + | Diagnosis | + + | Toothache - Primary Unspecified disorder of the teeth and supporting structures | + + | Dental abscess Periapical abscess without sinus | + + documented in this encounter
--- OUTSIDE RECORDS SUMMARY | ~2019-08-19 | XMS | Encounter Summary ---
Demographics + + + | Address | [address] | | | [place] [address] | + + + | Home Phone | | + + + | Preferred Language | Unknown | + + + | Marital Status | | + + + | Spiritism Affiliation | 1041 | + + + | Race | Unknown | + + + | Ethnic Group | Unknown | + + + Author + + + | Author | [facility] | | | and [place] | + + + | Organization | [facility] | | | and [...] [place] | | | | | [place] [address] | | + + + + + Care Team Providers + +------+ + | Care Metal Inspector Name | Role | Phone | [...] + + | 06/25/ | Hospital | [facility] | Rafita Kc | Pelvic pain (Primary | | 2019 - | Encounter | [facility] | [place] Hyde MD | Dx); Cyst of ovary, | | | | [address] | [address] | unspecified | | 06/27/ | | [place], [place] | [place] | laterality | | 2019 | | [address] | [address] | | | | | [phone] | | | | | | | Stone Villarreal | | | | | | Murtaza Maravilla MD | | | | | | [address] | | | | | | [place] | | | | | | [address] | | | | | | | | | | | | Liliam Borden DO | | | | | | [address] | | | | | | [place] | | | | | | [address] | | | | | | | [...] documented in this encounter Discharge Summaries Barbi Rodriguez DO - 06/27/2019 11:52 AM PST GYNECOLOGY DISCHARGE [...] 6 hours as needed for Pain. aka: [facility] Changed Medications Details oxyCODONE-acetaminophen 5-325 mg per [...] following attachments cannot be sent through Care Everywhere.Volodymyr Fischer (Hebrew)documented in this encounter Medications at Time of [...] | 21 | 0 | 06/14/20 | 01/03/202 | | (MEDROL DOSEPAK) 4 | directions. [...] as of this encounter Progress Notes Barbi Rodriguez, - 06/27/2019 11:46 AM PSTGynecology Postop Progress [...] - | | | | | | 2018 | | | [...] | | | ON?11/ | | | | | | 9 | | | 18:12? | | | JAMEEL | | | EZ, | | | LIZ | | | | | | C?MRN: | | | | | | [id number] | | | [id number] | | | riteri | | | [...] | | | MD | | | Chemical Processor | | | al | | | [...] [address] | [place] | [phone] | | [facility] | | [address] | | | - LABORATORY | | [...] | | | Count | | | [facility] | | [...] + | [facility] | [address] | [place] | [phone] | | [facility] | | [address] | | | - LABORATORY | | [...] + | [facility] | [address] | [place] | [phone] | | [facility] | | [address] | | | - LABORATORY | | [...] mL/min/1.73m2 | [facility] | | | [place] | RATE,ESTIMATED | | MEDICAL | | | | mL/min/1.69n2Kjmn than | | CENTER - | | [...] [address] | [place] | [phone] | | [facility] | | [address] | | | - LABORATORY | | [...] ST. | [address] | [place], [place] | [phone] | | [facility] | | [address] | | | - LABORATORY | | | | + + + + + Surgical Pathology Exam (06/26/2019 12:00 AM PST) + + | Specimen | + + | | + + + + + | Narrative | Performed At | + + + | SPECIMEN(S): A LEFT OVARIAN CYST, LEFT OVARY, LEFT FALLOPIAN TUBE | [facility] | | SPECIMEN SOURCE: A. LEFT [...] Segment of | | | benign oviduct. JVR:smh:C2NR MICROSCOPIC EXAMINATION: | | | Histologic sections [...] excrescences are grossly | | | identified. Promotion Specialist sections are submitted in cassettes | | [...] LABORATORY: The technical component was performed by [employer] | | | [employer], [address] [place] [id number] (Affiliate Marketing Coordinator: | | | Eveline White MD; CLIA# [id number]). Professional interpretation was | | | performed by [employer], [facility] | | | Branch, [address] [place] [address] (Medical | | | Director: Amadou Aguirre [...] | to the ordering provider by the photo technologist immediately | | | following the [...] the ordering provider by the | | photo technologist immediately following the exam. | | [...] [address] | [place] | [phone] | | [facility] | | [address] | | | - LABORATORY | | [...] in | 12 - 53 U/L | [facility] | | | | use [...] + | [facility] | [address] | [place] | [phone] | | [facility] | | [address] | | | - LABORATORY | | [...] | | FILTRATION | mL/min/1.73m2 | [facility] | | | [place] | RATE,ESTIMATED | | MEDICAL | | | | mL/min/1.65i1Qflc than | | CENTER - | | [...] | 8.9 | 8.7 - 10.4 | [facility] | | | | | mg/dL | [facility] | | | | | | MEDICAL | | | | | | CENTER - | | | | | | LABORATORY | | + + + + + + | Albumin | 4.3 | 3.2 - 4.8 g/dL | [facility] [...] [address] | [place] | [phone] | | [facility] | | [address] | | | - LABORATORY | | [...] | | | | | | [facility] | | [...] ranges: Trim. Absolute (K/uL) Percentage (%) | [facility] | | 1st 0.003-0.091 K/uL 0.0-0.9% 2nd 0.007-0.247 K/uL | [facility] | | 0.1-2.0% 3rd 0.018-0.456 K/uL 0.1-2.0% | - LABORATORY | + + + + + + + + | Performing | Address | City/State/Zipcode | Phone Number | | Organization | | | | + + + + + | [facility] | [address] | [place] | [phone] | | [facility] | | [address] | | | - LABORATORY | | [...] + | [facility] | [address] | [place] | [phone] | | [facility] | | [address] | | | - LABORATORY | | [...] - 1.030 | [facility] | | | [place] | | | 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 | + + | Cyst of left ovary Other and unspecified ovarian cyst | + + documented in this encounter Administered Medications + +--------+ + +------+------+ | Medication Order | MAR | Action | Dose | Rate | Site | | | Action | Date | | | | + +--------+ + +------+------+ | acetaminophen (TYLENOL) tablet | Given | 06/26/20 | 1,000 mg | | | | 1,000 mg 1,000 mg, Oral, ONCE, | | 19 3:54 | | | | | 06/26/19 at 1600, For 1 dose, | | PM PST | | | | | Pre-op | | | | | | + +--------+ + +------+------+ +---+---+ | | | +---+---+ + +-------+ +--------+---+---+ | albuterol 2.5 mg/3 mL nebulizer | Given | 06/27/20 | 2.5 mg | | | | solution 2.5 mg 2.5 mg, | | 19 9:11 | | | | | Nebulization, RT EVERY 4 HOURS | | AM PST | | | | | PRN, Wheezing, Starting Sat | | | | | | | 06/26/19 at 2021, Post-op/Phase | | | | | | | II | | | | | | + +-------+ +--------+---+---+ + +---+ | | | + +---+ [...] HOURS PRN, Itching, Starting | | | 06/26/19 at 2020, Oral route | | | [...] | | +---+---+ + +-------+ +--------+---+---+ | gabapentin (NEURONTIN) capsule | Given | 06/26/20 | 600 mg | | | | 600 mg 600 mg, Oral, ONCE, Sat | | 3:54 | | | | | 06/26/19 at 1600, For 1 dose, | | PM PST | | | | | Pre-op | | | | | | + +-------+ +--------+---+---+ + +---+ | | | + +---+ [...] + +---------+ +--------+-------+---+ | lactated ringers (LR) infusion | New Bag | 06/26/20 | 1,000 | 100 | | | at 10-100 mL/hr, Intravenous, | | 19 3:54 | mLs | mL/hr | | | CONTINUOUS, Starting 06/26/19 | | PM PST | | | | | at 1600, TKO., Pre-op | | | | | | + +---------+ +--------+-------+---+ +---+---+ | | | +---+---+ + +---------+ [...] 4 mg 4 mg, | Given | 06/26/20 | 4 mg | | | | Intravenous, EVERY 4 HOURS PRN, | | 19 3:26 | | | | | Pain, Starting 06/26/19 at | | PM PST | | | | | 0807 | | | | | | + +-------+ +------+---+---+ +---+---+ | | | +---+---+ + +-------+ +------+---+---+ | morphine injection 4-8 mg 4-8 | Given | 06/26/20 | 4 mg | | | | mg, Intravenous, EVERY 2 HOURS | | 19 6:38 | | | | | PRN, Pain, pain, Starting Minoo | | AM PST | | | | | 06/25/19 at 2144, For 1 dose, | | | | | | | Temporary holding order - | | | | | | | discontinue when admitting | | | | | | | physician writes admitting | | | | | | | orders, | | | | | | + +-------+ +------+---+---+ +---+---+ | | | +---+---+ + +-------+ +------+---+---+ | morphine injection 8 mg 8 mg, | Given | 06/25/20 | 8 mg | | | | Intravenous, ONCE, Minoo 06/25/19 | | 19 7:03 | | | | | at 1855, For 1 dose | | PM PST | | | | + +-------+ +------+---+---+ +---+---+ | | | +---+---+ + +-------+ +------+---+---+ | ondansetron (ZOFRAN) injection | Given | 06/25/20 | 4 mg | | | | 4 mg 4 mg, Intravenous, ONCE, | | 19 7:03 | | | | | Minoo 06/25/19 at 1855, For 1 dose | | PM PST | | | | + +-------+ +------+---+---+ +---+---+ | | | +---+---+ + +-------+ +------+---+---+ | ondansetron (ZOFRAN) injection | Given | 06/26/20 | 4 mg | | | | 4 mg 4 mg, Intravenous, EVERY 4 | | 19 6:41 | | | | | HOURS PRN, Nausea, Vomiting, | | AM PST | | | | | Starting [facility] 06/25/19 at 2144, | | | | | | | For 1 dose | | | | | | + +-------+ +------+---+---+ +---+---+ | | | +---+---+ + +-------+ +------+---+---+ | ondansetron (ZOFRAN) injection | Given | 06/26/20 | 4 mg | | | | 4 mg 4 mg, Intravenous, EVERY 6 | | 19 3:12 | | | | | HOURS PRN, Nausea, Vomiting, | | PM PST | | | | | Starting 06/26/19 at 0808 | | | | | | + +-------+ +------+---+---+ +---+---+ | | | +---+---+ + +-------+ +------+---+---+ | ondansetron (ZOFRAN) injection | Given | 06/26/20 | 4 mg | | | | 4 mg 4 mg, Intravenous, ONCE | | 19 7:28 | | | | | PRN, Nausea, Starting Fri | | PM PST | | | | | 06/26/19 at 184, For 1 dose, | | | | | | | Recovery/Phase I | | | | | | + [...] | | +---+---+ + +---------+ +---+-------+---+ | sodium chloride 0.9% (NS) | New Bag | 06/26/20 | | 100 | | | infusion at 100 mL/hr, | | 19 10:19 | | mL/hr | | | Intravenous, CONTINUOUS, Starting | | AM PST | | | | | 06/26/19 at 0000 | | | | | | + +---------+ +---+-------+---+ +---------+ +---+-------+---+ | New Bag | 06/26/20 | | 100 | | | | 19 12:12 | | mL/hr | | | | AM PST | | | | +---------+ +---+-------+---+ +---+---+ | | | +---+---+ documented in this encounter
--- OUTSIDE RECORDS SUMMARY | ~2019-08-19 | XMS | Encounter Summary ---
Demographics + + + | Address | [address] | | | [place] [address] | + + + | Home Phone | | + + + | Preferred Language | Unknown | + + + | Marital Status | | + + + | Adventism Affiliation | 1041 | + + + | Race | Unknown | + + + | Ethnic Group | Unknown | + + + Author + + + | Author | [facility] | | | and [place] | + + + | Organization | [facility] | | [...] [place] | | | | | [place] [address] | | + + + + + Care Team Providers + +------+ + | Care Compressor Mechanic Name | Role | Phone | [...] | | | | CENTER [address] | [place], [place] | unspecified | | | | [place], [place] | [address] | laterality, | | | | [address] | | unspecified part of | | | | [phone] | | lung (Primary Dx) | +--------+ [...] cannot be sent through Care Everywhere.Mara Escobedo (Ugandan)documented in this encounter Medications at Time of [...] [place] | | | | | | [address] | | | | | | | [...] | | | | | Patient Address: [facility] [address] | | | | | | | [address];[place] [address], | | | | | | + [...] | | | | | Pain, Starting 05/06/18 at | | | | | | | 3, Patient Address: [address] | | | | | | [address];[place] | | | | | | | [address], | | | | | | + + + +---------+---+---+ +---+---+ | | | +---+---+ documented in this encounter"
--- OUTSIDE RECORDS SUMMARY | ~2019-08-19 | XMS | Encounter Summary ---
Demographics + + + | Address | [address] | | | [place] [address] | + + + | Home Phone [...] | Author | [facility] | | | and [...] [place] | | | | | [place] [address] | | + + + + + Care Team Providers + +------+ + | Care User Experience Team Lead Name | Role | Phone | + [...] + + | 02/10/ | Emergency | [facility] | [facility] | Moderate persistent | | 2019 | | [facility] | Jose Eduardo Hyde MD | reactive airway | | | | CENTER [address] | [address] | disease with acute | | | | [place], [place] | [place] | exacerbation | | | | [address] | [address] | (Primary Dx) | | | | [phone] | | | +--------+ + + + [...] Everywhere.Codeine; Guaife nesin oral solution or syrup (Botswanan)Albuterol inhalation aerosol (Botswanan)Acetaminophen; H ydrocodone tablets or capsules (Botswanan)documented in this encounter Medications at Time of [...] | | | | | Wheezing, Starting Tu02/10/19 at | | | | | | | 2139, Patient Address: [address] | | | | | | | [address];'[place] | | | | | | | [address], | | | | | | + [...] | | | 8 mg, Oral, ONCE, 7/2/19 at | | PM PDT | | [...] | | | | | | [address];[place] | | | | | | | [address], | | | | | | + [...] | | | | | Pain, Starting Sat02/10/19 at | | | | | | | 2140, Patient Address: [address] | | | | | [address];[place] | | | | | | | [address], | | | | | | + + + + +---+---+ +---+---+ | | | +---+---+ documented in this encounter"
--- OUTSIDE RECORDS SUMMARY | ~2019-08-19 | XMS | Encounter Summary ---
Demographics + + + | Address | [address] | | | [place] [address] | + + + | Home Phone | | + + + | Preferred Language | Unknown | + + + | Marital Status | | + + + | Jewish Affiliation | 1041 | + + + | Race | Unknown | + + + | Ethnic Group | Unknown | + + + Author + + + | Author | [facility] | | | and [...] [place] | | | | | [place] [address] | | + + + + + Care Team Providers + +------+ + | Care Wallpaper Installer Name | Role | Phone | + [...] | | MEDICINE [address] | [address] [facility] | | | | | [facility] | [place] | | | | | [place] [address] | [address] | | | | | [phone] | | | +--------+--------+ + + + [...]
--- OUTSIDE RECORDS SUMMARY | ~2019-08-19 | XMS | Encounter Summary ---
Demographics + + + | Address | [address] | | | [place] [address] | + + + | Home Phone [...] + + + | Author | [facility] | | | and [place] | + + + | Organization | [facility] | | [...] [place] | | | | | [place] [address] | | + + + + + Care Team Providers + +------+ + | Care Rapier Insertion Loom Fixer Name | Role | Phone | + [...] + + | 08/05/ | Emergency | [facility] | Michael Carty, | Postoperative | | 2019 | | MED CTR EM[facility] | [address] | abdominal pain | | | | CENTER [address] | [place] | (Primary Dx) | | | | [place], [place] | [address] | | | | | [address] | | | | | | [phone] | | | +--------+ + + + [...] be sent through Care Everywhere.Abdominal Pain, Adult (Arabic)documented in this encounter Medications at Time of [...] of this encounter Plan of Treatment + +------+--------+ + + [...] | | | 2018 | | | 9:27 | | | [...] | | | ON?12/ | | | 25/ | | | 9 | | | 21:25? | | | JAMEEL | | | EZ, | | | LIZ | | | | | | C?MRN: | | | | | | [id number] | | | [id number] | | | riteri | | | [...] 56.25 | | | | | | 2019 | | | 1-14 | | | [...] | | , MD | | | Environmental Maintenance Worker | | | al | | | [...] | | | [id number] | | | [id number] | | | [id number] | | | | | | PLEASE [...] report was sent by | | | [facility] with no significant discrepancy on 08/05/2019 [...] preliminary report was | | sent by [facility] with no significant discrepancyon 08/05/2019 11:16 PM.Dictated [...] | |?A preliminary report was sent by [facility] with no significant discrepancy | |on 08/05/2019 [...] in | 12 - 53 U/L | [place] | | | | use as of October 08 | | [facility] | | | | 2018. [...] [address] | [place] | [phone] | | [facility] | | [address] | | | - LABORATORY | | [...] | mL/min/1.73m2 | [facility] | | | DUTCH | RATE,ESTIMATED | | MEDICAL | | | | mL/min/1.35o2Wotw than | | CENTER - | | [...] | 9.4 | 8.7 - 10.4 | [facility] | | | | | mg/dL | [facility] | | | | | | MEDICAL | | | | | | CENTER - | | | | | | LABORATORY | | + + + + + + | Albumin | 4.6 | 3.2 - 4.8 g/dL | [facility] [...] + | [facility] | [address] | [place] | [phone] | | [facility] | | [address] | | | - LABORATORY | | [...] | | Basophils | | K/uL | [facility] | [...] ranges: Trim. Absolute (K/uL) Percentage (%) | [facility] | | 1st 0.003-0.091 K/uL 0.0-0.9% 2nd 0.007-0.247 K/uL | [facility] | | 0.1-2.0% 3rd 0.018-0.456 K/uL 0.1-2.0% | - LABORATORY | + + + + + + + + | Performing | Address | City/State/Zipcode | Phone Number | | Organization | | | | + + + + + | [facility] | [address] | [place] | [phone] | | [facility] | | [address] | | | - LABORATORY | | [...] - 1.030 | [facility] | | | [place] | | | [facility] | | [...] [place]. | [address] | [place] | [phone] | | [facility] | | [address] | | | - LABORATORY | | [...] 1.001 - 1.030 | | | | [place], | | | | | | UA, [...] Specific | | | | | | [place], | | | | | | POC | | | | | + + + + + + | Lot Number | [id number] | | | | + + + [...] iohexol (OMNIPAQUE 350) 350 | Given | 08/05/ | 90 mLs | | | | [...] mg | | | | Intravenous, ONCE, Sat08/05/19 | | 19 10:30 | | | [...] PST | | | | | Starting Sat08/05/19 at 2200, | | | | | [...]
--- OUTSIDE RECORDS SUMMARY | ~2019-08-19 | XMS | Encounter Summary ---
Demographics + + + | Address | [address] | | | [place] [address] | + + + | Home Phone | | + + + | Preferred Language | Unknown | + + + | Marital Status | | + + + | Mandaeism Affiliation | 1041 | + + + | Race | Unknown | + + + | Ethnic Group | Unknown | + + + Author + + + | Author | [facility] | [...] [place] | | | | | [place] [address] | | + + + + + Care Team Providers + +------+ + | Care Sales Representative Name | Role | Phone | + [...] + | 05/08/ | Telephone | [facility] | Dillon Govea, | ER Follow-up | | 2018 | | MEDICINE [address] | [address] [facility] | | | | | Street [place] | [place] [facility], [place] | | | | | [place] [address] | [address] | | | | | [phone] | | | +--------+ + + + [...] [place] | | | | | | [address] | | | | | | | | +--------+---------+ + + + documented as of this encounter Visit Diagnoses Not on filedocumented in this encounter"
--- OUTSIDE RECORDS SUMMARY | ~2019-08-19 | XMS | Encounter Summary ---
Demographics + + + | Address | [address] | | | [place] [address] | + + + | Home Phone | | + + + | Preferred Language | Unknown | + + + | Marital Status | | + + + | Anabaptist Affiliation | 1041 | + + + | Race | Unknown | + + + | Ethnic Group | Unknown | + + + Author + + + | Author | [facility] | | [...] [place] | | | | | [place] [address] | | + + + + + Care Team Providers + +------+ + | Care Edging Machine Feeder Name | Role | Phone | + [...] | | | [address] [place] | [facility] | (Primary Dx) | | | | [place] [address] | [facility], | | | | | [phone] | [place] [address] | | | | | | [phone] | | | | | | | [...] exposed to secondhand smoke. You may use lcrn-gfe-mssppkz medicine to control fever or pain, unless [...] loosen secretions in the nose and lungs. Uokv-dnl-zwyubgw cough, cold, and sore-throat medicines will not [...] pain with breathi ng Date Last Reviewed: 04/24/201519991009-2466 [employer]. [address] [place] [address], [place] [address]. All righ ts reserved. This information is [...] salt in1/2 cup of warm water An vlgu-hqg-ikvxufs anesthetic gargle Use medicine for more relief Tglu-dyb-mcbjkxo medicine can reduce sore throat symptoms. Ask [...] the neck or jaw Date Last Reviewed: 03/12/201619996355-7541 [employer]. [address] [place] [address]. All righ ts reserved. This information is [...] has been changed since signin Order Audit [place] Wbyflooly-Ncnounivvp-OL-APAP (NYQUIL PO) (Taking) Take by mouth. Past [...] [place] | | | | | | [address] | | | | | | | | +--------+---------+ + + + documented as of this encounter Visit Diagnoses + + | Diagnosis | + + | Acute bronchitis due to Streptococcus - Primary Acute bronchitis | + + documented in this encounter
--- OUTSIDE RECORDS SUMMARY | ~2019-08-19 | XMS | Encounter Summary ---
Demographics + + + | Address | [address] | | | [place] [address] | + + + | Home Phone [...] | Author | [facility] | | | and [place] [...] [place], | | | | | [place] [address] | | + + + + + Care Team Providers + +------+ + | Care Demo Event Specialist Name | Role | Phone | + +------+ + PCP | Unavailable | + +------+ + Encounter Details +--------+ + + + + | Date | Type | Department | Care Team | Description | +--------+ + + + + | 06/04/ | Hospital | [facility] | Angy, | | | 2006 | Encounter | MED CTR EMERGENCY | Rafita Welch MD [address] | | | | | CENTER [address] | [address] [place] | | | | | [place], [place] | [place] [address] | | | | | [address] | [phone] | | | | | [phone] | | | +--------+ + + + [...]
--- OUTSIDE RECORDS SUMMARY | ~2019-08-19 | XMS | Encounter Summary ---
Demographics + + + | Address | [address] | | | [place] [address] | + + + | Home Phone | | + + + | Preferred Language | Unknown | + + + | Marital Status | | + + + | Baptist Affiliation | 1041 | + + + | Race | Unknown | + + + | Ethnic Group | Unknown | + + + Author + + + | Author | [facility] | | | and [...] [place] | | | | | [place] [address] | | + + + + + Care Team Providers + +------+ + | Care Corn Detasseler Machine Operator Name | Role | Phone [...] | | | | CENTER [address] | [place] | | | | | [place] | [address] | | | | | [address] | | | | | | [phone] | | | +--------+ + + + [...] cannot be sent through Care Everywhere.Cysts, Ovarian (Greek)Acetaminophen; Oxycodone tablets (Greek)documented in this encounter Medications at Time of [...] [place] | | | | | | [address] | | | | | | | [...] [address] | [place] | [phone] | | [facility] | | [address] | | | - LABORATORY | | [...] 10 | 9 - 23 mg/dL | [facility] | | | | | | [facility] | | | | | | MEDICAL | | | | | | CENTER - | | | | | | LABORATORY | | + + + + + + | Creatinine | 0.65 | 0.55 - 1.02 | [facility] | | | | | mg/dL | [facility] | | | | | | MEDICAL | | | | | | CENTER - | | | | | | LABORATORY | | + + + + + + | eGFR if not | >60Comment: GLOMERULAR | >=60 | [facility] | | | | FILTRATION | mL/min/1.73m2 | [facility] | | | JAPANESE | RATE,ESTIMATED | | MEDICAL | | | | mL/min/1.41r7Uney than | | CENTER - | | [...] | 9.6 | 8.7 - 10.4 | [facility] | | | | | mg/dL | [facility] | | | | | [...] [address] | [place] | [phone] | | [facility] | | [address] | | | - LABORATORY | | [...] of any NRBC's | K/uL | [facility] | | | | in adults is [...] Trim. Absolute (K/uL) Percentage (%) | [facility] | | 1st 0.003-0.091 K/uL 0.0-0.9% 2nd 0.007-0.247 K/uL | MEDICAL CENTER | | 0.1-2.0% 3rd 0.018-0.456 K/uL 0.1-2.0% | - LABORATORY | + + + + + + + + | Performing | Address | City/State/Zipcode | Phone Number | | Organization | | | | + + + + + | [facility] | [address] | [place] | [phone] | | [facility] | | [address] | | | - LABORATORY | | [...] Specific | | | | | | [place], | | | | | | POC | | | | | + + + + + + | Lot Number | [id number] | | | | + + + [...] - 1.030 | [facility] | | | [place] | | | [facility] | | [...] URINE | Urine Culture Not | | PROVIDEDREWE | | | COMMENT | Indicated | [...] [address] | [place] | [phone] | | [facility] | | [address] | | | - LABORATORY | | [...] | | Patient Address: [address] | | | | | | | [address];[place] [address], | | | | | | + [...]
--- OUTSIDE RECORDS SUMMARY | ~2019-08-19 | XMS | Encounter Summary ---
Demographics + + + | Address | [address] | | | [place] [address] | + + + | Home Phone [...] Author | [facility] | | | [...] [place] | | | | | [place] [address] | | + + + + + Care Team Providers + +------+ + | Care Flexographic Press Helper Name | Role | Phone | + [...] | | MEDICINE [address] | [address] [facility] | | | | | Street [place] | [place] | | | | | [place] [address] | [address] | | | | | [phone] | | | +--------+ + + + [...] [place] | | | | | | [address] | | | | | | | | +--------+---------+ + + + documented as of this encounter Visit Diagnoses Not on filedocumented in this encounter"
--- OUTSIDE RECORDS SUMMARY | ~2019-08-19 | XMS | Encounter Summary ---
Demographics + + + | Address | [address] | | | [place] [address] | + + + | Home Phone [...] | Author | [facility] | | | and [...] [place] | | | | | [place] [address] | | + + + + + Care Team Providers + +------+ + | Care Inside Wireman Name | Role | Phone | + [...] + | 05/26/ | Telephone | [facility] | Dillon Govea, | Follow-up | | 2018 | | MEDICINE [address] | [address] | (pneumonia) | | | | Street [place] | [place] [facility] [place] | | | | | [place] [address] | [address] | | | | | [phone] | | | +--------+ + + + [...]
--- OUTSIDE RECORDS SUMMARY | ~2019-08-19 | XMS | Encounter Summary ---
Demographics + + + | Address | [address] | | | [place] [address] | + + + | Home Phone [...] Author | [facility] | | [...] [place] | | | | | [place] [address] | | + + + + + Care Team Providers + +------+ + | Care Fulling Mill Operator Name | Role | Phone | [...] + + | 04/25/ | Emergency | [facility] | Remigio Banda | Bronchitis with | | 2018 | | MED CTR EMERGENCY | DO Clovis [address] | bronchospasm | | | | CENTER [address] | [address] [facility] | (Primary Dx) | | | | [place], [place] | [place] [address] | | | | | [address] | [phone] | | | | | [phone] | | | +--------+ + + + [...] sent through Care Everywhere.Bronchitis with Wheezing (Adult) (East Timorese)documented in this encounter Medications at Time of [...] [place] | | | | | | [address] | | | | | | | [...] | | | | | 04/25/19 at 0, For 1 dose, Give | | PM [...]
--- OUTSIDE RECORDS SUMMARY | ~2019-08-19 | XMS | Encounter Summary ---
Demographics + + + | Address | [address] | | | [place] [address] | + + + | Home Phone | | + + + | Preferred Language | Unknown | + + + | Marital Status | | + + + | Orthodox Affiliation | 1041 | + + + | Race | Unknown | + + + | Ethnic Group | Unknown | + + + Author + + + | Author | [facility] | [...] [place] | | | | | [place] [address] | | + + + + + Care Team Providers + +------+ + | Care Junk Removal Specialist Name | Role | Phone | [...] Taiwo | | | | | | [facility] | [address] | | | | | | [place], | [place] | | | | | | [place] | [place], [place] | | | | | | [address] | [address] | | | | | | Phone: | Phone: | | | | | | [phone] | [phone] | | | | | | Fax: | | | | | | | [phone] | | + + + + + [...] | | | | CENTER [address] | [facility] [place] | (Primary Dx); Cyst | | | | [place], [place] | [place] [address] | of left ovary | | | | [address] | [phone] | | | | | [phone] | | | +--------+ + + + [...] as prescribed Outpatient pelvic ultrasound Follow-up with MATERIAL PLANNING ANALYST Follow-up with primary care AttachmentsThe following attachments cannot be sent through Care Everywhere.Ovarian Cyst (E nglish)Bronchitis, Acute (North Korean)documented in this encounter Medications at Time of [...] of this encounter Plan of Treatment + +---------+--------+ + + | Name | [...] | + + +--------+ + + | [place] | Outpatient | Routin | Cyst of left ovary | Ordered: 06/14/2019 | | Clinic AUDIT DIRECTOR & | Referral | e | | [...] + + | Performing | Address | City/State/[facility] | Phone Number | [...] | 1.010, 1.015, | | | | [place], | | 1.020, 1.025 | | | [...] - 1.030 | [facility] | | | [place] | | | [facility] | | [...] [address] | [place] | [phone] | | [facility] | | [address] | | | - LABORATORY | | [...]
--- OUTSIDE RECORDS SUMMARY | ~2019-08-19 | XMS | Encounter Summary ---
Demographics + + + | Address | [address] | | | [place] [address] | + + + | Home Phone | | + + + | Preferred Language | Unknown | + + + | Marital Status | | + + + | Confucianist Affiliation | 1041 | + + + | Race | Unknown | + + + | Ethnic Group | Unknown | + + + Author + + + | Author | [facility] | [...] [place] | | | | | [place] [address] | | + + + + + Care Team Providers + +------+ + | Care Cassandra Consultant Name | Role | Phone | + [...] + + | 02/09/ | Office | [facility] | Rakel Ortiz | Muscle cramps | | 2019 | Visit | MEDICINE [address] | [place] [address] | (Primary Dx); Left | | | | [facility] | [address] [facility] | leg pain | | | | [place] [address] | [place] [address] | | | | | [phone] | [phone] | | | | | | | [...] ays then stop 10 tablet 0 [DISCONTINUED] Ibpfmxddx-Pmnampdbgz-YZ-APAP (NYQUIL PO) Take by mouth. No facility-administered [...] this patient today. > 50% of time prenatal genetic counselor ing regarding the listed conditions, options for treatment, and possible risks, and coordina ting care. Please see assessment and plan for further details Rakel Ortiz DNP, ENRIQUETA, AMRITP-CElectronically signed by ENRIQUETA Whitfield 02/09/2019 10:29 AM PDTdocumented in this encounter Plan of Treatment Not on filedocumented as of this encounter Visit Diagnoses + + | Diagnosis | + + | Muscle cramps - Primary | + + | Left leg pain Pain in limb | + + documented in this encounter"
--- OUTSIDE RECORDS SUMMARY | ~2019-08-19 | XMS | Encounter Summary ---
Demographics + + + | Address | [address] | | | [place] [address] | + + + | Home Phone | | + + + | Preferred Language | Unknown | + + + | Marital Status | | + + + | Scientology Affiliation | 1041 | + + + | Race | Unknown | + + + | Ethnic Group | Unknown | + + + Author + + + | Author | [facility] | | | and [place] | + + + | Organization | [facility] | | | [...] [place], | | | | | [place] [address] | | + + + + + Care Team Providers + +------+ + | Care Open Source Developer Name | Role | Phone | + +------+ + PCP | Unavailable | + +------+ + Encounter Details +--------+ + + + + | Date | Type | Department | Care Team | Description | +--------+ + + + + | 05/15/ | Hospital | [facility] | [place] Eduardo Goddard | | | 2012 - | Encounter | MED CTR EMERGENCY | MD Raheel [address] | | | | | CENTER [address] | [address] [place] | | | 05/16/ | | [place], [place] | [place] [address] | | | 2012 | | [address] | [phone] | | | | | [phone] | | | +--------+ + + + [...]
--- OUTSIDE RECORDS SUMMARY | ~2019-08-19 | XMS | Clinical Summary ---
Demographics + + + | Address | [address] | | | [place] [address] | + + + | Home Phone [...] Author | [facility] | | | and [...] [place], | | | | | [place] [address] | | + + + + + Care Team Providers + +------+ + | Care Irrigation Foreman Name | Role | Phone | + [...] | | 2019 - | | | | (Primary Dx); | | | | | | Hemoptysis; Acute | | 08/19/ | | | | hypoxemic | | 2019 | | | | respiratory failure | | | | | | ([facility]); Community | | | | | | acquired pneumonia, | | | | | | unspecified | | | | | | laterality; Acute | | | | | | respiratory failure | | | | | | with hypoxia ([facility]) | +--------+ + + + + | [...] Postoperative | | 2018 | | | MD | abdominal pain | | | | [...] Frias, | | | | | | | [...] 06/25/ | Hospital | Obstetrics and | Rafita Kc | Pelvic pain (Primary | | 2018 - | Encounter | Gynecology | Jose [...] Jade Dominguez, | Ovarian cyst, right | | 2018 | | | MD | (Primary Dx) | +--------+ + + + + | 06/15/ | Office | Immediate Care | Nathan Cuevas, | Cyst of left ovary | | 2018 | Visit | | MD | (Primary Dx) | +--------+ + + + + | 06/15/ | Telephone | Internal Medicine | Jade Govea, | Appointment (Soon | | 2018 | | | MD | appointment | | | | | | requested) | +--------+ + + + + | 06/14/ | Emergency | Emergency Medicine | Jocelyn Arriaga, | Bronchitis with | | 2018 | | | MD [...] + + + + Plan of Treatment +--------+---------+ + + + | Date | Type | Specialty | Care Team | Description | +--------+---------+ + + + | 08/20/ | Office | Internal Medicine | Jade Govea, | | | 2019 | Visit | | MD Patricio KOEHLER | | | | | | [place] | | | | | | [address] | | | | | | | | +--------+---------+ + + + + + + + + | Health [...] C?MRN: | | | | | | [id number] | | | [id number] | | | riteri | | | [...] MED | | | | | | 2019 | | | 1-22 | | | [...] | | , MD | | | Patient Support Assistant | | | al | | | [...] | | | [id number] | | | [id number] | | | | | | PLEASE [...] | | n - | | | 08/14/ | | | 2019 | | | [...] C?MRN: | | | | | | [id number] | | | [id number] | | | riteri | | | [...] | | , MD | | | Patient Support Assistant | | | al | | | [...] | | | [id number] | | | [id number] | | | [id number] | | | [...] C?MRN: | | | | | | [id number] | | | [id number] | | | riteri | | | [...] | | , MD | | | Patient Support Assistant | | | al | | | [...] | | | [id number] | | | [id number] | | | [id number] | | | | | | PLEASE [...] | | n - | | | 14/ | | | 2019 | | | [...] C?MRN: | | | | | | [id number] | | | [id number] | | | riteri | | | [...] | | | MD | | | Patient Support Assistant | | | al | | | [...] Variant | Few (A) | (none) | [facility] | | | Lymphocytes | [...] + | [facility] | [address] | [place] | [phone] | | [facility] | | [address] | | | - LABORATORY | | [...] [address] | [place] | [phone] | | [facility] | | [address] | | | - LABORATORY | | [...] ranges: Trim. Absolute (K/uL) Percentage (%) | [facility] | | 1st 0.003-0.091 K/uL 0.0-0.9% 2nd 0.007-0.247 K/uL | [facility] | | 0.1-2.0% 3rd 0.018-0.456 K/uL 0.1-2.0% | - LABORATORY | + + + + + + + + | Performing | Address | City/State/Zipcode | Phone Number | | Organization | | | | + + + + + | [facility] | [address] | [place] | [phone] | | [facility] | | [address] | | | - LABORATORY | | [...] | + + + + + | [facility] | [address] | [place], [place] | [phone] | | [facility] | | [address] | | | - LABORATORY | | [...] | | | | | mg/dL | [facility] | | | | | | MEDICAL | | | | | | CENTER - | | | | | | LABORATORY | | + + + + + + | eGFR if not | >60Comment: GLOMERULAR | >=60 | [facility] | | | | FILTRATION | mL/min/1.73m2 | [facility] | | | [place] | RATE,ESTIMATED | | MEDICAL | | | | mL/min/1.69g0Piyh than | | CENTER - | | [...] | | | | | mg/dL | [facility] | | | | | [...] ST. | [address] | [place] | [phone] | | [facility] | | [address] | | | - LABORATORY | | [...] - 1.030 | [facility] | | | [place] | | | [facility] | | [...] | | EPITHELIAL | | | [facility] | | | UA | | | [...] + | [facility] | [address] | [place], [place] | [phone] | | [facility] | | [address] | | | - LABORATORY | | [...] PCR | | not performed | [facility] | | | | | | MEDICAL | | | | | | CENTER - | | | | | | LABORATORY | | + + + + + + | Influenza B | Negative | Negative, Test | [facility] | | | PCR | | not performed | [facility] | | | | [...] [address] | [place] | [phone] | | [facility] | | [address] | | | - LABORATORY | | [...] | | | | | | [employer] | | | | | [...] + | [facility] | [address] | [place], [place] | [phone] | | [facility] | | [address] | | | - LABORATORY | | [...] [address] | [place] | [phone] | | [facility] | | [address] | | | - LABORATORY | | [...] | Time | | seconds | [facility] | | | | | | MEDICAL | | | | | | CENTER - | | | | | | LABORATORY | | + + + + + + | INR | 0.9Comment: Usual Oral | 0.9 - 1.1 | [facility] | | | | Anticoagulation Range: | | [facility] | | | | 2.0 - 3.0High [...] [address] | [place] | [phone] | | [facility] | | [address] | | | - LABORATORY | | [...] Quantitativ | quantitative D-Dimer | FEU | [facility] | | | e | assay [...] [address] | [place] | [phone] | | [facility] | | [address] | | | - LABORATORY | | [...] use as of October 08, | | [facility] | | | | 2018. Check [...] [address] | [place] | [phone] | | [facility] | | [address] | | | - LABORATORY | | [...] | | | | | | by AMADOU RODRIGUEZ MD | | | | | | [address]) on 08/15/2019 | | | | | [...] report was sent by | | | [facility] with no significant discrepancy on 08/05/2019 [...] preliminary report was | | sent by [employer] with no significant discrepancyon 08/05/2019 11:16 PM.Dictated [...] | |?A preliminary report was sent by [employer] with no significant discrepancy | |on 08/05/2019 [...] use as of October 08, | | [facility] | | | | 2018. [...] [address] | [place] | [phone] | | [facility] | | [address] | | | - LABORATORY | | [...] - 1.030 | [facility] | | | [place] | | | [facility] | | [...] + | [facility] | [address] | [place], [place] | [phone] | | [facility] | | [address] | | | - LABORATORY | | [...] 1.001 - 1.030 | | | | [employer], | | | | | | UA, [...] Specific | | | | | | [place], | | | | | | POC | | | | | + + + + + + | Lot Number | [id number] | | | | + + + [...] | [employer] | | | [facility] | | [...] + | [facility] | [address] | [place], [place] | [phone] | | [facility] | | [address] | | | - LABORATORY | | [...] | | | | | | [facility] | | | | [...] | | | | | g/dL | [facility] | | | | | | MEDICAL | | | | | | CENTER - | | | | | | LABORATORY | | + + + + + + | Hematocrit | 38.6 | 34.0 - 47.0 % | [facility] | | | | | | [facility] [...] | 0.00 | 0.00 - 0.01 | [facility] | | | nRBC | | K/uL | [facility] | | | | [...] [address] | [place] | [phone] | | [facility] | | [address] | | | - LABORATORY | | [...] [facility] | | | | | | [facility] [...] (L) | 9 - 23 mg/dL | [facility] | | | | | | [facility] | | | | | | MEDICAL | | | | | | CENTER - | | | | | | LABORATORY | | + + + + + + | Creatinine | 0.50 (L) | 0.55 - 1.02 | [facility] | | | | | mg/dL | [facility] | | | | | | MEDICAL | | | | | | CENTER - | | | | | | LABORATORY | | + + + + + + | eGFR if not | >60Comment: GLOMERULAR | >=60 | [facility] | | | | FILTRATION | mL/min/1.73m2 | [facility] | | | [place] | RATE,ESTIMATED | | MEDICAL | | | | mL/min/1.19o1Lolt than | | CENTER - | | [...] [address] | [place] | [phone] | | [facility] | | [address] | | | - LABORATORY | | [...] Segment of | | | benign oviduct. JVR:[facility]:C2NR MICROSCOPIC EXAMINATION: | | | Histologic [...] excrescences are grossly | | | identified. Chemical Compounder sections are submitted in cassettes | | [...] LABORATORY: The technical component was performed by [employer] | | | [facility], [address] [place] [address] (Designated Broker: | | | Eveline White MD; CLIA# [id number]). Professional interpretation was | | | performed by [employer], [facility] | | | Branch, [facility] [place] [address] (Medical | | | Director: Amadou Aguirre [...] [address] | [place] | [phone] | | [facility] | | [address] | | | - LABORATORY | | [...] significant discrepancy. Dictated and Signed by: Cedric Haas | | MD Gloria Electronically signed: 06/14/2019 [...] +--------+-------+---------+--------+ | [facility] | [facility] | [phone] | 11/11/19 | | | [facility] | [...] | 07/31/ | | [address] | | [place] | al/Fam | | 1980 | [phone] | [address] [place], | | | iona | | | 2 (Home) | [place] [address] | + +--------+ +--------+ + + Advance Directives + + + + + | Type | Date Recorded | Patient | Explanation | | | | Chemical Compounder | | + + + + + | Power of | | | | | Juvenile Counselor | | | | + + + [...]
--- OUTSIDE RECORDS SUMMARY | ~2019-08-19 | XMS | Encounter Summary ---
Demographics + + + | Address | [address] | | | [place] [address] | + + + | Home Phone | | + + + | Preferred Language | Unknown | + + + | Marital Status | | + + + | Restorationism Affiliation | 1041 | + + + | Race | Unknown | + + + | Ethnic Group | Unknown | + + + Author + + + | Author | [facility] | | | and [place] | + + + | Organization | [facility] | | | [...] [place] | | | | | [place] [address] | | + + + + + Care Team Providers + +------+ + | Care Nuclear Physicist Name | Role | Phone | + +------+ + PCP | Unavailable | + +------+ + Encounter Details +--------+ + + + + | Date | Type | Department | Care Team | Description | +--------+ + + + + | 11/19/ | Hospital | [facility] | | | | 2008 - | Encounter | [facility] EM[facility]Y | | | | | | [address] | | | | 11/20/ | | [place] | | | | 2008 | | [address] | | | | | | [phone] | | | +--------+ + + + [...] [place] | | | | | | [address] | | | | | | | | +--------+---------+ + + + documented as of this encounter Visit Diagnoses Not on filedocumented in this encounter"
--- OUTSIDE RECORDS SUMMARY | ~2019-08-19 | XMS | Encounter Summary ---
Demographics + + + | Address | [address] | | | [place] [address] | + + + | Home Phone | | + + + | Preferred Language | Unknown | + + + | Marital Status | | + + + | Gnosticist Affiliation | 1041 | + + + | Race | Unknown | + + + | Ethnic Group | Unknown | + + + Author + + + | Author | [facility] | | | and [place] | + + + | Organization | [facility] | | [...] [place] | | | | | [place] [address] | | + + + + + Care Team Providers + +------+ + | Care Solder Cream Maker Name | Role | Phone | + [...] + + | 06/25/ | Hospital | [facility] | Rafita Kc | Pelvic pain (Primary | | 2019 - | Encounter | [facility] | [place] Hyde MD | Dx); Cyst of ovary, | | | | [address] | [address] | unspecified | | 06/27/ | | [place], [place] | [place], [place] | laterality | | 2019 | | [address] | [address] | | | | | [phone] | | | | | | | Stone Villarreal | | | | | | Murtaza Maravilla MD | | | | | | [address] | | | | | | [place], [place] | | | | | | [address] | | | | | | | | | | | | Liliam Borden DO | | | | | | [address] | | | | | | [place], [place] | | | | | | [address] | | | | | | | [...] cannot be sent through Care Everywhere.Volodymyr Fischer (Slovenian)documented in this encounter Medications at Time of [...] [place] | | | | | | [address]262 | | | | | | | [...] C?MRN: | | | | | | [id number] | | | [id number] | | | riteri | | | [...] | | | MD | | | Manager Documentation | | | al | | | [...] + | [facility] | [address] | [place] | [phone] | | [facility] | | [address] | | | - LABORATORY | | [...] [facility] | | | | | | [facility] | | | | | [...] | | Count | | | [facility] | | | | | | MEDICAL [...] [address] | [place] | [phone] | | [facility] | | [address] | | | - LABORATORY | | [...] [address] | [place] | [phone] | | [facility] | | [address] | | | - LABORATORY | | [...] mL/min/1.73m2 | [facility] | | | [place] | RATE,ESTIMATED | | MEDICAL | | | | mL/min/1.91j7Iqrh than | | CENTER - | | [...] [address] | [place] | [phone] | | [facility] | | [address] | | | - LABORATORY | | [...] ST. | [address] | [place] | [phone] | | [facility] | | [address] | | | - LABORATORY | | [...] Segment of | | | benign oviduct. JVR:[facility]:C2NR MICROSCOPIC EXAMINATION: | | | Histologic [...] excrescences are grossly | | | identified. Asset Protection Professional sections are submitted in cassettes | | [...] LABORATORY: The technical component was performed by [employer] | | | [place] [address] (Coin Machine Operator: | | | Eveline White MD; CLIA# [id number]). Professional interpretation was | | | performed by [employer], [facility] | | | [place], [address] [place] [address] (Medical | | | Director: Amadou Aguirre [...] | to the ordering provider by the health information technologist immediately | | | following the [...] the ordering provider by the | | health information technologist immediately following the exam. | | | | Dictated and Signed by: Kel Jones MD | | Electronically signed: 06/26/2019 9:08 AM | + + + +---------+ + + | Performing | Address | City/State/[facility] | Phone Number | [...] | + + + + + | [facility] | [address] | [place] | [phone] | | [facility] | | [address] | | | - LABORATORY | | [...] use as of October 08 | | [facility] | | | | 2018. [...] [address] | [place] | [phone] | | [facility] | | [address] | | | - LABORATORY | | [...] | 0.58 | 0.55 - 1.02 | [facility] | | | | | mg/dL | [facility] | | | | | | MEDICAL | | | | | | CENTER - | | | | | | LABORATORY | | + + + + + + | eGFR if not | >60Comment: GLOMERULAR | >=60 | [facility] | | | | FILTRATION | mL/min/1.73m2 | [facility] | | | [place] | RATE,ESTIMATED | | MEDICAL | | | | mL/min/1.05c4Iudh than | | CENTER - | | [...] [address] | [place] | [phone] | | [facility] | | [address] | | | - LABORATORY | | [...] ST. | [address] | [place] | [phone] | | [facility] | | [address] | | | - LABORATORY | | [...] | | | URINE | | | [facility] | | [...] [address] | [place] | [phone] | | [facility] | | [address] | | | - LABORATORY | | [...] - 1.030 | [facility] | | | [place] | | | [facility] | | [...] [address] | [place] | [phone] | | [facility] | | [address] | | | - LABORATORY | | [...] mg, Oral, ONCE, Sat | | 19 3:54 | | | [...] | mL/hr | | | CONTINUOUS, Starting Sat06/26/19 | | PM PST | | | | | at 1600, TKO., Pre-op | | | | | | + +---------+ +--------+-------+---+ +---+---+ | | | +---+---+ + +---------+ +---+-------+---+ | lactated ringers (LR) infusion | New Bag | 06/26/20 | | 100 | | | at 100 mL/hr, Intravenous, | | 19 8:58 | | mL/hr | | | CONTINUOUS, Starting Sat06/26/19 | | PM PST | | | [...] 19 7:03 | | | | | [facility] 06/25/19 at 1855, For 1 dose | [...] PST | | | | | Starting Minoo 06/25/19 at 2144, | | | | [...] | | | | | 06/26/19 at 1842, For 1 dose, | | | | [...] AM PST | | | | | Sat06/26/19 at 0000 | | | | | | + +---------+ +---+-------+---+ +---------+ +---+-------+---+ | New Bag | 15/20 | | 100 | | | | 19 12:12 | | mL/hr | | | | AM PST | | | | +---------+ +---+-------+---+ +---+---+ | | | +---+---+ documented in this encounter
--- OUTSIDE RECORDS SUMMARY | ~2019-08-19 | XMS | Encounter Summary ---
Demographics + + + | Address | [address] | | | [place] [address] | + + + | Home Phone | | + + + | Preferred Language | Unknown | + + + | Marital Status | | + + + | Rastafari Affiliation | 1041 | + + + | Race | Unknown | + + + | Ethnic Group | Unknown | + + + Author + + + | Author | [facility] | | | and [place] | + + + | Organization | [facility] | | [...] [place], | | | | | [place] [address] | | + + + + + Care Team Providers + +------+ + | Care Pharmacy Intern Name | Role | Phone | + +------+ + PCP | Unavailable | + +------+ + Encounter Details +--------+ + + + + | Date | Type | Department | Care Team | Description | +--------+ + + + + | 01/29/ | Hospital | [facility] | Angy, | | | 2010 | Encounter | MED CTR EMERGENCY | Rafita Welch MD [address] | | | | CENTER [address] | [address] [place] | | | | | [place], [place] | [place] [address] | | | | | [address] | [phone] | | | | | [phone] | | | +--------+ + + + [...]
--- OUTSIDE RECORDS SUMMARY | ~2019-08-19 | XMS | Encounter Summary ---
Demographics + + + | Address | [address] | | | [place] [address] | + + + | Home Phone | | + + + | Preferred Language | Unknown | + + + | Marital Status | | + + + | Anglican Affiliation | 1041 | + + + | Race | Unknown | + + + | Ethnic Group | Unknown | + + + Author + + + | Author | [facility] | | | and [place] | + + + | Organization | [facility] | | [...] [place] | | | | | [place] [address] | | + + + + + Care Team Providers + +------+ + | Care Auto Electrician Name | Role | Phone | + [...] [place] | | | | | [place] [address] | [address] | | | | | [phone] | | | +--------+ + + + [...] [place] | | | | | | [address] | | | | | | | | +--------+---------+ + + + documented as of this encounter Visit Diagnoses Not on filedocumented in this encounter"
--- OUTSIDE RECORDS SUMMARY | ~2019-08-19 | XMS | Encounter Summary ---
Demographics + + + | Address | [address] | | | [place] [address] | + + + | Home Phone | | + + + | Preferred Language | Unknown | + + + | Marital Status | | + + + | Jehovah'S Witness Affiliation | 1041 | + + + | Race | Unknown | + + + | Ethnic Group | Unknown | + + + Author + + + | Author | [facility] | | | and [place] | + + + | Organization | [facility] | | [...] [place] | | | | | [place] [address] | | + + + + + Care Team Providers + +------+ + | Care Friction Paint Machine Tender Name | Role | Phone | + +------+ + PCP | Unavailable | + +------+ + Encounter Details +--------+ + + + + | Date | Type | Department | Care Team | Description | +--------+ + + + + | 06/08/ | Hospital | [facility] | | | | 2006 | Encounter | MED CTR EMERGENCY | | | | | | CENTER [address] | | | | | | [place] | | | | | | [address] | | | | | | [phone] | | | +--------+ + + + [...]
--- OUTSIDE RECORDS SUMMARY | ~2019-08-19 | XMS | Encounter Summary ---
Demographics + + + | Address | [address] | | | [place] [address] | + + + | Home Phone [...] | Author | [facility] | | | and [...] [place], | | | | | [place] [address] | | + + + + + Care Team Providers + +------+ + | Care Behavioral Health Associate Name | Role | Phone | + [...] | | | | CENTER [address] | | Dx) | | | | [place] | | | | | | [address] | | | | | | [phone] | | | +--------+ + + + [...] TRACKING (3 MO.) Visit Date | [place] | | Location Type | | | Dx / Complaint -------- | | | ---- | | | 08/10/2015 18:[address] | | | [facility] Emergency -cold symptoms/body aches | | | 07/15/2015 18:33 [facility] | | | Emergency COUGH INPATIENT VISIT TRACKING (1 MO.) Visit | | | Date LocationTypeDx / Complaint | | | ED VISIT COUNT (1 | | | YR.) Visits Medicaid [place] Dx Location ------ | | | --------- 1 0 | | | [facility] 1 0 | | | [facility] 2 0 | | | Total Note: Visits indicate total known visits. Medicaid | | | [place] Dx are the number of primary diagnoses on the [facility]'s non-emergent dx | | | list. | | | | | | --- KHADIJAH has no Care Guidelines for this patient. [place] | | | Prescription Review PDMP Report [...] | | + +---------+ + + | [place] | | | | + +---------+ + + documented in this encounter Visit Diagnoses + + | Diagnosis | + + | Patient left without being seen - Primary Surgical or other procedure not carried out | | because of patient's decision | + + documented in this encounter"
--- NOTE | 2019-08-19 03:10 | NUR ---
PT TO FLOOR VIA AMBULANCE TRANSFER FROM [facility]. PT ALERT AND ORIENTED. AMB TO BR AND BACK TO BED, MERARI WELL. O2 2L/NC IN PLACE, OXYGEN SATS 98%, RR 20. PT ORIENTED TO ROOM AND NURSE CALL LIGHT. LUNCH BOX ORDERED. FAMILY IN ROOM. NO QUESTIONS OR CONCERNS AT THIS TIME. CALL LIGHT IN REACH.
--- NOTE | 2019-08-19 03:57 | NUR ---
2 LUNCH BOX PROVIDED.
--- NOTE | 2019-08-19 04:35 | NUR ---
PT MEDICATED WITH PRN FOR 8/10 CHEST PAIN ASSOCIATED WITH COUGH. PRN N/V GIVEN WELL PT STATES "PAIN MEDICINE MAKES ME NAUSEOUS".
--- NOTE | 2019-08-19 06:41 | NUR ---
PT RESTING IN BED WITH EYES CLOSED. RR EVEN AND UNLABORED. O2 1L/NC, CPOX READS 95%. IVF INFUSING. FAMILY IN ROOM. CALL LIGHT IN REACH.
--- NOTE | 2019-08-19 07:15 | NUR ---
BEDSIDE HANDOFF REPORT RECEIVED FROM TRAY LINE WORKER RN. PT RESTING IN BED. PT REQUESTING FRESH WATER, PROVIDED. PT DENIES OTHER NEEDS AT THIS TIME.
--- NOTE | 2019-08-19 07:44 | NUR ---
PATIENT SLEEPING. FAMILY IN ROOM. CALL LIGHT WITHIN REACH. NO OTHER NEEDS AT THIS TIME
--- NOTE | 2019-08-19 08:05 | NUR ---
PATIENT RESTING IN BED. DAUGHTER IN ROOM. PATIENT'S BREAKFAST ORDERED. CALL LIGHT WITHIN REACH. NO OTHER NEEDS AT THIS TIME
--- NOTE | 2019-08-19 08:25 | NUR ---
In and spoke with Holly. She has cough and is wearing a mask. States she has been sick since before the new year. Lives in [place] and was transfered here as their ER was full. States she has been coughing bloody sputum since yesterday, with pain and pressure in chest. 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 Plans on discharging home when she is feeling better, boyfriend and daughter will assist her until she is feeling better. Boyfriend will drive her home on dc.
--- NOTE | 2019-08-19 08:54 | NUR ---
PT RESTING IN BED. PT 97% ON 1L NC, WEANED TO ROOM AIR, O2 SATS 96% ON ROOM AIR, LUNG SOUNDS CLEAR/DIMINISHED WITH WHEEZE TO RIGHT SIDE. BOWEL TONES ACTIVE, PT DENIES NAUSEA, TOLERATING REGULAR DIET. IV FLUIDS INFUSING D5 1/2NS +20MEQK AT 125ML/HR. PT WITHOUT EDEMA, CMS INTACT. PT COMPLAINT OF PAIN IN CHEST WITH COUGHING, NO PAIN AT REST. MORNING MEDICATIONS ADMINISTERED PER ORDER. PT DENIES OTHER NEEDS AT THIS TIME.
--- NOTE | 2019-08-19 09:40 | NUR ---
PATIENT SITTING UP IN BED. DAUGHTER IN ROOM. VITAL SIGNS AND I&O DONE. CALL LIGHT WITHIN REACH. NO OTHER NEEDS AT THIS TIME
--- NOTE | 2019-08-19 10:47 | NUR ---
PATIENT SITTING UP IN BED. DAUGHTER IN ROOM. PATIENT'S IV WRAPPED. SETS UP THE BATHROOM FOR SHOWER. CALL LIGHT WITHIN REACH. NO OTHER NEEDS AT THIS TIME
--- NOTE | 2019-08-19 10:55 | NUR ---
PT CONCERNED ABOUT VAGINAL BLEEDING, DENIES ABD PAIN, DISCUSSED THAT BLEEDING IS LIKELY MENSES DUE TO TIME FRAME FROM OVARIAN CYST REMOVAL, DR. SILVERMAN NOTIFIED. PT SALINE LOCKED FOR SHOWER.
--- NOTE | 2019-08-19 12:04 | NUR ---
PT COMPLETED WITH SHOWER. IV UNASYN GIVEN. CONTINUOUS PULSE OX IN PLACE, 94% ON ROOM AIR. PT WITH GOOD APPETITE, AT 95% OF LUNCH. PT DENIES OTHER NEEDS AT THIS TIME.
--- NOTE | 2019-08-19 14:15 | NUR ---
PATIENT RESTING IN BED. FAMILY IN ROOM. VITAL SIGNS AND I&O DONE. ICE WATER GIVEN. CALL LIGHT WITHIN REACH. NO OTHER NEEDS AT THIS TIME
--- NOTE | 2019-08-19 15:30 | NUR ---
PT ASSISTED TO BATHROOM, SBA, VOIDED AND HAD BM. PT ASSISTED BACK TO BED. O2 SATS 94% ON ROOM AIR, TACHYCARDIC 110'S UPON RETURNING TO BED, QUICKLY RECOVERED TO 90'S WITHIN 1 MINUTE OF REST. PT DENIES OTHER NEEDS AT THIS TIME.
--- NOTE | 2019-08-19 16:25 | NUR ---
PT WITH COUGHING FIT, NONPRODUCTIVE, O2 SATS REMAINED IN 90'S. PT STATES SHE FEELS A TICKLE LIKE SOMETHING IS STUCK IN HER THROAT. PT WITH SMALL AMOUNT OF EPISTAXIS WHEN BLOWING NOSE. PT COMPLAINT OF PAIN WITH COUGHING, DISCUSSED CEPACOL THROAT LOZENGE WITH DR. SILVERMAN, TELEPHONE ORDER GIVEN.
--- NOTE | 2019-08-19 17:45 | NUR ---
PT WEANED TO ROOM AIR, O2 SATS 94-96% ON ROOM AIR, CONTINUOUS PULSE OX IN PLACE, OCCASIONAL DRY COUGH AND COUGHING FITS, CEPACOL LOZENGE ORDERED. PT SBA TO AMBULATE. CMS INTACT, WIHTOUT EDEMA. PT VOIDING QS. D5 1/2NS +20MEQ K INFUSING AT 125, IV UNASYN.
--- NOTE | 2019-08-19 17:52 | NUR ---
PATIENT RESTING IN BED. VITAL SIGNS AND I&O DONE. CALL LIGHT WITHIN REACH. NO OTHER NEEDS AT THIS TIME
--- NOTE | 2019-08-19 19:55 | NUR ---
PATIENT RESTING IN BED WATCHING TV. NO NEEDS AT THIS TIME. CALL LIGHT IN REACH.
--- NOTE | 2019-08-19 20:23 | NUR ---
PATIENT VISITING WITH FAMILY IN ROOM AND 1PA TO THE BATHROOM. RT REPLACING PULSE OX MACHINE BEING REPLACED IT IS BEING GLITCHY. CALL LIGHT IN REACH.
--- NOTE | 2019-08-19 21:05 | NUR ---
ROUNDED CHARGE. PATIENT IS RESTING IN BED. PATIENT DENIES ANY COMMENTS, QUESTION OR CONCERNS. NO NEEDS NOTED. CALL LIGHT IN REACH.
--- NOTE | 2019-08-20 00:21 | NUR ---
PATIENT GOT UP AND USED THE RESTROOM AND HER IV WAS NOW LEAKING AND HAD TO BE CHANGED. NEW 22G IV IN THE LFA STARTED AND INFUSING WELL, PATIENT GOING BACK TO SLEEP AND CALL LIGHT IN REACH.
--- NOTE | 2019-08-20 02:15 | NUR ---
PATIENT WAS SLEEPING, JUST DOING ASSESSMENT AND VITALS, PATIENT HAS NO C/O PAIN SATS ARE IN THE 90'S, NEW IV INFUSING AND WNL. CALL LIGHT AND NEW WATER IN REACH WHEN i LEFT THE ROOM.
--- NOTE | 2019-08-20 04:04 | NUR ---
PATIENT RESTING QUIETLY, EYES CLOSED RESPIRATIONS REGULAR AND EVEN, SATS=95% ON RA, AND HR=80. CALL LIGHT IN REACH.
--- NOTE | 2019-08-20 05:21 | NUR ---
PATIENT HAS SLEPT WHENEVER PATIENT CARRE WAS NOT BEING NEEDED. PATIENT HAS BEEN UP TO THE BATHROOM MULTIPLE TIMES AND VOIDING WELL. PATIENT DID SIT ON HER IV ONCE AFTER COMING BACK FROM THE BATHROOM. IV EVENTUALLY STARTED TO LEAK AND HAD TO BE PULLED, NO INFILTRATION, AND NEW 22G LFA IV STARTED WITH 1 ATTEMPT AND IT IS STILL WORKING WELL AT THIS TIME AND 5AM ANTIBIOTIC STARTED. HAS LEFT FOR WORK, PATIENT'S DAUGHTER REMAINS WITH HER IN THE ROOM SLEEPING ON THE COUCH. PATIENT ANXIOUS TO BE DISCHARGED TODAY. STILL HAS A LOT OF ROUGH COARSE/WHEEZING AT TIMES/ AND SOME CRACKLES DEPENDING ON WHAT SHE HAS BEEN DOING AND COUGHING UP A LOT OF SPUTUM WITH CHARD COARSE COUGH. RESTING AT THIS TIME AND REMAINS ON PULSE OX WITH SATS IN THE 90'S ON ROOM AIR. VS STABLE. GIVEN NEW WATER AND CALL LIGHT IN REACH.
--- NOTE | 2019-08-20 07:05 | NUR ---
BEDSIDE HANDOFF REPORT RECEIVED FROM IMMIGRATION SPECIALIST RN. PT RESTING IN BED. O2 SATS 96% ON ROOM AIR. PT PROVIDED WITH FRESH WATER. PT DENIES OTHER NEEDS AT THIS TIME.
--- NOTE | 2019-08-20 08:00 | NUR ---
PT RESTING IN BED. PT ON ROOM AIR, O2 SATS 96%. PT DENIES NAUSEA, BOWEL TONES ACTIVE, TOLERATING REGULAR DIET. CMS INTACT, WIHTOUT EDEMA. IV FLUIDS INFUSING D5 1/2NS +20MEQ KCL AT 125 ML/HR. DISCUSSED PLAN OF CARE FOR THE DAY. PT HOPING TO DICHARGE TODAY.
[2019-08-20] MEDS ORDERED: AUGMENTIN 875-1 EACH PO (09:49)
[2019-08-20] MEDS ORDERED: TYLENOL325 MG PO (09:56)
[2019-08-20] MEDS ORDERED: CEFDINIR300 MG PO (09:57)
[2019-08-20] MEDS ORDERED: ZITHROMAX250 MG PO (09:57)
--- NOTE | 2019-08-20 09:59 | NUR ---
MED REC COMPLETE
--- NOTE | 2019-08-20 10:53 | NUR ---
DISCHARGE INSTRUCTIONS COMEPLETED WITH PT. MEDICATIONS REVIEWED. PT INSTRUCTED TO DRINK PLENTY OF FLUIDS, TAKE ANTIBIOTICS DIRECTED AND TO FOLLOW UP WITH PCP SCHEDULED OR IF NOT IMRPOVING. PT VERBALIZED UNDERSTANDING. VSS. IV CATH REMOVED.
--- NOTE | 2019-08-21 10:59 | NUR ---
TALKED WITH PT ABOUT HER RECENT VISIT SHE STATES SHE IS FEELING BETTER AND KNOWS SHE HAS A WAYS TO GO TO BE TOTALLY WELL. STATES HER CARE HER WAS WONDERFUL. SHE GOT HER MEDS FILLED AND IS TAKING THEM. UNDERSTANDS THE PURPOSE AND THE SIDE EFFECTS OF THE MEDS.
== END 2019-08-20 11:00 | disposition home or self-care (01) | DRG 194 ==
LOC: MS 02:21 → EDSTATUS 10:44 → MS 08-20 11:00
PROVIDERS: ADMIT Internal Medicine
DX: J18.9 Pneumonia, unspecified organism (principal); R04.2 Hemoptysis; R09.02 Hypoxemia; M54.9 Dorsalgia, unspecified; F41.9 Anxiety disorder, unspecified
CPT/HCPCS: 36415; 80048; 85025; 94640; 94667; 94668; 94762; J0295; J1170; J2405; J3480